=== PATIENT | female | born 1980 | race Caucasian/White ===

== ENCOUNTER 2016-10-22 12:23 | Inpatient (IN) | payer MEDICAID ==
[~2016-10-22] VITALS: Ht 157.5 cm; Wt 61.9 kg
[~2016-10-22 12:23] MED LIST: DESERYL100 MG PO; KLONOPIN0.5 MG PO
[2016-10-22 14:01] LABS: BASOPHILS 0.2 % (0.0-2.0); EOSINOPHILS 0.9 % (0-7); HEMOGLOBIN 9.7 g/dL (12-16); IMMATURE GRANULOCYTES 0.7 % (0-5); LYMPHOCYTES 20.8 % (15-50); MCH 34.3 pg (26.0-34.0); MCHC 32.3 g/dL (31.0-37.0); MEAN PLATELET VOLUME 9.6 fL (7.4-10.4); MONOCYTES 7.5 % (2-11); NEUTROPHILS 69.9 % (40-80); RBC 2.83 10x6/uL (4.00-5.40); RDW 18.6 % (11.5-14.5); WBC 13.8 10x3/uL (4.8-10.8)
[2016-10-22 14:02] LABS: PLATELET COUNT 518 10x3/uL (130-400)
[2016-10-22 14:06] LABS: ALBUMIN 2.8 g/dL (3.4-5.0); ANION GAP 15.4 mmol/L (8-16); BILIRUBIN - TOTAL 0.77 mg/dL (0.2-1.3); CALCIUM 8.4 mg/dL (8.5-10.1); CARBON DIOXIDE 32.9 mmol/L (21.0-32.0); PROTEIN - SERUM 7.3 g/dL (6.4-8.2)
[2016-10-22 14:10] LABS: APPEARANCE SLT CLOUDY (CLEAR); BILIRUBIN NEGATIVE (NEGATIVE); COLOR DK YELLOW (YELLOW); GLUCOSE NEGATIVE (NEGATIVE); KETONE NEGATIVE (NEGATIVE); LEUKOCYTE ESTERASE 2+ (NEGATIVE); NITRITE NEGATIVE (NEGATIVE); PROTEIN NEGATIVE (NEGATIVE); SPECIFIC GRAVITY 1.015 (1.005-1.020)
[2016-10-22 14:11] LABS: BACTERIA MANY /hpf (NONE SEEN); MUCUS <1+ /lpf (NONE SEEN); RED CELLS - URINE OCC /hpf (0-5)
[2016-10-22 14:23] LABS: POTASSIUM - SERUM 2.3 mmol/L (3.5-5.1)
--- NOTE | 2016-10-22 16:23 | NUR ---
Patient Name: DILIA OSULLIVAN Admission Status: ER Accout number: [id number] Admission Date: 10-22-2016 : 1980 Admission Diagnosis: HYPOKALEMIA Attending: FELECIA Current LOS: 1 Anticipated DC Date: 10-25-2016 Planned Disposition: Home Primary [place]: [place] PR[place] OPT[place] Discharge Planning Comments: Cm met with patient to complete initial dc planning assessment. Patient gave consent to complete assessment. Patient lives in at home with her boyfriend. She is independent in her care at home. She denied use of community resources or DME. She denied dc needs at this time. CM will continue to follow and will assist with dc plans/needs. Dimpling Machine Operator: Shaniqua Joseph RN, [facility] [phone] Is the patient Alert and Oriented? Yes * How many steps to enter\exit or inside your home? four * PCP Dr. Whaley * [facility] [address] * Preadmission Environment Home with Family * ADLs Independent * Equipment None * List name and contact numbers for known caregivers / representatives who currently or will assist patient after discharge: Roger Chiang - boyfriend - [phone] * Community resources currently utilized None * Additional services required to return to the preadmission environment? No * Can the patient safely return to the preadmission environment? Yes * Has this patient been hospitalized within the prior 30 days at any hospital? No
[2016-10-22 17:02] VITALS: BP 117/63; BMI 22.0
[2016-10-22 17:05] VITALS: BP 139/87
--- NOTE | 2016-10-22 18:02 | NUR ---
PT SITTING UP IN BED WATCHING TV DENIES NEEDS WILL CONT TO MONITOR
--- NOTE | 2016-10-22 18:54 | NUR ---
PT PULLED OUT PIV IN R FA. CATH TIP INTACT. RESTIED TO LEFT HAND 22G X1 STICK
[2016-10-22 20:00] VITALS: BP 122/78
--- NOTE | 2016-10-23 00:15 | NUR ---
1944)REC'D TALKING ON PHONE. DENIES ANY CONPLAINTS AT PRESENT TIME.WILL CONTINUE TO MONITOR FOR ANY CHGES. AND FOLLOW CURRENT PLAN OF CARE
--- NOTE | 2016-10-23 00:23 | NUR ---
0000)AMB. TO DESK STATES ACHING ALL OVER.HAS NOTHING FOR PAIN ORDERED.HOUSESUPERVISOR HERE.DR. QUEVEDO RIVETING MACHINE OPERATOR TAPE CONTROL.PAGED NO NEW ORDERS REC'D AT PRESENT TIME
--- NOTE | 2016-10-23 00:30 | NUR ---
EMERGENCY SPILL RESPONSE TECHNICIAN AT BEDSIDE FOR VS. NEEDS ADDRESSED AT THIS TIME. CALL LIGHT IN REACH. WILL CONT TO MONITOR.
[2016-10-23 02:00] VITALS: BP 106/68
[2016-10-23 04:00] VITALS: BP 109/71
[2016-10-23 06:02] LABS: BASOPHILS 0.2 % (0.0-2.0); EOSINOPHILS 2.4 % (0-7); IMMATURE GRANULOCYTES 0.7 % (0-5); LYMPHOCYTES 29.3 % (15-50); MCH 33.8 pg (26.0-34.0); MCV 105.5 fL (80.0-100.0); MEAN PLATELET VOLUME 9.7 fL (7.4-10.4); MONOCYTES 9.8 % (2-11); NEUTROPHILS 57.6 % (40-80); PLATELET COUNT 439 10x3/uL (130-400); RDW 18.9 % (11.5-14.5); WBC 10.9 10x3/uL (4.8-10.8)
[2016-10-23 06:10] LABS: HEMATOCRIT 23.1 % (36.0-48.0); HEMOGLOBIN 7.4 g/dL (12-16); RBC 2.19 10x6/uL (4.00-5.40)
[2016-10-23 06:18] LABS: CALC OSMOLALITY 274 mosm/kg (275-300); CALCIUM 7.2 mg/dL (8.5-10.1); CARBON DIOXIDE 31.5 mmol/L (21.0-32.0); CHLORIDE - SERUM 101 mmol/L (98-107); GLUCOSE 105 mg/dL (74-106); SODIUM 139 mmol/L (136-145); UREA NITROGEN 5 mg/dL (7-18)
[2016-10-23 06:30] LABS: CREATININE - SERUM 0.7 mg/dL (0.6-1.3); eGFR NON AFRICAN AMERICAN > 90 mL/min (90-120)
--- NOTE | 2016-10-23 06:34 | NUR ---
0130)DR QUEVEDO PAGED AGAIN WITH NO RESPONSE HOUSESUPERVISOR JAMIL PALMA NOTIFIED
[2016-10-23 07:42] VITALS: BP 111/70
[2016-10-23 07:50] LABS: BASOPHILS 0.2 % (0.0-2.0); EOSINOPHILS 1.8 % (0-7); IMMATURE GRANULOCYTES 0.7 % (0-5); LYMPHOCYTES 25.3 % (15-50); MCH 34.1 pg (26.0-34.0); MCHC 32.2 g/dL (31.0-37.0); MEAN PLATELET VOLUME 9.2 fL (7.4-10.4); MONOCYTES 10.5 % (2-11); NEUTROPHILS 61.5 % (40-80); PLATELET COUNT 400 10x3/uL (130-400); RBC 2.17 10x6/uL (4.00-5.40); RDW 18.9 % (11.5-14.5); WBC 10.1 10x3/uL (4.8-10.8)
[2016-10-23 07:54] LABS: HEMOGLOBIN 7.4 g/dL (12-16)
--- NOTE | 2016-10-23 07:54 | NUR ---
PAGED R/T CL HGB OF 7.4. HE WANTED LAB REPEATED. LAB REDRAWN AND CALLED BACK WITH CL HGB STILL 7.4. STATED HE WILL ADDRESS WHEN HE COMES IN.
[2016-10-23 10:03] VITALS: Ht 157.5 cm; Wt 61.9 kg
[2016-10-23 10:26] LABS: % SATURATION 23 % (15-55); IRON 49 ug/dl (35-150); TOTAL IRON BIND CAPACITY 207 ug/dl (260-445); UNSAT IRON BIND CAPACITY 158 ug/dl (150-375)
--- NOTE | 2016-10-23 10:27 | NUR ---
INITIATED PTS IV CALCIUM GLUCONATE ORDERED. PT STILL C/O PAIN AND CRAMPING, PROVIDED TYLENOL ORDERED. PT DENIES ANY FURTHER NEEDS AT THIS TIME. CL IN REACH. WILL CPOC.
[2016-10-23 11:12] VITALS: BP 111/72
[2016-10-23 15:25] VITALS: BP 122/85
[2016-10-23 20:00] VITALS: BP 122/92
[2016-10-23] MEDS ORDERED: DESERYL100 MG PO (20:11)
[2016-10-23] MEDS ORDERED: KLONOPIN0.5 MG PO (20:11)
[2016-10-23] MEDS ORDERED: PROAIR HFA8.5 GM INH (20:12)
--- NOTE | 2016-10-23 20:13 | NUR ---
PT ASKING FOR SOMETHING STRONGER THAN TYELNOL FOR PAIN, C/O PAIN TO LEGS AND BACK, STATED THAT THE TYLENOL HASNT HELPED. PAGE OUT TO DR PEREZ.
--- NOTE | 2016-10-23 20:39 | NUR ---
HS MEDS GIVEN WITH FRESH ICE WATER. ULTRAM 1 TAB GIVEN FOR C/O PAIN TO LEGS, PT C/O CRAMPING. WILL CONT TO MONITOR.
[2016-10-24] VITALS: BP 117/73
--- NOTE | 2016-10-24 01:04 | NUR ---
RESTING WITH EYES CLOSED, RESPERATIONS EVEN, NO S/S DISTRESS NOTED.
[2016-10-24 04:00] VITALS: BP 111/76
[2016-10-24 04:33] LABS: BASOPHILS 0.1 % (0.0-2.0); EOSINOPHILS 2.4 % (0-7); IMMATURE GRANULOCYTES 1.2 % (0-5); LYMPHOCYTES 26.6 % (15-50); MCHC 31.3 g/dL (31.0-37.0); MEAN PLATELET VOLUME 9.7 fL (7.4-10.4); MONOCYTES 10.5 % (2-11); NEUTROPHILS 59.2 % (40-80); PLATELET COUNT 413 10x3/uL (130-400); RBC 2.12 10x6/uL (4.00-5.40); RDW 19.7 % (11.5-14.5); WBC 11.1 10x3/uL (4.8-10.8)
[2016-10-24 04:49] LABS: HEMOGLOBIN 7.2 g/dL (12-16); MCV 108.5 fL (80.0-100.0)
[2016-10-24 05:07] LABS: CALC OSMOLALITY 279 mosm/kg (275-300); CHLORIDE - SERUM 107 mmol/L (98-107); CREATININE - SERUM 0.8 mg/dL (0.6-1.3); GLUCOSE 107 mg/dL (74-106); PHOSPHOROUS 2.7 mg/dL (2.5-4.9); SODIUM 142 mmol/L (136-145); UREA NITROGEN 4 mg/dL (7-18); eGFR NON AFRICAN AMERICAN 86 mL/min (90-120)
[2016-10-24 05:15] LABS: CALCIUM 6.6 mg/dL (8.5-10.1); MAGNESIUM - SERUM 2.2 mg/dL (1.8-2.4); POTASSIUM - SERUM 3.6 mmol/L (3.5-5.1)
[2016-10-24 05:17] LABS: ALBUMIN 2.1 g/dL (3.4-5.0)
--- NOTE | 2016-10-24 06:16 | NUR ---
SPOKE WITH DR PEREZ, INFORMED HIM OF PTS CRITICAL LABS, NO NEW ORDERS GIVEN AT THIS TIME, DR PEREZ STATED THAT HE "WILL BE THERE IN A LITTLE BIT TO ADDRESS"
[2016-10-24 07:47] VITALS: BP 114/79
[2016-10-24 09:17] LABS: FOLATE (FOLIC ACID) - SERUM 11.7 ng/mL (>3.0)
[2016-10-24 11:06] VITALS: BP 129/90
--- NOTE | 2016-10-24 11:34 | NUR ---
INITIATED PTS BLOOD TRANSFUSION AFTER CONSENTS WERE SIGNED AND PLACED IN CHART. PT RECIEVING IT VIA L.HAND PIV WITH DRSG CDI AND SWAB CAPS IN USE. PRE VITALS 97.7 TEMP, HR 101, BP 113/74, RR 14. WILL CONTINUE TO STAY IN ROOM FOR FIRST 15 MINS TO MAKE SURE NO REACTION IS NOTED. PT DENIES ANY CURRENT PAIN OR NEEDS. CL IN REACH, WILL CPOC.
--- NOTE | 2016-10-24 12:29 | NUR ---
NO REACTION NOTED AFTER FIRST 15MINS OF TRANSFUSION. WILL INCREASE RATE TO 125ML/HR AT THIS TIME. VSS. NO FURTHER NEEDS. WILL CPOC.
--- NOTE | 2016-10-24 14:23 | NUR ---
FIRST UNIT OF PRBCS GIVEN AND NO REACTION NOTED. WILL NOW START SECOND UNIT. VSS. PT RESTING QUIETLY DENIES ANY NEEDS.
[2016-10-24 16:12] VITALS: BP 119/71
[2016-10-24 19:00] VITALS: BP 134/96
--- NOTE | 2016-10-24 22:24 | NUR ---
HS MEDS GIVEN WITH FRESH ICE WATER.
--- NOTE | 2016-10-24 23:30 | NUR ---
ULTRAM 1 TAB GIVEN FOR C/O PAIN, RATES PAIN AT AN 8 ON PAIN SCALE.
--- NOTE | 2016-10-25 02:46 | NUR ---
RESTING WITH EYES CLOSED, RESPERATIONS EVEN, NO S/S DISTRESS NOTED.
--- NOTE | 2016-10-25 06:48 | NUR ---
MEDITECH DOWN THROUGH OUT THE NIGHT, SEE PAPER NARRATIVE.
[2016-10-25 07:43] LABS: BASOPHILS 0.1 % (0.0-2.0); EOSINOPHILS 1.7 % (0-7); IMMATURE GRANULOCYTES 0.7 % (0-5); LYMPHOCYTES 20.6 % (15-50); MCH 31.9 pg (26.0-34.0); MCHC 32.2 g/dL (31.0-37.0); MEAN PLATELET VOLUME 9.6 fL (7.4-10.4); MONOCYTES 9.5 % (2-11); NEUTROPHILS 67.4 % (40-80); PLATELET COUNT 356 10x3/uL (130-400); RDW 23.3 % (11.5-14.5)
[2016-10-25 07:44] LABS: HEMATOCRIT 32.9 % (36.0-48.0); HEMOGLOBIN 10.6 g/dL (12-16); MCV 99.1 fL (80.0-100.0); RBC 3.32 10x6/uL (4.00-5.40); WBC 14.2 10x3/uL (4.8-10.8)
[2016-10-25 08:01] LABS: ALKALINE PHOSPHATASE 172 U/L (46-116); ALT (SGPT) 20 U/L (10-68); BILIRUBIN - TOTAL 0.54 mg/dL (0.2-1.3); CALC OSMOLALITY 275 mosm/kg (275-300); CARBON DIOXIDE 24.9 mmol/L (21.0-32.0); CHLORIDE - SERUM 105 mmol/L (98-107); CREATININE - SERUM 0.6 mg/dL (0.6-1.3); GLUCOSE 91 mg/dL (74-106); PHOSPHOROUS 2.7 mg/dL (2.5-4.9); POTASSIUM - SERUM 3.9 mmol/L (3.5-5.1); PROTEIN - SERUM 5.7 g/dL (6.4-8.2); SODIUM 140 mmol/L (136-145); UREA NITROGEN 5 mg/dL (7-18); eGFR NON AFRICAN AMERICAN > 90 mL/min (90-120)
[2016-10-25 08:02] LABS: MAGNESIUM - SERUM 1.2 mg/dL (1.8-2.4)
[2016-10-25 08:03] LABS: CALCIUM 6.6 mg/dL (8.5-10.1)
[2016-10-25 08:50] VITALS: BP 128/81
[2016-10-25 11:54] VITALS: BP 132/89
[2016-10-25 16:09] VITALS: BP 108/70
[2016-10-25 19:00] VITALS: BP 153/103
--- NOTE | 2016-10-25 19:02 | NUR ---
OT NOTE: PT COMPLETED SELF FEEDING WITH SET UP. PT COMPLETED BUE AROM EXS FOR INCREASED TRACK INSPECTING SUPERVISOR STRENGTH IN RUE. PT COMPLETED BED MOB WITH SBA. THANK YOU, JAMESON MENDEZ/David
--- NOTE | 2016-10-25 22:13 | NUR ---
HS MEDS GIVEN, ULTRAM 1 TAB GIVEN FOR C/O PAIN. RATES PAIN AT AN 8 ON PAIN SCALE.
[2016-10-26] VITALS: BP 126/87
--- NOTE | 2016-10-26 00:56 | NUR ---
RESTING WITH EYES CLOSED, RESPERATIONS EVEN, NO S/S DISTRESS NOTED.
--- NOTE | 2016-10-26 03:41 | NUR ---
LAUNCH LEADER AT BEDSIDE TO OBTAIN VITALS, CALL LIGHT IN REACH. WILL CONTINUE WITH PLAN OF CARE.
[2016-10-26 04:00] VITALS: BP 104/55
[2016-10-26 05:18] LABS: BASOPHILS 0.2 % (0.0-2.0); EOSINOPHILS 1.4 % (0-7); HEMATOCRIT 33.7 % (36.0-48.0); HEMOGLOBIN 10.7 g/dL (12-16); IMMATURE GRANULOCYTES 0.5 % (0-5); LYMPHOCYTES 20.2 % (15-50); MCHC 31.8 g/dL (31.0-37.0); MCV 100.9 fL (80.0-100.0); MEAN PLATELET VOLUME 9.7 fL (7.4-10.4); MONOCYTES 10.2 % (2-11); NEUTROPHILS 67.5 % (40-80); PLATELET COUNT 355 10x3/uL (130-400); RBC 3.34 10x6/uL (4.00-5.40); RDW 22.8 % (11.5-14.5); WBC 12.4 10x3/uL (4.8-10.8)
[2016-10-26 05:37] LABS: ALBUMIN 2.5 g/dL (3.4-5.0); ALKALINE PHOSPHATASE 154 U/L (46-116); ALT (SGPT) 19 U/L (10-68); BILIRUBIN - TOTAL 0.66 mg/dL (0.2-1.3); CALC OSMOLALITY 273 mosm/kg (275-300); CALCIUM 7.1 mg/dL (8.5-10.1); CARBON DIOXIDE 23.4 mmol/L (21.0-32.0); CHLORIDE - SERUM 105 mmol/L (98-107); CREATININE - SERUM 0.7 mg/dL (0.6-1.3); GLUCOSE 88 mg/dL (74-106); MAGNESIUM - SERUM 1.3 mg/dL (1.8-2.4); PHOSPHOROUS 2.7 mg/dL (2.5-4.9); PROTEIN - SERUM 6.2 g/dL (6.4-8.2); SODIUM 139 mmol/L (136-145); UREA NITROGEN 5 mg/dL (7-18); eGFR NON AFRICAN AMERICAN > 90 mL/min (90-120)
[2016-10-26 05:42] LABS: POTASSIUM - SERUM 4.5 mmol/L (3.5-5.1)
--- NOTE | 2016-10-26 08:00 | NUR ---
THADDEUS I SAWAKE AND ALERT. SHE WAS GETTING UP OOB TO THE RESTROOM WITH HER SPOUSE AT THE BEDSIDE. PEDAL EDEMA NOTED. RIGHT HAND WEAKNESS NOTED. HER LUNGS ARE CLEAR, TACHYCARDIA NOTED. SHE IS WEARING HER TELEMETRY. IV INFUSING TO THE TOP OF HER LEFT HAND. THERE IS NO REDNESS OR EDEMA NOTED AT THE INSERTION SITE. SHE STATES THAT THE DOCTOR TELLS HER THAT THE WEAKNESS IN HER RIGHT HAND AND FOOT ARE DUE TO HER MALNUTRITION. SHE STATES THAT SHE IS NOT SUPRISED THAT SHE IS GOING TO HAVE MORE CALCIUM AND MAGNESIUM PIGGYBACKS TODAY.
[2016-10-26 08:24] VITALS: BP 123/72
--- NOTE | 2016-10-26 08:40 | NUR ---
PATIENT IS RESTING QUIELTY WITH EYES CLOSED, RESPIRATIONS ARE DEEP AND EVEN.
--- NOTE | 2016-10-26 09:50 | NUR ---
patient back to bed after walkingin the navarro with PT.
[2016-10-26 11:55] VITALS: BP 150/99
--- NOTE | 2016-10-26 12:23 | NUR ---
PATIENT IS SITTING UP IN HER BED, HOB UP 45 DEGREES. SHE IS EATING HER LUNCH AND HAS REQUESTS FOR CONDAMENTS, RELAYED TO THE KITCHEN.
--- NOTE | 2016-10-26 12:28 | NUR ---
OT NOTE: PT RESTING IN BED; REPORTED NO IMPROVEMENT TO R HAND. CONT TO REPORT SIGNIFICANT FEELING OF EDEMA; PERFORMED RETROGRADE MASSAGE TO R HAND; PT ABLE TO DISTINGUISH AREA OF PAIN TODAY, WHICH WAS THUMB THROUGH 3RD DIGIT..YESTERDAY SHE COULD NOT IDENTIFIY SPECIFIC AREA. PROVIDED AROM EXS AND ELEVATED R HAND
--- NOTE | 2016-10-26 13:16 | NUR ---
Nutrition Consult/Follow Up: Spoke with pt regarding high K+ foods, healthy diet, being more active and decreasing ETOH intake. Pt reported that she eats 3 meals/d and loves fruit. Pt stated that she feels that she has "hit rock bottom" and this has been a "wake up call" to her. She said that she plans to stop drinking alcohol. RD encouraged pt to contact RD with any concerns/questions regarding her diet. Pt is eating 100% meal avg on a regular diet. No BM noted since admit. Wt stable. Meds noted including NS KCl @ 100 ml/hr, Albumin, Vit B12, Flagyl. Labs reviewed - K+ improving; Ca and Mg continue decreased. Thank you for the consult. Rec continue current diet. RD will continue to monitor pt progress.
[2016-10-26 16:21] VITALS: BP 125/56
--- NOTE | 2016-10-26 18:04 | NUR ---
PATIENT SITTING UP IN HER BED, WITH PILLOWS FOR COMFORT. HER IV IS INFUSING TO THE TOP OF HER LEFT HAND.
--- NOTE | 2016-10-26 18:19 | NUR ---
OT NOTE: PT COMPLETED DYNAMIC SITTING BALANCE WITH BUE AROM EXS. PT COMPLETED RUE LIVESTOCK COMMISSION AGENT EXS WITH NO C/O OF PAIN. PT COMPLETED HYGIENE TASK WITH SET UP. THANK YOU, BRUCE MENDEZ
--- NOTE | 2016-10-26 19:35 | NUR ---
RECEIVED REPORT FROM DAY NURSE, BED IS LOW, SRX2, CALL LIGHT IN REACH, WILL CONTINUE TO MONITOR
[2016-10-26 20:00] VITALS: BP 134/76
[2016-10-27] VITALS: BP 118/98
--- NOTE | 2016-10-27 04:17 | NUR ---
CLOTHING DESIGNER AT BEDSIDE TO OBTAIN VITALS, CALL LIGHT IN REACH. WILL CONTINUE WITH PLAN OF CARE.
--- NOTE | 2016-10-27 05:05 | NUR ---
PT UP TO RESTROOM, DENIES ANY NEEDS, WILL CONTINUE TO MONITOR
[2016-10-27 05:21] LABS: BASOPHILS 0.2 % (0.0-2.0); EOSINOPHILS 1.9 % (0-7); HEMATOCRIT 31.9 % (36.0-48.0); IMMATURE GRANULOCYTES 0.3 % (0-5); LYMPHOCYTES 18.1 % (15-50); MCH 32.3 pg (26.0-34.0); MCHC 31.3 g/dL (31.0-37.0); MEAN PLATELET VOLUME 9.7 fL (7.4-10.4); MONOCYTES 10.7 % (2-11); NEUTROPHILS 68.8 % (40-80); PLATELET COUNT 298 10x3/uL (130-400); RDW 22.5 % (11.5-14.5); WBC 12.8 10x3/uL (4.8-10.8)
[2016-10-27 05:22] LABS: MCV 102.9 fL (80.0-100.0)
[2016-10-27 05:52] LABS: ALBUMIN 3.1 g/dL (3.4-5.0); ALKALINE PHOSPHATASE 125 U/L (46-116); ALT (SGPT) 15 U/L (10-68); BILIRUBIN - TOTAL 0.58 mg/dL (0.2-1.3); CALCIUM 7.8 mg/dL (8.5-10.1); CARBON DIOXIDE 21.7 mmol/L (21.0-32.0); CHLORIDE - SERUM 107 mmol/L (98-107); CREATININE - SERUM 0.7 mg/dL (0.6-1.3); GLUCOSE 101 mg/dL (74-106); MAGNESIUM - SERUM 1.5 mg/dL (1.8-2.4); PHOSPHOROUS 2.5 mg/dL (2.5-4.9); PROTEIN - SERUM 6.5 g/dL (6.4-8.2); SODIUM 140 mmol/L (136-145); eGFR NON AFRICAN AMERICAN > 90 mL/min (90-120)
[2016-10-27 05:55] LABS: CALC OSMOLALITY 276 mosm/kg (275-300); POTASSIUM - SERUM 5.2 mmol/L (3.5-5.1); UREA NITROGEN 7 mg/dL (7-18)
--- NOTE | 2016-10-27 07:21 | NUR ---
AM ROUNDING DONE WITH PATIENT APPEARING TO BE SLEEPING ON RIGHT SIDE WITH PILLOW BEHIND BACK FOR COMFORT. RESP ARE EVEN AND NON LABORED. ON ROOM AIR. ON HEART MONITOR SHOWING ST, HR 133. LEFT HAND SEEN WITH NS W 40K INFUSING AT 100 CC/HR. LAB THIS AM OF K+ IS 5.2. MAG IS 1.5, NO REPLACEMENTS FOR THIS. STRICT I AND O. WILL CONTINUE TO FOLLOW AND COMPLETE ASSESSMENT WHEN AWAKE.
--- NOTE | 2016-10-27 08:14 | NUR ---
ASSISTED PATIENT TO RESTROOM PAST GIVING HER PAIN MEDICATION AND KLONOPIN, RATES PAIN 7/10 TO LEGS AND RIGHT HAND. PATIENT IS UNSTEADY ON FEET, STATES THAT SHE HAS BEEN THIS WAY FOR APPROX. A WEEK PRIOR TO ADMIT. 3+ EDEMA SEEN TO BILATERAL FEET, UNABLE TO COMPLETELY CLOSE RIGHT HAND. VOIDS EASILY, [place] HAT PUT BACK INTO TOLIET PATIENT IS ON STRICT I & O. STATES TO UNDERSTANDING. ASSISTED BACK TO BED, BED ALARM SET. CALL LIGHT IN USE.
[2016-10-27 08:19] VITALS: BP 144/94
[2016-10-27 12:44] VITALS: BP 114/72
--- NOTE | 2016-10-27 15:28 | NUR ---
WENT TO GIVE PATIENT HER 1500 DOSE OF NEURONTIN AND SHE IS ASLEEP, RESP ARE EVEN AND NON LABORED. WILL CONTINUE TO FOLLOW.
--- NOTE | 2016-10-27 15:55 | NUR ---
OT NOTE: PT COMPLETED DYNAMIC SITTING BALANCE WITH SBA. PT COMPLETED BUE AROM FOR INCREASED I WITH ADLS. PT COMPLETED GROOMING WITH SET UP. THANK YOU, JAMESON MENDEZ/David
--- NOTE | 2016-10-27 15:58 | NUR ---
OT NOTE: PT VERY LETHARGIC TODAY; DIFFICULT TO AROUSE; REPORTED CONTINUED PAIN AND NUMBNESS IN R HAND, HOWEVER, REPORTED THAT IT WAS BETTER THAN YESTERDAY. CONT TO C/O EDEMA IN B LES; PRACTICED BED MOB WITH SPV, HOWEVER, STANDING BALANCE IS FAIR-; VERY UNSTEADY WHEN ATTEMPTING TO GO TO BATHROOM; PERFORMED CLOTHING MGMT WITH MIN ASSIST FOR MAINTAINING BALANCE. EDUCATED PT ON IMPORTANCE OF CALLING FOR HELP VS ATTEMPTING AMBULATION ALONE. PT REMAINED VERY LETHARGIC THROUGHOUT TMT
[2016-10-27 16:00] VITALS: BP 134/90
--- NOTE | 2016-10-27 17:48 | NUR ---
1745-COMPLAINTS OF PAIN 6/10 TO LEGS AND RIGHT HAND. TRAMADOL AND KLONPIN GIVEN PER REQUEST.
--- NOTE | 2016-10-27 18:37 | NUR ---
WALKED INTO PATIENT'S ROOM AND SHE HAD EMESIS ON THE FLOOR, SITTING ON HER BOTTOM IN IT AND STATES THAT SHE SLIPPED, NO NON SKID SOCKS ON (PATIENT STATES SHE TOOK THEM OFF) AND DID NOT USE THE CALL LIGHT. REPORTS THAT SHE IS FINE. 1838-DR PEREZ NOTIFIED OF THIS ALONG WITH DOG HAIR CLIPPER.
[2016-10-27 19:00] VITALS: BP 137/98
--- NOTE | 2016-10-27 19:42 | NUR ---
SITTING UP IN BED WATCHING TV. DENIES PAIN OR ANY NEEDS. IV IN L HAND INTACT SL. BED ALARM IS ON. ORIENTED TO CALL LIGHT FOR ANY NEEDS.
--- NOTE | 2016-10-27 21:30 | NUR ---
REQUESTED AUTOMATION SPECIALIST TRANSPORT HER VIA TO [facility].
[2016-10-28] VITALS: BP 139/93
--- NOTE | 2016-10-28 01:20 | NUR ---
RESTING WITH EYES CLOSED. NO S/S OF DISTRESS OR DISCOMFORT. RR EVEN U/L. CALL LIGHT IN REACH.
[2016-10-28 04:00] VITALS: BP 148/103
--- NOTE | 2016-10-28 07:05 | NUR ---
RECEIVED REPORT. ASSUMED CARE OF PATIENT. CALL LIGHT WITHIN REACH. ALERT/ORIENTED. COMPLAINS THAT RIGHT ANKLE IS STILL SORE FROM FALL YESTERDAY. ASSISTED PATIENT OOB WITH WALKER. STAND BY ASSIST PROVIDED PATIENT WENT TO RESTROOM. PATIENT RETURN TO BED WITH USE OF WALKER. NO DISTRESS.
[2016-10-28 08:12] VITALS: BP 130/82
[2016-10-28 11:49] VITALS: BP 123/71
--- NOTE | 2016-10-28 11:53 | NUR ---
MEDICATED FOR PAIN AT THIS TIME. NO DISTRESS. SITTING UP IN BED EATING ICE.
--- NOTE | 2016-10-28 13:30 | NUR ---
DRESSING CHANGED TO LEFT HAND IV SITE PER PATIENT REQUEST. NO DISTRESS.
--- NOTE | 2016-10-28 14:15 | NUR ---
MEDICATED FOR ANXIETY AT THIS TIME. NO DISTRESS. ALSO PROVIDED ALEX CRACKERS AND PEANUT BUTTER.
[2016-10-28 15:51] VITALS: BP 135/92
--- NOTE | 2016-10-28 20:20 | NUR ---
ALERT/AWAKE WATCHING TV. RATES PAIN LEVEL AT 8 ON NUMBER SCALE OF BILATERAL FEET/LEGS. SWELLING OF BILATERAL FEET/LEGS NOTED. IV IN L HAND INTACT SL. TELEMETRY SHOWS [address] ON MONITOR. BEDSIDE TABLE AND CALL LIGHT IN REACH.
[2016-10-28 20:57] VITALS: BP 142/94
--- NOTE | 2016-10-28 22:57 | NUR ---
AMBULATED TO HER DOOR WITH WALKER. REQUESTED SOME PEANUT BUTTER.
[2016-10-29 00:30] VITALS: BP 132/85
--- NOTE | 2016-10-29 02:54 | NUR ---
REQUESTED PAIN MEDICATION FOR BILATERAL LEG/FOOT PAIN LEVEL 8 ON NUMBER SCALE. DESCRIBED ACHING/BURNING.
[2016-10-29 04:30] VITALS: BP 132/78
[2016-10-29 05:09] LABS: BASOPHILS 0.3 % (0.0-2.0); EOSINOPHILS 2.3 % (0-7); HEMOGLOBIN 10.5 g/dL (12-16); IMMATURE GRANULOCYTES 0.5 % (0-5); LYMPHOCYTES 21.2 % (15-50); MCH 32.5 pg (26.0-34.0); MCHC 31.8 g/dL (31.0-37.0); MCV 102.2 fL (80.0-100.0); MEAN PLATELET VOLUME 10.2 fL (7.4-10.4); NEUTROPHILS 61.7 % (40-80); PLATELET COUNT 339 10x3/uL (130-400); RBC 3.23 10x6/uL (4.00-5.40); RDW 20.4 % (11.5-14.5); WBC 11.4 10x3/uL (4.8-10.8)
[2016-10-29 05:40] LABS: ALBUMIN 3.2 g/dL (3.4-5.0); ALKALINE PHOSPHATASE 130 U/L (46-116); ALT (SGPT) 19 U/L (10-68); CALC OSMOLALITY 266 mosm/kg (275-300); CALCIUM 9.6 mg/dL (8.5-10.1); CARBON DIOXIDE 27.8 mmol/L (21.0-32.0); CHLORIDE - SERUM 100 mmol/L (98-107); CREATININE - SERUM 0.7 mg/dL (0.6-1.3); GLUCOSE 85 mg/dL (74-106); PHOSPHOROUS 5.5 mg/dL (2.5-4.9); POTASSIUM - SERUM 4.3 mmol/L (3.5-5.1); PROTEIN - SERUM 6.7 g/dL (6.4-8.2); SODIUM 135 mmol/L (136-145); UREA NITROGEN 8 mg/dL (7-18); eGFR NON AFRICAN AMERICAN > 90 mL/min (90-120)
[2016-10-29 05:41] LABS: MAGNESIUM - SERUM 1.5 mg/dL (1.8-2.4)
--- NOTE | 2016-10-29 07:00 | NUR ---
RECEIVED REPORT. ASSUMED CARE OF PATIENT. CALL LIGHT WITHIN REACH. RESTING WITH EYES CLOSED, EASILY AROUSED. RESP EVEN AND UNLABORED. NO DISTRESS. DENIES NEEDS AT THIS TIME.
[2016-10-29 08:12] VITALS: BP 137/75
--- NOTE | 2016-10-29 09:45 | NUR ---
PATIENT IV NOT PATENT. UNABLE TO ADMINISTER MAGNESIUM VIA IV ROUTE PATIENT REFUSES NEW IV PLACEMENT. SPOKE TO AND RECEIVED NEW ORDERS FOR MAGNESIUM IM.
[2016-10-29 11:52] VITALS: BP 116/69
--- NOTE | 2016-10-29 13:44 | NUR ---
MEDICATED FOR PAIN AND ANXIETY AT THIS TIME. NO DISTRESS.
[2016-10-29 15:13] VITALS: BP 110/72
--- NOTE | 2016-10-29 15:30 | NUR ---
PATIENT UP AMBULATING AROUND ROOM, REQUESTING PAPER TO WRITE ON. PAPER PROVIDED. NO DISTRESS. DENIES ANY FURTHER NEEDS.
[2016-10-29 20:00] VITALS: BP 122/81
--- NOTE | 2016-10-29 22:48 | NUR ---
PATIENT IN BED RESTING WITH EYES CLOSED. HAS BEEN UP WITH WALKER AT TIMES. ATE A PM SNACK. AMBULATED WITH POULTRY SCIENTIST IN [place].
[2016-10-30] VITALS: BP 130/92
--- NOTE | 2016-10-30 02:16 | NUR ---
UP IN HALLWAY WANTING A SNACK. USING WALKER TO AMBULATE. ULTRAM 50MG PO GIVEN PRN FOR LEG PAIN OF 8.
[2016-10-30 04:00] VITALS: BP 105/67
[2016-10-30 05:32] LABS: BASOPHILS 0.4 % (0.0-2.0); EOSINOPHILS 1.7 % (0-7); IMMATURE GRANULOCYTES 0.5 % (0-5); LYMPHOCYTES 22.4 % (15-50); MCH 32.8 pg (26.0-34.0); MCHC 31.5 g/dL (31.0-37.0); MCV 104.1 fL (80.0-100.0); MEAN PLATELET VOLUME 10.8 fL (7.4-10.4); MONOCYTES 12.3 % (2-11); NEUTROPHILS 62.7 % (40-80); RBC 3.87 10x6/uL (4.00-5.40); RDW 20.4 % (11.5-14.5); WBC 12.2 10x3/uL (4.8-10.8)
[2016-10-30 05:34] LABS: HEMATOCRIT 40.3 % (36.0-48.0); HEMOGLOBIN 12.7 g/dL (12-16); PLATELET COUNT 435 10x3/uL (130-400)
[2016-10-30 06:26] LABS: ALBUMIN 3.7 g/dL (3.4-5.0); ALKALINE PHOSPHATASE 167 U/L (46-116); CALCIUM 10.4 mg/dL (8.5-10.1); CARBON DIOXIDE 31.3 mmol/L (21.0-32.0); CHLORIDE - SERUM 98 mmol/L (98-107); GLUCOSE 110 mg/dL (74-106); MAGNESIUM - SERUM 1.8 mg/dL (1.8-2.4); POTASSIUM - SERUM 4.3 mmol/L (3.5-5.1); PROTEIN - SERUM 8.1 g/dL (6.4-8.2); SODIUM 139 mmol/L (136-145)
[2016-10-30 06:28] LABS: ALT (SGPT) 31 U/L (10-68); CALC OSMOLALITY 277 mosm/kg (275-300); CREATININE - SERUM 0.9 mg/dL (0.6-1.3); UREA NITROGEN 11 mg/dL (7-18); eGFR NON AFRICAN AMERICAN 75 mL/min (90-120)
[2016-10-30] MEDS ORDERED: TOPROL XL50 MG PO (07:23)
[2016-10-30] MEDS ORDERED: NICODERM C1 PATCH .3 TRANSDERM (07:23)
[2016-10-30] MEDS ORDERED: LASIX40 MG PO (07:24)
[2016-10-30] MEDS ORDERED: K-DUR20 MEQ PO (07:24)
[2016-10-30] MEDS ORDERED: SYNTHROID25 MCG PO (07:25)
[2016-10-30] MEDS ORDERED: SENOKOT-S TABLE1 TAB PO (07:25)
[2016-10-30] MEDS ORDERED: FOLBEE PLUS TAB1 TAB PO (07:26)
[2016-10-30] MEDS ORDERED: VITAMIN B-121000 MCG PO (07:26)
[2016-10-30] MEDS ORDERED: KLONOPIN0.5 MG PO (07:31)
[2016-10-30] MEDS ORDERED: NEURONTIN 300300 MG PO (07:31)
[2016-10-30] MEDS ORDERED: ULTRAM50 MG PO (07:44)
[2016-10-30 08:43] VITALS: BP 117/85
--- NOTE | 2016-10-30 08:55 | NUR ---
ADMINISTERED MORNING MEDICATIONS, AND 50MG OF ULTRAM FOR PAIN LEVEL OF 8/10. PT IN BED WATCHING TV. DENIES ANY OTHER NEEDS AT THIS TIME, CALL LIGHT IN REACH, PT ASSESSED AT THIS TIME, NAD NOTED WILL CONTINUE TO MONITOR.
--- NOTE | 2016-10-30 11:51 | NUR ---
Patient Name: DILIA OSULLIVAN Encounter No: [id number] : 1980 Primary Insurance: [place] PR[place] Anticipated DC Date: 10-30-2016 Planned Disposition: Home WITH HOME HEALTH External Planned Provider: [facility] DCP follow-up note: CM RECEIVED DISCHARGE AND HOME HEALTH ORDER, MET WITH PT IN ROOM, DISCUSSED ORDER, HOME HEALTH PROVIDERS, AVAILABILITY OF REHAB SERVICES AND MEDICAL EQUIPMENT. PT WILL ACCEPT HOME HEALTH, REQUESTED [place], CHOICE SIGNED. PT DENIES FURTHER NEEDS, REPORTS HER BOYFRIEND WILL PICK HER UP FOR DISCHARGE HOME TODAY. CM CALLED [facility], , SPOKE TO REFUGIO WHO TOOK REFERRAL AND WILL ARRANGE HOME HEALTH FOLLOW UP FOR TOMORROW. CM FAXED REFERRAL TO [facility] AT [phone]. NO FURTHER DISCHARGE NEEDS IDENTIFIED. Alexys Chow, CASE MANAGEMENT
--- NOTE | 2016-10-30 12:04 | NUR ---
PROVIDED VERBAL AND WRITTEN DISCHARGE INSTRUCTIONS, PT VERBALIZED UNDERSTANDING REGARDING DISCHARGE TEACHING, NAD NOTED.
--- NOTE | 2016-10-30 12:15 | NUR ---
PT LEFT UNIT VIA WHEELCHAIR, ACCOMPANIED BY FRIEND, NAD NOTED.
== END 2016-10-30 12:15 | disposition home health service (06) | DRG 641 ==
LOC: D.ER 12:23 → D.M2 15:12
PROVIDERS: Emergency Medicine; ADMIT Family Medicine
DX: E87.6 Hypokalemia (principal); N39.0 Urinary tract infection, site not specified; D63.8 Anemia in other chronic diseases classified elsewhere; F10.20 Alcohol dependence, uncomplicated; E88.09 Other disorders of plasma-protein metabolism, not elsewhere classified; E83.51 Hypocalcemia; Z72.0 Tobacco use; E03.9 Hypothyroidism, unspecified; F41.9 Anxiety disorder, unspecified; A59.09 Other urogenital trichomoniasis; R25.2 Cramp and spasm

== ENCOUNTER 2017-11-24 09:24 | Emergency (ER) | payer MEDICAID ==
[2016-10-23 10:03] VITALS: BMI 21.9
[~2017-11-24 09:24] MED LIST changes: +FOLBEE PLUS TAB1 TAB PO; +K-DUR20 MEQ PO; +LASIX40 MG PO; +NEURONTIN 300300 MG PO; +NICODERM C1 PATCH .3 TRANSDERM; +PROAIR HFA8.5 GM INH; +SENOKOT-S TABLE1 TAB PO; +SYNTHROID25 MCG PO; +TOPROL XL50 MG PO; +ULTRAM50 MG PO; +VITAMIN B-121000 MCG PO
[2017-11-24 10:24] LABS: APPEARANCE HAZY (CLEAR); BILIRUBIN NEGATIVE (NEGATIVE); COLOR DK YELLOW (YELLOW); GLUCOSE NEGATIVE (NEGATIVE); KETONE NEGATIVE (NEGATIVE); NITRITE POSITIVE (NEGATIVE); PROTEIN 1+ mg/dL (NEGATIVE); UROBILINOGEN NORMAL (NORMAL)
[2017-11-24 10:32] LABS: BACTERIA MANY /hpf (NONE SEEN); RED CELLS - URINE RARE /hpf (0-5)
[2017-11-24 10:33] LABS: AMORPHOUS SEDIMENT <1+ /lpf (NONE SEEN); UDS - AMPHET POSITIVE QUAL (NEGATIVE); UDS - BARB NEGATIVE QUAL (NEGATIVE); UDS - BENZO NEGATIVE QUAL (NEGATIVE); UDS - COCAINE POSITIVE QUAL (NEGATIVE); UDS - OPIATE NEGATIVE QUAL (NEGATIVE); UDS - PCP NEGATIVE QUAL (NEGATIVE); UDS - THC POSITIVE QUAL (NEGATIVE)
[2017-11-24 11:01] LABS: ALKALINE PHOSPHATASE 97 U/L (46-116); ALT (SGPT) 31 U/L (10-68); BILIRUBIN - TOTAL 0.49 mg/dL (0.2-1.3); CALC OSMOLALITY 276 mosm/kg (275-300); CALCIUM 8.9 mg/dL (8.5-10.1); CARBON DIOXIDE 23.1 mmol/L (21.0-32.0); CHLORIDE - SERUM 104 mmol/L (98-107); CREATININE - SERUM 0.8 mg/dL (0.6-1.3); GLUCOSE 87 mg/dL (74-106); POTASSIUM - SERUM 3.2 mmol/L (3.5-5.1); PROTEIN - SERUM 8.4 g/dL (6.4-8.2); SODIUM 139 mmol/L (136-145); UREA NITROGEN 13 mg/dL (7-18); eGFR NON AFRICAN AMERICAN 86 mL/min (90-120)
[2017-11-24 11:07] LABS: HCG - QUANTITATIVE (MATERNAL) 0 mIU/mL
== END 2017-11-24 15:41 | disposition home or self-care (01) ==
LOC: D.ER 09:24
PROVIDERS: Family Medicine
DX: G91.9 Hydrocephalus, unspecified (principal); N39.0 Urinary tract infection, site not specified; F10.129 Alcohol abuse with intoxication, unspecified; Y04.2XXA Assault by strike against or bumped into by another person, initial encounter; Y93.89 Activity, other specified; Y92.017 Garden or yard in single-family (private) house as the place of occurrence of the external cause; F17.200 Nicotine dependence, unspecified, uncomplicated

== ENCOUNTER 2018-03-16 09:03 | Emergency (ER) | payer MEDICAID ==
[~2018-03-16] VITALS: Ht 157.5 cm; Wt 60.0 kg
[2018-03-16 09:20] VITALS: Ht 157.5 cm; Wt 60.0 kg
[2018-03-16 09:57] LABS: BASOPHILS 0.1 % (0-2); EOSINOPHILS 0.2 % (0-7); HEMATOCRIT 40.5 % (36.0-48.0); HEMOGLOBIN 13.9 g/dL (12-16); IMMATURE GRANULOCYTES 0.3 % (0-5); LYMPHOCYTES 11.9 % (15-50); MCH 32.8 pg (26.0-34.0); MCHC 34.3 g/dL (31.0-37.0); MCV 95.5 fL (80.0-100.0); MEAN PLATELET VOLUME 9.7 fL (7.4-10.4); MONOCYTES 8.4 % (2-11); NEUTROPHILS 79.1 % (40-80); PLATELET COUNT 181 10x3/uL (130-400); RBC 4.24 10x6/uL (4.00-5.40); RDW 19.3 % (11.5-14.5); WBC 12.4 10x3/uL (4.8-10.8)
[2018-03-16 10:05] LABS: APPEARANCE CLOUDY (CLEAR); BILIRUBIN NEGATIVE (NEGATIVE); COLOR DK YELLOW (YELLOW); GLUCOSE NEGATIVE (NEGATIVE); KETONE NEGATIVE (NEGATIVE); NITRITE POSITIVE (NEGATIVE); PROTEIN TRACE mg/dL (NEGATIVE); SPECIFIC GRAVITY 1.015 (1.005-1.020); UROBILINOGEN NORMAL (NORMAL)
[2018-03-16 10:08] LABS: BACTERIA MANY /hpf (NONE SEEN); EPITHELIAL CELLS 0-5 /hpf (0-5); RED CELLS - URINE 0-5 /hpf (0-5)
[2018-03-16 10:14] LABS: ALBUMIN 3.1 g/dL (3.4-5.0); ALKALINE PHOSPHATASE 162 U/L (46-116); ALT (SGPT) 29 U/L (10-68); BILIRUBIN - TOTAL 0.84 mg/dL (0.2-1.3); CALC OSMOLALITY 263 mosm/kg (275-300); CALCIUM 8.1 mg/dL (8.5-10.1); CARBON DIOXIDE 29.4 mmol/L (21.0-32.0); CHLORIDE - SERUM 95 mmol/L (98-107); CREATININE - SERUM 0.9 mg/dL (0.6-1.3); POTASSIUM - SERUM 4.2 mmol/L (3.5-5.1); PROTEIN - SERUM 7.2 g/dL (6.4-8.2); SODIUM 132 mmol/L (136-145); UREA NITROGEN 5 mg/dL (7-18); eGFR NON AFRICAN AMERICAN 75 mL/min (90-120)
[2018-03-16 10:15] LABS: GLUCOSE 132 mg/dL (74-106)
[2018-03-16] MEDS ORDERED: TORADOL10 MG PO (12:05)
[2018-03-16] MEDS ORDERED: MACROBID100 MG PO (12:05)
[2018-03-16 12:20] VITALS: BP 126/72
== END 2018-03-16 12:21 | disposition home or self-care (01) ==
LOC: D.ER 09:03
PROVIDERS: Family Medicine
DX: N39.0 Urinary tract infection, site not specified (principal); F17.200 Nicotine dependence, unspecified, uncomplicated

== ENCOUNTER 2018-03-30 20:44 | Emergency (ER) | payer MEDICAID ==
[~2018-03-30] VITALS: Ht 157.5 cm; Wt 60.0 kg
[~2018-03-30 20:44] MED LIST changes: +MACROBID100 MG PO; +TORADOL10 MG PO
[2018-03-30 20:48] VITALS: Ht 157.5 cm; Wt 60.0 kg
[2018-03-30 21:04] LABS: APPEARANCE CLEAR (CLEAR); BILIRUBIN NEGATIVE (NEGATIVE); COLOR STRAW (YELLOW); GLUCOSE NEGATIVE (NEGATIVE); KETONE NEGATIVE (NEGATIVE); NITRITE NEGATIVE (NEGATIVE); PROTEIN NEGATIVE (NEGATIVE); SPECIFIC GRAVITY 1.005 (1.005-1.020); UROBILINOGEN NORMAL (NORMAL)
[2018-03-30 21:09] LABS: RED CELLS - URINE 0-5 /hpf (0-5); WHITE CELLS - URINE 0-5 /hpf (0-5)
[2018-03-30 21:10] LABS: BACTERIA FEW /hpf (NONE SEEN)
[2018-03-30 21:28] LABS: BASOPHILS 0.3 % (0-2); EOSINOPHILS 0.6 % (0-7); HEMATOCRIT 38.5 % (36.0-48.0); HEMOGLOBIN 13.3 g/dL (12-16); IMMATURE GRANULOCYTES 0.2 % (0-5); MCH 32.7 pg (26.0-34.0); MCHC 34.5 g/dL (31.0-37.0); MCV 94.6 fL (80.0-100.0); MEAN PLATELET VOLUME 9.5 fL (7.4-10.4); MONOCYTES 7.2 % (2-11); NEUTROPHILS 53.7 % (40-80); PLATELET COUNT 323 10x3/uL (130-400); RBC 4.07 10x6/uL (4.00-5.40); RDW 19.4 % (11.5-14.5); WBC 14.3 10x3/uL (4.8-10.8)
[2018-03-30 21:40] LABS: ALBUMIN 3.1 g/dL (3.4-5.0); ALKALINE PHOSPHATASE 108 U/L (46-116); ALT (SGPT) 36 U/L (10-68); BILIRUBIN - TOTAL 0.31 mg/dL (0.2-1.3); CALC OSMOLALITY 284 mosm/kg (275-300); CALCIUM 8.1 mg/dL (8.5-10.1); CARBON DIOXIDE 22.4 mmol/L (21.0-32.0); CHLORIDE - SERUM 107 mmol/L (98-107); CREATININE - SERUM 0.7 mg/dL (0.6-1.3); GLUCOSE 83 mg/dL (74-106); PROTEIN - SERUM 6.6 g/dL (6.4-8.2); SODIUM 145 mmol/L (136-145); UREA NITROGEN 4 mg/dL (7-18); eGFR NON AFRICAN AMERICAN > 90 mL/min (90-120)
[2018-03-30] MEDS ORDERED: VIBRAMYCIN 100100 MG PO (22:09)
[2018-03-30] MEDS ORDERED: CLEOCIN40 GM VG (22:17)
[2018-03-30 22:40] VITALS: BP 130/78
[2018-04-03 22:07] LABS: CHLAMYDIA TRACHOMATIS, NAA Negative (Negative)
== END 2018-03-30 22:41 | disposition home or self-care (01) ==
LOC: D.ER 20:44
PROVIDERS: Emergency Medicine
DX: R30.0 Dysuria (principal); E87.6 Hypokalemia; R05 Cough; F17.200 Nicotine dependence, unspecified, uncomplicated

== ENCOUNTER 2018-11-29 19:17 | Emergency (ER) | payer SELFPAY ==
[~2018-11-29] VITALS: Ht 157.5 cm; Wt 59.1 kg
[~2018-11-29 19:17] MED LIST changes: +CLEOCIN40 GM VG; +VIBRAMYCIN 100100 MG PO
[2018-11-29 19:42] VITALS: Ht 157.5 cm; Wt 59.1 kg
[2018-11-29 20:11] LABS: APPEARANCE CLOUDY (CLEAR); COLOR YELLOW (YELLOW); NITRITE NEGATIVE (NEGATIVE); SPECIFIC GRAVITY 1.015 (1.005-1.020)
[2018-11-29 20:12] LABS: BILIRUBIN NEGATIVE (NEGATIVE); EPITHELIAL CELLS 0-5 /hpf (0-5); GLUCOSE NEGATIVE (NEGATIVE); KETONE NEGATIVE (NEGATIVE); PROTEIN 2+ mg/dL (NEGATIVE); RED CELLS - URINE 0-5 /hpf (0-5); UROBILINOGEN NORMAL (NORMAL); WHITE CELLS - URINE 0-5 /hpf (0-5)
[2018-11-29 20:13] LABS: BACTERIA MANY /hpf (NONE SEEN)
[2018-11-29 20:16] LABS: UDS - AMPHET NEGATIVE QUAL (NEGATIVE); UDS - BARB NEGATIVE QUAL (NEGATIVE); UDS - BENZO NEGATIVE QUAL (NEGATIVE); UDS - COCAINE NEGATIVE QUAL (NEGATIVE); UDS - OPIATE NEGATIVE QUAL (NEGATIVE); UDS - PCP NEGATIVE QUAL (NEGATIVE); UDS - THC POSITIVE QUAL (NEGATIVE)
[2018-11-29 20:31] VITALS: BP 124/78
== END 2018-11-29 20:40 | disposition home or self-care (01) ==
LOC: D.ER 19:17
PROVIDERS: Emergency Medicine
DX: Z00.00 Encounter for general adult medical examination without abnormal findings (principal)

== ENCOUNTER 2018-12-03 13:38 | Inpatient (IN) | payer MEDICAID ==
[~2018-12-03] VITALS: Ht 157.5 cm; Wt 66.7 kg
[2018-12-03 14:59] VITALS: BP 167/88
[2018-12-03 15:15] LABS: BASOPHILS 0.3 % (0-2); EOSINOPHILS 0 % (0-7); HEMATOCRIT 41.7 % (36.0-48.0); HEMOGLOBIN 15.1 g/dL (12-16); IMMATURE GRANULOCYTES 0.2 % (0-5); LYMPHOCYTES 6.5 % (15-50); MCH 37.8 pg (26.0-34.0); MCHC 36.2 g/dL (31.0-37.0); MCV 104.5 fL (80.0-100.0); MEAN PLATELET VOLUME 10.2 fL (7.4-10.4); MONOCYTES 5.1 % (2-11); NEUTROPHILS 87.9 % (40-80); RBC 3.99 10x6/uL (4.00-5.40); WBC 12.7 10x3/uL (4.8-10.8)
[2018-12-03 15:17] LABS: PLATELET COUNT 191 10x3/uL (130-400)
[2018-12-03 15:31] LABS: ALBUMIN 3.8 g/dL (3.4-5.0); ANION GAP 24.5 mmol/L (8-16); BILIRUBIN - TOTAL 3.31 mg/dL (0.2-1.3); CALCIUM 8.5 mg/dL (8.5-10.1); CARBON DIOXIDE 24.1 mmol/L (21.0-32.0); CREATININE - SERUM 0.9 mg/dL (0.6-1.3); PROTEIN - SERUM 8.7 g/dL (6.4-8.2)
[2018-12-03 15:40] LABS: POTASSIUM - SERUM 2.6 mmol/L (3.5-5.1)
[2018-12-03 16:53] VITALS: BP 159/78
[2018-12-03 17:25] LABS: APPEARANCE HAZY (CLEAR); BILIRUBIN NEGATIVE (NEGATIVE); COLOR DK YELLOW (YELLOW); GLUCOSE NEGATIVE (NEGATIVE); KETONE MODERATE mg/dL (NEGATIVE); NITRITE NEGATIVE (NEGATIVE); PROTEIN 1+ mg/dL (NEGATIVE); SPECIFIC GRAVITY 1.025 (1.005-1.020)
[2018-12-03 17:26] LABS: RED CELLS - URINE >50 /hpf (0-5)
[2018-12-03 17:27] LABS: BACTERIA MANY /hpf (NONE SEEN); EPITHELIAL CELLS 0-5 /hpf (0-5); MUCUS <1+ /lpf (NONE SEEN)
[2018-12-03 17:39] VITALS: BP 151/97
[2018-12-03 18:35] VITALS: BP 149/88
[2018-12-03 19:22] VITALS: BP 138/82
[2018-12-03 19:26] LABS: UDS - AMPHET NEGATIVE QUAL (NEGATIVE); UDS - BARB NEGATIVE QUAL (NEGATIVE); UDS - BENZO NEGATIVE QUAL (NEGATIVE); UDS - COCAINE NEGATIVE QUAL (NEGATIVE); UDS - OPIATE NEGATIVE QUAL (NEGATIVE); UDS - PCP NEGATIVE QUAL (NEGATIVE); UDS - THC POSITIVE QUAL (NEGATIVE)
--- NOTE | 2018-12-03 20:34 | NUR ---
PT REPORT CALLED TO ALEXSANDER, FLOOR NURSE, ROOM 1207
[2018-12-03 20:35] VITALS: BP 131/89
--- NOTE | 2018-12-03 21:30 | NUR ---
PT ARRIVED TO M3 WITH HOSPITAL STAFF. PT ALERT AND ORIENTED.
--- NOTE | 2018-12-03 22:30 | NUR ---
PT IN BED IN LOW FOWLERS POSITION WITH HOSPITAL STAFF AT BEDSIDE. ALERT AND ORIENTED X4. RESPIRATIONS EVEN AND UNLABORED. VS STABLE AND AFEBRIL. NO VISUAL CUES OF DISTRESS NOTED. DENIES ANY OTHER NEEDS AT THIS TIME. BED LOW, SIDE RAILS UP X2. CALL LIGHT IN REACH. WILL CONTINUE TO MONITOR.
[2018-12-04] VITALS (7 sets, daily range): BP systolic 124–144; BP diastolic 77–87; Ht 157.5 cm; Wt 66.7 kg
--- NOTE | 2018-12-04 00:15 | NUR ---
PUT ON TELEMETRY FOR PT. CALL LIGHT IN REACH.
--- NOTE | 2018-12-04 02:16 | NUR ---
REST IN BED, RESP EVEN, NO S/S OF DISTRESS, CALL LIGHT IN REACH.
--- NOTE | 2018-12-04 04:28 | NUR ---
I AGREE WITH THE CONDUCTOR SLEEPING CAR ASSESSMENT.
[2018-12-04 07:01] LABS: BASOPHILS 0.4 % (0-2); EOSINOPHILS 2.1 % (0-7); HEMATOCRIT 35.9 % (36.0-48.0); HEMOGLOBIN 12.6 g/dL (12-16); IMMATURE GRANULOCYTES 0.1 % (0-5); LYMPHOCYTES 19.6 % (15-50); MCH 36.8 pg (26.0-34.0); MCHC 35.1 g/dL (31.0-37.0); MEAN PLATELET VOLUME 10.4 fL (7.4-10.4); MONOCYTES 6.7 % (2-11); NEUTROPHILS 71.1 % (40-80); RBC 3.42 10x6/uL (4.00-5.40)
[2018-12-04 07:20] LABS: PLATELET COUNT 128 10x3/uL (130-400); WBC 8.2 10x3/uL (4.8-10.8)
[2018-12-04 07:27] LABS: ALKALINE PHOSPHATASE 220 U/L (46-116); AMYLASE - SERUM 27 U/L (25-115); BILIRUBIN - TOTAL 3.26 mg/dL (0.2-1.3); CALCIUM 7.6 mg/dL (8.5-10.1); CARBON DIOXIDE 28.8 mmol/L (21.0-32.0); CHLORIDE - SERUM 96 mmol/L (98-107); CREATININE - SERUM 0.8 mg/dL (0.6-1.3); GLUCOSE 113 mg/dL (74-106); LIPASE 184 U/L (73-393); SODIUM 136 mmol/L (136-145); eGFR NON AFRICAN AMERICAN 85 mL/min (90-120)
[2018-12-04 07:43] LABS: ALBUMIN 2.8 g/dL (3.4-5.0); ALT (SGPT) 82 U/L (10-68); CALC OSMOLALITY 270 mosm/kg (275-300); MAGNESIUM - SERUM 2.3 mg/dL (1.8-2.4); PROTEIN - SERUM 6.4 g/dL (6.4-8.2); UREA NITROGEN 6 mg/dL (7-18)
[2018-12-04 07:45] LABS: POTASSIUM - SERUM 2.5 mmol/L (3.5-5.1)
--- NOTE | 2018-12-04 09:00 | NUR ---
PT NPO FOR ULTRASOUND CALL LIGHT IN REACH WILL MONITER
[2018-12-04 09:50] LABS: T4 THYROXIN - FREE 1.03 ng/dL (0.76-1.46); THYROID STIMULATING HORMONE 2.42 uIU/mL (0.36-3.74)
[2018-12-04 09:57] LABS: % SATURATION 96 % (15-55); IRON 206 ug/dl (35-150); TOTAL IRON BIND CAPACITY 213 ug/dl (260-445)
[2018-12-04 09:58] LABS: UNSAT IRON BIND CAPACITY 7 ug/dl (150-375)
--- NOTE | 2018-12-04 14:17 | MORECARE ---
CASE MANAGEMENT DISCHARGE SUMMARY PATIENT: DILIA OSULLIVAN UNIT: [id number] ADM DATE: 12/03/18 AGE: 38 : [birth year] SEX: F ROOM/BED: D.1209 AUTHOR: JUDDDOC PHYSICIAN: REFERRING PHYSICIAN: WANDA MERIDA MD DATE OF SERVICE: 12/04/18 Discharge Plan Patient Name: DILIA OSULLIVAN Facility: [facility]:[place] : 1980 Planned Disposition: Home Anticipated Discharge Date: 12/06/18 Discharge Date: Expected LOS: 3 Initial Reviewer: [email or web address] Initial Review Date: 12/03/2018 Generated: 12/04/18 3:17 pm Comments DCP- Discharge Planning Updated by [email or web address]: Shaniqua Trujillo on 12/04/18 1:[address] Patient Name: DILIA OSULLIVAN Admission Status: ER Accout number: [id number] Admission Date: 12-03-2018 : 1980 Admission Diagnosis: Attending: WANDA MERIDA Current LOS: 1 Anticipated DC Date: 12-06-2018 Planned Disposition: Home Primary Insurance: MEDICAID [place] PEND[place] Discharge Planning Comments: CM met with patient to complete initial dc planning assessment. CM educated patient on the CM role and verbal consent given by patient to complete assessment. Cm verified patient's address, phone number, and emergency contact phone numbers. Patient lives at home with her significant other and reports she is independent in her care at home. At discharge patient plans to return home with her significant other and feels this is a safe discharge. CM discussed availability of home health, rehab services, and medical equipment. Patient denied known discharge needs at this time. CM will continue to follow and will assist as needed with dc plans/needs. Fisher Trap: Shaniqua Trujillo RN, [facility] DCPIA - Discharge Planning Initial Assessment Updated by [email or web address]: Shaniqua Trujillo on 12/04/18 2:11 pm * Is the patient Alert and Oriented? Yes * How many steps to enter\exit or inside your home? * PCP Does not have a PCP * [facility] [address] * Preadmission Environment Home with Family * ADLs Independent * Equipment None * List name and contact numbers for known caregivers / representatives who currently or will assist patient after discharge: Roger Chiang - sig other - [phone] * Verbal permission to speak to the caregivers and representatives has been obtained from the patient. Yes * Community resources currently utilized None * Additional services required to return to the preadmission environment? No * Can the patient safely return to the preadmission environment? Yes * Has this patient been hospitalized within the prior 30 days at any hospital? No Patient Name: DILIA OSULLIVAN Page [phone] at 1417 All edits/amendments must be made on the electronic document DICTATION DATE: 12/04/181416 CORPORATE TAX PREPARER: ELICIA 12/04/181416 RPT#: [id number] UT DATE: STATUS: ADM IN [facility] [address] [place] [address] END OF REPORT
[2018-12-04 14:21] LABS: INR 1.12 (0.85-1.17); PROTIME 13.9 SECONDS (11.6-15.0)
--- NOTE | 2018-12-04 16:31 | NUR ---
I have reviewed this patient and I concur with the Shift Assessment completed by the Licensed Practical Nurse today this shift.
--- NOTE | 2018-12-04 19:41 | NUR ---
RESUMING PT CARE. PT IS ALERT LAYING IN BED. NO C/O VOICED. BED IN LOW POSITION WITH CALL LIGHT IN REACH. WILL CONTINUE TO MONITOR PT AND FOLLOW PLAN OF CARE.
[2018-12-05] VITALS: BP 130/83
[2018-12-05 04:00] VITALS: BP 141/84
--- NOTE | 2018-12-05 06:25 | NUR ---
I AGREE WITH TANK TRUCK OPERATOR ASSESSMENT.
[2018-12-05 09:39] VITALS: BP 121/91
[2018-12-05] MEDS ORDERED: LEVAQUIN750 MG PO ×2 (10:32→11:18)
--- NOTE | 2018-12-05 12:41 | MORECARE ---
CASE MANAGEMENT DISCHARGE SUMMARY PATIENT: DILIA OSULLIVAN UNIT: [id number] ADM DATE: 12/03/18 AGE: 38 : [birth year] SEX: F ROOM/BED: D.1209 AUTHOR: JUDDDOC PHYSICIAN: REFERRING PHYSICIAN: WANDA MERIDA MD DATE OF SERVICE: 12/05/18 Discharge Plan Patient Name: DILIA OSULLIVAN Facility: [facility]:[place] : 1980 Planned Disposition: Home Anticipated Discharge Date: 12/06/18 Discharge Date: Expected LOS: 3 Initial Reviewer: [email or web address] Initial Review Date: 12/03/2018 Generated: 12/05/18 1:41 pm Comments DCP- Discharge Planning Updated by [email or web address]: Inga Vegas on 12/05/18 11:[address] Patient Name: DILIA OSULLIVAN Encounter No: [id number] : 1980 Primary Insurance: MEDICAID [place] PEND[place] Anticipated DC Date: 12-06-2018 Planned Disposition: Home External Planned Provider: : DCP follow-up note: Patient and family in agreement with discharge plan. No changes to plan. Case management will follow and assist as needed. Inga Vegas DCP- Discharge Planning Updated by [email or web address]: Shaniqua Trujillo on 12/04/18 1:[address] Patient Name: DILIA OSULLIVAN Admission Status: ER Accout number: [id number] Admission Date: 12-03-2018 : 1980 Admission Diagnosis: Attending: WANDA MERIDA Current LOS: 1 Anticipated DC Date: 12-06-2018 Planned Disposition: Home Primary Insurance: MEDICAID [place] PEND[place] Discharge Planning Comments: CM met with patient to complete initial dc planning assessment. CM educated patient on the CM role and verbal consent given by patient to complete assessment. Cm verified patient's address, phone number, and emergency contact phone numbers. Patient lives at home with her significant other and reports she is independent in her care at home. At discharge patient plans to return home with her significant other and feels this is a safe discharge. CM discussed availability of home health, rehab services, and medical equipment. Patient denied known discharge needs at this time. CM will continue to follow and will assist as needed with dc plans/needs. Forestry Aid: Shaniqua Trujillo RN, [facility] DCPIA - Discharge Planning Initial Assessment Updated by [email or web address]: Shaniqua Trujillo on 12/04/18 2:11 pm * Is the patient Alert and Oriented? Yes * How many steps to enter\exit or inside your home? * PCP Does not have a PCP * [facility] [address] * Preadmission Environment Home with Family * ADLs Independent * Equipment None * List name and contact numbers for known caregivers / representatives who currently or will assist patient after discharge: Roger Chiang - [facility] [place] - [phone] * Verbal permission to speak to the caregivers and representatives has been obtained from the patient. Yes * Community resources currently utilized None * Additional services required to return to the preadmission environment? No * Can the patient safely return to the preadmission environment? Yes * Has this patient been hospitalized within the prior 30 days at any hospital? No Last DP export: 12/04/18 1:17 p Patient Name: DILIA OSULLIVAN Page [phone] at 1241 All edits/amendments must be made on the electronic document DICTATION DATE: 12/05/18 124 MACHINE CHAIN MAKER: ELICIA 12/05/18 1241 RPT#: [id number] DC DATE: STATUS: ADM IN [facility] [address] [place] [address] END OF REPORT
--- NOTE | 2018-12-05 15:50 | MORECARE ---
CASE MANAGEMENT DISCHARGE SUMMARY PATIENT: DILIA OSULLIVAN UNIT: [id number] ADM DATE: 12/03/18 AGE: 38 : [birth year] SEX: F ROOM/BED: D.1209 AUTHOR: JUDDDOC PHYSICIAN: REFERRING PHYSICIAN: WANDA MERIDA MD DATE OF SERVICE: 12/05/18 Discharge Plan Patient Name: DILIA OSULLIVAN Facility: [facility]:[place] : 1980 Planned Disposition: Home Anticipated Discharge Date: 12/06/18 Discharge Date: 12/05/2018 Expected LOS: 3 Initial Reviewer: [email or web address] Initial Review Date: 12/03/2018 Generated: 12/05/18 4:50 pm Comments DCP- Discharge Planning Updated by [email or web address]: Inga Vegas on 12/05/18 11:[address] Patient Name: DILIA OSULLIVAN Encounter No: [id number] : 1980 Primary Insurance: MEDICAID [place] PENDING Anticipated DC Date: 12-06-2018 Planned Disposition: Home External Planned Provider: : DCP follow-up note: Patient and family in agreement with discharge plan. No changes to plan. Case management will follow and assist as needed. Inga Vegas DCP- Discharge Planning Updated by [email or web address]: Shaniqua Trujillo on 12/04/18 1:[address] Patient Name: DILIA OSULLIVAN Admission Status: ER Accout number: [id number] Admission Date: 12-03-2018 : 1980 Admission Diagnosis: Attending: WANDA MERIDA Current LOS: 1 Anticipated DC Date: 12-06-2018 Planned Disposition: Home Primary Insurance: MEDICAID [place] PENDING Discharge Planning Comments: CM met with patient to complete initial dc planning assessment. CM educated patient on the CM role and verbal consent given by patient to complete assessment. Cm verified patient's address, phone number, and emergency contact phone numbers. Patient lives at home with her significant other and reports she is independent in her care at home. At discharge patient plans to return home with her significant other and feels this is a safe discharge. CM discussed availability of home health, rehab services, and medical equipment. Patient denied known discharge needs at this time. CM will continue to follow and will assist as needed with dc plans/needs. Casino Floor Supervisor: Shaniqua Trujillo RN, [facility] DCPIA - Discharge Planning Initial Assessment Updated by [email or web address]: Shaniqua Trujillo on 12/04/18 2:11 pm * Is the patient Alert and Oriented? Yes * How many steps to enter\exit or inside your home? * PCP Does not have a PCP * [facility] [address] * Preadmission Environment Home with Family * ADLs Independent * Equipment None * List name and contact numbers for known caregivers / representatives who currently or will assist patient after discharge: Roger Chiang - sig other - [phone] * Verbal permission to speak to the caregivers and representatives has been obtained from the patient. Yes * Community resources currently utilized None * Additional services required to return to the preadmission environment? No * Can the patient safely return to the preadmission environment? Yes * Has this patient been hospitalized within the prior 30 days at any hospital? No Last DP export: 12/05/18 11:41 a Patient Name: DILIA OSULLIVAN Page 34801 at 1550 All edits/amendments must be made on the electronic document DICTATION DATE: 12/05/18 155 CUSTOM GARMENT DESIGNER: ELICIA 12/05/18 1550 RPT#: [id number] DC DATE:12/05/18 STATUS: DIS IN [facility] [address] [place] [address] END OF REPORT
[2018-12-06 09:15] LABS: HEPATITIS C ANTIBODY <0.1 S/CO RAT (0.0-0.9)
[2018-12-06 22:06] LABS: FOLATE (FOLIC ACID) - SERUM >20.0 ng/mL (>3.0)
== END 2018-12-05 14:10 | disposition home or self-care (01) | DRG 690 ==
LOC: D.ER 13:38 → D.EDHOLD 18:13 → D.M3 18:13 → D.SDCHOLD 12-04 12:24 → D.M3 12-04 12:25
PROVIDERS: Family Medicine; ADMIT Internal Medicine Nephrology; ATTEND Internal Medicine Nephrology
DX: N30.80 Other cystitis without hematuria (principal); E87.1 Hypo-osmolality and hyponatremia; F17.213 Nicotine dependence, cigarettes, with withdrawal; K70.10 Alcoholic hepatitis without ascites; D53.9 Nutritional anemia, unspecified; E87.6 Hypokalemia; E83.42 Hypomagnesemia; F10.10 Alcohol abuse, uncomplicated; B96.1 Klebsiella pneumoniae [K. pneumoniae] as the cause of diseases classified elsewhere

== ENCOUNTER → 2019-02-04 15:21 | Outpatient (CLI) | payer MEDICAID ==
[2018-12-04 17:49] VITALS: BMI 26.9
[~2019-02-04 15:21] MED LIST changes: +LEVAQUIN750 MG PO
== END | disposition home or self-care (01) ==
LOC: D.MRI 01-31 15:30
PROVIDERS: ATTEND Clinical Nurse Specialist Family Health
DX: M25.561 Pain in right knee (principal)

== ENCOUNTER 2019-02-20 08:10 | Day surgery (SDC) | payer MEDICAID ==
[2019-02-18 09:01] LABS: HEMATOCRIT 43.5 % (36.0-48.0); HEMOGLOBIN 15.5 g/dL (12-16); MCH 35.1 pg (26.0-34.0); MCHC 35.6 g/dL (31.0-37.0); MCV 98.4 fL (80.0-100.0); MEAN PLATELET VOLUME 10.1 fL (7.4-10.4); RBC 4.42 10x6/uL (4.00-5.40); RDW 18.9 % (11.5-14.5); WBC 10.4 10x3/uL (4.8-10.8)
[2019-02-18 09:13] LABS: ANION GAP 15.8 mmol/L (8-16); CALCIUM 8.5 mg/dL (8.5-10.1); CARBON DIOXIDE 26.4 mmol/L (21.0-32.0); POTASSIUM - SERUM 3.2 mmol/L (3.5-5.1)
[~2019-02-20] VITALS: Ht 157.5 cm; Wt 68.0 kg
[~2019-02-20 08:10] MED LIST changes: +PREDNISOLONE AC15 ML
[2019-02-20 08:29] VITALS: BP 127/82; Ht 157.5 cm; Wt 68.0 kg
[2019-02-20] MEDS ORDERED: MEPERIDINE HCL50 MG PO (10:17)
--- NOTE | 2019-02-20 19:00 | NUR ---
1400 PT MORE AWAKE UNABLE TO VOID 1500 PT AWAKE AND ALERT 1155 VOIDE WITHOUT DIFFICULTY
--- NOTE | 2019-02-21 09:01 | OP ---
PATIENT NAME: DILIA OSULLIVAN MEDICAL RECORD: [id number] :[birth year] LOCATION:[facility] ADMISSION DATE: SURGEON: GWYN HERNANDEZ MD DATE OF OPERATION: 02/20/2019 PREOPERATIVE DIAGNOSIS: ACL tear of the left knee. POSTOPERATIVE DIAGNOSES: 1. ACL tear of the left knee. 2. Bucket handle medial meniscus tear. PROCEDURES: 1. Arthroscopic anterior cruciate ligament reconstruction - allograft. 2. Arthroscopic partial medial meniscectomy. SURGEON: Gwyn Hernandez MD ANESTHESIA: General. LINK FABRIC MACHINE OPERATOR: Marley López INTRAOPERATIVE COMPLICATIONS: None. SUMMARY OF PATHOLOGIC FINDINGS: Upon knee arthroscopy, the patient was seen to have a bucket-handle meniscus tear. This was photographed intraoperatively prior to resection. The patient also had a full-thickness ACL tear. No substantial damage was seen to the articular surface in any of the compartments. OPERATIVE SUMMARY IN DETAIL: After obtaining the appropriate preoperative orthopedic surgery consent as well as anesthetic consultation, evaluation and clearance, the patient was brought to the operating room and placed on the operating table in supine position. After adequate general laryngeal mask airway was administered, tourniquet was placed about the proximal aspect of the right lower extremity. Right lower extremity was then prepped and draped in a routine sterile fashion. At this point, appropriate preoperative time-out was performed including the patient identifier, operative site along with medications and allergies. All was agreed upon by everyone in the operative suite. The leg was then elevated and exsanguinated, tourniquet was inflated to 350 mmHg. Routine inferolateral portal was established, followed by superomedial portal and inferomedial portal. Diagnostic arthroscopy revealed the above findings. Attention was first turned to removal of the bucket-handle tear of the meniscus. The meniscus was removed and taken back to stable meniscal elements. Essentially, the tear emanated from the posterior lateral corner of the medial meniscus around to approximately the 5 o'clock position. Approximately half of the meniscus had bucketed resulting in a white-white type tear. This was debrided. Attention was then turned to the ACL stump debridement. This was performed. Notchplasty was performed in this type A tight notch. The tunnels were then created through the tibia as well as into the femur. The femoral tunnel was created using the low profile reamer to approximately 26 mm. Passing FiberWire was utilized. This was followed by passing the tails of the TightRope system. Using this, the graft was then passed nicely into the femur as well as the tibia. Having completed this, the TightRope button was deployed to the lateral cortex of the femur. Having completed this, a bicortical screw was placed into the tibia, which was used to secure the FiberWires of the lower bone graft. After this was completely OPERATIVE REPORT [id number] DILIA OSULLIVAN secured, the screw was then tightened flush with the periosteum. Having completed this, the wounds were closed in the usual fashion by Marley López SA. Sterile dressings were applied. Tourniquet was deflated. The patient was placed in a hinged knee brace set at 0-30. She was then awakened and taken to recovery room in stable condition. All final needle and sponge counts were correct. TRANSINT:[id number] Voice Confirmation ID: [id number] DOCUMENT ID: [id number] DAVID SOMMER, GWYN SOTELO at 0901 CC: [id number] DICTATION DATE: 02/20/19 1021 VETERANS' COORDINATOR: 02/20/19 1252 [facility] [place] 02/20/19 [id number] [place] [address]
== END 2019-02-20 16:00 | disposition home or self-care (01) ==
LOC: D.OPS 08:10 → D.PAN 16:00 → D.OPS 16:00
PROVIDERS: Anesthesiology; ATTEND Orthopaedic Surgery
DX: S83.512A Sprain of anterior cruciate ligament of left knee, initial encounter (principal); S83.212A Bucket-handle tear of medial meniscus, current injury, left knee, initial encounter; Z01.812 Encounter for preprocedural laboratory examination

== ENCOUNTER 2019-03-15 23:19 | Inpatient (IN) | payer MEDICAID ==
[~2019-03-15] VITALS: Ht 157.5 cm; Wt 55.3 kg
--- NOTE | ~2019-03-15 | HEMODYNAMI ---
PATIENT:DILIA OSULLIVAN MEDICAL RECORD: [id number] : [birth year] [facility] [id number] ADMISSION DATE: 03/16/19 Generatedon:03/20/201912:13 Patient name: DILIA OSULLIVAN Patient #: [id number] SSN: : 1980 Date of study: 03/20/2019 Page: Of Hemodynamic Procedure Report Patient Data Patient Demographics Procedure consent was obtained First Name: DILIA Gender: Female Last Name: SHI : 1980 Middle Initial: D Age: 38 year(s) Patient #: [id number] Race: Unknown Additional ID: [id number] Contact details [address]: [address] [place] [address] State: [place] City: [place] Zip code: [address] Admission Admission Data Admission Date: 03/16/2019 Admission Time: 14:46 Room #: D.2135 Procedure Procedure Types Cath Procedure Diagnostic Procedure LHC LH w/Coronaries Sedation Charges Moderate Sedation up to 15 minutes Procedure Description Procedure Date Procedure Date: 03/20/2019 Procedure Start Time: 12:04 Procedure End Time: 12:09 Procedure Staff Name Function Tobias Morejon MD Performing Physician Bee Hillman RT Monitor Mary Anne Flynn RT Scrub Dell Beltran RN Nurse Procedure Data Cath Procedure Fluoroscopy Diagnostic fluoroscopy Total fluoroscopy Time: 1 time: 1 min min Diagnostic fluoroscopy Total fluoroscopy dose: 76 dose: 76 mGy mGy Contrast Material Contrast Material Type Amount (ml) Isovue 300 39 Entry Location Entry Primary Successful Side Size Upsize Upsize Entry Closure Succes sful Closure Location (Fr) 1 (Fr) 2 (Fr) Remarks Device Remarks Femoral Right 5 Fr Exoseal artery Estimated blood loss: 5 ml Diagnostic catheters Device Type Used For End Catheter Placement MULTIPACK Pigtail 5 Fr LV Angiography catheter MULTIPACK JL 4.0 5Fr Left Coronary catheter Angiography MULTIPACK 3DRC 5Fr Right Coronary catheter Angiography Procedure Complications No complications Procedure Medications Medication Administration Route Dosage Oxygen etCO2 Nasal cannula 2 l/min Heparin Flush Bag added to field 2 bags (1000units/500ml NS) 0.9% NaCl I.V. 100 ml/hr Lidocaine 2% added to field 20 Fentanyl I.V. 100 mcg Versed I.V. 2 mg Fentanyl I.V. 50 mcg Versed I.V. 1 mg Fentanyl I.V. 50 mcg Hemodynamics Rest Heart Rate: 105 (bpm) Snapshots Pre Cath Intra NCS Post Cath Vital Signs Time Heart Resp SPO2 etCO2 NIBP Rhythm Pain Sedation Rate (ipm) (%) (mmHg) (mmHg) Status Level (bpm) 11:44:17 104 17 97 0 110/74(91) NSR (Missing) 10(A) 11:48:17 103 17 98 0 111/78(90) NSR (Missing) 10(A) 11:52:14 101 17 99 27.8 112/80(95) NSR (Missing) 10(A) 11:56:14 100 17 96 28.6 109/75(93) NSR (Missing) 10(A) 12:00:14 99 16 94 27 102/69(84) NSR (Missing) 10(A) 12:04:13 98 16 94 18 97/68(81) NSR (Missing) 9(A) 12:08:07 96 16 92 27.8 103/80(96) NSR (Missing) 9(A) 12:10:20 99 16 94 23.3 116/76(96) NSR (Missing) 9(A) Medications Time Medication Route Dose Verified Delivered Reason Notes Eff ectiveness by by 11:44:41 Oxygen etCO2 2 Tobias Sharpe Per Nasal l/min Jean-Pierre Beltran RN physician cannula 11:44:51 Heparin Flush added 2 Tobias Sharpe used for Bag to bags Jean-Pierre Beltran RN procedure (1000units/500ml field NS) 11:45:02 0.9% NaCl I.V. 100 Tobias Sharpe Per ml/hr Jean-Pierre Beltran RN physician 11:45:13 Lidocaine 2% added 20ml Tobias Sharpe for local to vial Jean-Pierre Beltran RN anesthetic field 12:00:50 Fentanyl I.V. 100 Tobias Sharpe for mcg Jean-Pierre Beltran RN sedation 12:00:57 Versed I.V. 2 mg Tobias Sharpe for Jean-Pierre Beltran RN sedation 12:05:42 Fentanyl I.V. 50 Tobias Beltran RN sedation 12:05:48 Versed I.V. 1 mg Tobias Beltran RN sedation 12:07:01 Fentanyl I.V. 50 Tobias Beltran RN sedation Procedure Log Time Note 11:12:34 Diagnostic Cath Status : Elective 11:13:06 ACC Patient presents with Stable Angina CCS Anginal Class 2--Slight limitation of ordinary activity. 11:16:47 ACCPatient has been prescribed/administered the following anti-anginal medication within the last 2 weeks: None 11:16:51 Procedure Status Urgent Heart Cath (IP). 11:16:53 Mary Anne Flynn RT(R) sent for patient. Start room use. 11:16:54 Time tracking: Regular hours (M-F 7:00 - 5:00) 11:16:58 Plan of Care:Hemodynamics will remain stable., Cardiac rhythm will remain stable., Comfort level will be maintained., Respiratory function will remain adequate., Patient/ family verbilizes understanding of procedure., Procedure tolerated without complication., Recovers from procedure without complications.. 11:42:54 Patient received from Med II to CCL 3 Alert and oriented. Tansferred to table in Supine position. 11:43:02 Signed procedure consent form obtained from patient. 11:43:03 Warm blankets applied, and fatuma hugger turned on for patient comfort. 11:43:04 Correct patient and procedure confirmed by team. 11:43:04 ECG and BP/O2 sat monitors applied to patient. 11:43:05 Vital chart was started 11:43:09 Baseline sample Acquired. 11:43:14 Rhythm: sinus tachycardia 11:43:17 Full Disclosure recording started 11:43:20 H&P Date Dictated: 03/20/2019 New H&P dictated by physician.. 11:43:22 Pre-procedure instructions explained to patient. 11:43:22 Pre-op teaching completed and patient verbalized understanding. 11:43:23 Family unavailable. 11:43:25 Patient NPO since Midnight. 11:43:27 Is the patient allergic to Iodine/contrast media? No. 11:43:28 Was the patient premedicated? No 11:43:29 Is patient on blood thinner?No 11:43:30 Patient diabetic? No. 11:43:32 Previous problem with sedation/anesthesia? No ? 11:43:34 Snore? Yes 11:43:35 Sleep apnea? No 11:43:36 Deviated septum? No 11:43:37 Opens mouth fully? Yes 11:43:37 Sticks out tongue? Yes 11:43:39 Airway obstruction? No ? 11:43:43 Dentures? No ? 11:43:48 Pre procedure: right dorsailis pedis pulse 1+ Palpable, but thready & weak; easily obliterated 11:43:50 Pre procedure: left dorsailis pedis pulse 1+ Palpable, but thready & weak; easily obliterated 11:43:52 Patient pain scale 0/10 ?. 11:44:00 IV patent on arrival in left forearm with 0.9% NaCl at [facility]. 11:44:02 Lab results completed and on chart. 11:44:10 Right groin area was prepped with chlora-prep and draped in sterile fashion 11:44:11 Alarms reviewed by R. N. 11:44:12 Sharps counted by scrub and verified by R.N. 11:44:41 Oxygen 2 l/min etCO2 Nasal cannula was administered by Dell Beltran RN; Per physician; 11:44:51 Heparin Flush Bag (1000units/500ml NS) 2 bags added to field was administered by Dell Beltran RN; used for procedure; 11:45:02 0.9% NaCl 100 ml/hr I.V. was administered by Dell Beltran RN; Per physician; 11:45:13 Lidocaine 2% 20ml vial added to field was administered by Dell Beltran RN; for local anesthetic; 11:48:21 2) 60-89 Mildly reduced kidney function, and other findings (as for stage 1) point to kidney disease. 11:51:59 Maximum allowable contrast dose (3.7 X eGFR X 0.75)235 ml. 11:58:15 Physician arrived 11:58:15 --------ALL STOP TIME OUT------ 11:58:16 Final Timeout: patient, procedure, and site verified with staff and physician. All members of the team are in agreement. 11:58:19 Right groin site verified by team. 11:58:22 Fire Safety Assessment: A--An alcohol-based skin anteseptic being used preoperatively., C--Open oxygen or nitrous oxide is being used., D--An ESU, laser, or fiber-optic light is being used. 11:58:27 Physical assessment completed. ASA score P 2 - A patient with mild systemic disease as per Tobias Morejon MD. 12:00:50 Fentanyl 100 mcg I.V. was administered by Dell Beltran RN; for sedation; 12:00:57 Versed 2 mg I.V. was administered by Dell Beltran RN; for sedation; 12:01:43 Use device set Femoral Dx 12:01:44 ACIST Syringe (50801) opened to sterile field. 12:01:45 Bag Decanter (2002S) opened to sterile field. 12:01:45 Medline Cath Pack ([id number]) opened to sterile field. 12:01:46 ACIST Hand Control (08136) opened to sterile field. 12:01:47 ACIST Manifold (46661) opened to sterile field. 12:01:47 DIAGNOSTIC Multipack 5Fr catheter set (QL1252) opened to sterile field. 12:01:48 Tegaderm 4 x 4 (1626W) opened to sterile field. 12:01:50 EMERALD Guide Wire (493-298) opened to sterile field. 12:01:50 SHEATH 5FR [place] (MFE561) opened to sterile field. 12:04:27 Procedure started. 12:04:30 Local anesthetic to right femoral artery with Lidocaine 2% by Tobias Morejon MD.INITIAL ACCESS ONLY 12:04:44 A 5 Fr sheath was inserted into the Right Femoral artery 12:05:19 A MULTIPACK Pigtail 5 Fr catheter was advanced over the wire and used for LV Angiography. 12:05:25 LV hemodynamics recorded. 12:05:26 LV gram done using BLOOM 12:05:32 EF : 55 % 12:05:37 Injector settings: Ml/sec: 5, Volume: 15, 12:05:38 Catheter removed. 12:05:42 Fentanyl 50 mcg I.V. was administered by Dell Beltran RN; for sedation; 12:05:42 A MULTIPACK JL 4.0 5Fr catheter was advanced over the wire and used for Left Coronary Angiography. 12:05:48 Versed 1 mg I.V. was administered by Dell Beltran RN; for sedation; 12:06:11 LCA angiography performed. 12:06:18 Injector settings: Ml/sec: 3, Volume: 6, 12:06:42 Catheter removed. 12:06:46 A MULTIPACK 3DRC 5Fr catheter was advanced over the wire and used for Right Coronary Angiography. 12:07:01 Fentanyl 50 mcg I.V. was administered by Dell Beltran RN; for sedation; 12:07:27 RCA angiography performed. 12:07:31 Injector settings: Ml/sec: 3, Volume: 6, 12:07:34 Catheter removed. 12:07:35 ACCDominant side:Right 12:07:42 EXOSEAL 5Fr (EX500) opened to sterile field. 12:07:51 Sheath removed intact; hemostasis achieved with Exoseal to the Right Femoral artery. 12:07:53 Procedure ended.(Physican Out) 12:08:15 Fluoroscopy time 01.00 minutes. 12:08:20 Flurop Dose total: 76 12:08:20 Fluoroscopy dose: 76 mGy 12:08:33 Dose Area Product 573 mGy/cm. 12:08:37 Contrast amount:Isovue 300 39ml. 12:08:38 Sharps counted by scrub and verified by R.N. 12:08:40 Insertion/operative site no bleeding no hematoma. 12:08:44 Post-op/insertion site Right Femoral artery dressed using a 4 x 4 and Tegaderm. 12:08:46 Post Procedure Pulses reassessed and unchanged 12:08:49 Post procedure rhythm: unchanged. 12:08:52 Estimated blood loss: 5 ml 12:08:54 Post procedure instruction explained to patient.Patient verbalizes understanding. 12:08:54 Patient needs reinforcement of post procedure teaching. 12:09:02 Procedure type changed to Cath procedure, Diagnostic procedure, LHC, LHC w/Coronaries, Sedation Charges, Moderate Sedation up to 15 minutes 12:09:04 Procedure and supply charges have been captured, reviewed, submitted and are correct. 12:09:08 Procedure Complication : No complications 12:09:41 Vital chart was stopped 12:09:42 See physician's report for complete and final results. 12:09:44 Report given to Med II. 12:09:47 Patient transfered to Med II with Stretcher. 12:09:50 Procedure ended. 12:09:50 Full Disclosure recording stopped 12:09:57 End room use (Document Last) Device Usage Item Name Manufacture Quantity Catalog Hospital Part Current Minimal L ot# / Number Charge Number Stock Stock Serial# Code ACIST Acist 1 22208 336290 782941 149872 20 Syringe Medical (13195) Systems Inc Bag Microtek 1 2001S 599690 95875 064881 5 Decanter Medical Inc. () Medline Medline 1 [id number] 457782 62417 258402 5 Cath Pack ([id number]) ACIST Hand Acist 1 40208 788246 584318 694237 5 Control Medical (49423) Systems Inc ACIST Acist 1 63979 615161 460255 330667 5 Manifold Medical (23964) Systems Inc DIAGNOSTIC Cardinal 1 KC5091 433962 87125 597140 30 Multipack Health 5Fr catheter set (DX6269) Tegaderm 4 3M 1 1626W 719866 006956 876203 5 x 4 (1626W) EMERALD Cardinal 1 502-455 841451 183396 630214 5 Guide Wire Health (502-455) SHEATH 5FR Terumo 1 CEP552 029550 015106 292830 5 [place] (WME460) MULTIPACK Cardinal 1 653091 5 Pigtail 5 Health Fr catheter MULTIPACK Cardinal 1 139316 5 JL 4.0 5Fr Health catheter MULTIPACK Cardinal 1 544626 5 3DRC 5Fr Health catheter EXOSEAL 5Fr Cardinal 1 EX500 613452 344271 295101 10 (EX500) Health Signature Audit [place] Stage Time Signature Unsigned Intra-Procedure 03/20/2019 Bee Hillman 12:13:38 PM RT(R) Signatures Performing Physician : Signature : Tobias Morejon MD Date : Time : Monitor : Bee Hillman RT Signature : Date : Time : Nurse : Dell Beltran RN Signature : Date : Time : [address] [place] [address]
[~2019-03-15 23:19] MED LIST changes: +MEPERIDINE HCL50 MG PO
--- NOTE | 2019-03-16 00:15 | NUR ---
DR. MEDRANO NOTIFIED AND REVIEWED PT'S BEHAVIOR AND ASSESSMENT RESULTS. PT IS A LOW RISK PER DR. MEDRANO. DR. MEDRANO STATED TO GIVE RESOURCES TO PT AT TIME OF DISCHARGE. NO FURTHER ORDERS AT THIS TIME. RESOURCES REVIEWED WITH PT AND SHE VERBALIZED UNDERSTANDING.
--- NOTE | 2019-03-16 00:17 | NUR ---
BLOOD DRAWN DURING IV START. SENT WITH LAB FOR TESTING.
--- NOTE | 2019-03-16 00:18 | NUR ---
BEHAVIORAL HEALTH NURSE AT BEDSIDE FOR SCREENING AT THIS TIME.
--- NOTE | 2019-03-16 00:25 | NUR ---
NO SITTER NECESSARY PT IS LOW RISK PER PSYCH SCREENER. PT WAS GIVEN APPLESAUCE.
[2019-03-16 00:28] LABS: APPEARANCE HAZY (CLEAR); BILIRUBIN 2+ (NEGATIVE); COLOR DK YELLOW (YELLOW); GLUCOSE NEGATIVE (NEGATIVE); KETONE NEGATIVE (NEGATIVE); NITRITE POSITIVE (NEGATIVE); PROTEIN TRACE mg/dL (NEGATIVE); SPECIFIC GRAVITY 1.015 (1.005-1.020)
[2019-03-16 00:30] LABS: UDS - AMPHET POSITIVE QUAL (NEGATIVE); UDS - BARB NEGATIVE QUAL (NEGATIVE); UDS - BENZO NEGATIVE QUAL (NEGATIVE); UDS - COCAINE NEGATIVE QUAL (NEGATIVE); UDS - OPIATE POSITIVE QUAL (NEGATIVE); UDS - PCP NEGATIVE QUAL (NEGATIVE); UDS - THC POSITIVE QUAL (NEGATIVE)
[2019-03-16 00:33] LABS: BACTERIA MODERATE /hpf (NONE SEEN); EPITHELIAL CELLS 0-5 /hpf (0-5); RED CELLS - URINE RARE /hpf (0-5)
[2019-03-16 00:34] LABS: HEMATOCRIT 41.1 % (36.0-48.0); HEMOGLOBIN 14.3 g/dL (12-16); MCH 35.2 pg (26.0-34.0); MCHC 34.8 g/dL (31.0-37.0); MCV 101.2 fL (80.0-100.0); MEAN PLATELET VOLUME 10.6 fL (7.4-10.4); PLATELET COUNT 334 10x3/uL (130-400); RBC 4.06 10x6/uL (4.00-5.40); RDW 18.8 % (11.5-14.5); WBC 35.5 10x3/uL (4.8-10.8)
[2019-03-16 00:34] LABS: AMORPHOUS SEDIMENT >1+ /lpf (NONE SEEN); MUCUS <1+ /lpf (NONE SEEN)
[2019-03-16 00:36] LABS: ALBUMIN 3.2 g/dL (3.4-5.0); ANION GAP 27.7 mmol/L (8-16); BILIRUBIN - TOTAL 3.22 mg/dL (0.2-1.3); CALCIUM 9.2 mg/dL (8.5-10.1); CARBON DIOXIDE 19.3 mmol/L (21.0-32.0); CREATININE - SERUM 2.2 mg/dL (0.6-1.3); PROTEIN - SERUM 7.5 g/dL (6.4-8.2)
--- NOTE | 2019-03-16 00:51 | NUR ---
PROVIDED PATIENT WITH WARM BLANKET AND SOCKS.
[2019-03-16 01:11] LABS: LYMPHOCYTES 6 % (15-50); MONOCYTES 6 % (2-11); NEUTROPHILS 86 % (40-80)
[2019-03-16 01:12] LABS: PLATELET ESTIMATE NORMAL; PLATELET MORPHOLOGY GIANT PLTS PRESENT; STOMATOCYTES 2+
[2019-03-16 01:14] VITALS: BP 96/53
[2019-03-16 01:29] VITALS: BP 103/69
--- NOTE | 2019-03-16 01:45 | NUR ---
PT ARRIVED TO UNIT VIA WC PROPELLED BY A ER NURSE. ADMITTED TO ROOM [address] JIGAR YOO. PT IS VERY AGITATED, AND YELLING AT UNSEEN PEOPLE. SHE STATES: "IM NOT HALLUCINATING, IM JUST TIRED OF THEIR STUFF. (STUFF IS NOT THE WORDS SHE USED.) PT CONSTANTLY YELLING AT THE REFLECTIONS IN THE WINDOW, THREATENING THEM WITH VARIOUS FOUL LANGUAGE. AT ONE POINT SHE LOOKED AT ME AND STATED: "IM TIRED OF ALL THIS SEXUAL HARRASEMENT." I ASKED WHAT SHE MEANT, AND SHE REPLIED. " IM NOT SAYING ANYTHING MORE ABOUT IT, JACI DEALT WITH IT ALL DAY, AND THIS IS IT." WINDOWS AND MIRROR COVERED WITH SHEETS. PT BACK AND FORTH TO BATHROOM FREQUENTLY. VOIDING DROPS ONLY. PT PUT HER OWN SR'S UP ON HER BED X 4. WHEN ASKED TO LEAVE ONE DOWN, SHE REPLIED: "STFU, ITS NONE OF YOUR BUSINESS."
[2019-03-16 02:02] VITALS: BP 95/60
--- NOTE | 2019-03-16 02:50 | NUR ---
PT REFUSING IV FLUIDS AND TELEMETRY.
[2019-03-16 03:51] VITALS: BP 95/60; BMI 22.2
--- NOTE | 2019-03-16 04:07 | NUR ---
PT PULLED OUT HER IV STATING: "IM TIRED OF THAT MOTHER.F ER BEEPING." I INFORMED HER THAT THE FLUIDS WERE NECESSARY TO HELP HER, AND SHE STATED: "I DONT CARE, YOUR NOT STICKING ME AGAIN."
--- NOTE | 2019-03-16 04:20 | NUR ---
ATTEMPTED TO DO COMPLETE ADMISSION ASSESSMENT. PT BELLIGERENT, CURSING, PACING AND WILL NOT PROVIDE ANY INFO TO NURSE. IV NS @ 250ML/HR WAS INFUSING TO LEFT A/C, BUT HAS SINCE BEEN PULLED OUT. PT DRINKING COPIOUS AMOUNTS OF WATER AND FREQUENTLY IN/OUT OF BATHROOM. PT PROVIDING NO SOCIAL HISTORY, NO CURRENT FAMILY OR HOME ENVIRONMENT HISTORY. STAFF HAVE COVERED WINDOW AND MIRROR BECAUSE PATIENT KEEPS SEEING HER OWN REFLECTION AND DEMANDING TO KNOW WHO IS WATCHING HER. PT REPEATEDLY USING FOUL AND INAPPROPRIATE LANGUAGE TO ALL STAFF THAT ENTER THE ROOM.
--- NOTE | 2019-03-16 08:00 | NUR ---
ALERT AND ORIENTED TO PERSON. FOUND IN ANOTHER PATIENT'S ROOM. DIRECT BACK TO ROOM. AGGRESSIVELY STATES, "YOU DON'T WANT TO PISS ME OFF I PROMISE. DON'T TELL ME WHAT TO DO." STARTS TALKING TO PEOPLE NOT THERE. DOOR LEFT OPEN FOR MONITORING. REFUSES TO STAY IN ROOM. BAR ATTENDANT NOTIFIED.
[2019-03-16 08:33] VITALS: BP 106/46
--- NOTE | 2019-03-16 10:20 | NUR ---
ALERT AND ORIENTED TO PERSON AND PLACE. HALLUCINATING YELLING OUT TO PEOPLE NOT THERE. FOUND IN EMPLOYEE PARKING LOT IN THE [place]. SECURITY CALLED TO ASSIST BACK INSIDE TO ROOM. ASSET ADMINISTRATOR NOTIFIED. SUICIDE SCREENING COMPLETE. NOTIFY GROUP HOME PER SCREENING PROTOCOL. THROWING DRINKS IN ROOM. CONTINUES WALKING OUT OF ROOM IN BRA. REFUSE HOUSE CLEANING. GETS AGGRESSIVE WHEN REDIRECTED TO ROOM.
--- NOTE | 2019-03-16 10:50 | NUR ---
PATIENT VEHEMENTLY DENIES ANY SUICIDAL THOUGHTS OR PLAN. PATIENT STATED, "I WOULD NEVER KILL MYSELF, BUT THERE ARE A COUPLE OF PEOPLE THAT I WOULD KILL." DR MEDRANO NOTIFIED AND REVIEWED PT'S BEHAVIOR AND ASSESSMENT RESULTS. PT. IS A LOW RISK PER DR MEDRANO. DR MEDRANO STATED TO GIVE RESOURCES TO PATIENT AT TIME OF DISCHARGE. NO FURTHER ORDERS AT THIS TIME. RESOURCES REVIEWED WITH PT. AND SHE VERBALIZED INSTRUCTIONS. PT PACING ABOUT ROOM EXHIBITING VERY BIZARRE BEHAVIOR. HIGH RISK FOR ELOPEMENT. SECURITY POSTED OUTSIDE ROOM.
--- NOTE | 2019-03-16 16:49 | NUR ---
ALERT. YELLING OUT TO PEOPLE NOT THERE. GUARD AT SITTING IN FRONT OF ROOM WITH DOOR OPEN. AUGUST INEFFECTIVE. CONTINUE PLAN OF CARE AND SAFETY PRECAUTIONS.
--- NOTE | 2019-03-16 19:22 | NUR ---
PT RESTING IN RECLINER IN HER ROOM WITH EYES CLOSED. NOT AWOKEN AT THIS TIME. PRE PAROLE COUNSELING AIDE INSTRUCTED TO LET HER SLEEP.
--- NOTE | 2019-03-16 19:39 | NUR ---
PT AWOKE, AND WALKED OUT OF HER ROOM. SECURITY ASKED HER TO PLEASE RETURN TO HER ROOM. SHE TURNED AROUND AND WALKED INTO THE WALL, AND THEN RETURNED TO SITTING IN THE CHAIR IN HER ROOM.
--- NOTE | 2019-03-16 21:12 | NUR ---
PT RESTING IN RECLINER WITH EYES CLOSED. NO DISTRESS NOTED.
--- NOTE | 2019-03-17 00:42 | NUR ---
PT RESTING IN BED WITH EYES CLOSED.
--- NOTE | 2019-03-17 03:00 | NUR ---
PT AWAKE IN ROOM. NEW LINENS PUT ON BED. PT RETURNED TO BED, AND DRIFTED OFF QUICKLY.
[2019-03-17 06:15] LABS: BASOPHILS 0.1 % (0-2); EOSINOPHILS 1.5 % (0-7); IMMATURE GRANULOCYTES 0.4 % (0-5); LYMPHOCYTES 16.4 % (15-50); MCH 34.1 pg (26.0-34.0); MCHC 34.5 g/dL (31.0-37.0); MEAN PLATELET VOLUME 10.3 fL (7.4-10.4); MONOCYTES 6.7 % (2-11); NEUTROPHILS 74.9 % (40-80); RDW 18.8 % (11.5-14.5)
[2019-03-17 06:40] LABS: CALCIUM 7.9 mg/dL (8.5-10.1); PHOSPHOROUS 3.7 mg/dL (2.5-4.9)
[2019-03-17 06:41] LABS: CARBON DIOXIDE 30.8 mmol/L (21.0-32.0); CREATININE - SERUM 0.9 mg/dL (0.6-1.3); POTASSIUM - SERUM 2.8 mmol/L (3.5-5.1)
[2019-03-17 06:45] LABS: HEMOGLOBIN 10.7 g/dL (12-16); MCV 98.7 fL (80.0-100.0); PLATELET COUNT 194 10x3/uL (130-400); RBC 3.14 10x6/uL (4.00-5.40); WBC 12.4 10x3/uL (4.8-10.8)
--- NOTE | 2019-03-17 07:20 | NUR ---
PT RESTING IN BED, SHIFT ASSESSMENT PERFORMED. DENIES ANY NEEDS AT THIS TIME, WILL CONT TO FOLLOW POC
--- NOTE | 2019-03-17 07:41 | NUR ---
PT AWAKE AND ORIENTED AT THIS TIME. APPOLOGIZES FOR HER BEHAVIOR YESTERDAY STATING SHE DOES NOT REMEMBER ALL OF IT. STATES ALL SHE REMEMBERS WAS HAVING A DREAM ABOUT BEING CHASED BY A VAMPIRE. PT REQUESTS I CLOSER HER DOOR, DENIED AND EXPLAINED WHY BUT DID CLOSE CUSTODIAL. STATES HER FINGER IS HURTING UNDER THE BANDAID BUT WILL NOT ALLOW ME TO TAKE IT OFF. CL IN REACH, SRX2. NO COMPLAINTS OR CONCERNS AT THIS TIME, ALL QUESTIONS ANSWERED TO THE BEST OF MY ABILITY. NO FAMILY PRESENT AT THIS TIME.
[2019-03-17 08:25] VITALS: BP 87/48
--- NOTE | 2019-03-17 09:45 | NUR ---
PT HAS BEEN ASLEEP MOST OF THE MORNING. ONLY WOKE A FEW TIMES TO REQUEST WE SHUT THE DOOR MORE. CL IN REACH, SRX2. DOOR NURSING HOME CLOSED.
[2019-03-17 12:22] VITALS: BP 101/57
--- NOTE | 2019-03-17 12:43 | NUR ---
SPOKE WITH ROSA MARIA ADKINS, PER DR. MEDRANO'S NOTE, DECIDED PT CAN BE D/C'D FROM NEEDING A SITTER AT THIS TIME. PT HAS BEEN A STABLE MOOD ALL DAY. NO SCREAMING OUT, CUSSING, INNAPROPRIATE BEHAVIOR, KENNEY STREAKING HAS BEEN NOTED. PT HAS NOT ATTEMPTED TO ESCAPE THE AREA. PT DENIES DRUG ABUSE AND STATES SHE'S FEELING BETTER NOW. HAS BEEN SLEEPING PERIODICALLY, WAKING EASILY FOR FOOD OR BATHROOM. CL IN REACH, SRX2. WILL MONITOR FROM NURSING SIDE OF THINGS.
[2019-03-17 16:35] VITALS: BP 117/68
--- NOTE | 2019-03-17 18:54 | NUR ---
PT AWAKE AND ORIENTED. REMOVED DRESSING ON FINGER, CLEANED, DRIED AND REDRESSED WOUND. ABOUT 1.5" LONG. HAS SOME YELLOW DRAINAGE. CL IN REACH, SRX2. OVERHEARD PT DISCUSSING SOME PILLS AND WHERE SHE HID HER METH ON THE TELAPHONE. WILL INFORM INWARD TOLL OPERATOR NNURSE TO KEEP AN EYE OUT.
--- NOTE | 2019-03-17 19:47 | NUR ---
IN BED WITH TV ON, ABLE TO VOICE ALL NEEDS, NO IV SITE AT THIS TIME, ASKED ABOUT A LEOPARD PRINT PURSE SHE MIGHT HAVE BROUGHT IN WITH HER, CHECKED ADMISSION RECORDS AND NO PERSONAL BELONGING MATCHING THAT DESCRIPTION WAS ENTERED, SHE STATED OK AND THEN SAID, SOMEONE FROM THE NEIGHBORHOOD MUST HAVE TAKEN IT, BUT PATIENT WAS FINE WITH ANSWER, DENIED ANY PAIN OR DISTRESS AT THIS TIME. GUARD STILL AT DOOR.
[2019-03-17 20:20] VITALS: BP 93/51
--- NOTE | 2019-03-17 22:30 | NUR ---
AT 2130 PT REQUESTED MEDICATION FOR GENERALIZED DISCOMFORT, TYLENOL 650 GIVEN PER ORDERS. AT THIS TIME, MEDICATION IS DEEMED EFFECTIVE DUE TO RESTING QUIETLY IN BED WITH NO S/S OF ANY DISCOMFORT NOTICED. WILL NOTE ANY CHANGE.
[2019-03-17 22:54] VITALS: BP 102/56
--- NOTE | 2019-03-18 02:35 | NUR ---
HAS RESTED WELL THIS SHIFT, HAS NOT REQUESTED ANY MEDICATION FURTHER THIS SHIFT, WILL NOTE ANY CHANGE TO PT.
--- NOTE | 2019-03-18 03:50 | NUR ---
I have reviewed this patient and I concur with the Shift Assessment completed by the Licensed Practical Nurse today this shift.
[2019-03-18 04:00] VITALS: BP 91/47
[2019-03-18 06:50] LABS: BASOPHILS 0.1 % (0-2); HEMATOCRIT 29.5 % (36.0-48.0); IMMATURE GRANULOCYTES 0.5 % (0-5); LYMPHOCYTES 20.9 % (15-50); MCHC 33.9 g/dL (31.0-37.0); MCV 100.3 fL (80.0-100.0); MEAN PLATELET VOLUME 10.9 fL (7.4-10.4); NEUTROPHILS 68.5 % (40-80); PLATELET COUNT 180 10x3/uL (130-400); RBC 2.94 10x6/uL (4.00-5.40); RDW 19.4 % (11.5-14.5)
[2019-03-18 06:52] LABS: ALBUMIN 2.2 g/dL (3.4-5.0); ALKALINE PHOSPHATASE 201 U/L (46-116); ALT (SGPT) 54 U/L (10-68); CALC OSMOLALITY 279 mosm/kg (275-300); CALCIUM 8.2 mg/dL (8.5-10.1); CARBON DIOXIDE 28.6 mmol/L (21.0-32.0); CHLORIDE - SERUM 102 mmol/L (98-107); CREATININE - SERUM 0.8 mg/dL (0.6-1.3); GLUCOSE 110 mg/dL (74-106); POTASSIUM - SERUM 3.2 mmol/L (3.5-5.1); PROTEIN - SERUM 5.5 g/dL (6.4-8.2); SODIUM 141 mmol/L (136-145); UREA NITROGEN 6 mg/dL (7-18); eGFR NON AFRICAN AMERICAN 85 mL/min (90-120)
--- NOTE | 2019-03-18 07:00 | NUR ---
RECEIVED REPORT. ASSUMED CARE OF PATIENT. PATIENT SITTING TO SIDE OF BED. RESP EVEN AND UNLABORED. NO DISTRESS. DENIES NEEDS AT THIS TIME. NO DISTRESS. PATIENT HAS GAURD OUTSIDE OF PATIENT ROOM.
--- NOTE | 2019-03-18 08:00 | NUR ---
MEDICATED FOR BACK PAIN. PATIENT JUST OUT OF SHOWER. NO DISTRESS. AZEB LIGHT WITHIN IN REACH.
[2019-03-18 08:02] VITALS: BP 102/57
[2019-03-18 11:19] VITALS: BP 104/64
--- NOTE | 2019-03-18 13:16 | NUR ---
NEW BANDAGE APPLIED TO LEFT INDEX FINGER. NO DISTRESS. CALL LIGHT WIHTIN REACH.
[2019-03-18 15:08] VITALS: BP 109/73
--- NOTE | 2019-03-18 15:20 | CN ---
PATIENT NAME:DILIA OSULLIVAN MEDICAL RECORD: [id number] : 82 LOCATION:[facility] D.2135 ADMIT DATE: 03/16/19 ACCOUNT: [id number] CONSULTING PHYSICIAN: GAVI MEDRANO MD REFERRING PHYSICIAN: WANDA MERIDA MD DATE OF CONSULTATION: 03/17/2019 IDENTIFYING DATA: The patient is 38 years old and she is admitted to the hospital on a voluntary basis secondary to bizarre behavior, hallucinations, and agitation. HISTORY OF PRESENT ILLNESS: The patient had an argument with her boyfriend with whom she cohabitates. She says that she took some of her prescription hydrocodone because she was upset and the next thing she knows she ended up here. She also said she had been drinking. She apparently was having bizarre auditory and visual hallucinations, but she says she has no recollection of them and she is not having any currently. She denies that she would seek to harm herself or others. In fact, she was on the telephone with her boyfriend when I came into the room instructing him on various items to bring up to the hospital for. She says they often have arguments and then they reconcile as though nothing happened. She freely admits to smoking marijuana. She also tells me that she takes hydrocodone on a regular basis and that she has a prescription for it. She adamantly denies that she has used methamphetamine, which is in her urine. She also says that her children have been taken out of her custody, so I suspect she is probably trying to downplay behaviors and drug addiction, but that is just speculative on my part. The patient tells me that she did try to hurt herself a long time ago in which she took an overdose of Klonopin, but she says that as soon as she did so she called the authorities. She says she has been treated on an outpatient basis for anxiety and depression, but she would like to see someone professionally. She does not feel that she needs any kind of substance abuse treatment and has no intention of stopping marijuana use. MENTAL STATUS EXAMINATION: The patient is awake, alert and fully oriented. Her mood is euthymic. Her affect is appropriate. Thought processes are goal directed. Memory, concentration, and abstraction abilities are intact and she denies that she would seek to harm herself or others as well as overt psychotic symptoms. ASSESSMENT: 1. Polysubstance abuse. 2. Cluster B personality disorder. 3. Major depression. PLAN: At this time, the patient in my opinion had a situationally driven mood state that was adversely impacted by polysubstance abuse. The crisis has resolved. She has reconciled with her boyfriend at least until there next argument, which apparently this is a recurring pattern. She says he has never physically attacked her. She is not afraid and she is happy to go home with him any time. She rejects any kind of inpatient or outpatient substance abuse treatment indicating that she does not have a substance abuse problem. She is willing to go to outpatient mental health treatment, which is at least a start and so I would recommend that she be referred to community counseling, Dr. Gaines, or some other provider upon discharge. Once she is medically stable, I think she is fine to be released from the hospital. Her problems are chronic, ongoing, largely driven by external circumstances. She has a low average CONSULT REPORT [id number] DILIA OSULLIVAN intelligence and below average coping skills, which is difficult enough, but when combined with a personality disorder and a substance abuse problem, I must say her long-term prognosis is not very good, unless she is engaged in treatment and develops healthier life strategies and stops abusing drugs and alcohol. TRANSINT:[id number] Voice Confirmation ID: [id number] DOCUMENT ID: [id number] GAVI MEDRANO MD at 1520 CC: [id number] DICTATION DATE: 03/17/19 1203 MONEY MANAGER: 03/17/19 1228 ADM IN [facility] [address] [place] [address]
--- NOTE | 2019-03-18 16:15 | NUR ---
DR. STUART DC GUARD AT PTS BEDSIDE. DR. NEVILLE AND Kellie GODINEZ APN ARE INFORMED AND OK WITH DECISION. PT IS CALM AND HAS NOT HAD ANY EPISODES THIS SHIFT. WILL CONTINUE WITH POC.
--- NOTE | 2019-03-18 16:18 | NUR ---
ORDER ACKNOLWEDGED TO D/C MARTINA. MARTINA IS NO LONGER AT PATIENT DOOR.
--- NOTE | 2019-03-18 16:55 | MORECARE ---
CASE MANAGEMENT DISCHARGE SUMMARY PATIENT: DILIA OSULLIVAN UNIT: [id number] ADM DATE: 03/16/19 AGE: 38 : 81 SEX: F ROOM/BED: D.7585 AUTHOR: CRIS WHALEY PHYSICIAN: REFERRING PHYSICIAN: WANDA MERIDA MD DATE OF SERVICE: 03/18/19 Discharge Plan Patient Name: DILIA OSULLIVAN Facility: [facility]:[place] : 1980 Planned Disposition: Home Anticipated Discharge Date: 03/18/19 Discharge Date: Expected LOS: 2 Initial Reviewer: [email or web address] Initial Review Date: 03/18/2019 Generated: 03/18/19 5:55 pm DCPIA - Discharge Planning Initial Assessment Updated by [email or web address]: Alexys Chow on 03/18/19 4:49 pm * Is the patient Alert and Oriented? Yes * How many steps to enter\exit or inside your home? * PCP NONE * Pharmacy [address] * Preadmission Environment Home with Family * ADLs Independent * Equipment None * Other Equipment NO MEDICAL EQUIPMENT PROVIDER PREFERENCE * List name and contact numbers for known caregivers / representatives who currently or will assist patient after discharge: BRODIE FERRARO, BOYFRIEND, * Verbal permission to speak to the caregivers and representatives has been obtained from the patient. N/A * Community resources currently utilized None * Please name any agencies selected above. NONE * Additional services required to return to the preadmission environment? No * Can the patient safely return to the preadmission environment? Yes * Has this patient been hospitalized within the prior 30 days at any hospital? No Patient Name: DILIA OSULLIVAN Page [phone] at 1655 All edits/amendments must be made on the electronic document DICTATION DATE: 03/18/191654 WINDLASSER: ELICIA 03/18/191654 RPT#: [id number] DC DATE: STATUS: ADM IN [facility] [address] [place] [address] END OF REPORT
--- NOTE | 2019-03-18 17:04 | MORECARE ---
CASE MANAGEMENT DISCHARGE SUMMARY PATIENT: DILIA OSULLIVAN UNIT: [id number] ADM DATE: 03/16/19 AGE: 38 : [birth year] SEX: F ROOM/BED: D.4514 AUTHOR: JUDD,DOC PHYSICIAN: REFERRING PHYSICIAN: WANDA MERIDA MD DATE OF SERVICE: 03/18/19 Discharge Plan Patient Name: DILIA OSULLIVAN Facility: [facility]:[place] : 1980 Planned Disposition: Home Anticipated Discharge Date: 03/18/19 Discharge Date: Expected LOS: 2 Initial Reviewer: [email or web address] Initial Review Date: 03/18/2019 Generated: 03/18/19 6:04 pm Comments DCP- Discharge Planning Updated by [email or web address]: Alexys Chow on 03/18/19 3:[address] Patient Name: DILIA OSULLIVAN Admission Status: ER Accout number: [id number] Admission Date: 03-16-2019 : 1980 Admission Diagnosis:VISUAL HALLUCINATIONS Attending: WANDA MERIDA Current LOS: 2 Anticipated DC Date: 03-18-2019 Planned Disposition: Home Primary Insurance: [facility] PRIVATE OPTIONS [employer] Discharge Planning Comments: CM RECEIVED ORDER FOR "WHATEVER". CM MET WITH PT IN ROOM TO DISCUSS DISCHARGE PLANNING AND NEEDS. PT REPORTS LIVING AT HOME INDEPENDENTLY WITH HER BOYFRIEND. PT HAS NO MEDICAL EQUIPMENT AND NO OUTSIDE SERVICES ASSISTING IN THE HOME. CM DISCUSSED AVAILABILITY OF HOME HEALTH, REHAB SERVICES AND MEDICAL EQUIPMENT. PT DENIES DISCHARGE NEEDS, REPORTS HER BOYFRIEND WILL PICK HER UP FOR DISCHARGE HOME. CM ASKED ABOUT PT'S METH USE. PT DENIES METH USE, DESPITE THE POSITIVE DRUG TEST UPON ADMISSION. PT ADMITS TO USING MARIJUANA RECREATIONALLY. PT REPORTS HAVING BEEN IN TREATMENT FOR ALCOHOLISM THREE TIMES IN THE PAST. PT DENIES NEED OF SUBSTANCE ABUSE TREATMENT OR COMMUNITY SUPPORT PROGRAMS. PT PLANS TO DISCHARGE HOME WITH BOYFRIEND WHO WILL TRANSPORT HOME AT DISCHARGE. PT HAS NO ANTICIPATED DISCHARGE NEEDS. CM TO FOLLOW AND ASSIST IF NEEDED. Secretary To The Vice President: Alexys Chow DCPIA - Discharge Planning Initial Assessment Updated by [email or web address]: Alexys Chow on 03/18/19 4:49 pm * Is the patient Alert and Oriented? Yes * How many steps to enter\\exit or inside your home? * PCP NONE * Pharmacy [facility], [address] * Preadmission Environment Home with Family * ADLs Independent * Equipment None * Other Equipment NO MEDICAL EQUIPMENT PROVIDER PREFERENCE * List name and contact numbers for known caregivers / representatives who currently or will assist patient after discharge: BRODIE FERRARO, BOYFRIEND, * Verbal permission to speak to the caregivers and representatives has been obtained from the patient. N/A * Community resources currently utilized None * Please name any agencies selected above. NONE * Additional services required to return to the preadmission environment? No * Can the patient safely return to the preadmission environment? Yes * Has this patient been hospitalized within the prior 30 days at any hospital? No Last DP export: 03/18/19 3:55 pm Patient Name: DILIA OSULLIVAN Page [phone] at 1704 All edits/amendments must be made on the electronic document DICTATION DATE: 03/18/191703 PIG MACHINE SUPERVISOR: ELICIA 03/18/191703 RPT#: [id number] DC DATE: STATUS: ADM IN [facility] [address] [place] [address] END OF REPORT
--- NOTE | 2019-03-18 18:41 | NUR ---
K+ LEVEL STILL DEPLETED DESPITE REPLACING K+. 40 MEQ ADMINISTERED AT THIS TIME AND WILL RECHECK K+ AGAIN IN 4 HOURS.
--- NOTE | 2019-03-18 19:29 | NUR ---
RPEORT RECIEVED AND ROUNDING COMPLETE. PATIENT LAYING IN BED FLAT IN SUPINE POSITION. PATIENT DOES NOT HAVE A PIV. PATIENT IS ON ROOM AIR. PATIENT IS NOT SHOWING ANY S/SX OF DISTRESS. PATIENT DOES HAS A TICK RELFEX ON RIGHT SIDE OF FACE, PATIENT STATES THIS IS NORMAL FOR HER. PATIENT STATES NO NEEDS AT THIS TIME. CALL LIGHT WITHIN REACH AND BED IN LOWEST LOCKED POSITION.
[2019-03-18 20:00] VITALS: BP 108/68
[2019-03-19] VITALS: BP 107/67
--- NOTE | 2019-03-19 02:20 | NUR ---
PATIENT CALLED ME INTO ROOM TO INFORM ME THAT IT FEELS LIKE AN ELEPHANT IS SITTING ON HER CHEST. ASSESSED HER LUNGS FAINT WHEEZING ON RIGHT SIDE. PAGED SHAWN CRANE.
--- NOTE | 2019-03-19 02:28 | NUR ---
I have reviewed this patient and I concur with the Shift Assessment completed by the Licensed Practical Nurse today this shift.
--- NOTE | 2019-03-19 02:35 | NUR ---
PAUL CRANE CALLED BACK AND GAVE ORDERS WILL FOLLOW ORDERS.
[2019-03-19 03:24] LABS: BASOPHILS 0.2 % (0-2); EOSINOPHILS 1.9 % (0-7); HEMATOCRIT 32.5 % (36.0-48.0); HEMOGLOBIN 10.9 g/dL (12-16); IMMATURE GRANULOCYTES 1.5 % (0-5); LYMPHOCYTES 17.6 % (15-50); MCH 34.2 pg (26.0-34.0); MCHC 33.5 g/dL (31.0-37.0); MCV 101.9 fL (80.0-100.0); MEAN PLATELET VOLUME 10.4 fL (7.4-10.4); NEUTROPHILS 68.8 % (40-80); PLATELET COUNT 169 10x3/uL (130-400); RBC 3.19 10x6/uL (4.00-5.40); RDW 19.8 % (11.5-14.5); WBC 13.1 10x3/uL (4.8-10.8)
[2019-03-19 03:45] LABS: ALBUMIN 2.3 g/dL (3.4-5.0); ALKALINE PHOSPHATASE 199 U/L (46-116); ALT (SGPT) 51 U/L (10-68); CALC OSMOLALITY 276 mosm/kg (275-300); CALCIUM 8.4 mg/dL (8.5-10.1); CARBON DIOXIDE 29.4 mmol/L (21.0-32.0); CHLORIDE - SERUM 102 mmol/L (98-107); CREATININE - SERUM 0.7 mg/dL (0.6-1.3); GLUCOSE 120 mg/dL (74-106); POTASSIUM - SERUM 3.5 mmol/L (3.5-5.1); PROTEIN - SERUM 6.1 g/dL (6.4-8.2); SODIUM 139 mmol/L (136-145); UREA NITROGEN 6 mg/dL (7-18); eGFR NON AFRICAN AMERICAN > 90 mL/min (90-120)
--- NOTE | 2019-03-19 03:45 | NUR ---
CONSULTED DR. MENDOZA PER PAUL CRANE. DR. MENDOZA HERE AND REVIEWING PATIENT'S CASE
[2019-03-19 04:00] LABS: CKMB 1.5 U/L (0.0-3.6)
[2019-03-19 04:01] LABS: TROPONIN-I 0.083 ng/mL (0.000-0.060)
[2019-03-19 04:30] VITALS: BP 104/68
--- NOTE | 2019-03-19 07:33 | NUR ---
PT RESTING, EYES CLOSED. RR EVEN AND UNLABORED. WILL CONTINUE TO MONITOR.
[2019-03-19 07:56] VITALS: BP 104/72
--- NOTE | 2019-03-19 08:30 | NUR ---
PT LEFT VIA WHEELCHAIR TO STRESS TEST.
--- NOTE | 2019-03-19 08:41 | NUR ---
22G IV SITED TO LEFT FOREARM X 1 ATTEMPT. DRESSING PLACED OVER SITE, CDI
--- NOTE | 2019-03-19 11:33 | NUR ---
RETURNED FROM TEST. STATES PAIN IN BACK. WILL GET PAIN MEDICATION
[2019-03-19 12:09] LABS: HEPATITIS C ANTIBODY <0.1 S/CO RAT (0.0-0.9)
[2019-03-19 13:45] VITALS: BP 111/70
--- NOTE | 2019-03-19 14:00 | NUR ---
REQUESTED TELEMETRY, WAS TOLD IT WOULD BE A LITTLE BIT BEFORE RECIEVED.
--- NOTE | 2019-03-19 17:01 | NUR ---
TELEMETRY RECIEVED AND PLACED
--- NOTE | 2019-03-19 18:36 | NUR ---
BANDAGE TO LEFT FINGER CHANGED. PT DENIES FURTHER NEEDS AT THIS TIME.
[2019-03-19 20:00] VITALS: BP 100/64
--- NOTE | 2019-03-19 23:30 | NUR ---
REC'D. AT CHGE OF SHIFT AT [facility] STATION REQUESTING ALCOHOL PAD.DENIES ANY PAIN OR DISCOMFORT AT PRESENT TIME.WILL CONTINUE TO MONITOR FOR ANY CHGES AND FOLLOW CURRENT PLAN OF CARE.
[2019-03-20] VITALS: BP 99/66
[2019-03-20 04:30] VITALS: BP 106/68
[2019-03-20 05:03] LABS: BASOPHILS 0.2 % (0-2); EOSINOPHILS 2.3 % (0-7); HEMATOCRIT 29.5 % (36.0-48.0); HEMOGLOBIN 9.9 g/dL (12-16); IMMATURE GRANULOCYTES 2.1 % (0-5); LYMPHOCYTES 13.9 % (15-50); MCH 34.4 pg (26.0-34.0); MCHC 33.6 g/dL (31.0-37.0); MCV 102.4 fL (80.0-100.0); MONOCYTES 12.3 % (2-11); NEUTROPHILS 69.2 % (40-80); RBC 2.88 10x6/uL (4.00-5.40); RDW 20.5 % (11.5-14.5)
[2019-03-20 05:05] LABS: PLATELET COUNT 205 10x3/uL (130-400); WBC 16.8 10x3/uL (4.8-10.8)
[2019-03-20 05:22] LABS: ALBUMIN 2.1 g/dL (3.4-5.0); ALKALINE PHOSPHATASE 178 U/L (46-116); BILIRUBIN - TOTAL 1.07 mg/dL (0.2-1.3); CALC OSMOLALITY 274 mosm/kg (275-300); CALCIUM 7.7 mg/dL (8.5-10.1); CARBON DIOXIDE 28.5 mmol/L (21.0-32.0); CHLORIDE - SERUM 101 mmol/L (98-107); CREATININE - SERUM 0.8 mg/dL (0.6-1.3); GLUCOSE 113 mg/dL (74-106); POTASSIUM - SERUM 3.2 mmol/L (3.5-5.1); PROTEIN - SERUM 5.9 g/dL (6.4-8.2); SODIUM 138 mmol/L (136-145); UREA NITROGEN 6 mg/dL (7-18); eGFR NON AFRICAN AMERICAN 85 mL/min (90-120)
[2019-03-20 05:25] LABS: ALT (SGPT) 37 U/L (10-68)
[2019-03-20 08:00] VITALS: BP 107/74
[2019-03-20 09:11] LABS: HCG SERUM NEGATIVE (NEGATIVE)
[2019-03-20 14:02] VITALS: Ht 157.5 cm; Wt 55.3 kg
[2019-03-20] MEDS ORDERED: CLEOCIN HCL150 MG PO (15:42)
[2019-03-20] MEDS ORDERED: OMNICEF300 MG PO (15:43)
--- NOTE | 2019-03-24 09:19 | MORECARE ---
CASE MANAGEMENT DISCHARGE SUMMARY PATIENT: DILIA OSULLIVAN UNIT: [id number] ADM DATE: 03/16/19 AGE: 38 : [birth year] SEX: F ROOM/BED: D.4384 AUTHOR: JUDD,DOC PHYSICIAN: REFERRING PHYSICIAN: WANDA MERIDA MD DATE OF SERVICE: 03/24/19 Discharge Plan Patient Name: DILIA OSULLIVAN Facility: [facility]:[place] : 1980 Planned Disposition: Home Anticipated Discharge Date: 03/20/19 Discharge Date: 03/20/2019 Expected LOS: 4 Initial Reviewer: [email or web address] Initial Review Date: 03/18/2019 Generated: 03/24/19 10:19 am DCP- Discharge Planning Updated by [email or web address]: Alexys Chow on 03/18/19 3:[address] Patient Name: DILIA OSULLIVAN Admission Status: ER Accout number: [id number] Admission Date: 03-16-2019 : 1980 Admission Diagnosis:VISUAL HALLUCINATIONS Attending: WANDA MERIDA Current LOS: 2 Anticipated DC Date: 03-18-2019 Planned Disposition: Home Primary Insurance: [facility] PRIVATE OPTIONS CONI Discharge Planning Comments: CM RECEIVED ORDER FOR "WHATEVER". CM MET WITH PT IN ROOM TO DISCUSS DISCHARGE PLANNING AND NEEDS. PT REPORTS LIVING AT HOME INDEPENDENTLY WITH HER BOYFRIEND. PT HAS NO MEDICAL EQUIPMENT AND NO OUTSIDE SERVICES ASSISTING IN THE HOME. CM DISCUSSED AVAILABILITY OF HOME HEALTH, REHAB SERVICES AND MEDICAL EQUIPMENT. PT DENIES DISCHARGE NEEDS, REPORTS HER BOYFRIEND WILL PICK HER UP FOR DISCHARGE HOME. CM ASKED ABOUT PT'S METH USE. PT DENIES METH USE, DESPITE THE POSITIVE DRUG TEST UPON ADMISSION. PT ADMITS TO USING MARIJUANA RECREATIONALLY. PT REPORTS HAVING BEEN IN TREATMENT FOR ALCOHOLISM THREE TIMES IN THE PAST. PT DENIES NEED OF SUBSTANCE ABUSE TREATMENT OR COMMUNITY SUPPORT PROGRAMS. PT PLANS TO DISCHARGE HOME WITH BOYFRIEND WHO WILL TRANSPORT HOME AT DISCHARGE. PT HAS NO ANTICIPATED DISCHARGE NEEDS. CM TO FOLLOW AND ASSIST IF NEEDED. Residential Interior Designer: Alexys Chow DCPIA - Discharge Planning Initial Assessment Updated by [email or web address]: Alexys Chow on 03/18/19 4:49 pm * Is the patient Alert and Oriented? Yes * How many steps to enter\\exit or inside your home? * PCP NONE * Pharmacy [facility], [address] * Preadmission Environment Home with Family * ADLs Independent * Equipment None * Other Equipment NO MEDICAL EQUIPMENT PROVIDER PREFERENCE * List name and contact numbers for known caregivers / representatives who currently or will assist patient after discharge: BRODIE FERRARO, BOYFRIEND, * Verbal permission to speak to the caregivers and representatives has been obtained from the patient. N/A * Community resources currently utilized None * Please name any agencies selected above. NONE * Additional services required to return to the preadmission environment? No * Can the patient safely return to the preadmission environment? Yes * Has this patient been hospitalized within the prior 30 days at any hospital? No Last DP export: 03/18/19 4:04 pm Patient Name: DILIA OSULLIVAN Page 17549 at 0919 All edits/amendments must be made on the electronic document DICTATION DATE: 03/24/19918 PLAY READER: ELICIA 03/24/19918 RPT#: [id number] DC DATE:03/20/19 STATUS: DIS IN [facility] [address] [place] [address] END OF REPORT
--- NOTE | 2019-03-26 14:31 | ST ---
PATIENT:DILIA OSULLIVAN MEDICAL RECORD: [id number] SEX: F LOCATION:[facility] D213 ORDER #: ADMISSION DATE: 03/16/19 AGE OF PATIENT: 38 REFERRING PHYSICIAN: INTERPRETING PHYSICIAN: ANNA MENDOZA MD DATE OF SERVICE: 03/20/2019 PROCEDURE: Nuclear stress test. INDICATION: Chest pain, abnormal ECG. She was exercised on standard Lexiscan protocol with 21 mCi of sestamibi injected at peak stress and 10 mCi were used previously for rest images. FINDINGS: Gated SPECT reveals a preserved ejection fraction at 65%. SPECT imaging: Cardiolite was used as myocardial perfusion agent. There is a mixed perfusion defect anteroapically as well as laterally. This is partially fixed, partially reversible, mostly fixed, includes the mid anterior, apical anterior apex itself, apical lateral, and mid lateral segments. OVERALL IMPRESSION: This is an abnormal nuclear stress test with a mostly fixed partially reversible defect apically, anteroapically and apical laterally suggestive of a previous myocardial infarction as well as the presence of hemodynamically significant coronary artery disease. There are little areas of reversibility, but it does suggest coronary artery disease in this patient with no past history of coronary artery disease and no past history of a cardiac event. If the patient has ongoing symptomatology, would proceed with coronary angiography. TRANSINT:[id number] Voice Confirmation ID: [id number] DOCUMENT ID: [id number] ANNA MENDOZA MD at 1431 CC: [id number] DICTATION DATE: 03/20/19 0900 MANUFACTURING WORKER: 03/20/19 1203 DIS IN 03/20/19 [place] [id number] [place] [address]
--- NOTE | 2019-03-26 14:31 | OP ---
PATIENT NAME: DILIA OSULLIVAN MEDICAL RECORD: [id number] :82 LOCATION:D.M2 D.2135 ADMISSION DATE:03/16/19 SURGEON: ANNA MENDOZA MD DATE OF OPERATION: 03/20/2019 PROCEDURES: 1. Left heart catheterization. 2. Selective coronary angiography. 3. Left ventriculogram INDICATION: Continued anginal chest discomfort, abnormal ECG, abnormal nuclear stress. PROCEDURE IN DETAIL: After informed consent was obtained and after a detailed description of risks, benefits as well as alternative therapies, the patient elected to proceed with angiogram and heart catheterization. FINDINGS: Left ventriculogram was performed in standard 30-degree BLOOM view, reveals good cardiac wall motion, ejection fraction 55% to 60%. SELECTIVE CORONARY ANGIOGRAPHY: Left main, left anterior descending, left circumflex, right coronary artery are all smooth-walled vessels with no angiographic evidence of coronary artery disease. OVERALL IMPRESSION: 1. No angiographic evidence of coronary artery disease. 2. Normal left heart pressures. Chest pain is noncardiac in etiology. Stress test was false positive. TRANSINT:[id number] Voice Confirmation ID: [id number] DOCUMENT ID: [id number] NANA MENDOZA MD at 1431 CC: [id number] DICTATION DATE: 03/20/19 1211 RETAIL DEPARTMENT SUPERVISOR: 03/20/19 1227 DIS IN 03/20/[address] [address]
--- NOTE | 2019-03-26 14:31 | CN ---
PATIENT NAME:DILIA OSULLIVAN MEDICAL RECORD: [id number] : 82 LOCATION:D. D.2135 ADMIT DATE: 03/16/19 ACCOUNT: [id number] CONSULTING PHYSICIAN: ANNA MENDOZA MD REFERRING PHYSICIAN: WANDA MERIDA MD DATE OF CONSULTATION: 03/19/2019 CARDIOLOGY CONSULTATION DIAGNOSES: 1. Chest discomfort compatible with angina. 2. Abnormal ECG. 3. Family history of coronary disease. 4. Tobacco abuse. HISTORY OF PRESENT ILLNESS: Ms. Osullivan is here with noncardiac related multiple issues. She complained of a sudden onset of a chest pressure and tightness. With this, her EKG had significant ST-T changes anteriorly. She has no previous history of ischemic heart disease. She does have smoking history. She has a strong family history of coronary disease. She has not had a cardiac workup. PHYSICAL EXAMINATION: CONSTITUTIONAL/GENERAL APPEARANCE: Well nourished, well developed, appears stated age. EYES: Lids and conjunctivae noninjected. No discharge. No pallor. ENT: Lips within normal limit. No cyanosis. No pallor. NECK: Carotid arteries, bilateral normal upstroke. No bruits. No thrills. No jugular venous pressure or distention. CERVICAL LYMPH NODES: Nontender. Nonenlarged. THYROID: Not enlarged. No nodules. CARDIOVASCULAR: Precordial exam, nondisplaced. No heaves or pericardial thrills. Rate and rhythm, regular. Heart sounds, normal S1, normal S2. No S3, no gallop, no rub. Systolic murmur, not heard. Diastolic murmur, not heard. RESPIRATORY: Respiratory effort, unlabored. Normal curvature. No thoracic deformity. No chest wall tenderness. Percussion, resonant. Auscultation, clear. No wheezes, no rales, no rhonchi. ABDOMEN: Soft, nondistended, nontender. No abdominal pain, no vomiting and normal appetite. MUSCULOSKELETAL: No joint tenderness, normal gait, normal tone. SKIN: Warm and dry. OVERALL IMPRESSION: Acute chest pain. At this time, her heart rate is in the 100s, her systolic blood pressure is 100-110. Hopefully, she will be able to tolerate a low dose of Lopressor to help this. We will also add nitro patch and give p.r.n. morphine. Risk stratify with stress testing and Cardiolite imaging. TRANSINT:[id number] Voice Confirmation ID: [id number] DOCUMENT ID: [id number] CONSULT REPORT [id number] DILIA OSULLIVAN JEFFREY MD at 1431 CC: [id number] DICTATION DATE: 03/19/19 0355 HUMAN RESOURCES OFFICER: 03/19/19 0416 DIS IN 03/20/19 [place] [id number] [place] [id number]
== END 2019-03-20 17:51 | disposition home or self-care (01) | DRG 682 ==
LOC: D.ER 23:19 → D.M2 03-16 01:24 → OBSVTIME 03-16 01:24 → D.M2 03-16 14:46
PROVIDERS: Family Medicine; Family Medicine Adult Medicine; Internal Medicine Interventional Cardiology; ADMIT Internal Medicine Nephrology; ATTEND Internal Medicine Nephrology
PROC: B2151ZZ Fluoroscopy of Left Heart using Low Osmolar Contrast (ICD-10-PCS; 2019-03-20)
PROC: 4A023N7 Measurement of Cardiac Sampling and Pressure, Left Heart, Percutaneous Approach (ICD-10-PCS; 2019-03-20)
PROC: B2111ZZ Fluoroscopy of Multiple Coronary Arteries using Low Osmolar Contrast (ICD-10-PCS; principal; 2019-03-20 12:00)
DX: N17.9 Acute kidney failure, unspecified (principal); A41.9 Sepsis, unspecified organism; F15.151 Other stimulant abuse with stimulant-induced psychotic disorder with hallucinations; N39.0 Urinary tract infection, site not specified; F17.213 Nicotine dependence, cigarettes, with withdrawal; R07.89 Other chest pain; D75.89 Other specified diseases of blood and blood-forming organs; E87.6 Hypokalemia; Q05.9 Spina bifida, unspecified; F41.9 Anxiety disorder, unspecified; F32.9 Major depressive disorder, single episode, unspecified; F60.9 Personality disorder, unspecified; S60.941A Unspecified superficial injury of left index finger, initial encounter; W45.8XXA Other foreign body or object entering through skin, initial encounter; R94.39 Abnormal result of other cardiovascular function study; R94.31 Abnormal electrocardiogram [ECG] [EKG]; E86.0 Dehydration

== ENCOUNTER 2019-07-04 01:15 | Inpatient (IN) | payer MEDICAID ==
[2019-07-04] VITALS (8 sets, daily range): BP systolic 90–105; BP diastolic 41–66; BMI 29.1
[~2019-07-04] VITALS: Ht 157.5 cm; Wt 70.8 kg
[~2019-07-04 01:15] MED LIST changes: +CLEOCIN HCL150 MG PO; +OMNICEF300 MG PO
[2019-07-04 01:45] LABS: HEMATOCRIT 26.4 % (36.0-48.0); HEMOGLOBIN 9.3 g/dL (12-16); MCH 36.8 pg (26.0-34.0); MCHC 35.2 g/dL (31.0-37.0); MCV 104.3 fL (80.0-100.0); MEAN PLATELET VOLUME 9.8 fL (7.4-10.4); PLATELET COUNT 233 10x3/uL (130-400); RBC 2.53 10x6/uL (4.00-5.40); RDW 18.1 % (11.5-14.5); WBC 32.6 10x3/uL (4.8-10.8)
[2019-07-04 01:59] LABS: ALBUMIN 2.2 g/dL (3.4-5.0); BILIRUBIN - TOTAL 3.34 mg/dL (0.2-1.3); CALCIUM 7.4 mg/dL (8.5-10.1); CREATININE - SERUM 1.2 mg/dL (0.6-1.3); PROTEIN - SERUM 6.1 g/dL (6.4-8.2)
[2019-07-04 02:02] LABS: ANION GAP 17.5 mmol/L (8-16)
--- NOTE | 2019-07-04 02:02 | NUR ---
PT GIVEN ICE WATER TO DRINK, DENIES ANY FURTHER NEEDS AT THIS TIME. WILL CONTINUE TO MONITOR.
[2019-07-04 02:03] LABS: POTASSIUM - SERUM 2.5 mmol/L (3.5-5.1)
[2019-07-04 02:06] LABS: EOSINOPHILS 1 % (0-7); LYMPHOCYTES 26 % (15-50); MONOCYTES 6 % (2-11); NEUTROPHILS 64 % (40-80); PLATELET ESTIMATE NORMAL
[2019-07-04 02:21] LABS: APPEARANCE SL CLDY (CLEAR); BILIRUBIN NEGATIVE (NEGATIVE); COLOR DK YELLOW (YELLOW); GLUCOSE NEGATIVE (NEGATIVE); KETONE NEGATIVE (NEGATIVE); NITRITE NEGATIVE (NEGATIVE); PROTEIN 1+ mg/dL (NEGATIVE); SPECIFIC GRAVITY 1.015 (1.005-1.020)
[2019-07-04 02:23] LABS: BACTERIA FEW /hpf (NEGATIVE); EPITHELIAL CELLS 0-5 /hpf (0-5); RED CELLS - URINE 0-5 /hpf (0-5); WHITE CELLS - URINE 0-5 /hpf (NEGATIVE)
[2019-07-04 02:31] LABS: UDS - AMPHET NEGATIVE QUAL (NEGATIVE); UDS - BARB NEGATIVE QUAL (NEGATIVE); UDS - BENZO NEGATIVE QUAL (NEGATIVE); UDS - COCAINE NEGATIVE QUAL (NEGATIVE); UDS - OPIATE NEGATIVE QUAL (NEGATIVE); UDS - PCP NEGATIVE QUAL (NEGATIVE); UDS - THC POSITIVE QUAL (NEGATIVE)
[2019-07-04 02:41] LABS: MAGNESIUM - SERUM 1.2 mg/dL (1.8-2.4)
--- NOTE | 2019-07-04 02:57 | NUR ---
PT GIVEN BLANKETS, DENIES ANY FURTHER NEEDS AT THIS TIME. CALL LIGHT WITHIN REACH, WILL CONTINUE TO MONITOR.
[2019-07-04] MEDS ORDERED: TENORMIN50 MG PO (04:19)
[2019-07-04] MEDS ORDERED: PRED FORTE5 ML RIGHT EYE (04:20)
[2019-07-04 05:48] LABS: CARBON DIOXIDE 20.4 mmol/L (21.0-32.0)
[2019-07-04 05:49] LABS: ANION GAP 16.6 mmol/L (8-16)
--- NOTE | 2019-07-04 07:40 | NUR ---
PT RECEIVED SITTING UP IN BED, COMPLAINING OF BEING COLD. ADJUSTED THERMOSTAT AND GAVE EXTRA BLANKET.
[2019-07-04 10:03] LABS: HEMATOCRIT 27.7 % (36.0-48.0); HEMOGLOBIN 9.2 g/dL (12-16); MCH 35.2 pg (26.0-34.0); MCHC 33.2 g/dL (31.0-37.0); MCV 106.1 fL (80.0-100.0); PLATELET COUNT 230 10x3/uL (130-400); RBC 2.61 10x6/uL (4.00-5.40); RDW 18.2 % (11.5-14.5); WBC 29.3 10x3/uL (4.8-10.8)
[2019-07-04 10:31] LABS: INR 1.19 (0.85-1.17); PROTIME 14.6 SECONDS (11.6-15.0)
[2019-07-04 10:32] LABS: APTT 36.6 SECONDS (22.8-39.4)
[2019-07-04 13:15] LABS: EOSINOPHILS 2 % (0-7); LYMPHOCYTES 15 % (15-50); MONOCYTES 14 % (2-11); NEUTROPHILS 59 % (40-80); PLATELET ESTIMATE NORMAL
--- NOTE | 2019-07-04 19:20 | NUR ---
REPORT RECEIVED. PT RESTING IN BED, REPLACED NICOTINE PATCH. PROVIDED PRN ATIVAN PER REQUEST. RR EVEN AND UNLABORED ON RA. NO S/SX OF DISTRESS NOTED AT THIS TIME. CALL LIGHT IN REACH. WILL CTM.
[2019-07-05 00:30] VITALS: BP 92/48
[2019-07-05 05:10] LABS: BASOPHILS 0.1 % (0-2); EOSINOPHILS 0.3 % (0-7); HEMATOCRIT 23.7 % (36.0-48.0); HEMOGLOBIN 7.8 g/dL (12-16); IMMATURE GRANULOCYTES 3.6 % (0-5); LYMPHOCYTES 9.5 % (15-50); MCH 35.9 pg (26.0-34.0); MCHC 32.9 g/dL (31.0-37.0); MCV 109.2 fL (80.0-100.0); MEAN PLATELET VOLUME 9.7 fL (7.4-10.4); MONOCYTES 9.5 % (2-11); PLATELET COUNT 190 10x3/uL (130-400); RBC 2.17 10x6/uL (4.00-5.40); RDW 18.9 % (11.5-14.5); WBC 22.2 10x3/uL (4.8-10.8)
[2019-07-05 05:23] LABS: ALBUMIN 1.9 g/dL (3.4-5.0); ANION GAP 14.2 mmol/L (8-16); BILIRUBIN - TOTAL 3.49 mg/dL (0.2-1.3); CALCIUM 7.1 mg/dL (8.5-10.1); CARBON DIOXIDE 22.9 mmol/L (21.0-32.0); CREATININE - SERUM 1.1 mg/dL (0.6-1.3); POTASSIUM - SERUM 3.1 mmol/L (3.5-5.1); PROTEIN - SERUM 5.4 g/dL (6.4-8.2)
--- NOTE | 2019-07-05 05:48 | NUR ---
K+ 3.1 GAVE 40MEQ PER STANDING ORDERS. WILL BE RE-CHECKED AT 1000
--- NOTE | 2019-07-05 07:30 | NUR ---
PT SITTING UP ON SIDE OF THE BED USING URINLE. NO COMPLAINTS OR CONCERNS STATED THIS MORNING. NO FAMILY PRESENT AT BEDSIDE. ALL QUESTIONS ANSWERED TO THE BEST OF MY ABILITY. CL IN REACH, SRX2.
[2019-07-05 08:06] VITALS: BP 99/44
--- NOTE | 2019-07-05 09:52 | NUR ---
PT AWAKE AND ORIENTED, NO COMPLAINTS OR CONCERNS AT THIS TIME. HAS BEEN UP ADLIB. CL IN REACH, SRX2.
--- NOTE | 2019-07-05 10:25 | NUR ---
PT NEEDS TO NPO AFTER MIDNIGHT
[2019-07-05 10:40] VITALS: Ht 157.5 cm; Wt 70.8 kg
--- NOTE | 2019-07-05 11:07 | NUR ---
I have reviewed this patient and I concur with the Shift Assessment completed by the Licensed Practical Nurse today this shift.
[2019-07-05 11:33] VITALS: BP 85/47
--- NOTE | 2019-07-05 11:52 | NUR ---
CAN NOT HANG BANVICKYA BAG D/T IT NOT BEING YET AVALIABLE FROM [facility] AND HAVING TO FINISH THE ANTIBIOTIC AND NS BOLUS FIRST.
--- NOTE | 2019-07-05 12:30 | NUR ---
PT AWAKE AND ORIENTED, AT BEDSIDE. NO COMPLAINTS/CONCERNS OTHER THAN WANTING LEG DRESSING CHANGED, WILL ACCOMIDATE. CL IN REACH,S RX2.
--- NOTE | 2019-07-05 13:06 | NUR ---
SPOKE WITH YESSENIA FROM [facility] IN REGARDS TO TRANSFERRING PATIENT. HISTORY PROVIDED FROM H&P, VITALS PROVIDED WELL CT RESULTS OF THE ABD. NURSE ASSIGNED TO PATIENT WAS GIVEN THIS UPDATE.
[2019-07-05] MEDS ORDERED: NICODERM C1 PATCH .1 TRANSDERM (14:16)
[2019-07-05] MEDS ORDERED: FLAGYL 500500 MG/100 IV (14:16)
[2019-07-05] MEDS ORDERED: LIBRIUM5 MG PO (14:16)
[2019-07-05] MEDS ORDERED: DIFLUCAN PREMIX IV (14:16)
[2019-07-05] MEDS ORDERED: LEVOFLOXAC750 MG/150 IV (14:16)
--- NOTE | 2019-07-05 14:46 | NUR ---
PATIENT NOT NPO. PER DR JAEGER, RADIOLOGIST, BEST TO DO EARLY AM ON 07-06-19' INFORMED DR MERIDA. DR MERIDA AGREED. INFORMED NURSE PEOPLES.
[2019-07-05 15:31] VITALS: BP 104/48
--- NOTE | 2019-07-05 16:43 | MORECARE ---
CASE MANAGEMENT DISCHARGE SUMMARY PATIENT: DILIA OSULLIVAN UNIT: [id number] ADM DATE: 07/04/19 AGE: 38 : 82 SEX: F ROOM/BED: D.2103 AUTHOR: CRIS WHALEY PHYSICIAN: REFERRING PHYSICIAN: WANDA JERRY MD DATE OF SERVICE: 07/05/19 Discharge Plan Patient Name: DILIA OSULLIVAN Facility: [facility]:[place] : 1980 Planned Disposition: Anticipated Discharge Date: Discharge Date: Expected LOS: Initial Reviewer: [email or web address] Initial Review Date: 07/04/2019 Generated: 07/05/19 5:42 pm Comments DCP- Discharge Planning Updated by [id number]: Honey Cabral on 07/05/19 3:[address] CM notified of transfer to another hospital for GI coverage. Dr. Jerry has already completed P2P and nursing staff stated they have already contacted transfer center just awaiting bed availability. [facility] CM will continue to follow and assist as needed with discharge planning / needs. Patient Name: DILIA OSULLIVAN Page [phone] at 1643 All edits/amendments must be made on the electronic document DICTATION DATE: 07/05/191641 DEBUG TECHNICIAN: ELICIA 07/05/191641 RPT#: [id number] DC DATE: STATUS: ADM IN [facility] [address] [place] [address] END OF REPORT
--- NOTE | 2019-07-05 16:46 | NUR ---
PT ESSCORTED OUT VIA STRETCHER TO [facility].
--- NOTE | 2019-07-05 16:52 | MORECARE ---
CASE MANAGEMENT DISCHARGE SUMMARY PATIENT: DILIA OSULLIVAN UNIT: [id number] ADM DATE: 07/04/19 AGE: 38 : 82 SEX: F ROOM/BED: D.2100 AUTHOR: CRIS WHALEY PHYSICIAN: REFERRING PHYSICIAN: WANDA JERRY MD DATE OF SERVICE: 07/05/19 Discharge Plan Patient Name: DILIA OSULLIVAN [facility] [facility] 1980 Planned Disposition: Anticipated Discharge Date: Discharge Date: 07/05/2019 Expected LOS: Initial Reviewer: [email or web address] Initial Review Date: 07/04/2019 Generated: 07/05/19 5:51 pm Comments DCP- Discharge Planning Updated by [email or web address]: Honey Cabral on 07/05/19 3:[address] CM notified of transfer to another hospital for GI coverage. Dr. Jerry has already completed P2P and nursing staff stated they have already contacted transfer center just awaiting bed availability. CM contacted [facility]Principal Network Architect to make sure she is aware of transfer. CM will continue to follow and assist as needed with discharge planning / needs. Last DP export: 07/05/19 3:43 Patient Name: DILIA OSULLIVAN Page [phone] at 1652 All edits/amendments must be made on the electronic document DICTATION DATE: 07/05/191650 MULTI SENSOR OPERATOR: ELICIA 07/05/191650 RPT#: [id number] DC DATE:07/05/19 STATUS: DIS IN [facility] [address] [place] [address] END OF REPORT
== END 2019-07-05 16:46 | disposition short-term general hospital (02) | DRG 871 ==
LOC: D.ER 01:15 → D.M2 03:12
PROVIDERS: Family Medicine; ADMIT Internal Medicine Nephrology; ATTEND Internal Medicine Nephrology
DX: A41.9 Sepsis, unspecified organism (principal); J96.01 Acute respiratory failure with hypoxia; A09 Infectious gastroenteritis and colitis, unspecified; K55.9 Vascular disorder of intestine, unspecified; E87.1 Hypo-osmolality and hyponatremia; E44.0 Moderate protein-calorie malnutrition; F17.213 Nicotine dependence, cigarettes, with withdrawal; K83.09 Other cholangitis; D53.9 Nutritional anemia, unspecified; F10.129 Alcohol abuse with intoxication, unspecified; Y90.8 Blood alcohol level of 240 mg/100 ml or more; Z68.29 Body mass index [BMI] 29.0-29.9, adult; Q05.9 Spina bifida, unspecified; F41.9 Anxiety disorder, unspecified

== ENCOUNTER 2019-07-18 19:55 | Emergency (ER) | payer MEDICAID ==
[~2019-07-18] VITALS: Ht 157.5 cm; Wt 70.9 kg
[~2019-07-18 19:55] MED LIST changes: +DIFLUCAN PREMIX IV; +FLAGYL 500500 MG/100 IV; +LEVOFLOXAC750 MG/150 IV; +LIBRIUM5 MG PO; +NICODERM C1 PATCH .1 TRANSDERM; +PRED FORTE5 ML RIGHT EYE; +TENORMIN50 MG PO
[2019-07-18 20:13] VITALS: Ht 157.5 cm; Wt 70.9 kg
[2019-07-18 20:40] LABS: HEMATOCRIT 25.1 % (36.0-48.0); HEMOGLOBIN 8.2 g/dL (12-16); MCHC 32.7 g/dL (31.0-37.0); MCV 110.1 fL (80.0-100.0); MEAN PLATELET VOLUME 9.4 fL (7.4-10.4); PLATELET COUNT 222 10x3/uL (130-400); RBC 2.28 10x6/uL (4.00-5.40); WBC 23.3 10x3/uL (4.8-10.8)
[2019-07-18 20:44] LABS: CALC OSMOLALITY 250 mosm/kg (275-300); CALCIUM 7.7 mg/dL (8.5-10.1); CARBON DIOXIDE 21.7 mmol/L (21.0-32.0); CHLORIDE - SERUM 89 mmol/L (98-107); CREATININE - SERUM 0.7 mg/dL (0.6-1.3); GLUCOSE 80 mg/dL (74-106); POTASSIUM - SERUM 3.5 mmol/L (3.5-5.1); SODIUM 126 mmol/L (136-145); UREA NITROGEN 9 mg/dL (7-18); eGFR NON AFRICAN AMERICAN > 90 mL/min (90-120)
[2019-07-18 20:51] LABS: ALBUMIN 1.9 g/dL (3.4-5.0); ALKALINE PHOSPHATASE 521 U/L (46-116); ALT (SGPT) 23 U/L (10-68); PROTEIN - SERUM 6.9 g/dL (6.4-8.2)
[2019-07-18 21:12] LABS: EOSINOPHILS 3 % (0-7); LYMPHOCYTES 22 % (15-50); MONOCYTES 3 % (2-11); NEUTROPHILS 72 % (40-80); PLATELET ESTIMATE NORMAL
[2019-07-18 21:53] LABS: UDS - AMPHET NEGATIVE QUAL (NEGATIVE); UDS - BARB NEGATIVE QUAL (NEGATIVE); UDS - BENZO POSITIVE QUAL (NEGATIVE); UDS - COCAINE NEGATIVE QUAL (NEGATIVE); UDS - OPIATE NEGATIVE QUAL (NEGATIVE); UDS - PCP NEGATIVE QUAL (NEGATIVE); UDS - THC NEGATIVE QUAL (NEGATIVE)
[2019-07-18 23:20] VITALS: BP 138/88
== END 2019-07-18 23:22 | disposition home or self-care (01) ==
LOC: D.ER 19:55
PROVIDERS: Family Medicine
DX: H05.20 Unspecified exophthalmos (principal); I61.5 Nontraumatic intracerebral hemorrhage, intraventricular; S04.012A Injury of optic nerve, left eye, initial encounter; R00.0 Tachycardia, unspecified; Z72.0 Tobacco use; Q05.9 Spina bifida, unspecified

== ENCOUNTER 2019-07-29 22:22 | Inpatient (IN) | payer MEDICAID ==
[~2019-07-29] VITALS: Ht 157.5 cm; Wt 73.7 kg
[2019-07-29 23:13] LABS: HEMOGLOBIN 9.2 g/dL (12-16); MCH 34.1 pg (26.0-34.0); MCHC 31.7 g/dL (31.0-37.0); MCV 107.4 fL (80.0-100.0); MEAN PLATELET VOLUME 9.5 fL (7.4-10.4); PLATELET COUNT 308 10x3/uL (130-400); RDW 22.7 % (11.5-14.5); WBC 29.2 10x3/uL (4.8-10.8)
[2019-07-29 23:18] LABS: INR 1.49 (0.85-1.17); PROTIME 17.8 SECONDS (11.6-15.0)
[2019-07-29 23:19] LABS: APTT 38.8 SECONDS (22.8-39.4)
[2019-07-29 23:33] LABS: ALBUMIN 1.5 g/dL (3.4-5.0); ALKALINE PHOSPHATASE 336 U/L (46-116); ALT (SGPT) 17 U/L (10-68); AMYLASE - SERUM 15 U/L (25-115); BILIRUBIN - TOTAL 8.56 mg/dL (0.2-1.3); CALC OSMOLALITY 274 mosm/kg (275-300); CALCIUM 7.9 mg/dL (8.5-10.1); CARBON DIOXIDE 28.3 mmol/L (21.0-32.0); CHLORIDE - SERUM 102 mmol/L (98-107); CREATININE - SERUM 0.7 mg/dL (0.6-1.3); GLUCOSE 108 mg/dL (74-106); LIPASE 87 U/L (73-393); PROTEIN - SERUM 6.8 g/dL (6.4-8.2); SODIUM 138 mmol/L (136-145); UREA NITROGEN 7 mg/dL (7-18); eGFR NON AFRICAN AMERICAN > 90 mL/min (90-120)
[2019-07-29 23:35] LABS: POTASSIUM - SERUM 2.9 mmol/L (3.5-5.1); TROPONIN-I < 0.017 ng/mL (0.000-0.060)
[2019-07-30 00:11] LABS: LYMPHOCYTES 16 % (15-50); MONOCYTES 6 % (2-11); NEUTROPHILS 63 % (40-80); PLATELET ESTIMATE NORMAL
--- NOTE | 2019-07-30 00:55 | NUR ---
PT GIVEN ICE CHIPS, DENIES ANY FURTHER NEEDS AT THIS TIME. CALL LIGHT WITHIN REACH. WILL CONTINUE TO MONITOR.
--- NOTE | 2019-07-30 01:10 | NUR ---
URINE SENT TO LAB
[2019-07-30 01:39] LABS: APPEARANCE CLEAR (CLEAR); BILIRUBIN 2+ (NEGATIVE); COLOR DK YELLOW (YELLOW); GLUCOSE NEGATIVE (NEGATIVE); KETONE NEGATIVE (NEGATIVE); NITRITE NEGATIVE (NEGATIVE); PROTEIN TRACE mg/dL (NEGATIVE); SPECIFIC GRAVITY 1.005 (1.005-1.020); UROBILINOGEN NORMAL (NORMAL)
--- NOTE | 2019-07-30 02:00 | NUR ---
ADMITTED TO ROOM ALERT AND ORIENTIATED, JAUNDICED SKIN AND EYES, LEFT EYE VERY RED AND BRUSED FROM PREVIOUS FALL, ALSO HAS SCABED ABRASION TO CENTER OF FOREHEAD FROM PREVIOUS FALL, ABD DISTENDED AND FIRM, EDEMA NOTED TO LOWER EXTREMITIES, ORIENTIATED TO ROOM CALL LIGHT IN REACH, SEE ASSESSMENT
[2019-07-30] MEDS ORDERED: ALPHAGAN 0.2%5 ML RIGHT EYE (02:32)
[2019-07-30] MEDS ORDERED: ERYTHROMYCIN OPT1 GM LEFT EYE (02:35)
[2019-07-30] MEDS ORDERED: ALDACTONE100 MG (02:37)
[2019-07-30] MEDS ORDERED: XALATAN 0.0052.5 ML (02:37)
[2019-07-30] MEDS ORDERED: FUROSEMIDE40 MG (02:37)
[2019-07-30] MEDS ORDERED: TRUSOPT 2 % OPT10 ML EACH EYE (02:39)
[2019-07-30 02:45] VITALS: BP 103/62; BMI 28.4
[2019-07-30 04:00] VITALS: BP 93/50
[2019-07-30 05:50] LABS: BASOPHILS 0.1 % (0-2); EOSINOPHILS 1.9 % (0-7); HEMATOCRIT 24.9 % (36.0-48.0); HEMOGLOBIN 8.1 g/dL (12-16); IMMATURE GRANULOCYTES 1.2 % (0-5); LYMPHOCYTES 8.3 % (15-50); MCHC 32.5 g/dL (31.0-37.0); MCV 104.6 fL (80.0-100.0); MEAN PLATELET VOLUME 9.5 fL (7.4-10.4); MONOCYTES 6.4 % (2-11); NEUTROPHILS 82.1 % (40-80); PLATELET COUNT 283 10x3/uL (130-400); RBC 2.38 10x6/uL (4.00-5.40); RDW 22.4 % (11.5-14.5); WBC 29.6 10x3/uL (4.8-10.8)
[2019-07-30 05:55] LABS: ALBUMIN 1.3 g/dL (3.4-5.0); ALKALINE PHOSPHATASE 284 U/L (46-116); BILIRUBIN - TOTAL 8.02 mg/dL (0.2-1.3); CALC OSMOLALITY 270 mosm/kg (275-300); CALCIUM 7.7 mg/dL (8.5-10.1); CHLORIDE - SERUM 103 mmol/L (98-107); CREATININE - SERUM 0.6 mg/dL (0.6-1.3); GLUCOSE 85 mg/dL (74-106); MAGNESIUM - SERUM 1.2 mg/dL (1.8-2.4); PHOSPHOROUS 3.6 mg/dL (2.5-4.9); POTASSIUM - SERUM 3.1 mmol/L (3.5-5.1); PROTEIN - SERUM 6.1 g/dL (6.4-8.2); SODIUM 137 mmol/L (136-145); UREA NITROGEN 8 mg/dL (7-18); eGFR NON AFRICAN AMERICAN > 90 mL/min (90-120)
[2019-07-30 06:12] LABS: ALT (SGPT) 10 U/L (10-68)
[2019-07-30 08:13] VITALS: BP 102/60
--- NOTE | 2019-07-30 09:52 | NUR ---
PT ALERT X 4. BREATH SOUNDS CLEAR BILAT. TELEMETRY IN PLACE. IV TO LEFT WRIST, PATENT, DRESSING CDI. +2 EDEMA TO BLE. BRUISING TO LEFT EYE, SCAB TO FOREHEAD AND EYE REDDENED. PT REPORTING NO PAIN. ABDOMEN DISTENDED AND FIRM. BED LOW, CALL LIGHT IN REACH. NO OTHER NEEDS AT THIS TIME.
[2019-07-30 11:08] LABS: % SATURATION 77 % (15-55); IRON 98 ug/dl (35-150); TOTAL IRON BIND CAPACITY 127 ug/dl (260-445)
[2019-07-30 11:09] LABS: UNSAT IRON BIND CAPACITY 29 ug/dl (150-375)
[2019-07-30 11:33] VITALS: BMI 28.3
[2019-07-30 11:44] LABS: FERRITIN 189 ng/mL (3-244); LDH 185 U/L (81-234)
[2019-07-30 13:05] VITALS: BP 94/56
[2019-07-30 15:47] LABS: UDS - AMPHET NEGATIVE QUAL (NEGATIVE); UDS - BARB NEGATIVE QUAL (NEGATIVE); UDS - BENZO NEGATIVE QUAL (NEGATIVE); UDS - COCAINE NEGATIVE QUAL (NEGATIVE); UDS - OPIATE NEGATIVE QUAL (NEGATIVE); UDS - PCP NEGATIVE QUAL (NEGATIVE); UDS - THC NEGATIVE QUAL (NEGATIVE)
[2019-07-30 16:33] VITALS: BP 98/56
--- NOTE | 2019-07-30 19:00 | NUR ---
BEDSIDE REPORT RECEIVED AND CARE OF PT ASSUMED. PT LYING IN SUPINE POSITION WITH EYES CLOSED. WILL MONITOR FOR NEEDS.
--- NOTE | 2019-07-30 19:20 | NUR ---
PT WITH NAUSEA AND VOMITING. PT INTO SHOWER AND ALL LINENS AND GOWN CHANGED.
[2019-07-30 20:00] VITALS: BP 130/77
--- NOTE | 2019-07-30 21:08 | NUR ---
HS MEDICATIONS GIVEN TO INCLUDE MAG OX 400 MG PO PER THE ELECTOLYTE PROTOCAL. WILL RE-CHECK LEVEL IN AM.
[2019-07-31] VITALS: BP 94/49
--- NOTE | 2019-07-31 | NUR ---
NPO STATUS BEGINS NOW. ALL DRINKS REMOVED FROM PT'S BEDSIDE TABLE.
[2019-07-31 04:00] VITALS: BP 93/44
[2019-07-31 06:52] LABS: ALBUMIN 1.4 g/dL (3.4-5.0); ALKALINE PHOSPHATASE 311 U/L (46-116); ALT (SGPT) 12 U/L (10-68); BILIRUBIN - TOTAL 9.24 mg/dL (0.2-1.3); CALC OSMOLALITY 270 mosm/kg (275-300); CHLORIDE - SERUM 102 mmol/L (98-107); GLUCOSE 73 mg/dL (74-106); MAGNESIUM - SERUM 1.3 mg/dL (1.8-2.4); PHOSPHOROUS 3.7 mg/dL (2.5-4.9); POTASSIUM - SERUM 3.4 mmol/L (3.5-5.1); PROTEIN - SERUM 6.7 g/dL (6.4-8.2); SODIUM 137 mmol/L (136-145); UREA NITROGEN 7 mg/dL (7-18); eGFR NON AFRICAN AMERICAN 85 mL/min (90-120)
[2019-07-31 06:55] LABS: CREATININE - SERUM 0.8 mg/dL (0.6-1.3)
--- NOTE | 2019-07-31 07:00 | NUR ---
ALERT AND ORIENTED, RESTING IN BED WITH EYES OPEN. NO C/O PAIN. NO S/S OF ACUTE DISTRESS NOTED. NPO, SCHEDULED PARACENTESIS THIS AM. SKIN JAUNDICE IN COLOR. LEFT EYE BRUISED, SCLERA RED. IV TO RIGHT AC, SL. SITE PATENT WITHOUT REDNESS OR SWELLING. ON TELEMETRY 93 SR. ON ELECTROLYTE PROTOCOL, POTASSIUM 3.4 AND MAGNESIUM 1.3, WILL FOLLOW PROTOCOL. DENIES ANY NEEDS AT THIS TIME. CALL LIGHT IN REACH. WILL CONTINUE TO MONITOR.
[2019-07-31 07:17] LABS: INR 1.5 (0.85-1.17)
[2019-07-31 07:18] LABS: APTT 38.6 SECONDS (22.8-39.4)
[2019-07-31 07:33] LABS: HEMATOCRIT 28.5 % (36.0-48.0); MCH 33.8 pg (26.0-34.0); MCHC 31.6 g/dL (31.0-37.0); MCV 107.1 fL (80.0-100.0); MEAN PLATELET VOLUME 9.8 fL (7.4-10.4); PLATELET COUNT 283 10x3/uL (130-400); RBC 2.66 10x6/uL (4.00-5.40); RDW 22.8 % (11.5-14.5); WBC 27.1 10x3/uL (4.8-10.8)
[2019-07-31 07:52] VITALS: BP 91/46
[2019-07-31 09:56] LABS: EOSINOPHILS 1 % (0-7); LYMPHOCYTES 16 % (15-50); MONOCYTES 11 % (2-11); NEUTROPHILS 63 % (40-80); PLATELET ESTIMATE NORMAL
[2019-07-31 12:14] VITALS: BP 103/79
--- NOTE | 2019-07-31 14:09 | NUR ---
FAMILY AT BEDSIDE.PT IS WITHOUT NEEDS.
[2019-07-31 16:33] VITALS: BP 97/57
[2019-07-31 20:00] VITALS: BP 115/70
--- NOTE | 2019-07-31 20:00 | NUR ---
A/O WITH NO SIGNS OF ACUTE DISTRESS. IV TO THE RT AC WITH NO REDNESS OR SWELLING. ABRAISION NOTED ABOVE RT EYE AND BRUSING NOTED UNDER LT EYE. GAVE GLASS OF WATER. DENIE NO OTHER NEEDS AT THIS TIME. CONTINUE PLAN OF CARE.
[2019-08-01] VITALS: BP 111/48
[2019-08-01 04:00] VITALS: BP 115/50
[2019-08-01 05:40] LABS: ALBUMIN 1.3 g/dL (3.4-5.0); ANION GAP 11.8 mmol/L (8-16); BILIRUBIN - TOTAL 8.54 mg/dL (0.2-1.3); CALCIUM 7.4 mg/dL (8.5-10.1); CARBON DIOXIDE 24.8 mmol/L (21.0-32.0); CREATININE - SERUM 0.9 mg/dL (0.6-1.3); MAGNESIUM - SERUM 1.3 mg/dL (1.8-2.4); POTASSIUM - SERUM 3.6 mmol/L (3.5-5.1); PROTEIN - SERUM 5.9 g/dL (6.4-8.2)
[2019-08-01 05:48] LABS: PHOSPHOROUS 2.6 mg/dL (2.5-4.9)
[2019-08-01 06:16] LABS: BASOPHILS 0.2 % (0-2); EOSINOPHILS 1.3 % (0-7); HEMATOCRIT 23.8 % (36.0-48.0); HEMOGLOBIN 7.6 g/dL (12-16); IMMATURE GRANULOCYTES 2.6 % (0-5); LYMPHOCYTES 8.2 % (15-50); MCH 34.1 pg (26.0-34.0); MCHC 31.9 g/dL (31.0-37.0); MCV 106.7 fL (80.0-100.0); MEAN PLATELET VOLUME 9.7 fL (7.4-10.4); MONOCYTES 7.2 % (2-11); NEUTROPHILS 80.5 % (40-80); PLATELET COUNT 249 10x3/uL (130-400); RBC 2.23 10x6/uL (4.00-5.40); RDW 22.1 % (11.5-14.5); WBC 29.5 10x3/uL (4.8-10.8)
--- NOTE | 2019-08-01 06:50 | NUR ---
ALERT AND ORIENTED, RESTING IN BED WITH EYES OPEN. NO S/S OF ACUTE DISTRESS NOTED. DENIES ANY NEEDS AT THIS TIME. CALL LIGHT IN REACH. WILL CONTINUE TO MONITOR.
[2019-08-01 09:00] VITALS: BP 107/51
--- NOTE | 2019-08-01 09:20 | NUR ---
STARTED UNIT OF PRBC. VITALS STABLE.
--- NOTE | 2019-08-01 12:20 | NUR ---
UNIT OF PRBC INFUSION COMPLETE. 300 ML OF PRBC INFUSED.
--- NOTE | 2019-08-01 13:18 | NUR ---
NUTRITION F/U PT VISIT. TOLERATING REG DIET, PO INTAKE NOT GOOD YESTERDAY. PT STATES SHE WAS "STARVING YESTERDAY". BM RECORDED ON 07/31. WILL CONINUE TO PROVIDE DIET, MONITOR PO INTAKE. RD FOLLOWING
[2019-08-01 14:33] VITALS: Ht 157.5 cm; Wt 73.7 kg
--- NOTE | 2019-08-01 15:31 | NUR ---
I have reviewed this patient and I concur with the Shift Assessment completed by the Licensed Practical Nurse today this shift.
[2019-08-01 17:23] VITALS: BP 102/52
[2019-08-01 20:00] VITALS: BP 115/53
[2019-08-02] VITALS: BP 114/57
[2019-08-02 04:00] VITALS: BP 105/43
[2019-08-02 06:28] LABS: ALBUMIN 1.3 g/dL (3.4-5.0); ALKALINE PHOSPHATASE 286 U/L (46-116); ALT (SGPT) 8 U/L (10-68); BILIRUBIN - TOTAL 10.04 mg/dL (0.2-1.3); CALC OSMOLALITY 268 mosm/kg (275-300); CALCIUM 7.8 mg/dL (8.5-10.1); CARBON DIOXIDE 24.9 mmol/L (21.0-32.0); CHLORIDE - SERUM 103 mmol/L (98-107); CREATININE - SERUM 0.8 mg/dL (0.6-1.3); GLUCOSE 99 mg/dL (74-106); MAGNESIUM - SERUM 1.6 mg/dL (1.8-2.4); PHOSPHOROUS 2.1 mg/dL (2.5-4.9); POTASSIUM - SERUM 3.8 mmol/L (3.5-5.1); SODIUM 136 mmol/L (136-145); UREA NITROGEN 5 mg/dL (7-18); eGFR NON AFRICAN AMERICAN 85 mL/min (90-120)
[2019-08-02 06:37] LABS: HEMATOCRIT 27.9 % (36.0-48.0); MCH 33.1 pg (26.0-34.0); MCHC 32.3 g/dL (31.0-37.0); MCV 102.6 fL (80.0-100.0); MEAN PLATELET VOLUME 9.8 fL (7.4-10.4); PLATELET COUNT 202 10x3/uL (130-400); RBC 2.72 10x6/uL (4.00-5.40); RDW 24.2 % (11.5-14.5); WBC 36.7 10x3/uL (4.8-10.8)
--- NOTE | 2019-08-02 07:50 | NUR ---
PT RESTING IN BED WITH EYES OPEN, NO S/S OF DISTRESS NOTED AT THIS TIME. IV LOCATED TO RIGHT AC CURRENTLY RUNNING VANC @ 125. DENIES NEEDS, WILL CONT TO MONITOR.
[2019-08-02 08:03] LABS: EOSINOPHILS 2 % (0-7); LYMPHOCYTES 5 % (15-50); MONOCYTES 12 % (2-11); NEUTROPHILS 69 % (40-80); PLATELET ESTIMATE NORMAL
[2019-08-02 09:33] VITALS: BP 109/64
[2019-08-02 13:47] VITALS: BP 116/68
--- NOTE | 2019-08-02 16:34 | NUR ---
RESTING IN BED WITH FAMILY AT THE BEDSIDE, NO S/S OF DISTRESS NOTED AT THIS TIME. WILL CONT TO MONITOR.
[2019-08-02 17:35] VITALS: BP 112/64
[2019-08-02 20:00] VITALS: BP 115/63
--- NOTE | 2019-08-02 20:00 | NUR ---
ALERT RESTING IN BED DENIES PAIN OR NEEDS AT THSI TIME, SEE SHIFT ASSESSMENT, CALL LIGHT IN REACH
[2019-08-03] VITALS: BP 124/59
[2019-08-03 04:00] VITALS: BP 110/59
[2019-08-03 05:47] LABS: BASOPHILS 0.6 % (0-2); EOSINOPHILS 1.8 % (0-7); HEMATOCRIT 30.2 % (36.0-48.0); HEMOGLOBIN 9.7 g/dL (12-16); IMMATURE GRANULOCYTES 7.9 % (0-5); LYMPHOCYTES 5.7 % (15-50); MCH 33.1 pg (26.0-34.0); MCHC 32.1 g/dL (31.0-37.0); MCV 103.1 fL (80.0-100.0); MONOCYTES 8.2 % (2-11); NEUTROPHILS 75.8 % (40-80); PLATELET COUNT 176 10x3/uL (130-400); RBC 2.93 10x6/uL (4.00-5.40); RDW 23.6 % (11.5-14.5); WBC 34.8 10x3/uL (4.8-10.8)
[2019-08-03 06:09] LABS: ALBUMIN 1.3 g/dL (3.4-5.0); ALKALINE PHOSPHATASE 298 U/L (46-116); ALT (SGPT) 8 U/L (10-68); BILIRUBIN - TOTAL 10.33 mg/dL (0.2-1.3); CALC OSMOLALITY 271 mosm/kg (275-300); CALCIUM 7.5 mg/dL (8.5-10.1); CARBON DIOXIDE 23.3 mmol/L (21.0-32.0); CHLORIDE - SERUM 103 mmol/L (98-107); CREATININE - SERUM 0.8 mg/dL (0.6-1.3); GLUCOSE 103 mg/dL (74-106); MAGNESIUM - SERUM 1.5 mg/dL (1.8-2.4); PHOSPHOROUS 2.3 mg/dL (2.5-4.9); POTASSIUM - SERUM 3.8 mmol/L (3.5-5.1); PROTEIN - SERUM 5.6 g/dL (6.4-8.2); SODIUM 137 mmol/L (136-145); UREA NITROGEN 6 mg/dL (7-18); eGFR NON AFRICAN AMERICAN 85 mL/min (90-120)
[2019-08-03 08:53] VITALS: BP 116/65
--- NOTE | 2019-08-03 12:01 | NUR ---
THADDEUS RECIEVED THIS AM RESTING IN BED WITH EYES CLOSED. REFUSED LACTULOSE DUE TO IT CAUSING DIARRHEA, EDUCATED PATIENT ON LACTULOSE AND SHE CONTINUED TO REFUSE. CL IN REACH
[2019-08-03 12:56] VITALS: BP 125/66
[2019-08-03 17:02] VITALS: BP 109/67
[2019-08-03 20:00] VITALS: BP 115/67
--- NOTE | 2019-08-03 20:00 | NUR ---
ALERT RESTING IN BED DENIES PAIN OR NEEDS AT THIS TIME, SEE SHIFT ASSESSMENT, CALL LIGHT IN REACH
[2019-08-04 04:00] VITALS: BP 109/49
[2019-08-04 05:39] LABS: ALBUMIN 1.2 g/dL (3.4-5.0); ALKALINE PHOSPHATASE 292 U/L (46-116); ALT (SGPT) 8 U/L (10-68); BILIRUBIN - TOTAL 9.28 mg/dL (0.2-1.3); CALC OSMOLALITY 270 mosm/kg (275-300); CALCIUM 7.4 mg/dL (8.5-10.1); CARBON DIOXIDE 24.4 mmol/L (21.0-32.0); CHLORIDE - SERUM 103 mmol/L (98-107); CREATININE - SERUM 0.8 mg/dL (0.6-1.3); GLUCOSE 82 mg/dL (74-106); MAGNESIUM - SERUM 1.6 mg/dL (1.8-2.4); PHOSPHOROUS 2.4 mg/dL (2.5-4.9); POTASSIUM - SERUM 3.5 mmol/L (3.5-5.1); PROTEIN - SERUM 5.4 g/dL (6.4-8.2); SODIUM 137 mmol/L (136-145); UREA NITROGEN 7 mg/dL (7-18); eGFR NON AFRICAN AMERICAN 85 mL/min (90-120)
[2019-08-04 05:50] LABS: HEMATOCRIT 27.7 % (36.0-48.0); HEMOGLOBIN 8.9 g/dL (12-16); MCH 33.1 pg (26.0-34.0); MCHC 32.1 g/dL (31.0-37.0); PLATELET COUNT 170 10x3/uL (130-400); RBC 2.69 10x6/uL (4.00-5.40); RDW 23.6 % (11.5-14.5); WBC 42.8 10x3/uL (4.8-10.8)
--- NOTE | 2019-08-04 07:54 | NUR ---
TO IR VIA BED.
--- NOTE | 2019-08-04 07:55 | NUR ---
ASSESSMENT PER FLOW SHEET. PT IS WITHOUT DISTRESS. NPO FOR PROCEDURE TODAY.CALL LIGHT IN REACH
[2019-08-04 07:58] VITALS: BP 118/59
[2019-08-04 08:06] LABS: APTT 45.6 SECONDS (22.8-39.4); INR 1.61 (0.85-1.17)
--- NOTE | 2019-08-04 09:17 | NUR ---
BACK FROM IR. MEDS ORDERED
--- NOTE | 2019-08-04 10:48 | NUR ---
PT IS ANGRY AND IS UP IN ROOM. SHE IS REFUSING FALL PREVENTION.I EXPLAINED THAT IT WAS FOR HER SAFETY, BUT SHE STILL DECLINED. EXPLAINED TO PATIENT SHE COULD SIGN WAIVER TO RELEASE HOSPITAL FROM LIABILITY IF SHE WAS TO FALL.
[2019-08-04 11:24] LABS: EOSINOPHILS 1 % (0-7); LYMPHOCYTES 5 % (15-50); MONOCYTES 12 % (2-11); NEUTROPHILS 58 % (40-80); PLATELET ESTIMATE NORMAL
[2019-08-04 11:27] LABS: ANISOCYTOSIS OCC; TOXIC GRANULATION OCC
--- NOTE | 2019-08-04 14:07 | NUR ---
Nutrition follow-up: Diet: low sodium PO intake ~75% average of meals Labs reviewed Pt refusing lactulose 2/2 diarrhea Wt: 155# RDN following.
--- NOTE | 2019-08-04 15:05 | MORECARE ---
CASE MANAGEMENT DISCHARGE SUMMARY PATIENT: DILIA OSULLIVAN UNIT: [id number] ADM DATE: 07/30/19 AGE: 39 : 82 SEX: F ROOM/BED: D.2230 AUTHOR: CRIS WHALEY PHYSICIAN: REFERRING PHYSICIAN: WANDA MERIDA MD DATE OF SERVICE: 08/04/19 Discharge Plan Patient Name: DILIA OSULLIVAN [facility] [facility] 1980 Planned Disposition: Home Anticipated Discharge Date: Discharge Date: Expected LOS: Initial Reviewer: [email or web address] Initial Review Date: 08/04/2019 Generated: 08/04/19 4:04 pm DCPIA - Discharge Planning Initial Assessment Updated by [email or web address]: Justine Garcia on 08/04/19 3:00 pm * Is the patient Alert and Oriented? Yes * How many steps to enter\exit or inside your home? 4/0 * PCP Ralph Messina * Pharmacy [facility] [address] * Preadmission Environment Home with Family * ADLs Independent * Equipment Crutch Walker * List name and contact numbers for known caregivers / representatives who currently or will assist patient after discharge: Roger Friedump - [phone] * Verbal permission to speak to the caregivers and representatives has been obtained from the patient. Yes * Community resources currently utilized None * Additional services required to return to the preadmission environment? No * Can the patient safely return to the preadmission environment? Yes * Has this patient been hospitalized within the prior 30 days at any hospital? Yes Patient Name: DILIA OSULLIVAN Page [phone] at 1505 All edits/amendments must be made on the electronic document DICTATION DATE: 08/04/19 1505 MEDICAL OFFICE TECHNOLOGIST: ELICIA 08/04/19 1505 RPT#: [id number] DC DATE: STATUS: ADM IN [facility] [address] [place] [address] END OF REPORT
--- NOTE | 2019-08-04 15:13 | MORECARE ---
CASE MANAGEMENT DISCHARGE SUMMARY PATIENT: DILIA OSULLIVAN UNIT: [id number] ADM DATE: 07/30/19 AGE: 39 : 82 SEX: F ROOM/BED: D.2230 AUTHOR: JUDD,DOC PHYSICIAN: REFERRING PHYSICIAN: WANDA MERIDA MD DATE OF SERVICE: 08/04/19 Discharge Plan Patient Name: DILIA OSULLIVAN Facility: [facility]:[place] : 1980 Planned Disposition: Home Anticipated Discharge Date: Discharge Date: Expected LOS: Initial Reviewer: [email or web address] Initial Review Date: 08/04/2019 Generated: 08/04/19 4:13 pm Comments DCP- Discharge Planning Updated by [id number]: Justine Garcia on 08/04/19 2:[address] Patient Name: DILIA OSULLIVAN Admission Status: ER Accout number: [id number] Admission Date: 07-30-2019 : 1980 Admission Diagnosis: Attending: WANDA MERIDA Current LOS: 5 Anticipated DC Date: Planned Disposition: Home Primary Insurance: [place] [employer] [place] Discharge Planning Comments: CM met with patient to complete initial dc planning assessment. CM educated patient on the CM role and verbal consent given by patient to complete assessment. Patient lives at home with her boyfriend. At discharge patient plans to return and feels this is a safe discharge. CM discussed availability of home health, rehab services, and medical equipment. Patient states she would like a shower chair if her insurance will pay for it. She asks me to call [facility] Soria for this. She declines alcohol/substance abuse information. She states "I could probably tell you more about alcohol abuse counseling than anyone". CM will continue to follow and will assist as needed with dc plans/needs. Branch Office Manager: Justine Garcia DCPIA - Discharge Planning Initial Assessment Updated by [email or web address]: Justine Garcia on 08/04/19 3:00 pm * Is the patient Alert and Oriented? Yes * How many steps to enter\\exit or inside your home? 4/0 * PCP Ralph Messina * Pharm[facility] [address] * Preadmission Environment Home with Family * ADLs Independent * Equipment Crutch Walker * List name and contact numbers for known caregivers / representatives who currently or will assist patient after discharge: Roger Chiang - [phone] * Verbal permission to speak to the caregivers and representatives has been obtained from the patient. Yes * Community resources currently utilized None * Additional services required to return to the preadmission environment? No * Can the patient safely return to the preadmission environment? Yes * Has this patient been hospitalized within the prior 30 days at any hospital? Yes Coverage Notice Reviewer: [email or web address] Larry Garcia Notice Issued Date-Time: 08/04/2019 15:06 Notice Type: Patient Choice Letter Notice Delivered To: Patient Relationship to Patient: Self Financial Sales Advisor Name: Delivery Method: HAND - Hand Delivered Farida Days: Prior Verbal Notification: Recipient Understood Notice: Yes Recipient Signature: Yes Med Rec Note Co-signed by Attending: Coverage Notice Comment: lizzie for Jeannette Farrar DP export: 08/04/19 2:05 p Patient Name: DILIA OSULLIVAN Page [phone] at 1513 All edits/amendments must be made on the electronic document DICTATION DATE: 08/04/19 1513 CHIEF SCIENTIFIC OFFICER: ELICIA 08/04/19 1513 RPT#: [id number] DC DATE: STATUS: ADM IN [facility] [address] [place] [address] END OF REPORT
[2019-08-04 17:33] VITALS: BP 117/54
--- NOTE | 2019-08-04 19:45 | NUR ---
LYING IN BED. ALERT AND ORIENTED X4. CONFUSED AT TIMES. RESP IRREG. ABD DISTENDED AND FIRM. DENIES PAIN AT THIS TIME. LT EYE HAS PERIORBITAL BRUISING AND SCLERA IS RED. BRUISES NOTED TO BUE. LACERATION WITH SUTURES TO FOREHEAD. TELEMETRY SHOWS SR WITH RATE OF 97. EDEMA NOTED TO BLE. NS @ 10 MLHR INFUSING IN LT FOREARM. SR ELEVATED X2. CL IN REACH. IRRITABLE WITH STAFF AND ARGUMENTATIVE.
[2019-08-04 21:11] VITALS: BP 121/60
--- NOTE | 2019-08-05 00:32 | NUR ---
HEARD PT COUGHING. UPON ENTERING ROOM, PT WAS NOTED TO BE COUGHING AND HAD VOMITED PINK FLUID. PT STATES ITS THE NEUTROPHOS THAT SHE JUST DRANK. COUGHING AND SPITTING UP THICK CLEAR PHLEGM. STATES SHE CANT BREATHE. SAO2 81%. NOTIFIED ROSA MARIA CHRISTENSEN. NEW ORDERS NOTED.
--- NOTE | 2019-08-05 00:58 | NUR ---
O2 @ 4L/NC. SAO2 91%. HOB ELEVATED. ENCOURAGED TO DEEP BREATHE. RESP NONLABORED. CL IN REACH. CONT SAO2 IN USE.
[2019-08-05 01:24] VITALS: BP 130/55
--- NOTE | 2019-08-05 02:45 | NUR ---
XRAY IN ROOM FOR PORTABLE CHEST XRAY. PT COUGHING. IRRITABLE. O2 @ 4LNC. SAO2 95%
--- NOTE | 2019-08-05 04:42 | NUR ---
AGITATED THIS A.M. REFUSED LAB DRAWS. CURSING STAFF. VOMITED AGAIN. ALERT AND ORIENTED. SAO2 96%. O2 @ 4L/NC. CL IN REACH.
[2019-08-05 04:56] VITALS: BP 130/70
--- NOTE | 2019-08-05 08:00 | NUR ---
ASSESSMENT PER FLFOW SHEET. PT IS WITHOUT DISTRESS.MONITOR FOR NEEDS
[2019-08-05 08:24] LABS: HEMATOCRIT 28.8 % (36.0-48.0); HEMOGLOBIN 9.4 g/dL (12-16); MCH 33.5 pg (26.0-34.0); MCHC 32.6 g/dL (31.0-37.0); MCV 102.5 fL (80.0-100.0); PLATELET COUNT 174 10x3/uL (130-400); RBC 2.81 10x6/uL (4.00-5.40); RDW 23.5 % (11.5-14.5); WBC 55.7 10x3/uL (4.8-10.8)
[2019-08-05 08:25] LABS: ALBUMIN 1.3 g/dL (3.4-5.0); ALKALINE PHOSPHATASE 322 U/L (46-116); ALT (SGPT) 10 U/L (10-68); BILIRUBIN - TOTAL 10.12 mg/dL (0.2-1.3); CALC OSMOLALITY 275 mosm/kg (275-300); CALCIUM 7.6 mg/dL (8.5-10.1); CARBON DIOXIDE 22.9 mmol/L (21.0-32.0); CHLORIDE - SERUM 103 mmol/L (98-107); CREATININE - SERUM 0.8 mg/dL (0.6-1.3); GLUCOSE 108 mg/dL (74-106); POTASSIUM - SERUM 3.9 mmol/L (3.5-5.1); PROTEIN - SERUM 5.9 g/dL (6.4-8.2); SODIUM 138 mmol/L (136-145); eGFR NON AFRICAN AMERICAN 85 mL/min (90-120)
[2019-08-05 08:26] LABS: UREA NITROGEN 10 mg/dL (7-18)
[2019-08-05 08:28] LABS: EOSINOPHILS 1 % (0-7); LYMPHOCYTES 6 % (15-50); MONOCYTES 6 % (2-11); NEUTROPHILS 68 % (40-80)
[2019-08-05 08:32] LABS: PLATELET ESTIMATE NORMAL
[2019-08-05 09:16] VITALS: BP 116/78
[2019-08-05 13:29] VITALS: BP 108/64
--- NOTE | 2019-08-05 17:00 | NUR ---
REMAINS WITHOUT NEEDS.REMAINS WITHOUT CHANGE FROM INTIIAL SHIFT ASSESSMENT.CONT PLAN OF CARE
[2019-08-05 21:18] VITALS: BP 118/61
--- NOTE | 2019-08-06 01:30 | NUR ---
PT RESTING IN BED. EYES CLOSED. NO SIGNS DISTRESS. BREATHING EVEN AND UNLABORED. IV SITE LT FA DRESSIN CLEAN DRY AND INTACT. NO SIGNS OF INFECTION OR INFULTRATION. SKIN COLOR JANDICE GENERLIZED. LUNG SOUNDS CLEAR. ABD DISTENDED AND TENDER TO PALPATION. BOWEL SOUNDS ACTIVE. X4. GENERLIZED SWELLING. WILL CONTINUE PLAN OF CARE. CALL LIGHT IN REACH. BED LOWERED AND LOCKED. BED RAILS UP X2.
--- NOTE | 2019-08-06 04:02 | NUR ---
I have reviewed this patient and I concur with the Shift Assessment completed by the Licensed Practical Nurse today this shift.
--- NOTE | 2019-08-06 04:11 | NUR ---
PT REFUSING IV MEDICATIONS. PT STATES HER IV WONT BE ABLE TO HOLD ANYMORE WITHOUT BLOWING. I ASKED IF I COULD START ANOTHER IV SO WE CAN DO THE IV ABX PT REFUSED AND STATED SHE HAS BEEDN STUCK TO MANY TIMES AND WANTS TO TALK TO THE DOCTOR ABOUT A MIDLINE. WILL FALLOW UP.
[2019-08-06 06:06] VITALS: BP 115/61
[2019-08-06 06:46] LABS: ALBUMIN 1.3 g/dL (3.4-5.0); ANION GAP 13.3 mmol/L (8-16); BILIRUBIN - TOTAL 9.57 mg/dL (0.2-1.3); CALCIUM 7.9 mg/dL (8.5-10.1); CARBON DIOXIDE 24.2 mmol/L (21.0-32.0); CREATININE - SERUM 0.9 mg/dL (0.6-1.3); POTASSIUM - SERUM 3.5 mmol/L (3.5-5.1); PROTEIN - SERUM 6.2 g/dL (6.4-8.2)
[2019-08-06 06:48] LABS: HEMATOCRIT 28.8 % (36.0-48.0); HEMOGLOBIN 9.2 g/dL (12-16); MCH 33.3 pg (26.0-34.0); MCHC 31.9 g/dL (31.0-37.0); MCV 104.3 fL (80.0-100.0); MEAN PLATELET VOLUME 10.5 fL (7.4-10.4); PLATELET COUNT 165 10x3/uL (130-400); RBC 2.76 10x6/uL (4.00-5.40); RDW 24.1 % (11.5-14.5); WBC 47.6 10x3/uL (4.8-10.8)
--- NOTE | 2019-08-06 07:10 | NUR ---
PT RESTING IN BED. NO SIGNS OF DISTRESS. NO IV AT THE TIME. REFUSES TO HAVE ANOTHER ONE PLACED. HAS BRUISES TO FORHEAD AND EYE. ABDOMEN SWOLLEN. DENIES ANY FURTHER NEED AT THIS TIME. CALL LIGHT IN REACH. BED LOW POSITION. NO FAMILY AT BEDSIDE AT THIS TIME.
[2019-08-06 07:59] LABS: ANISOCYTOSIS 1+; EOSINOPHILS 1 % (0-7); LYMPHOCYTES 6 % (15-50); MONOCYTES 5 % (2-11); NEUTROPHILS 76 % (40-80); PLATELET ESTIMATE NORMAL; TOXIC GRANULATION 2+; VACUOLES 1+
[2019-08-06 08:00] LABS: HYPOCHROMASIA 2+; POIKILOCYTOSIS 1+; ROULEAUX 1+
[2019-08-06 08:55] VITALS: BP 113/56
--- NOTE | 2019-08-06 09:10 | NUR ---
HIGH RISK / IMPAIRED SKIN INTEGRITY -TURN/REPOSITION Q 2 HOURS (HOURLY REPOSITIONING IF UP IN CHAIR -FLOAT HEELS OFF MATTRESS/PILLOWS -DAILY AND NEEDED PERSONAL CARE, USING CALMOSEPTINE CREAM IF REDNESS IS NOTED DUE TO INCONTINENCE/MOISTURE -SKIN ASSESSMENT Q SHIFT -CONSULT WOUND CARE IF NON-BLANCHABLE REDNESS OVER BONY PROMINENCES IS NOTED
[2019-08-06 12:55] VITALS: BP 107/54
[2019-08-06 17:33] VITALS: BP 119/62
[2019-08-06 18:33] LABS: APPEARANCE CLEAR (CLEAR); BACTERIA FEW /hpf (NEGATIVE); BILIRUBIN 2+ (NEGATIVE); COLOR DK YELLOW (YELLOW); EPITHELIAL CELLS OCC /hpf (0-5); GLUCOSE NEGATIVE (NEGATIVE); KETONE NEGATIVE (NEGATIVE); NITRITE NEGATIVE (NEGATIVE); PROTEIN NEGATIVE (NEGATIVE); RED CELLS - URINE OCC /hpf (0-5); UROBILINOGEN NORMAL (NORMAL); WHITE CELLS - URINE 0-5 /hpf (NEGATIVE)
--- NOTE | 2019-08-06 18:45 | NUR ---
I have reviewed this patient and I concur with the Shift Assessment completed by the Licensed Practical Nurse today this shift.
[2019-08-06 19:30] VITALS: BP 120/60
--- NOTE | 2019-08-07 00:24 | NUR ---
Patient is alert and orented x 4 able to voice needs and wants to staff. She is jaundice. Up with assistttelemetry in place running 106 sinus tachycardia , edema over body +3 on feet and lowere legs. generalized rset of body. laceration to forhead above right eye. sclera of left eye with blody area. midline to right uper arm in place and paten, no s/s of infection.SCD's in place but takes them off. Remains on room air.
[2019-08-07 00:30] VITALS: BP 118/62
[2019-08-07 05:23] LABS: BASOPHILS 0.4 % (0-2); EOSINOPHILS 1.4 % (0-7); HEMATOCRIT 28.7 % (36.0-48.0); HEMOGLOBIN 9.2 g/dL (12-16); IMMATURE GRANULOCYTES 7.4 % (0-5); LYMPHOCYTES 6.9 % (15-50); MCH 33.5 pg (26.0-34.0); MCHC 32.1 g/dL (31.0-37.0); MCV 104.4 fL (80.0-100.0); MEAN PLATELET VOLUME 10.4 fL (7.4-10.4); NEUTROPHILS 77.9 % (40-80); PLATELET COUNT 210 10x3/uL (130-400); RBC 2.75 10x6/uL (4.00-5.40); RDW 24.1 % (11.5-14.5); WBC 45.1 10x3/uL (4.8-10.8)
[2019-08-07 05:24] LABS: ALBUMIN 1.4 g/dL (3.4-5.0); ANION GAP 14.8 mmol/L (8-16); BILIRUBIN - TOTAL 9.34 mg/dL (0.2-1.3); CALCIUM 8.1 mg/dL (8.5-10.1); CARBON DIOXIDE 22.9 mmol/L (21.0-32.0); CREATININE - SERUM 0.9 mg/dL (0.6-1.3); POTASSIUM - SERUM 3.7 mmol/L (3.5-5.1); PROTEIN - SERUM 6.5 g/dL (6.4-8.2)
[2019-08-07 05:26] VITALS: BP 117/50
[2019-08-07 06:09] LABS: ANA REFLEX - DIRECT Negative (Negative)
--- NOTE | 2019-08-07 07:38 | NUR ---
REC'D IN BED AWAKE AND ALERT X 3. RESP EVEN AND UNLABORED WITH NO DISTRESS NOTED. CAN EXPRESS NEEDS AND WANTS. NO C/O NOTED OR VOICED. ASSESSMENT COMPLETED. BLACK EYE NOTED TO LEFT EYE AND SORE TO FOREHEAD. C/L IN REACH AT BEDSIDE.
[2019-08-07 08:45] VITALS: BP 104/61
[2019-08-07 12:50] VITALS: BP 107/55
[2019-08-07 17:02] VITALS: BP 116/63
[2019-08-07 19:30] VITALS: BP 97/55
[2019-08-08 00:30] VITALS: BP 98/52
--- NOTE | 2019-08-08 01:17 | NUR ---
ASSESSED AT THE BEGINNING OF THE SHIFT. PT IS ALERT AND ORIENTED, ABLE TO VERBALIZE NEEDS. SHE IS UP AD MC TO BATHROOM WITH STAND BY ASSIST. TELEMETRY SHOWS A TACHY HR IN THE 110'S. HER SKIN REMAINS JAUNDICE AND SHE HAS A VERY SWOLLEN ABDOMEN. SHE KNOW THAT SHE WILL BE NPO AT MIDNIGHT FOR A PARACENTESIS IN THE AM.
[2019-08-08 04:30] VITALS: BP 108/62
[2019-08-08 06:50] LABS: HEMATOCRIT 26.4 % (36.0-48.0); HEMOGLOBIN 8.6 g/dL (12-16); MCH 33.7 pg (26.0-34.0); MCHC 32.6 g/dL (31.0-37.0); MCV 103.5 fL (80.0-100.0); MEAN PLATELET VOLUME 10.6 fL (7.4-10.4); PLATELET COUNT 212 10x3/uL (130-400); RBC 2.55 10x6/uL (4.00-5.40); WBC 37.5 10x3/uL (4.8-10.8)
[2019-08-08 06:52] LABS: ALBUMIN 1.3 g/dL (3.4-5.0); ANION GAP 13.2 mmol/L (8-16); BILIRUBIN - TOTAL 9.36 mg/dL (0.2-1.3); CALCIUM 7.9 mg/dL (8.5-10.1); CREATININE - SERUM 0.9 mg/dL (0.6-1.3); POTASSIUM - SERUM 3.2 mmol/L (3.5-5.1)
[2019-08-08 07:48] LABS: HYPOCHROMASIA 3+; LYMPHOCYTES 3 % (15-50); MONOCYTES 4 % (2-11); NEUTROPHILS 77 % (40-80); PLATELET ESTIMATE NORMAL; SMUDGE CELLS 2+; TOXIC GRANULATION 1+
[2019-08-08 08:14] LABS: INR 1.58 (0.85-1.17); PROTIME 18.7 SECONDS (11.6-15.0)
[2019-08-08 08:53] VITALS: BP 114/51
[2019-08-08 11:02] LABS: PROTEIN - BODY FLUID 0.9 G/DL
[2019-08-08 12:19] LABS: NEUT - BF 41 %
[2019-08-08 12:20] LABS: MACROPHAGES BF 25 %
[2019-08-08 13:01] VITALS: BP 121/61
[2019-08-08 13:10] LABS: SMOOTH MUSCLE ABS (ACTIN) 13 Units (0-19)
[2019-08-08 14:09] LABS: MITOCHONDRIAL ANTIBODY <20.0 Units (0.0-20.0)
--- NOTE | 2019-08-08 15:18 | NUR ---
REC'D IN BED AWAKE AND ALERT. RESP EVEN AND UNLABORED WITH NO DISTRESS NOTED. CAN EXPRESS NEEDS AND WANTS. NO C/O VOICED. ASSESSMENT COMPLETED. C/L IN REACH AT BEDSIDE.
--- NOTE | 2019-08-08 16:56 | NUR ---
The patient is awake and alert. Her bilateral lower extremities are edematous. Left is 3+ and right 1-2+. She said she feels better since she had a parancentesis today. Her abdomen is firm and she says it is tender to palpate. She denies any other needs at this time.
[2019-08-08 17:02] VITALS: BP 111/59
[2019-08-08 20:00] VITALS: BP 114/52
[2019-08-09] VITALS: BP 111/54
[2019-08-09 04:00] VITALS: BP 109/54
[2019-08-09 06:14] LABS: ALBUMIN 1.5 g/dL (3.4-5.0); ALKALINE PHOSPHATASE 281 U/L (30-120); ALT (SGPT) 10 U/L (10-68); BILIRUBIN - TOTAL 9.44 mg/dL (0.2-1.3); CALC OSMOLALITY 269 mosm/kg (275-300); CALCIUM 7.7 mg/dL (8.5-10.1); CARBON DIOXIDE 22.6 mmol/L (21.0-32.0); CHLORIDE - SERUM 99 mmol/L (98-107); CREATININE - SERUM 0.8 mg/dL (0.6-1.3); GLUCOSE 92 mg/dL (74-106); POTASSIUM - SERUM 3.1 mmol/L (3.5-5.1); PROTEIN - SERUM 5.9 g/dL (6.4-8.2); SODIUM 135 mmol/L (136-145); UREA NITROGEN 12 mg/dL (7-18); eGFR NON AFRICAN AMERICAN 85 mL/min (90-120)
[2019-08-09 06:24] LABS: HEMATOCRIT 25.5 % (36.0-48.0); HEMOGLOBIN 8.3 g/dL (12-16); MCH 33.5 pg (26.0-34.0); MCHC 32.5 g/dL (31.0-37.0); MCV 102.8 fL (80.0-100.0); MEAN PLATELET VOLUME 9.8 fL (7.4-10.4); PLATELET COUNT 222 10x3/uL (130-400); RBC 2.48 10x6/uL (4.00-5.40); RDW 24.4 % (11.5-14.5); WBC 35.8 10x3/uL (4.8-10.8)
--- NOTE | 2019-08-09 07:47 | NUR ---
PT RESTING IN BED WITH EYES CLOSED, EASILY AROUSED TO SPEECH. ALERT AND ORIENTED, BREATHING EVEN AND NONLABORED. MIDLINE LOCATED TO RIGHT UPPER ARM, SL. NO S/S OF DISTRESS AT THIS TIME, DENIES NEEDS, WILL CONTINUE TO MONITOR.
[2019-08-09 07:53] LABS: EOSINOPHILS 1 % (0-7); HYPOCHROMASIA 2+; LYMPHOCYTES 4 % (15-50); MONOCYTES 2 % (2-11); NEUTROPHILS 86 % (40-80); PLATELET ESTIMATE NORMAL
[2019-08-09 10:05] VITALS: BP 109/58
[2019-08-09 12:39] VITALS: BP 118/53
[2019-08-09 16:33] VITALS: BP 134/72
--- NOTE | 2019-08-09 19:00 | NUR ---
PATIENT LYING DOWN IN BED SLEEPING. OPENS EYES TO VOICE. NO SIGNS OF ACUTE STRESS. ALERT AND ORIENTED. R UPPER ARM MIDLINE, SALINE LOCKED. PATIENT STATES SHE WOULD LIKE SOME ICE AND HAS NO OTHER NEEDS AT THIS TIME. BED RAILS X2. CALL LIGHT AND BEDSIDE TABLE WITHIN REACH.
[2019-08-09 19:30] VITALS: BP 110/56
[2019-08-10 00:30] VITALS: BP 119/53
[2019-08-10 04:30] VITALS: BP 121/51
[2019-08-10 05:36] LABS: BASOPHILS 0.2 % (0-2); EOSINOPHILS 1.3 % (0-7); HEMATOCRIT 27.8 % (36.0-48.0); HEMOGLOBIN 8.9 g/dL (12-16); IMMATURE GRANULOCYTES 2.2 % (0-5); LYMPHOCYTES 6.2 % (15-50); MCH 33.2 pg (26.0-34.0); MCV 103.7 fL (80.0-100.0); MEAN PLATELET VOLUME 10.2 fL (7.4-10.4); MONOCYTES 5.1 % (2-11); PLATELET COUNT 265 10x3/uL (130-400); RBC 2.68 10x6/uL (4.00-5.40); RDW 24.5 % (11.5-14.5); WBC 36.7 10x3/uL (4.8-10.8)
[2019-08-10 05:53] LABS: ALBUMIN 1.5 g/dL (3.4-5.0); ANION GAP 13.3 mmol/L (8-16); BILIRUBIN - TOTAL 10.44 mg/dL (0.2-1.3); CALCIUM 8.2 mg/dL (8.5-10.1); CARBON DIOXIDE 22.4 mmol/L (21.0-32.0); CREATININE - SERUM 0.9 mg/dL (0.6-1.3); PROTEIN - SERUM 6.3 g/dL (6.4-8.2)
[2019-08-10 05:58] LABS: POTASSIUM - SERUM 3.7 mmol/L (3.5-5.1)
[2019-08-10 08:16] VITALS: BP 111/56
[2019-08-10 13:40] VITALS: BP 122/61
[2019-08-10] MEDS ORDERED: LASIX40 MG PO (14:41)
[2019-08-10] MEDS ORDERED: FLORAJEN3 CAPS460 MG PO (14:41)
[2019-08-10] MEDS ORDERED: ALDACTONE100 MG PO (14:41)
[2019-08-10] MEDS ORDERED: CHRONULAC30 ML PO (14:41)
[2019-08-10] MEDS ORDERED: Nicoderm [PBKC] TRANSDERM (14:41)
[2019-08-10] MEDS ORDERED: FOLIC ACID1 MG PO (14:41)
[2019-08-10] MEDS ORDERED: PROTONIX40 MG PO (14:42)
--- NOTE | 2019-08-10 16:49 | NUR ---
MIDLINE REMOVED FROM RIGHT UPPER ARM. TIP INTACT. DISCHARGE INSTRUCTIONS GIVEN. PATIENT VERBALIZED UNDERSTANDING. WHEELED DOWNSTAIRS BY BASHIR.
--- NOTE | 2019-08-10 17:33 | MORECARE ---
CASE MANAGEMENT DISCHARGE SUMMARY PATIENT: DILIA OSULLIVAN UNIT: [id number] ADM DATE: 07/30/19 AGE: 39 : 82 SEX: F ROOM/BED: D.2230 AUTHOR: CRIS WHALEY PHYSICIAN: REFERRING PHYSICIAN: WANDA MERIDA MD DATE OF SERVICE: 08/10/19 Discharge Plan Patient Name: DILIA OSULLIVAN Facility: [facility]:[place] : 1980 Planned Disposition: Home Anticipated Discharge Date: Discharge Date: 08/10/2019 Expected LOS: Initial Reviewer: [email or web address] Initial Review Date: 08/04/2019 Generated: 08/10/19 6:32 pm Comments DCP- Discharge Planning Updated by [email or web address]: Katarzyna Wall on 08/10/19 4:[address] LATE ENTRY 1600 PATIENT FOR DISCHARGE TO HOME TODAY. CM RECEIVED A RECONSULT ORDER FOR ASSESSMENT NEEDS. OMID SPOKE W/ THE PATIENT. SHE WANTED A SHOWER CHAIR OR BENCH. SHE KNEW THAT HER INSURER DID NOT PAY FOR IT. OMID ADVISED HER TO CALL [email or web address], [employer] AND [employer]. OMID PROVIDED THE CONTACT INFORMATION FOR [facility]. SHE IS FAMILIAR WITH [email or web address] AND [employer]. CM DISCUSSED HOME HEALTH. THE PATIENT SAID SHE HAD BEEN SETUP WITH [facility] WHEN SHE WAS DISCHARGED FROM [facility]. SHE WAS ADMITTED TO [facility] BEFORE SHE COULD BE SEEN. SHE WANTED TO HAVE [facility] . PROVIDER LISTED PROVIDED TO THE PATIENT. PATIENT WAS IN THE SHOWER. 1645 PATIENT CHOICE FORM OBTAINED. ORIGINAL SIGNED COPY TO THE PATIENT AND ORIGINAL SIGNED COPY TO THE HARD COVER CHART. TC TO [employer] . CM REC CB FROM [facility]. SHE HAD AN OLD REFERRAL. SHE HAD A QUESTION RE PCP. [facility] WILL F/U IN THE AM WITH DR VASQUEZ . CM FAXED REFERRAL.WITH CORRECTED FACE SHEET. LOT 21 ADDITIONAL PHONE NUMBER [phone]. PLAN IS FOR PATIENT TO BE SEEN SUNDAY OR SUNDAY IF DR VASQUEZ IS PCP. DCP- Discharge Planning Updated by [email or web address]: Justine Garcia on 08/04/19 2:[address] Patient Name: DILIA OSULLIVAN Admission Status: ER Accout number: [id number] Admission Date: 07-30-2019 : 1980 Admission Diagnosis: Attending: WANDA MERIDA Current LOS: 5 Anticipated DC Date: Planned Disposition: Home Primary Insurance: [facility] PRIVATE OPTIONS [facility] Discharge Planning Comments: CM met with patient to complete initial dc planning assessment. CM educated patient on the CM role and verbal consent given by patient to complete assessment. Patient lives at home with her boyfriend. At discharge patient plans to return and feels this is a safe discharge. CM discussed availability of home health, rehab services, and medical equipment. Patient states she would like a shower chair if her insurance will pay for it. She asks me to call [facility] Soria for this. She declines alcohol/substance abuse information. She states "I could probably tell you more about alcohol abuse counseling than anyone". CM will continue to follow and will assist as needed with dc plans/needs. Electrical Systems Design Engineer: Justine Garcia DCPIA - Discharge Planning Initial Assessment Updated by [id number]: Justine Garcia on 08/04/19 3:00 pm * Is the patient Alert and Oriented? Yes * How many steps to enter\\exit or inside your home? 4/0 * PCP Ralph Vasquez * [facility] [address] * Preadmission Environment Home with Family * ADLs Independent * Equipment Crutch Walker * List name and contact numbers for known caregivers / representatives who currently or will assist patient after discharge: Roger Chiang - [phone] * Verbal permission to speak to the caregivers and representatives has been obtained from the patient. Yes * Community resources currently utilized None * Additional services required to return to the preadmission environment? No * Can the patient safely return to the preadmission environment? Yes * Has this patient been hospitalized within the prior 30 days at any hospital? Yes Coverage Notice Reviewer: [email or web address] - Justine Garcia Notice Issued Date-Time: 08/04/2019 15:06 Notice Type: Patient Choice Letter Notice Delivered To: Patient Relationship to Patient: Self Production Mechanic Tin [employer]ans Name: Delivery Method: HAND - Hand Delivered Farida Days: Prior Verbal Notification: Recipient Understood Notice: Yes Recipient Signature: Yes Med Rec Note Co-signed by Attending: Coverage Notice Comment: lizzie jo Machado Reviewer: [email or web address] Larry Wall Notice Issued Date-Time: 08/10/2019 16:45 Notice Type: Patient Choice Letter Notice Delivered To: Patient Relationship to Patient: Production Mechanic Tin Cans Name: Delivery Method: - Farida Days: Prior Verbal Notification: Recipient Understood Notice: Recipient Signature: Med Rec Note Co-signed by Attending: Coverage Notice Comment: Last DP export: 08/04/19 2:13 p Patient Name: DILIA OSULLIVAN Page [id number] at 1733 All edits/amendments must be made on the electronic document DICTATION DATE: 08/10/191731 STOREKEEPER HELPER: ELICIA 08/10/191731 RPT#: [id number] DC DATE:08/10/19 STATUS: DIS IN [facility] [address] [place] [address] END OF REPORT
--- NOTE | 2019-08-11 08:48 | MORECARE ---
CASE MANAGEMENT DISCHARGE SUMMARY PATIENT: DILIA OSULLIVAN UNIT: [id number] ADM DATE: 07/30/19 AGE: 39 : 82 SEX: F ROOM/BED: D.2230 AUTHOR: CRIS WHALEY PHYSICIAN: REFERRING PHYSICIAN: WNADA MERIDA MD DATE OF SERVICE: 08/11/19 Discharge Plan Patient Name: DILIA OSULLIVAN Facility: [facility]:[place] : 1980 Planned Disposition: Home Anticipated Discharge Date: Discharge Date: 08/10/2019 Expected LOS: Initial Reviewer: [id number] Initial Review Date: 08/04/2019 Generated: 08/11/19 9:48 am Comments DCP- Discharge Planning Updated by [email or web address]: Katarzyna Wall on 08/10/19 4:[address] LATE ENTRY 1600 PATIENT FOR DISCHARGE TO HOME TODAY. CM RECEIVED A RECONSULT ORDER FOR ASSESSMENT NEEDS. OMID SPOKE W/ THE PATIENT. SHE WANTED A SHOWER CHAIR OR BENCH. SHE KNEW THAT HER INSURER DID NOT PAY FOR IT. OMID ADVISED HER TO CALL [employer], [employer] AND [employer]. OMID PROVIDED THE CONTACT INFORMATION FOR [facility]. SHE IS FAMILIAR WITH [employer] AND [employer]. CM DISCUSSED HOME HEALTH. THE PATIENT SAID SHE HAD BEEN SETUP WITH [facility] WHEN SHE WAS DISCHARGED FROM [facility]. SHE WAS ADMITTED TO [facility] BEFORE SHE COULD BE SEEN. SHE WANTED TO HAVE [facility] . PROVIDER LISTED PROVIDED TO THE PATIENT. PATIENT WAS IN THE SHOWER. 1645 PATIENT CHOICE FORM OBTAINED. ORIGINAL SIGNED COPY TO THE PATIENT AND ORIGINAL SIGNED COPY TO THE HARD COVER CHART. TC TO [facility] . CM REC CB FROM [facility]AR[facility]. SHE HAD AN OLD REFERRAL. SHE HAD A QUESTION RE PCP. [facility] WILL F[facility]U IN THE AM WITH DR VASQUEZ . CM FAXED REFERRAL.WITH CORRECTED FACE SHEET. LOT 21 ADDITIONAL PHONE NUMBER [phone]. PLAN IS FOR PATIENT TO BE SEEN SUNDAY OR SUNDAY IF DR VASQUEZ IS PCP. DCP- Discharge Planning Updated by [id number]: Justine Garcia on 08/04/19 2:[address] Patient Name: DILIA OSULLIVAN Admission Status: ER Accout number: [id number] Admission Date: 07-30-2019 : 1980 Admission Diagnosis: Attending: WANDA MERIDA Current LOS: 5 Anticipated DC Date: Planned Disposition: Home Primary Insurance: [facility] PRIVATE OPTIONS [facility] Discharge Planning Comments: CM met with patient to complete initial dc planning assessment. CM educated patient on the CM role and verbal consent given by patient to complete assessment. Patient lives at home with her boyfriend. At discharge patient plans to return and feels this is a safe discharge. CM discussed availability of home health, rehab services, and medical equipment. Patient states she would like a shower chair if her insurance will pay for it. She asks me to call [facility] for this. She declines alcohol/substance abuse information. She states "I could probably tell you more about alcohol abuse counseling than anyone". CM will continue to follow and will assist as needed with dc plans/needs. Sighter: Justine Garcia DCPIA - Discharge Planning Initial Assessment Updated by [id number]: Justine Garcia on 08/04/19 3:00 pm * Is the patient Alert and Oriented? Yes * How many steps to enter\\exit or inside your home? 4/0 * PCP Ralph Vasquez * [facility] * Preadmission Environment Home with Family * ADLs Independent * Equipment Crutch Walker * List name and contact numbers for known caregivers / representatives who currently or will assist patient after discharge: Roger Chiang - [phone] * Verbal permission to speak to the caregivers and representatives has been obtained from the patient. Yes * Community resources currently utilized None * Additional services required to return to the preadmission environment? No * Can the patient safely return to the preadmission environment? Yes * Has this patient been hospitalized within the prior 30 days at any hospital? Yes Coverage Notice Reviewer: [id number] - Justine Garcia Notice Issued Date-Time: 08/04/2019 15:06 Notice Type: Patient Choice Letter Notice Delivered To: Patient Relationship to Patient: Self Chief Dispatcher Service Name: Delivery Method: HAND - Hand Delivered Farida Days: Prior Verbal Notification: Recipient Understood Notice: Yes Recipient Signature: Yes Med Rec Note Co-signed by Attending: Coverage Notice Comment: lizzie jo Machado Reviewer: [id number] Larry Wall Notice Issued Date-Time: 08/10/2019 16:45 Notice Type: Patient Choice Letter Notice Delivered To: Patient Relationship to Patient: Chief Dispatcher Service Name: Delivery Method: HAND - Hand Delivered Farida Days: Prior Verbal Notification: Recipient Understood Notice: Yes Recipient Signature: Yes Med Rec Note Co-signed by Attending: Coverage Notice Comment: PATIENT CHOICE FORM FOR HOME HEALTH. PATIENT SELECTED [facility] Last DP export: 08/10/19 4:33 p Patient Name: DILIA OSULLIVAN Page 50101 at 0848 All edits/amendments must be made on the electronic document DICTATION DATE: 08/11/1948 GRADUATE STUDIES DEAN: ELICIA 08/11/19 0848 RPT#: [id number] DC DATE:08/10/19 STATUS: DIS IN [facility] [address] [place] [address] END OF REPORT
--- NOTE | 2019-08-11 10:10 | MORECARE ---
CASE MANAGEMENT DISCHARGE SUMMARY PATIENT: DILIA OSULLIVAN UNIT: [id number] ADM DATE: 07/30/19 AGE: 39 : 82 SEX: F ROOM/BED: D.2230 AUTHOR: CRIS WHALEY PHYSICIAN: REFERRING PHYSICIAN: WANDA MERIDA MD DATE OF SERVICE: 08/11/19 Discharge Plan Patient Name: DILIA OSULLIVAN Facility: [facility]:[place] : 1980 Planned Disposition: Home Anticipated Discharge Date: Discharge Date: 08/10/2019 Expected LOS: Initial Reviewer: [id number] Initial Review Date: 08/04/2019 Generated: 08/11/19 11:10 am Comments DCP- Discharge Planning Updated by [id number]: Katarzyna Wall on 08/10/19 4:[address] LATE ENTRY 1600 PATIENT FOR DISCHARGE TO HOME TODAY. CM RECEIVED A RECONSULT ORDER FOR ASSESSMENT NEEDS. OMID SPOKE W/ THE PATIENT. SHE WANTED A SHOWER CHAIR OR BENCH. SHE KNEW THAT HER INSURER DID NOT PAY FOR IT. OMID ADVISED HER TO CALL [employer] AND [employer]. OMID PROVIDED THE CONTACT INFORMATION FOR [facility]. SHE IS FAMILIAR WITH [employer] AND [employer]. CM DISCUSSED HOME HEALTH. THE PATIENT SAID SHE HAD BEEN SETUP WITH [facility] WHEN SHE WAS DISCHARGED FROM [facility]. SHE WAS ADMITTED TO [facility] BEFORE SHE COULD BE SEEN. SHE WANTED TO HAVE [facility] . PROVIDER LISTED PROVIDED TO THE PATIENT. PATIENT WAS IN THE SHOWER. 1645 PATIENT CHOICE FORM OBTAINED. ORIGINAL SIGNED COPY TO THE PATIENT AND ORIGINAL SIGNED COPY TO THE HARD COVER CHART. TC TO [employer] . CM REC CB FROM [facility]. SHE HAD AN OLD REFERRAL. SHE HAD A QUESTION RE PCP. [facility] WILL F/U IN THE AM WITH DR VASQUEZ . CM FAXED REFERRAL.WITH CORRECTED FACE SHEET. LOT 21 ADDITIONAL PHONE NUMBER [phone]. PLAN IS FOR PATIENT TO BE SEEN SUNDAY OR SUNDAY IF DR VASQUEZ IS PCP. DCP- Discharge Planning Updated by [id number]: Justine Garcia on 08/04/19 2:[address] Patient Name: DILIA OSULLIVAN Admission Status: ER Accout number: [id number] Admission Date: 07-30-2019 : 1980 Admission Diagnosis: Attending: WANDA MERIDA Current LOS: 5 Anticipated DC Date: Planned Disposition: Home Primary Insurance: [place] PRIVATE OPTIONS [facility] Discharge Planning Comments: CM met with patient to complete initial dc planning assessment. CM educated patient on the CM role and verbal consent given by patient to complete assessment. Patient lives at home with her boyfriend. At discharge patient plans to return and feels this is a safe discharge. CM discussed availability of home health, rehab services, and medical equipment. Patient states she would like a shower chair if her insurance will pay for it. She asks me to call [facility] for this. She declines alcohol/substance abuse information. She states "I could probably tell you more about alcohol abuse counseling than anyone". CM will continue to follow and will assist as needed with dc plans/needs. Edge Beader: Justine Garcia DCPIA - Discharge Planning Initial Assessment Updated by [email or web address]: Justine Garcia on 08/04/19 3:00 pm * Is the patient Alert and Oriented? Yes * How many steps to enter\\exit or inside your home? 4/0 * PCP Ralph Vasquez * [facility] * Preadmission Environment Home with Family * ADLs Independent * Equipment Crutch Walker * List name and contact numbers for known caregivers / representatives who currently or will assist patient after discharge: Roger Chiang - [phone] * Verbal permission to speak to the caregivers and representatives has been obtained from the patient. Yes * Community resources currently utilized None * Additional services required to return to the preadmission environment? No * Can the patient safely return to the preadmission environment? Yes * Has this patient been hospitalized within the prior 30 days at any hospital? Yes External Providers External Provider: [facility] Next Contact Date: Service Request Date: Service Type: Resolution: Reviewer: Comments: External Provider: [facility] Next Contact Date: Service Request Date: Service Type: Resolution: Reviewer: Comments: Coverage Notice Reviewer: [id number] - Justine Garcia Notice Issued Date-Time: 08/04/2019 15:06 Notice Type: Patient Choice Letter Notice Delivered To: Patient Relationship to Patient: Self Dryer Operator Name: Delivery Method: HAND - Hand Delivered Farida Days: Prior Verbal Notification: Recipient Understood Notice: Yes Recipient Signature: Yes Med Rec Note Co-signed by Attending: Coverage Notice Comment: lizzie Machado Reviewer: [id number] Larry Wall Notice Issued Date-Time: 08/10/2019 16:45 Notice Type: Patient Choice Letter Notice Delivered To: Patient Relationship to Patient: Dryer Operator Name: Delivery Method: HAND - Hand Delivered Farida Days: Prior Verbal Notification: Recipient Understood Notice: Yes Recipient Signature: Yes Med Rec Note Co-signed by Attending: Coverage Notice Comment: PATIENT CHOICE FORM FOR HOME HEALTH. PATIENT SELECTED [facility] Last DP export: 08/11/19 7:48 a Patient Name: DILIA OSULLIVAN Page 47787 at 1010 All edits/amendments must be made on the electronic document DICTATION DATE: 08/11/19 1009 LABORATORY TECHNOLOGIST: ELICIA 08/11/19 1009 RPT#: [id number] DC DATE:08/10/19 STATUS: DIS IN [facility] [address] [place] [address] END OF REPORT
== END 2019-08-10 16:51 | disposition home health service (06) | DRG 432 ==
LOC: D.ER 22:22 → D.MS 07-30 01:33
PROVIDERS: Family Medicine; General Practice; Internal Medicine Gastroenterology; Radiology Diagnostic Radiology; ADMIT Internal Medicine Nephrology; ATTEND Internal Medicine Nephrology
PROC: 07DR3ZX Extraction of Iliac Bone Marrow, Percutaneous Approach, Diagnostic (ICD-10-PCS; principal; 2019-08-04 08:41)
PROC: 05HB33Z Insertion of Infusion Device into Right Basilic Vein, Percutaneous Approach (ICD-10-PCS; 2019-08-06)
PROC: 0W9G3ZZ Drainage of Peritoneal Cavity, Percutaneous Approach (ICD-10-PCS; 2019-08-08)
DX: K70.31 Alcoholic cirrhosis of liver with ascites (principal); E43 Unspecified severe protein-calorie malnutrition; G93.41 Metabolic encephalopathy; D68.9 Coagulation defect, unspecified; F17.203 Nicotine dependence unspecified, with withdrawal; I85.10 Secondary esophageal varices without bleeding; D53.9 Nutritional anemia, unspecified; E87.6 Hypokalemia; E83.42 Hypomagnesemia; H33.312 Horseshoe tear of retina without detachment, left eye; Q05.9 Spina bifida, unspecified; F10.10 Alcohol abuse, uncomplicated; F12.90 Cannabis use, unspecified, uncomplicated; D73.2 Chronic congestive splenomegaly

== ENCOUNTER 2019-09-12 19:26 | Inpatient (IN) | payer MEDICAID ==
[~2019-09-12] VITALS: Ht 157.5 cm; Wt 61.7 kg
[~2019-09-12 19:26] MED LIST changes: +ALDACTONE100 MG; +ALDACTONE100 MG PO; +ALPHAGAN 0.2%5 ML RIGHT EYE; +CHRONULAC30 ML PO; +ERYTHROMYCIN OPT1 GM LEFT EYE; +FLORAJEN3 CAPS460 MG PO; +FOLIC ACID1 MG PO; +FUROSEMIDE40 MG; +Nicoderm [PBKC] TRANSDERM; +PROTONIX40 MG PO; +TRUSOPT 2 % OPT10 ML EACH EYE; +XALATAN 0.0052.5 ML
--- NOTE | 2019-09-12 19:55 | NUR ---
URINE SENT TO LAB
[2019-09-12 20:00] VITALS: BP 117/75
[2019-09-12 20:03] LABS: BILIRUBIN NEGATIVE (NEGATIVE); GLUCOSE NEGATIVE (NEGATIVE); KETONE NEGATIVE (NEGATIVE); NITRITE NEGATIVE (NEGATIVE); UROBILINOGEN NORMAL (NORMAL)
[2019-09-12 20:13] LABS: BASOPHILS 0.2 % (0-2); EOSINOPHILS 0.9 % (0-7); HEMATOCRIT 28.6 % (36.0-48.0); HEMOGLOBIN 9.6 g/dL (12-16); IMMATURE GRANULOCYTES 0.4 % (0-5); LYMPHOCYTES 18.3 % (15-50); MCH 34.3 pg (26.0-34.0); MCHC 33.6 g/dL (31.0-37.0); MCV 102.1 fL (80.0-100.0); MEAN PLATELET VOLUME 8.9 fL (7.4-10.4); MONOCYTES 9.5 % (2-11); NEUTROPHILS 70.7 % (40-80); RDW 16.4 % (11.5-14.5); WBC 16.5 10x3/uL (4.8-10.8)
[2019-09-12 20:16] LABS: HCG URINE NEGATIVE (NEGATIVE)
[2019-09-12 20:17] LABS: PLATELET COUNT 133 10x3/uL (130-400)
[2019-09-12 20:21] LABS: CALC OSMOLALITY 261 mosm/kg (275-300); CALCIUM 8.4 mg/dL (8.5-10.1); CARBON DIOXIDE 23.8 mmol/L (21.0-32.0); CHLORIDE - SERUM 95 mmol/L (98-107); CREATININE - SERUM 0.8 mg/dL (0.6-1.3); GLUCOSE 90 mg/dL (74-106); POTASSIUM - SERUM 3.6 mmol/L (3.5-5.1); SODIUM 132 mmol/L (136-145); UREA NITROGEN 4 mg/dL (7-18); eGFR NON AFRICAN AMERICAN 85 mL/min (90-120)
[2019-09-12 20:31] LABS: ALBUMIN 2.1 g/dL (3.4-5.0); ALKALINE PHOSPHATASE 506 U/L (30-120); ALT (SGPT) 18 U/L (10-68); AMYLASE - SERUM 26 U/L (25-115); BILIRUBIN - TOTAL 5.34 mg/dL (0.2-1.3); LIPASE 73 U/L (73-393); PROTEIN - SERUM 7.8 g/dL (6.4-8.2); TROPONIN-I < 0.017 ng/mL (0.000-0.060)
[2019-09-12 21:19] LABS: APTT 41.1 SECONDS (22.8-39.4); INR 1.44 (0.85-1.17); PROTIME 17.5 SECONDS (11.6-15.0)
[2019-09-12 23:29] VITALS: BP 124/78; BMI 24.9
[2019-09-13 00:24] VITALS: BP 93/48
[2019-09-13 04:00] VITALS: BP 106/65
[2019-09-13 05:33] LABS: BASOPHILS 0.2 % (0-2); EOSINOPHILS 0.7 % (0-7); HEMATOCRIT 26.6 % (36.0-48.0); HEMOGLOBIN 8.8 g/dL (12-16); IMMATURE GRANULOCYTES 0.2 % (0-5); LYMPHOCYTES 9.8 % (15-50); MCH 33.3 pg (26.0-34.0); MCHC 33.1 g/dL (31.0-37.0); MCV 100.8 fL (80.0-100.0); MEAN PLATELET VOLUME 8.9 fL (7.4-10.4); MONOCYTES 8.8 % (2-11); NEUTROPHILS 80.3 % (40-80); PLATELET COUNT 114 10x3/uL (130-400); RBC 2.64 10x6/uL (4.00-5.40); RDW 16.2 % (11.5-14.5); WBC 14.1 10x3/uL (4.8-10.8)
[2019-09-13 06:26] LABS: ALBUMIN 1.7 g/dL (3.4-5.0); ALKALINE PHOSPHATASE 419 U/L (30-120); ALT (SGPT) 17 U/L (10-68); BILIRUBIN - TOTAL 4.66 mg/dL (0.2-1.3); CALC OSMOLALITY 271 mosm/kg (275-300); CALCIUM 8.3 mg/dL (8.5-10.1); CARBON DIOXIDE 25.8 mmol/L (21.0-32.0); CHLORIDE - SERUM 101 mmol/L (98-107); CREATININE - SERUM 0.7 mg/dL (0.6-1.3); GLUCOSE 76 mg/dL (74-106); PHOSPHOROUS 4.3 mg/dL (2.5-4.9); POTASSIUM - SERUM 3.1 mmol/L (3.5-5.1); PRO BNP 160 pg/mL (0-125); PROTEIN - SERUM 6.8 g/dL (6.4-8.2); SODIUM 138 mmol/L (136-145); UREA NITROGEN 3 mg/dL (7-18); eGFR NON AFRICAN AMERICAN > 90 mL/min (90-120)
[2019-09-13 06:30] LABS: MAGNESIUM - SERUM 0.8 mg/dL (1.8-2.4)
[2019-09-13 09:01] VITALS: BP 127/65
[2019-09-13 13:28] VITALS: BP 130/74
[2019-09-13 14:37] LABS: INR 1.55 (0.85-1.17); PROTIME 18.4 SECONDS (11.6-15.0)
[2019-09-13 14:43] LABS: MAGNESIUM - SERUM 1.7 mg/dL (1.8-2.4); POTASSIUM - SERUM 3.6 mmol/L (3.5-5.1)
[2019-09-13 17:01] VITALS: BP 97/40
--- NOTE | 2019-09-13 20:00 | NUR ---
ALERT SITTING UP IN BED, DENIES PAIN OR NEEDS AT THIS TIME, SEE SHIFT ASSESSMENT CALL LIGHT IN REACH
[2019-09-13 22:08] VITALS: BP 105/55
[2019-09-14] VITALS: BP 116/44
[2019-09-14 04:00] VITALS: BP 114/46
[2019-09-14 05:28] LABS: BASOPHILS 0.1 % (0-2); EOSINOPHILS 1.2 % (0-7); HEMATOCRIT 23.5 % (36.0-48.0); HEMOGLOBIN 7.7 g/dL (12-16); IMMATURE GRANULOCYTES 0.3 % (0-5); LYMPHOCYTES 10.5 % (15-50); MCH 33.8 pg (26.0-34.0); MCHC 32.8 g/dL (31.0-37.0); MEAN PLATELET VOLUME 9.5 fL (7.4-10.4); MONOCYTES 7.2 % (2-11); NEUTROPHILS 80.7 % (40-80); PLATELET COUNT 93 10x3/uL (130-400); RBC 2.28 10x6/uL (4.00-5.40); RDW 16.4 % (11.5-14.5); WBC 15.9 10x3/uL (4.8-10.8)
[2019-09-14 05:36] LABS: MCV 103.1 fL (80.0-100.0)
[2019-09-14 05:52] LABS: INR 1.74 (0.85-1.17); PROTIME 20.2 SECONDS (11.6-15.0)
[2019-09-14 06:05] LABS: ALBUMIN 1.7 g/dL (3.4-5.0); ALKALINE PHOSPHATASE 368 U/L (30-120); ALT (SGPT) 14 U/L (10-68); BILIRUBIN - TOTAL 5.63 mg/dL (0.2-1.3); CALC OSMOLALITY 266 mosm/kg (275-300); CALCIUM 7.8 mg/dL (8.5-10.1); CARBON DIOXIDE 25.9 mmol/L (21.0-32.0); CHLORIDE - SERUM 99 mmol/L (98-107); CREATININE - SERUM 0.8 mg/dL (0.6-1.3); GLUCOSE 90 mg/dL (74-106); MAGNESIUM - SERUM 1.9 mg/dL (1.8-2.4); PHOSPHOROUS 2.5 mg/dL (2.5-4.9); POTASSIUM - SERUM 3.1 mmol/L (3.5-5.1); PROTEIN - SERUM 6.4 g/dL (6.4-8.2); SODIUM 135 mmol/L (136-145); UREA NITROGEN 5 mg/dL (7-18); eGFR NON AFRICAN AMERICAN 85 mL/min (90-120)
--- NOTE | 2019-09-14 06:40 | NUR ---
PAUL CRNAE NOTIFIED OF AMONIA LEVEL OF 80, ORDERS RECIEVED TO INCREASE LACTOSE 15ML TO BID
--- NOTE | 2019-09-14 07:50 | NUR ---
PT RESTING, RR EVEN AND UNLABORED. NO DISTRESS NOTED. CALL LIGHT WITHIN REACH. BED IN LOWEST POSITION. WILL CONTINUE TO MONITOR.
[2019-09-14 08:45] VITALS: BP 114/53
[2019-09-14 12:29] VITALS: BP 104/55
[2019-09-14 16:30] VITALS: BP 115/50
--- NOTE | 2019-09-14 17:12 | NUR ---
I have reviewed this patient and I concur with the Shift Assessment completed by the Licensed Practical Nurse today this shift.
--- NOTE | 2019-09-14 19:30 | NUR ---
LAB CALLED TO CHECK ON STATUS OF BLOOD FOR TRANSFUSION, STATED THAT CROSSMATCH HAS NOT BEEN DRAWN YET WILL CALL WHEN READY
[2019-09-14 20:00] VITALS: BP 123/52
--- NOTE | 2019-09-14 20:00 | NUR ---
ALERT RESTING IN BED, REPORT MILD PAIN TO ABD, TIGHT FEELING, SEE SHIFT ASSESSMENT, CALL LIGHT IN REACH. 20G IV STARTED L FA, CONSENT SIGNED FOR BLOOD
--- NOTE | 2019-09-14 23:15 | NUR ---
CALL TO LAB TO CHECK ON STATUS OF BLOOD, STATES CROSSMATCH HAS NOT BEEN DRAWN, ERROR MADE WHEN ORDERED AND DID NOT SHOW UP IN LAB, ON WAY TO DRAW CROSSMATCH
[2019-09-15] VITALS: BP 94/36
--- NOTE | 2019-09-15 02:00 | NUR ---
FIRST UNIT OF BLOOD STARTED WITH DIFFICULTY
[2019-09-15 04:00] VITALS: BP 103/40
--- NOTE | 2019-09-15 08:12 | NUR ---
SHE IS ASKING ABOUT EATING, WHEN THE TEST WILL BE DONE. SHE IS UP AND DOWN TO THE BATHROOM, THE BED ALARM IS ON AND IN PLACE. THE CALL LIGHT IS WITHIN REACH.
[2019-09-15 08:28] LABS: BASOPHILS 0.1 % (0-2); EOSINOPHILS 1.7 % (0-7); IMMATURE GRANULOCYTES 0.4 % (0-5); LYMPHOCYTES 10.2 % (15-50); MCH 32.8 pg (26.0-34.0); MCHC 33.4 g/dL (31.0-37.0); MEAN PLATELET VOLUME 9.4 fL (7.4-10.4); MONOCYTES 7.6 % (2-11); RDW 18.9 % (11.5-14.5); WBC 14.9 10x3/uL (4.8-10.8)
[2019-09-15 08:39] VITALS: BP 95/46
[2019-09-15 08:39] LABS: INR 1.85 (0.85-1.17); PROTIME 21.1 SECONDS (11.6-15.0)
[2019-09-15 08:44] LABS: HEMOGLOBIN 9.7 g/dL (12-16); PLATELET COUNT 70 10x3/uL (130-400); RBC 2.96 10x6/uL (4.00-5.40)
[2019-09-15 08:50] LABS: ALBUMIN 1.8 g/dL (3.4-5.0); ANION GAP 11.3 mmol/L (8-16); BILIRUBIN - TOTAL 5.82 mg/dL (0.2-1.3); CALCIUM 7.9 mg/dL (8.5-10.1); CARBON DIOXIDE 26.8 mmol/L (21.0-32.0); PHOSPHOROUS 2.1 mg/dL (2.5-4.9); PROTEIN - SERUM 6.6 g/dL (6.4-8.2)
[2019-09-15 08:51] LABS: MAGNESIUM - SERUM 1.1 mg/dL (1.8-2.4); POTASSIUM - SERUM 3.1 mmol/L (3.5-5.1)
[2019-09-15 12:35] LABS: PLATELET ESTIMATE DECREASED
[2019-09-15 12:36] LABS: ANISOCYTOSIS OCC
[2019-09-15 12:53] VITALS: BP 99/44
[2019-09-15 16:01] VITALS: BP 103/56
[2019-09-15 20:00] VITALS: BP 94/44
[2019-09-16] VITALS (8 sets, daily range): BP systolic 70–150; BP diastolic 39–83
[2019-09-16 04:29] LABS: BASOPHILS 0.2 % (0-2); EOSINOPHILS 1.6 % (0-7); HEMATOCRIT 27.8 % (36.0-48.0); HEMOGLOBIN 9.3 g/dL (12-16); IMMATURE GRANULOCYTES 0.3 % (0-5); LYMPHOCYTES 11.5 % (15-50); MCH 32.5 pg (26.0-34.0); MCHC 33.5 g/dL (31.0-37.0); MCV 97.2 fL (80.0-100.0); MEAN PLATELET VOLUME 9.4 fL (7.4-10.4); MONOCYTES 9.3 % (2-11); NEUTROPHILS 77.1 % (40-80); PLATELET COUNT 66 10x3/uL (130-400); RBC 2.86 10x6/uL (4.00-5.40); RDW 19.7 % (11.5-14.5); WBC 12.1 10x3/uL (4.8-10.8)
[2019-09-16 04:50] LABS: INR 1.88 (0.85-1.17); PROTIME 21.3 SECONDS (11.6-15.0)
[2019-09-16 05:04] LABS: ALBUMIN 1.7 g/dL (3.4-5.0); ANION GAP 11.7 mmol/L (8-16); BILIRUBIN - TOTAL 4.54 mg/dL (0.2-1.3); CALCIUM 7.9 mg/dL (8.5-10.1); CARBON DIOXIDE 25.2 mmol/L (21.0-32.0); MAGNESIUM - SERUM 1.3 mg/dL (1.8-2.4); PHOSPHOROUS 2.4 mg/dL (2.5-4.9); PROTEIN - SERUM 6.4 g/dL (6.4-8.2)
[2019-09-16 05:08] LABS: POTASSIUM - SERUM 2.9 mmol/L (3.5-5.1)
--- NOTE | 2019-09-16 05:17 | NUR ---
PATIENT WANTED BED ALARM OFF SIGNED WAVER FOR BED ALARM ON CHART
--- NOTE | 2019-09-16 05:35 | NUR ---
LAB CALLED WITH AMMONIA OF 73 CRITICAL HIGH MD NOT CALLED ON 09-15-2019 AMMONIA WAS 84 .
--- NOTE | 2019-09-16 07:30 | NUR ---
GONE FOR HER PRECEDURE.
--- NOTE | 2019-09-16 08:34 | NUR ---
BACK FROM HER PRECEDURE. GLUED SITE TO THE RIGHT ABD.
[2019-09-16 09:36] LABS: PROTEIN - BODY FLUID 1.9 G/DL
[2019-09-16 12:10] LABS: MACROPHAGES BF 66 %; MESOTHELIALS BF 10 %; NEUT - BF 21 %
--- NOTE | 2019-09-16 13:50 | NUR ---
HAD A INCONTNENT STOOL WITH A LARGE BLOOD AREA ON THE PAD. SHE IS HAVE BLOOD CLOTS IN THE TALBOT. TALBOT IRRIGATED AND CLOTS PASSED, URINE IS CLEARER AND SHE STATES "IT FEELS BETTER NOW". 'S NOTIFIED OF THESE FINGING. LABS ORDERED AND COLLECTED.
--- NOTE | 2019-09-16 15:25 | MORECARE ---
CASE MANAGEMENT DISCHARGE SUMMARY PATIENT: DILIA OSULLIVAN UNIT: [id number] ADM DATE: 09/12/19 AGE: 39 : 82 SEX: F ROOM/BED: D.2232 AUTHOR: CRIS WHALEY PHYSICIAN: REFERRING PHYSICIAN: WANDA MERIDA MD DATE OF SERVICE: 09/16/19 Discharge Plan Patient Name: DILIA OSULLIVAN [facility] [facility] 1980 Planned Disposition: [facility]ci Facility Anticipated Discharge Date: Discharge Date: Expected LOS: Initial Reviewer: [id number] Initial Review Date: 09/16/2019 Generated: 09/16/19 4:24 pm DCPIA - Discharge Planning Initial Assessment Updated by [id number]: Justine Garcia on 09/16/19 3:23 pm * Is the patient Alert and Oriented? Yes * How many steps to enter\exit or inside your home? 4/0 * PCP Dr. Erica Lord * [facility] * Preadmission Environment Home with Family * ADLs Partial Dependent * Partial ADLs (Assistance needed) Ambulation Bathing * Equipment Crutch Walker * List name and contact numbers for known caregivers / representatives who currently or will assist patient after discharge: Roger Chiang * Verbal permission to speak to the caregivers and representatives has been obtained from the patient. Yes * Community resources currently utilized Home Health * Please name any agencies selected above. [facility] * Additional services required to return to the preadmission environment? Yes * Can the patient safely return to the preadmission environment? Yes * Has this patient been hospitalized within the prior 30 days at any hospital? Yes Patient Name: DILIA OSULLIVAN Page 35902 at 1525 All edits/amendments must be made on the electronic document DICTATION DATE: 09/16/19 152 TIRE CHANGER AIRCRAFT: ELICIA 09/16/19 1524 RPT#: [id number] DC DATE: STATUS: ADM IN [facility] [address] [place] [address] END OF REPORT
--- NOTE | 2019-09-16 15:33 | MORECARE ---
CASE MANAGEMENT DISCHARGE SUMMARY PATIENT: DILIA OSULLIVAN UNIT: [id number] ADM DATE: 09/12/19 AGE: 39 : 82 SEX: F ROOM/BED: D.2232 AUTHOR: JUDD,DOC PHYSICIAN: REFERRING PHYSICIAN: WANDA MERIDA MD DATE OF SERVICE: 09/16/19 Discharge Plan Patient Name: DILIA OSULLIVAN Facility: [facility]:[place] : 1980 Planned Disposition: Penitentiary Facility Anticipated Discharge Date: Discharge Date: Expected LOS: Initial Reviewer: [id number] Initial Review Date: 09/16/2019 Generated: 09/16/19 4:32 pm Comments DCP- Discharge Planning Updated by [id number]: Justine Garcia on 09/16/19 2:[address] Patient Name: DILIA OSULLIVAN Admission Status: ER Accout number: [id number] Admission Date: 09-12-2019 : 1980 Admission Diagnosis:SEPSIS, UNSPECIFIED ORGANISM Attending: WANDA MERIDA Current LOS: 4 Anticipated DC Date: Planned Disposition: Penitentiary Facility Primary Insurance: [place] PRIVATE [employer]IONS [employer] Discharge Planning Comments: CM met with patient to complete initial dc planning assessment. CM educated patient on the CM role and verbal consent given by patient to complete assessment. Patient lives at home with her boyfriend. Her boyfriend works in construction, so is gone much of the day. She states she has become very weak and knows that she will need some rehab prior to discharging home. I discussed rehab, SNF and DME needs with her and [facility]RTNEY for [place] signed. I notified [facility] of referral and clinical faxed. CM will continue to follow and assist with discharge planning/needs. Care Assistant: Justine Garcia DCPIA - Discharge Planning Initial Assessment Updated by [email or web address]: Justine Garcia on 09/16/19 3:23 pm * Is the patient Alert and Oriented? Yes * How many steps to enter\exit or inside your home? 4/0 * PCP Dr. Erica Lord * [facility] * Preadmission Environment Home with Family * ADLs Partial Dependent * Partial ADLs (Assistance needed) Ambulation Bathing * Equipment Crutch Walker * List name and contact numbers for known caregivers / representatives who currently or will assist patient after discharge: Rogerdorcas Chiang * Verbal permission to speak to the caregivers and representatives has been obtained from the patient. Yes * Community resources currently utilized Home Health * Please name any agencies selected above. [facility] * Additional services required to return to the preadmission environment? Yes * Can the patient safely return to the preadmission environment? Yes * Has this patient been hospitalized within the prior 30 days at any hospital? Yes Last DP export: 09/16/19 2:25 pm Patient Name: DILIA OSULLIVAN Page 32881 at 1533 All edits/amendments must be made on the electronic document DICTATION DATE: 09/16/191531 STAFF NURSE ICU RESOURCE TEAM: ELICIA 09/16/191531 RPT#: [id number] DC DATE: STATUS: ADM IN [facility] [address] [place] [address] END OF REPORT
[2019-09-16 15:49] LABS: BASOPHILS 0.2 % (0-2); EOSINOPHILS 1.6 % (0-7); HEMOGLOBIN 9.9 g/dL (12-16); IMMATURE GRANULOCYTES 0.5 % (0-5); LYMPHOCYTES 8.9 % (15-50); MCH 33.4 pg (26.0-34.0); MEAN PLATELET VOLUME 9.3 fL (7.4-10.4); MONOCYTES 10.2 % (2-11); NEUTROPHILS 78.6 % (40-80); PLATELET COUNT 71 10x3/uL (130-400); RBC 2.96 10x6/uL (4.00-5.40); WBC 12.8 10x3/uL (4.8-10.8)
[2019-09-16 16:06] LABS: MCV 101.4 fL (80.0-100.0)
--- NOTE | 2019-09-16 19:43 | NUR ---
NEW IV ,18 G IN LEFT ARM.
[2019-09-16 22:10] LABS: HEMATOCRIT 28.4 % (36.0-48.0); HEMOGLOBIN 9.3 g/dL (12-16); MCHC 32.7 g/dL (31.0-37.0); MCV 100.7 fL (80.0-100.0); MEAN PLATELET VOLUME 9.9 fL (7.4-10.4); PLATELET COUNT 72 10x3/uL (130-400); RBC 2.82 10x6/uL (4.00-5.40); RDW 19.9 % (11.5-14.5); WBC 11.7 10x3/uL (4.8-10.8)
[2019-09-16 22:47] LABS: EOSINOPHILS 8 % (0-7); LYMPHOCYTES 8 % (15-50); MONOCYTES 9 % (2-11); NEUTROPHILS 75 % (40-80); PLATELET ESTIMATE DECREASED
[2019-09-16 23:44] LABS: ALBUMIN 1.6 g/dL (3.4-5.0); ANION GAP 14.7 mmol/L (8-16); BILIRUBIN - TOTAL 3.68 mg/dL (0.2-1.3); CALCIUM 7.4 mg/dL (8.5-10.1); CARBON DIOXIDE 20.6 mmol/L (21.0-32.0); POTASSIUM - SERUM 3.3 mmol/L (3.5-5.1); PROTEIN - SERUM 6.2 g/dL (6.4-8.2)
[2019-09-17] VITALS: BP 112/63
[2019-09-17 04:00] VITALS: BP 98/84
[2019-09-17 06:46] LABS: INR 1.79 (0.85-1.17); PROTIME 20.6 SECONDS (11.6-15.0)
[2019-09-17 07:02] LABS: ANION GAP 14.3 mmol/L (8-16); BILIRUBIN - TOTAL 4.47 mg/dL (0.2-1.3); CALCIUM 7.8 mg/dL (8.5-10.1); CARBON DIOXIDE 21.9 mmol/L (21.0-32.0); PHOSPHOROUS 2.7 mg/dL (2.5-4.9); POTASSIUM - SERUM 3.2 mmol/L (3.5-5.1); PROTEIN - SERUM 7.1 g/dL (6.4-8.2)
[2019-09-17 07:06] LABS: ALBUMIN 2.1 g/dL (3.4-5.0); MAGNESIUM - SERUM 1.8 mg/dL (1.8-2.4)
--- NOTE | 2019-09-17 07:48 | MORECARE ---
CASE MANAGEMENT DISCHARGE SUMMARY PATIENT: DILIA OSULLIVAN UNIT: [id number] ADM DATE: 09/12/19 AGE: 39 : 82 SEX: F ROOM/BED: D.2232 AUTHOR: JUDD,DOC PHYSICIAN: REFERRING PHYSICIAN: WANDA MERIDA MD DATE OF SERVICE: 09/17/19 Discharge Plan Patient Name: DILIA OSULLIVAN Facility: [facility]:[place] : 1980 Planned Disposition: Shelter Facility Anticipated Discharge Date: Discharge Date: Expected LOS: Initial Reviewer: [id number] Initial Review Date: 09/16/2019 Generated: 09/17/19 8:48 am Comments DCP- Discharge Planning Updated by [id number]: Justine Garcia on 09/16/19 2:[address] Patient Name: DILIA OSULLIVAN Admission Status: ER Accout number: [id number] Admission Date: 09-12-2019 : 1980 Admission Diagnosis:SEPSIS, UNSPECIFIED ORGANISM Attending: WANDA MERIDA Current LOS: 4 Anticipated DC Date: Planned Disposition: Shelter Facility Primary Insurance: [place] [employer] Discharge Planning Comments: CM met with patient to complete initial dc planning assessment. CM educated patient on the CM role and verbal consent given by patient to complete assessment. Patient lives at home with her boyfriend. Her boyfriend works in construction, so is gone much of the day. She states she has become very weak and knows that she will need some rehab prior to discharging home. I discussed rehab, SNF and DME needs with her and KOURTNEY for [place] signed. I notified Alice of referral and clinical faxed. CM will continue to follow and assist with discharge planning/needs. Presser And Shaper Knitted Goods: Justine Garcia DCPIA - Discharge Planning Initial Assessment Updated by [id number]: Justine Garcia on 09/16/19 3:23 pm * Is the patient Alert and Oriented? Yes * How many steps to enter\exit or inside your home? 4/0 * PCP Dr. Erica Lord * [facility] * Preadmission Environment Home with Family * ADLs Partial Dependent * Partial ADLs (Assistance needed) Ambulation Bathing * Equipment Crutch Walker * List name and contact numbers for known caregivers / representatives who currently or will assist patient after discharge: Rogerdorcas Chiang * Verbal permission to speak to the caregivers and representatives has been obtained from the patient. Yes * Community resources currently utilized Home Health * Please name any agencies selected above. [facility] * Additional services required to return to the preadmission environment? Yes * Can the patient safely return to the preadmission environment? Yes * Has this patient been hospitalized within the prior 30 days at any hospital? Yes External Providers External Provider: [facility] Next Contact Date: Service Request Date: Service Type: Resolution: Reviewer: Comments: Last DP export: 09/16/19 2:33 pm Patient Name: DILIA OSULLIVAN Page [phone] at 0748 All edits/amendments must be made on the electronic document DICTATION DATE: 09/17/19747 MANAGER STRATEGY & ACCOUNT: ELICIA 09/17/19747 RPT#: [id number] DC DATE: STATUS: ADM IN [facility] [address] [place] [address] END OF REPORT
--- NOTE | 2019-09-17 07:55 | MORECARE ---
CASE MANAGEMENT DISCHARGE SUMMARY PATIENT: DILIA OSULLIVAN UNIT: [id number] ADM DATE: 09/12/19 AGE: 39 : 82 SEX: F ROOM/BED: D.2232 AUTHOR: JUDD,DOC PHYSICIAN: REFERRING PHYSICIAN: WANDA MERIDA MD DATE OF SERVICE: 09/17/19 Discharge Plan Patient Name: DILIA OSULLIVAN Facility: [facility]:[place] : 1980 Planned Disposition: Penitentiary Facility Anticipated Discharge Date: Discharge Date: Expected LOS: Initial Reviewer: [id number] Initial Review Date: 09/16/2019 Generated: 09/17/19 8:55 am Comments DCP- Discharge Planning Updated by [id number]: Justine Garcia on 09/16/19 2:[address] Patient Name: DILIA OSULLIVAN Admission Status: ER Accout number: [id number] Admission Date: 09-12-2019 : 1980 Admission Diagnosis:SEPSIS, UNSPECIFIED ORGANISM Attending: WANDA MERIDA Current LOS: 4 Anticipated DC Date: Planned Disposition: Penitentiary Facility Primary Insurance: [place] [employer] Discharge Planning Comments: CM met with patient to complete initial dc planning assessment. CM educated patient on the CM role and verbal consent given by patient to complete assessment. Patient lives at home with her boyfriend. Her boyfriend works in construction, so is gone much of the day. She states she has become very weak and knows that she will need some rehab prior to discharging home. I discussed rehab, SNF and DME needs with her and [facility]RTNEY for [place] signed. I notified Alice of referral and clinical faxed. CM will continue to follow and assist with discharge planning/needs. Dust Handler: Justine Garcia DCPIA - Discharge Planning Initial Assessment Updated by [email or web address]: Justine Garcia on 09/16/19 3:23 pm * Is the patient Alert and Oriented? Yes * How many steps to enter\exit or inside your home? 4/0 * PCP Dr. Erica Lord * [facility] * Preadmission Environment Home with Family * ADLs Partial Dependent * Partial ADLs (Assistance needed) Ambulation Bathing * Equipment Crutch Walker * List name and contact numbers for known caregivers / representatives who currently or will assist patient after discharge: Roger Chiang * Verbal permission to speak to the caregivers and representatives has been obtained from the patient. Yes * Community resources currently utilized Home Health * Please name any agencies selected above. [facility] * Additional services required to return to the preadmission environment? Yes * Can the patient safely return to the preadmission environment? Yes * Has this patient been hospitalized within the prior 30 days at any hospital? Yes External Providers External Provider: [facility] Next Contact Date: Service Request Date: Service Type: Resolution: Reviewer: Comments: Coverage Notice Reviewer: [id number] Larry Garcia Notice Issued Date-Time: 09/16/2019 15:15 Notice Type: Patient Choice Letter Notice Delivered To: Patient Relationship to Patient: Self Peoplesoft Financial Developer Name: Delivery Method: HAND - Hand Delivered Farida Days: Prior Verbal Notification: Recipient Understood Notice: Yes Recipient Signature: Yes Med Rec Note Co-signed by Attending: Coverage Notice Comment: KOU[facility]NEY FOR [place] FOR SNF Last DP export: 09/17/19 6:48 am Patient Name: DILIA OSULLIVAN Page 04134 at 0755 All edits/amendments must be made on the electronic document DICTATION DATE: 09/17/19754 MEDICARE COORDINATOR: ELICIA 09/17/19 0755 RPT#: [id number] DC DATE: STATUS: ADM IN [facility] [address] [place] [address] END OF REPORT
--- NOTE | 2019-09-17 08:09 | NUR ---
LAB CALLED AMMONIA LEVEL OF 109. CALLED Jerod MAY SUPERVISOR ASSEMBLY STOCK INFORMED HE STATED TO CALL DR. CARDENAS WITH AMMONIA LEVEL PASSED ON TO ONCOMMING NURSE. HE STATED TO CALL DR. SHIELDS ABOUT F/C AND BLEEDING PT HAD 100CC OF BLOODY URINE IN F/C WITH CLOTES NOTED ATEMPTED TO FLUSH FOLLY WITH NO RESULT.BLADDER SCAN SHOWING 365ML IN BLADDER. CALL TO SUPERVISOR ASSEMBLY STOCK WITH ORDER TO REPLACE IF IT WOULD GO IN WITHOUT ISSIUE. TWO ATEMPTS WITH NO RESULT. DR. SHIELDS RETRUNED [place] WAS INFORMED OF FOLLY OUT AND BLOODY URIN, BLADDER SCAN SHOWING 117ML IN BLADER AT THIS TIME. DR. SHIELDS STATED OK TO LEAVE FOLLY OUT. ONCOMMING NURSE INFORMED.
[2019-09-17 09:18] VITALS: BP 94/47
[2019-09-17 09:53] LABS: BASOPHILS 0.2 % (0-2); HEMATOCRIT 32.1 % (36.0-48.0); HEMOGLOBIN 10.5 g/dL (12-16); IMMATURE GRANULOCYTES 0.3 % (0-5); LYMPHOCYTES 11.7 % (15-50); MCH 33.2 pg (26.0-34.0); MCHC 32.7 g/dL (31.0-37.0); MCV 101.6 fL (80.0-100.0); MEAN PLATELET VOLUME 10.1 fL (7.4-10.4); MONOCYTES 9.6 % (2-11); NEUTROPHILS 76.2 % (40-80); PLATELET COUNT 83 10x3/uL (130-400); RBC 3.16 10x6/uL (4.00-5.40); RDW 20.2 % (11.5-14.5); WBC 12.1 10x3/uL (4.8-10.8)
[2019-09-17 13:10] LABS: ACID FAST SMEAR Negative (()); AFB SPECIMEN PROCESSING Not Indicated (())
[2019-09-17 14:09] LABS: FUNGUS STAIN Final report (())
[2019-09-17 14:53] VITALS: Ht 157.5 cm; Wt 61.7 kg
[2019-09-17 15:43] LABS: ALBUMIN 1.8 g/dL (3.4-5.0); ANION GAP 13.7 mmol/L (8-16); BILIRUBIN - TOTAL 3.57 mg/dL (0.2-1.3); CALCIUM 7.4 mg/dL (8.5-10.1); CARBON DIOXIDE 21.3 mmol/L (21.0-32.0); CREATININE - SERUM 0.9 mg/dL (0.6-1.3); PROTEIN - SERUM 5.9 g/dL (6.4-8.2)
--- NOTE | 2019-09-17 15:55 | NUR ---
SPOKE WITH DR. WINTER ABOUT PT C/O SEVERE PAIN RATING 10/10 ON PAIN SCALE. REC'D NEW ORDER FOR DILUADID 1 MG Q 4 HR PRN. PT MADE AWARE OF NEW ORDERS. C/L IN REACH AT BEDSIDE.
[2019-09-17 16:56] VITALS: BP 102/47
--- NOTE | 2019-09-17 17:38 | NUR ---
I have reviewed this patient and I concur with the Shift Assessment completed by the Licensed Practical Nurse today this shift.
[2019-09-17 18:53] LABS: HEMATOCRIT 27.2 % (36.0-48.0)
[2019-09-17 20:00] VITALS: BP 90/45
[2019-09-17 22:56] LABS: ALBUMIN 1.9 g/dL (3.4-5.0); ANION GAP 12.2 mmol/L (8-16); BILIRUBIN - TOTAL 3.88 mg/dL (0.2-1.3); CALCIUM 7.9 mg/dL (8.5-10.1); CARBON DIOXIDE 23.8 mmol/L (21.0-32.0); PROTEIN - SERUM 6.8 g/dL (6.4-8.2)
--- NOTE | 2019-09-18 04:29 | NUR ---
ALERT AND RESTING IN BED. C/O PAIN AND UNABLE TO VOID. BLADER SCAN COMPLETD WITH 650ML IN BLADDER. ORDER TO PLACE FOLLY CATH. 16F FOLLY WITH 10CC BULB PLACE PER PROTOCOL. WITH 500CC OUTPUT BLOODY URINE. UA SENT TO LAB. LATER C/O PAIN NO CHANGE IN AMOUNT IN URINE TO BAG NOTED. PATIENT ASK TO LAY BACK REPOSITION FOLLY URING BEGAIN TO FLOW TO BAG. NEAR THE END SLOWED WITH CLOTES NOTED FLUSHED WITH 30 CC NS, RETRUNED TO BAG DRANING. PATIENT STATED FELT BETTER. EDUCATED PATIENT NOT TO PULL ON THE TUBING OF FOLLY THAT IT COULD DO DAMAGE TO HERSELF.
[2019-09-18 05:16] LABS: BASOPHILS 0.1 % (0-2); EOSINOPHILS 1.3 % (0-7); HEMATOCRIT 27.9 % (36.0-48.0); IMMATURE GRANULOCYTES 0.6 % (0-5); LYMPHOCYTES 11.8 % (15-50); MCH 32.5 pg (26.0-34.0); MCHC 32.3 g/dL (31.0-37.0); MCV 100.7 fL (80.0-100.0); MEAN PLATELET VOLUME 9.6 fL (7.4-10.4); MONOCYTES 11.8 % (2-11); NEUTROPHILS 74.4 % (40-80); PLATELET COUNT 73 10x3/uL (130-400); RBC 2.77 10x6/uL (4.00-5.40); RDW 19.8 % (11.5-14.5); WBC 10.4 10x3/uL (4.8-10.8)
[2019-09-18 05:20] LABS: INR 1.78 (0.85-1.17); PROTIME 20.5 SECONDS (11.6-15.0)
[2019-09-18 05:50] LABS: ALBUMIN 1.9 g/dL (3.4-5.0); BILIRUBIN - TOTAL 3.63 mg/dL (0.2-1.3); CALCIUM 7.9 mg/dL (8.5-10.1); CARBON DIOXIDE 22.7 mmol/L (21.0-32.0); CREATININE - SERUM 0.9 mg/dL (0.6-1.3); PHOSPHOROUS 3.3 mg/dL (2.5-4.9); PROTEIN - SERUM 6.5 g/dL (6.4-8.2)
[2019-09-18 05:55] LABS: MAGNESIUM - SERUM 1.1 mg/dL (1.8-2.4); POTASSIUM - SERUM 2.7 mmol/L (3.5-5.1)
--- NOTE | 2019-09-18 07:43 | NUR ---
CALLED DRIVER MERCHANDISER WITH POTASSIUM OF 2.7 AND AMMONA OF 55 STATED TO USE PROTOCALL FOR POTASSIUM AND DR WILL SEE WITH ROUNDS. AMMIONA OF 55 IS DOWN FROM 109 YESTERDAY.
[2019-09-18 09:03] VITALS: BP 97/42
[2019-09-18 09:13] LABS: PLATELET ESTIMATE DECREASED
--- NOTE | 2019-09-18 10:03 | NUR ---
PT ON CL, UPON ENETERING ROOM PT IS ON BSC STATES SHE FEELS LIKE SHE HAS BLOOD CLOTS IN CATHETER AGAIN AND IS IN PAIN, REQUESTED I FLUSH CATHETER AND ADMINISTER PAIN MEDICATION. ADMNINISTERED PRN PAIN MEDICATION AND FLUSHED CATHETER AFTER PT RETURNED TO BED, CONTINUE WITH PLAN OF CARE
[2019-09-18 12:10] VITALS: BP 101/49
--- NOTE | 2019-09-18 13:18 | NUR ---
FLUSHED PT CATHETER AGAIN AND ADMINISTERED PRN ANXIETY MEDICATION. WILL CONTINUE WITH PLAN OF CARE
[2019-09-18 15:53] LABS: ALBUMIN 1.7 g/dL (3.4-5.0); ANION GAP 14.1 mmol/L (8-16); BILIRUBIN - TOTAL 3.07 mg/dL (0.2-1.3); CALCIUM 7.6 mg/dL (8.5-10.1); CARBON DIOXIDE 21.1 mmol/L (21.0-32.0); PROTEIN - SERUM 5.7 g/dL (6.4-8.2)
[2019-09-18 16:04] LABS: POTASSIUM - SERUM 3.2 mmol/L (3.5-5.1)
--- NOTE | 2019-09-18 17:11 | NUR ---
OT NOTE: (AM SESSION) PT COMPLETED UE AAROM EXS TO INCREASE AX TOLERANCE AND REDUCE RISK OF SKIN BREAKDOWN. (PM SESSION) PT REQUIRED TOTAL A WITH BED POSITIONING. PT REQUIRED TOTAL A FOR FACE HYGIENE. PT EXHIBITED EXTREME LETHARGY. BARBA CONSULTED NURSING. NURSING STATED SECONDARY TO MEDICATION. [phone]; [phone] THANK YOU,JAMESON MENDEZ
[2019-09-18 17:24] VITALS: BP 96/44
--- NOTE | 2019-09-18 17:55 | NUR ---
PT STATED PAIN IN CATHETER AREA AGAIN, FLUSHED PT TALBOT AND HAD SEVERAL CLOTS COME LOOSE, PT REQUESTED PAIN MEDICATION, PT BP A LITTLE ON LOW SIDE, ADVISED WILL RETAKE AND ADMINISTER IF BP RAISES A BIT. CONTINUE WITH PLAN OF CARE
--- NOTE | 2019-09-18 18:45 | NUR ---
I have reviewed this patient and I concur with the Shift Assessment completed by the Licensed Practical Nurse today this shift.
--- NOTE | 2019-09-18 19:00 | NUR ---
RECIEVED RESTING IN BED, LETHARGIC DIFFICULT TO AROUSE, FINALLY OPENED EYES AND SPOKE BRIEFLY, TALBOT CATH WITH CLOTTS NOTED FLUSHED AT THIS TIME WITH 10CC NS DRAINING DARK OLD BLOOD LOOKING URINE, SEE ASSESSMENT, CALL JULIA MARIANO,WILL MONITOR
[2019-09-18 20:00] VITALS: BP 83/38
--- NOTE | 2019-09-18 21:30 | NUR ---
PAUL MEDICAL RECORDS MANAGER NOTIFIED OF LOW B/P 83/38 AND PULSE OF 72 SR ON TELEMENTRY PULSE OX OF 88 PLACED ON 2 LO2,ORDERS RECIEVED FOR STAT ABG'S AND AMONIA LEVEL, RT AND LAB CALLED
--- NOTE | 2019-09-18 22:15 | NUR ---
PAUL HALE CALLED WITH RESULTS OF LABS, ORDERS RECIEVED FOR 1/2NS AT 75 AND TO MONITOR CLOSELY, BELIEVES TO BE LINGERING EFFECTS OF ATIVAN GIVEN EARLIER
[2019-09-18 23:35] LABS: ALBUMIN 1.6 g/dL (3.4-5.0); BILIRUBIN - TOTAL 2.87 mg/dL (0.2-1.3); CALCIUM 7.6 mg/dL (8.5-10.1); CARBON DIOXIDE 23.1 mmol/L (21.0-32.0); CREATININE - SERUM 1.1 mg/dL (0.6-1.3); PROTEIN - SERUM 5.7 g/dL (6.4-8.2)
[2019-09-18 23:43] LABS: ANION GAP 11.8 mmol/L (8-16); POTASSIUM - SERUM 3.9 mmol/L (3.5-5.1)
[2019-09-19 04:00] VITALS: BP 85/30
[2019-09-19 05:42] LABS: INR 1.8 (0.85-1.17); PROTIME 20.7 SECONDS (11.6-15.0)
[2019-09-19 05:44] LABS: BASOPHILS 0.3 % (0-2); EOSINOPHILS 2.6 % (0-7); HEMATOCRIT 27.4 % (36.0-48.0); HEMOGLOBIN 8.8 g/dL (12-16); IMMATURE GRANULOCYTES 0.5 % (0-5); LYMPHOCYTES 17.5 % (15-50); MCH 33.1 pg (26.0-34.0); MCHC 32.1 g/dL (31.0-37.0); MEAN PLATELET VOLUME 9.8 fL (7.4-10.4); MONOCYTES 14.5 % (2-11); NEUTROPHILS 64.6 % (40-80); PLATELET COUNT 78 10x3/uL (130-400); RBC 2.66 10x6/uL (4.00-5.40); RDW 20.5 % (11.5-14.5); WBC 7.8 10x3/uL (4.8-10.8)
[2019-09-19 06:03] LABS: ALBUMIN 1.6 g/dL (3.4-5.0); ANION GAP 13.2 mmol/L (8-16); BILIRUBIN - TOTAL 2.63 mg/dL (0.2-1.3); CALCIUM 7.7 mg/dL (8.5-10.1); CARBON DIOXIDE 20.3 mmol/L (21.0-32.0); CREATININE - SERUM 1.2 mg/dL (0.6-1.3); MAGNESIUM - SERUM 1.1 mg/dL (1.8-2.4); POTASSIUM - SERUM 3.5 mmol/L (3.5-5.1); PROTEIN - SERUM 5.4 g/dL (6.4-8.2)
--- NOTE | 2019-09-19 07:53 | NUR ---
RESTING ON LEFT SIDE,WITHOUT DISTRESS.
--- NOTE | 2019-09-19 08:24 | NUR ---
I have reviewed this patient and I concur with the Shift Assessment completed by the Licensed Practical Nurse today this shift.
[2019-09-19 08:44] VITALS: BP 85/30
--- NOTE | 2019-09-19 10:28 | NUR ---
NUTRITION F/U CHART REVIEWED. PT TOLERATING CLEAR LIQUIDS, DIET ADVANCED TO FULL LIQUID STARTING AT LUNCH. WILL CONTINUE TO MONITOR DIET ADVANCEMENT, PO INTAKE. RD FOLLOWING
--- NOTE | 2019-09-19 10:39 | NUR ---
STARTED BOLUS ORDERED AND MAG PER ORDERS PT INQUIRED ON WHEN NEXT PAIN MEDICATION IS DUE ADVISED HER PAIN MEDICATION IS ON HOLD FOR TIME BEING UNTIL BP IS BACK UP PT STATED PAIN IS GOING NACK UP AND STARTING TO HURT. PT ASKED ABOUT ATIVAN ADVISED PT I AM UNCOMFORTABLE GIVING PT ANYTHING THAT WILL MAKE HER DROWSY. PT STATED SHE IS IN PAIN AND I TOLD HER I WILL CONTINUE TO FLUSH TALBOT THIS HAS HELPED BEFORE. NO OTHER NEEDS AT THIS TIME. CONTINUE WITH PLAN OF CARE
[2019-09-19 14:24] VITALS: BP 84/30
[2019-09-19 15:55] LABS: ALBUMIN 1.9 g/dL (3.4-5.0); ANION GAP 15.3 mmol/L (8-16); BILIRUBIN - TOTAL 3.01 mg/dL (0.2-1.3); CALCIUM 7.7 mg/dL (8.5-10.1); CARBON DIOXIDE 19.3 mmol/L (21.0-32.0); CREATININE - SERUM 1.4 mg/dL (0.6-1.3); POTASSIUM - SERUM 3.6 mmol/L (3.5-5.1); PROTEIN - SERUM 6.2 g/dL (6.4-8.2)
--- NOTE | 2019-09-19 16:15 | NUR ---
RECEIVED CALL FROM LAB THAT PT BRUCELOOD IS READY, STARTED FIRST UNIT OF BLOOD, CONTINUE WITH PLAN OF CARE
[2019-09-19 16:28] VITALS: BP 108/44
--- NOTE | 2019-09-19 17:29 | NUR ---
PT REQUESTED PAIN MEDICATION AGAIN, INFORMED PT I DO NOT HAVE ANY PAIN MEDS TO GET, PT REQUESTED ATIVAN. WILL ADMINISTER PRNPAIN MEDICATION. PT BP IS 101/45
[2019-09-19 20:00] VITALS: BP 88/36
[2019-09-20] VITALS: BP 93/45
[2019-09-20 04:00] VITALS: BP 83/39
[2019-09-20 05:40] LABS: BASOPHILS 0.2 % (0-2); EOSINOPHILS 1.4 % (0-7); IMMATURE GRANULOCYTES 0.3 % (0-5); LYMPHOCYTES 17.3 % (15-50); MCH 31.8 pg (26.0-34.0); MCHC 33.2 g/dL (31.0-37.0); MEAN PLATELET VOLUME 9.4 fL (7.4-10.4); MONOCYTES 15.8 % (2-11); RDW 21.8 % (11.5-14.5)
[2019-09-20 05:45] LABS: HEMATOCRIT 33.1 % (36.0-48.0); MCV 95.7 fL (80.0-100.0); PLATELET COUNT 99 10x3/uL (130-400); RBC 3.46 10x6/uL (4.00-5.40); WBC 11.2 10x3/uL (4.8-10.8)
[2019-09-20 06:05] LABS: ALBUMIN 1.9 g/dL (3.4-5.0); ANION GAP 15.5 mmol/L (8-16); BILIRUBIN - TOTAL 3.48 mg/dL (0.2-1.3); CALCIUM 8.1 mg/dL (8.5-10.1); CARBON DIOXIDE 17.7 mmol/L (21.0-32.0); CREATININE - SERUM 1.1 mg/dL (0.6-1.3); INR 1.75 (0.85-1.17); MAGNESIUM - SERUM 1.6 mg/dL (1.8-2.4); POTASSIUM - SERUM 3.2 mmol/L (3.5-5.1); PROTEIN - SERUM 6.3 g/dL (6.4-8.2); PROTIME 20.2 SECONDS (11.6-15.0)
[2019-09-20 07:58] VITALS: BP 101/52
[2019-09-20 12:24] VITALS: BP 87/43
--- NOTE | 2019-09-20 12:55 | NUR ---
I have reviewed this patient and I concur with the Shift Assessment completed by the Licensed Practical Nurse today this shift.
--- NOTE | 2019-09-20 13:25 | NUR ---
PT LYING IN BED A SLEEP, HAD VISITOR COME BY AND PT WOULD NOT STAY AWAKE TO TALK WITH HIM. SHE STATED SHE HAD A BAD NIGHT WITH PAIN AND JUST WANTS TO SLEEP. ADMINISTERED SCHEDULED MEDICATIONS, CONTINUE WITH PLAN OF CARE
--- NOTE | 2019-09-20 15:13 | NUR ---
PT IV IN RT FA INFILTRATED, SPOKE TO ROSA MARIA BECKWITH AND HAD ORDER FOR VASCULAR ACCESS NURSE PUT IN. CALLED AND SPOKE TO ANN-MARIE DIRECTOR SERVICE IN REGARDS TO ORDER, STATED SHE WILL TRY AND GET A HOLD OF JIMBO BUT OTHER THAN THAT PT WILL NEED TO WAIT UNTIL SUNDAY. PATIENT AND NURSE PRACTITIONER AWARE. NO OTHER NEEDS VOICED AT THIS TIME. CONTINUE WITH PLAN OF CARE
--- NOTE | 2019-09-20 15:52 | NUR ---
FLUSHED PT TALBOT AGAIN, ORDERS FOR URINE CULTURE, WILL CLAMP TALBOT FOR SPECIMEN. CONTINUE WITH PLAN OF CARE
[2019-09-20 16:28] VITALS: BP 84/52
[2019-09-20 17:20] LABS: BILIRUBIN NEGATIVE (NEGATIVE); GLUCOSE NEGATIVE (NEGATIVE); KETONE NEGATIVE (NEGATIVE); NITRITE NEGATIVE (NEGATIVE); SPECIFIC GRAVITY 1.015 (1.005-1.020); UROBILINOGEN NORMAL (NORMAL)
[2019-09-20 17:21] LABS: BACTERIA MODERATE /hpf (NEGATIVE); RED CELLS - URINE >50 /hpf (0-5); WHITE CELLS - URINE 0-5 /hpf (NEGATIVE)
--- NOTE | 2019-09-20 18:13 | NUR ---
PT LYING IN BED ASLEEP, WOKE PT FOR HER TO TAKE CHRONULAC, PT STATED SHE IS HURTING AND DID NOT WANT TO TAKE ANY MEDICATIONS AT THIS TIME, NO S/SX OF DISTRESS, FLUSHED PT TALBOT BAG AGAIN, CONTINUE WITH PLAN OF CARE
[2019-09-20 19:43] VITALS: BP 96/48
--- NOTE | 2019-09-20 19:55 | NUR ---
LYING IN BED. VERY DROWSY. IRRITABLE AND UNCOOPERATIVE WITH STAFF. RESP EVEN AND NONLABORED. ABD DISTENDED AND FIRM. REFUSED LACTULOSE AND ANUSOL. B/P LOW. SPIRONOLACTONE HELD. AMBULATORY TO BSC. DYLON WAIVER SIGNED. ALERT AND ORIENTED BUT CONFUSED TO TIME. SPEECH SLURRED. NO IV ACCESS. REFUSES ANY MORE ATTEMPTS. CL IN REACH.
--- NOTE | 2019-09-20 22:00 | NUR ---
PT CALLED STAFF INTO ROOM. PT HAD VOMITED ON HERSELF IN BED. LINENS CHANGED AT THIS TIME. PT VERY RUDE TO STAFF, RAISES VOICE AND IS DEMANDING.
--- NOTE | 2019-09-20 23:55 | NUR ---
INCONT OF BOWELS IN BED WHILE ATTEMPTING TO GET TO BSC. COMPLETE LINEN CHANGE PERFORMED. CL IN REACH.
[2019-09-21] VITALS: BP 108/53
[2019-09-21 04:00] VITALS: BP 111/62
--- NOTE | 2019-09-21 05:37 | NUR ---
URINE LEAKING AROUND CATHETER. CATH HAS BEEN FLUSHED A COUPLE OF TIMES TONIGHT. TALBOT CATH REMOVED AT THIS TIME AND LARGE BLOOD CLOT WAS NOTED ON TIP OF CATHETER. 18FR INSERTED AT THIS TIME WITH IMMEDIATE RETURN OF 300 ML OF TEA COLORED URINE. PT RODY WELL AND STATES SHE FEELS BETTER NOW.
[2019-09-21 07:25] LABS: BASOPHILS 0.2 % (0-2); EOSINOPHILS 1.1 % (0-7); IMMATURE GRANULOCYTES 0.4 % (0-5); LYMPHOCYTES 11.2 % (15-50); MCH 32.3 pg (26.0-34.0); MCHC 33.3 g/dL (31.0-37.0); MCV 96.8 fL (80.0-100.0); MEAN PLATELET VOLUME 9.5 fL (7.4-10.4); NEUTROPHILS 74.1 % (40-80); PLATELET COUNT 111 10x3/uL (130-400); RBC 3.72 10x6/uL (4.00-5.40); RDW 21.3 % (11.5-14.5); WBC 13.1 10x3/uL (4.8-10.8)
[2019-09-21 07:32] LABS: INR 1.62 (0.85-1.17); PROTIME 19.1 SECONDS (11.6-15.0)
--- NOTE | 2019-09-21 07:46 | NUR ---
RECEIVED CALL FROM ELO IN LAB, PT AMMONIA LEVEL IS 67 WHICH IS BETTER THAN YESTERDAY, CONTINUE WITH PLAN OF CARE AND ENCOURAGE PT TO CONTINUE TAKING CHRONULAC
[2019-09-21 08:05] LABS: ANION GAP 13.2 mmol/L (8-16); BILIRUBIN - TOTAL 3.09 mg/dL (0.2-1.3); CALCIUM 8.3 mg/dL (8.5-10.1); CARBON DIOXIDE 20.5 mmol/L (21.0-32.0); CREATININE - SERUM 1.1 mg/dL (0.6-1.3); MAGNESIUM - SERUM 1.4 mg/dL (1.8-2.4); POTASSIUM - SERUM 3.7 mmol/L (3.5-5.1); PROTEIN - SERUM 6.3 g/dL (6.4-8.2)
[2019-09-21 09:43] VITALS: BP 92/50
--- NOTE | 2019-09-21 10:12 | NUR ---
PT SITTING UP ON BSC ASKED IF I WOULD FLUSH HER TALBOT, PT SEEMS TO BE MORE ALERT TODAY. STATED SHE HOPES SOCIAL SECURITY COMES THROUGH SO SHE CAN MOVE OUT OF BOYFRIENDS HOUSE AND START OVER, STATES SHE WAS SOBER FOR A BIT BUT HE DRINKS WELL AND ALTOUGH HE DOES NOT HOLD A GUN TO HER HEAD TO DRINK SHE FINDS IT HARD TO NOT DRINK WITH HIM. ENCOURAGED PT TO CONTINUE PLAN OF CARE AND TAKE MEDS ORDERED. WILL COTINUE WITH PLAN O FCARE
[2019-09-21 12:53] VITALS: BP 95/38
--- NOTE | 2019-09-21 14:51 | NUR ---
I have reviewed this patient and I concur with the Shift Assessment completed by the Licensed Practical Nurse today this shift.
[2019-09-21 17:53] VITALS: BP 92/38
[2019-09-21 20:00] VITALS: BP 89/46
--- NOTE | 2019-09-21 20:30 | NUR ---
EYES CLOSED RESP EVEN AND UNALBORED. NO DISTRESS NOTED. TALBOT PATENT AND DRAINING. CL IN REACH
[2019-09-22 04:00] VITALS: BP 103/47
--- NOTE | 2019-09-22 04:02 | NUR ---
I have reviewed this patient and I concur with the Shift Assessment completed by the Licensed Practical Nurse today this shift.
[2019-09-22 05:46] LABS: BASOPHILS 0.1 % (0-2); EOSINOPHILS 1.3 % (0-7); HEMATOCRIT 34.2 % (36.0-48.0); HEMOGLOBIN 11.4 g/dL (12-16); IMMATURE GRANULOCYTES 0.3 % (0-5); LYMPHOCYTES 16.7 % (15-50); MCHC 33.3 g/dL (31.0-37.0); MCV 96.1 fL (80.0-100.0); MEAN PLATELET VOLUME 9.6 fL (7.4-10.4); MONOCYTES 17.5 % (2-11); NEUTROPHILS 64.1 % (40-80); PLATELET COUNT 97 10x3/uL (130-400); RBC 3.56 10x6/uL (4.00-5.40); RDW 21.1 % (11.5-14.5)
[2019-09-22 06:15] LABS: INR 1.74 (0.85-1.17); PROTIME 20.1 SECONDS (11.6-15.0)
[2019-09-22 06:38] LABS: WBC 9.5 10x3/uL (4.8-10.8)
[2019-09-22 07:10] LABS: ALBUMIN 1.7 g/dL (3.4-5.0); ANION GAP 14.8 mmol/L (8-16); BILIRUBIN - TOTAL 2.5 mg/dL (0.2-1.3); CALCIUM 8.2 mg/dL (8.5-10.1); CARBON DIOXIDE 18.5 mmol/L (21.0-32.0); CREATININE - SERUM 1.2 mg/dL (0.6-1.3); MAGNESIUM - SERUM 1.4 mg/dL (1.8-2.4); POTASSIUM - SERUM 3.3 mmol/L (3.5-5.1); PROTEIN - SERUM 5.7 g/dL (6.4-8.2)
--- NOTE | 2019-09-22 07:38 | NUR ---
ALERT AND ORIENTED. LUNGS CLEAR BILATERALLY. HEART SOUNDS S1 AND S2 HEARD IN ALL ROBERTSON. BOWEL SOUNDS ACTIVE X 4. SKIN INTACT WITHOUT REDNESS. TELEMETRY IN PLACE SHOWING 72 SR ON MONITOR. NO IV. VASCULAR ACCESS CONSULT IN. TALBOT PATENT DRAINING RED TINGED URINE. DENIES NEEDS. BED LOW. CALL ALAS AND PERSONAL ITEMS INR EACH. WILL CONTINUE TO MONITOR.
--- NOTE | 2019-09-22 08:39 | NUR ---
PATIENT REFUSES POTASSIUM FOR POTASSIUM 3.3.
[2019-09-22 08:57] LABS: PLATELET ESTIMATE DECREASED
[2019-09-22 09:14] VITALS: BP 88/42
--- NOTE | 2019-09-22 09:21 | NUR ---
ATTEMPTED TO CALL JIMBO, VASCULAR ACCESS NURSE, WITH NO ANSWER. WILL ATTEMPT AGAIN LATER TODAY.
--- NOTE | 2019-09-22 10:00 | NUR ---
ATTEMPTED TO CALL VASCULAR ACCESS NURSE AGAIN WITHOUT SUCCESS.
[2019-09-22 11:09] LABS: FUNGUS MYCOLOGY CULTURE Preliminary report (())
--- NOTE | 2019-09-22 11:51 | NUR ---
ATTEMPTED TO CALL VASCULAR ACCESS NURSE AGAIN WITHOUT SUCCESS.
--- NOTE | 2019-09-22 12:03 | NUR ---
RESTING IN BED. WAITING TO SPEAK WITH AURICULAR ACUPUNCTURIST. AURICULAR ACUPUNCTURIST NOTIFIED AT 1100 THAT PATIENT WANTS TO SEE. STATES WILL SEE PATIENT.
[2019-09-22 12:52] VITALS: BP 86/43
--- NOTE | 2019-09-22 15:20 | NUR ---
Nutrition Follow-up: Patient sleeping at time of RD visit. She aroused but did not open her eyes or acknowledge to me calling her name x 2. Chart reviewed, noted that she is in pain, refusing therapy and not participating in care. Diet: Full Liquid PO intake: ~38% average x last 6 meals Last BM: 09/21/19 x 4. WT: 136# (09/17/19), no new WT Meds noted: 1/2NS@30, lactulose, lasix Labs noted: K 3.3(L), Glu 120(H), Mag 1.4(L), Alb 1.7(L), ammonia 73(H), Alk Phos 212(H), tbili 2.5(H), ALT 9(L) Continue to ADAT to Low Sodium Regular diet. Will add Ensure with meals. Encourage PO intake. RD following.
--- NOTE | 2019-09-22 17:04 | MORECARE ---
CASE MANAGEMENT DISCHARGE SUMMARY PATIENT: DILIA OSULLIVAN UNIT: [id number] ADM DATE: 09/12/19 AGE: 39 : 82 SEX: F ROOM/BED: D.2232 AUTHOR: JUDD,DOC PHYSICIAN: REFERRING PHYSICIAN: WANDA MERIDA MD DATE OF SERVICE: 09/22/19 Discharge Plan Patient Name: DILIA OSULLIVAN Facility: [facility]:[place] : 1980 Planned Disposition: Group Home Facility Anticipated Discharge Date: Discharge Date: Expected LOS: Initial Reviewer: [email or web address] Initial Review Date: 09/16/2019 Generated: 09/22/19 6:04 pm Comments DCP- Discharge Planning Updated by [id number]: Justine Garcia on 09/22/19 3:[address] I attempted to see the patient several times today and she has been sleeping. I will see her tomorrow. CM will continue to follow and assist with discharge planning/needs. DCP- Discharge Planning Updated by [id number]: Justine Garcia on 09/16/19 1:[address] Patient Name: DILIA OSULLIVAN Admission Status: ER Accout number: [id number] Admission Date: 09-12-2019 : 1980 Admission Diagnosis:SEPSIS, UNSPECIFIED ORGANISM Attending: WANDA MERIDA Current LOS: 4 Anticipated DC Date: Planned Disposition: Group Home Facility [place] Insurance: [place] [employer] [facility] Discharge Planning Comments: CM met with patient to complete initial dc planning assessment. CM educated patient on the CM role and verbal consent given by patient to complete assessment. Patient lives at home with her boyfriend. Her boyfriend works in construction, so is gone much of the day. She states she has become very weak and knows that she will need some rehab prior to discharging home. I discussed rehab, SNF and DME needs with her and KOURTNEY for [facility] signed. I notified Alice of referral and clinical faxed. CM will continue to follow and assist with discharge planning/needs. Volleyball Assistant Coach: Justine Garcia DCPIA - Discharge Planning Initial Assessment Updated by [id number]: Justine Garcia on 09/16/19 3:23 pm * Is the patient Alert and Oriented? Yes * How many steps to enter\exit or inside your home? 4/0 * PCP Dr. Erica Lord * [facility] * Preadmission Environment Home with Family * ADLs Partial Dependent * Partial ADLs (Assistance needed) Ambulation Bathing * Equipment Crutch Walker * List name and contact numbers for known caregivers / representatives who currently or will assist patient after discharge: Roger Андрей * Verbal permission to speak to the caregivers and representatives has been obtained from the patient. Yes * Community resources currently utilized Home Health * Please name any agencies selected above. [facility] * Additional services required to return to the preadmission environment? Yes * Can the patient safely return to the preadmission environment? Yes * Has this patient been hospitalized within the prior 30 days at any hospital? Yes Coverage Notice Reviewer: [id number] Larry Garcia Notice Issued Date-Time: 09/16/2019 15:15 Notice Type: Patient Choice Letter Notice Delivered To: Patient Relationship to Patient: Self Ingot Car Operator Name: Delivery Method: HAND - Hand Delivered Farida Days: Prior Verbal Notification: Recipient Understood Notice: Yes Recipient Signature: Yes Med Rec Note Co-signed by Attending: Coverage Notice Comment: KOURTNEY FOR [place] FOR SNF Last DP export: 09/17/19 5:55 am Patient Name: DILIA OSULLIVAN Page [phone] at 1704 All edits/amendments must be made on the electronic document DICTATION DATE: 09/22/19 170 [employer] SERGEANT: ELICIA 09/22/19 1704 RPT#: [id number] DC DATE: STATUS: ADM IN [facility] [address] [place] [address] END OF REPORT
[2019-09-22 17:13] VITALS: BP 87/44
[2019-09-22 20:00] VITALS: BP 89/32
[2019-09-23] VITALS: BP 92/38
[2019-09-23 04:00] VITALS: BP 102/45
[2019-09-23 05:44] LABS: BASOPHILS 0.1 % (0-2); EOSINOPHILS 0.7 % (0-7); HEMOGLOBIN 11.5 g/dL (12-16); IMMATURE GRANULOCYTES 0.3 % (0-5); LYMPHOCYTES 11.3 % (15-50); MCHC 33.8 g/dL (31.0-37.0); MCV 94.7 fL (80.0-100.0); MEAN PLATELET VOLUME 9.7 fL (7.4-10.4); MONOCYTES 12.4 % (2-11); NEUTROPHILS 75.2 % (40-80); RBC 3.59 10x6/uL (4.00-5.40); RDW 20.3 % (11.5-14.5)
--- NOTE | 2019-09-23 05:45 | NUR ---
I have reviewed this patient and I concur with the Shift Assessment completed by the Licensed Practical Nurse today this shift.
[2019-09-23 06:01] LABS: INR 1.65 (0.85-1.17); PROTIME 19.3 SECONDS (11.6-15.0)
[2019-09-23 06:19] LABS: PLATELET COUNT 147 10x3/uL (130-400); WBC 13.6 10x3/uL (4.8-10.8)
[2019-09-23 06:23] LABS: ANION GAP 16.4 mmol/L (8-16); BILIRUBIN - TOTAL 3.05 mg/dL (0.2-1.3); CALCIUM 8.4 mg/dL (8.5-10.1); CREATININE - SERUM 1.2 mg/dL (0.6-1.3); MAGNESIUM - SERUM 1.3 mg/dL (1.8-2.4); POTASSIUM - SERUM 3.4 mmol/L (3.5-5.1); PROTEIN - SERUM 6.7 g/dL (6.4-8.2)
[2019-09-23 09:42] VITALS: BP 97/51
[2019-09-23 13:01] VITALS: BP 92/50
--- NOTE | 2019-09-23 13:21 | MORECARE ---
CASE MANAGEMENT DISCHARGE SUMMARY PATIENT: DILIA OSULLIVAN UNIT: [id number] ADM DATE: 09/12/19 AGE: 39 : 82 SEX: F ROOM/BED: D.2232 AUTHOR: JUDDDOC PHYSICIAN: REFERRING PHYSICIAN: WANDA MERIDA MD DATE OF SERVICE: 09/23/19 Discharge Plan Patient Name: DILIA OSULLIVAN Facility: [facility]:[place] : 1980 Planned Disposition: Jail Facility Anticipated Discharge Date: Discharge Date: Expected LOS: Initial Reviewer: [email or web address] Initial Review Date: 09/16/2019 Generated: 09/23/19 2:21 pm Comments DCP- Discharge Planning Updated by [id number]: Justine Garcia on 09/23/19 12:[address] I attempted to meet with patient again today and she is very lethargic. She will open her eyes for a moment, then close them again. She appears jaundiced. I spoke with primary nurse, Anna German, and informed her. Anna states she has been lethargic for the last couple of days and refusing medications. I also spoke with Dana Plata APN. CM will continue to follow and assist with discharge planning/needs. DCP- Discharge Planning Updated by [id number]: Justine Garcia on 09/22/19 3:[address] I attempted to see the patient several times today and she has been sleeping. I will see her tomorrow. CM will continue to follow and assist with discharge planning/needs. DCP- Discharge Planning Updated by [id number]: Justine Garcia on 09/16/19 1:[address] Patient Name: DILIA OSULLIVAN Admission Status: ER Accout number: [id number] Admission Date: 09-12-2019 : 1980 Admission Diagnosis:SEPSIS, UNSPECIFIED ORGANISM Attending: WANDA MERIDA Current LOS: 4 Anticipated DC Date: Planned Disposition: Jail Facility Primary Insurance: [place] [employer] Discharge Planning Comments: CM met with patient to complete initial dc planning assessment. CM educated patient on the CM role and verbal consent given by patient to complete assessment. Patient lives at home with her boyfriend. Her boyfriend works in construction, so is gone much of the day. She states she has become very weak and knows that she will need some rehab prior to discharging home. I discussed rehab, SNF and DME needs with her and KOURTNEY for [place] signed. I notified Alice of referral and clinical faxed. CM will continue to follow and assist with discharge planning/needs. Entry Driver Operator: Justine Spanglerbharath DCPIA - Discharge Planning Initial Assessment Updated by [email or web address]: Justine Spanglerbharath on 09/16/19 3:23 pm * Is the patient Alert and Oriented? Yes * How many steps to enter\exit or inside your home? 4/0 * PCP Dr. Erica Lord * [facility] * Preadmission Environment Home with Family * ADLs Partial Dependent * Partial ADLs (Assistance needed) Ambulation Bathing * Equipment Crutch Walker * List name and contact numbers for known caregivers / representatives who currently or will assist patient after discharge: Roger Chiang * Verbal permission to speak to the caregivers and representatives has been obtained from the patient. Yes * Community resources currently utilized Home Health * Please name any agencies selected above. [facility] * Additional services required to return to the preadmission environment? Yes * Can the patient safely return to the preadmission environment? Yes * Has this patient been hospitalized within the prior 30 days at any hospital? Yes Coverage Notice Reviewer: [id number] - Justine Garcia Notice Issued Date-Time: 09/16/2019 15:15 Notice Type: Patient Choice Letter Notice Delivered To: Patient Relationship to Patient: Self Senior Sharepoint Architect Name: Delivery Method: HAND - Hand Delivered Farida Days: Prior Verbal Notification: Recipient Understood Notice: Yes Recipient Signature: Yes Med Rec Note Co-signed by Attending: Coverage Notice Comment: [facility] FOR [facility] FOR SNF Last DP export: 09/22/19 4:04 pm Patient Name: DILIA OSULLIVAN Page [phone] at 1321 All edits/amendments must be made on the electronic document DICTATION DATE: 09/23/19 1321 PROCESS CAMERA OPERATOR: ELICIA 09/23/19 1321 RPT#: [id number] NM DATE: STATUS: ADM IN [facility] [address] [place] [address] END OF REPORT
--- NOTE | 2019-09-23 14:12 | NUR ---
PT LETHARGIS THIS AFTERNOON, PT PURSE AT BEDSIDE, WENT THROUGH PT PURSE, FOUND 2 BOTLES, ONE AN ABX THE OTHER ROBINOL, PT ALSO HAD ANOTHER BOTTLE OF MEDICINE FILLED WITH THC A PIPE AND A PICKER/PULLER. SHOOK PT TO WAKE HER AND ASKED IF SHE TOOK ANYTHING, PT OPENED HER EYES AND WENT BACK TO SLEEP, TOOK VS AND PT BP WAS 52/39. TOOK ON RT LEG AND PT BP WAS 74/42 THEN TOOK MANUAL BP AND PT BP IS 84/62. TURNED FLUIDS ON AT 100 AND REMOVED MEDS FROM ROOM. NOTIFIED NURSE RADIO AERIAL INSTALLER. CONTINUE WITH PLAN OF CARE
--- NOTE | 2019-09-23 15:44 | NUR ---
I have reviewed this patient and I concur with the Shift Assessment completed by the Licensed Practical Nurse today this shift.
[2019-09-23 17:24] VITALS: BP 86/50
[2019-09-23 17:59] LABS: BILIRUBIN NEGATIVE (NEGATIVE); GLUCOSE NEGATIVE (NEGATIVE); KETONE NEGATIVE (NEGATIVE); NITRITE NEGATIVE (NEGATIVE); UROBILINOGEN NORMAL (NORMAL)
[2019-09-23 18:00] LABS: BACTERIA FEW /hpf (NEGATIVE); RED CELLS - URINE 0-5 /hpf (0-5); WHITE CELLS - URINE 0-5 /hpf (NEGATIVE)
--- NOTE | 2019-09-23 18:07 | NUR ---
PT IS AWAKE NOW, STATES SHE DOES NOT REMEMBER TAKING ANYTHING AND WOULD NOT HAVE, EXPLAINED SHE WAS VERY LETHARGIC AND WE WERE UNABLE TO WAKE HER, THAT SHE HAS HAD SEVERAL PHYSICIANS IN HER ROOM WELL LAB, XRAY AND NURSING STAFF. PT STATES SHE DOESN'T REMEMBER ANYONE COMING IN, UNCLAMPED PT CATHETER AND PT WAS GIVEN FULL BED BATHA ND IS NOW SITTING UP EATING DINNER, CONTINUE WITH PLAN OF CARE
[2019-09-23 18:35] LABS: UDS - AMPHET NEGATIVE QUAL (NEGATIVE); UDS - BARB NEGATIVE QUAL (NEGATIVE); UDS - BENZO POSITIVE QUAL (NEGATIVE); UDS - COCAINE NEGATIVE QUAL (NEGATIVE); UDS - OPIATE NEGATIVE QUAL (NEGATIVE); UDS - PCP NEGATIVE QUAL (NEGATIVE); UDS - THC NEGATIVE QUAL (NEGATIVE)
[2019-09-23 20:00] VITALS: BP 112/56
[2019-09-24 04:00] VITALS: BP 106/51
[2019-09-24 06:51] LABS: BASOPHILS 0.3 % (0-2); EOSINOPHILS 2.4 % (0-7); HEMATOCRIT 30.6 % (36.0-48.0); HEMOGLOBIN 10.1 g/dL (12-16); IMMATURE GRANULOCYTES 0.1 % (0-5); LYMPHOCYTES 20.8 % (15-50); MCH 31.8 pg (26.0-34.0); MCV 96.2 fL (80.0-100.0); MEAN PLATELET VOLUME 9.7 fL (7.4-10.4); MONOCYTES 13.3 % (2-11); NEUTROPHILS 63.1 % (40-80); PLATELET COUNT 123 10x3/uL (130-400); RBC 3.18 10x6/uL (4.00-5.40); RDW 20.3 % (11.5-14.5)
[2019-09-24 06:58] LABS: INR 1.82 (0.85-1.17); PROTIME 20.8 SECONDS (11.6-15.0)
[2019-09-24 07:28] LABS: ALBUMIN 1.7 g/dL (3.4-5.0); ALKALINE PHOSPHATASE 191 U/L (30-120); BILIRUBIN - TOTAL 2.38 mg/dL (0.2-1.3); CALCIUM 7.9 mg/dL (8.5-10.1); CARBON DIOXIDE 20.1 mmol/L (21.0-32.0); CHLORIDE - SERUM 107 mmol/L (98-107); GLUCOSE 74 mg/dL (74-106); MAGNESIUM - SERUM 1.2 mg/dL (1.8-2.4); PROTEIN - SERUM 5.5 g/dL (6.4-8.2); SODIUM 140 mmol/L (136-145)
[2019-09-24 07:29] LABS: ALT (SGPT) 8 U/L (10-68); CALC OSMOLALITY 276 mosm/kg (275-300); CREATININE - SERUM 0.8 mg/dL (0.6-1.3); UREA NITROGEN 9 mg/dL (7-18); eGFR NON AFRICAN AMERICAN 85 mL/min (90-120)
[2019-09-24 09:32] VITALS: BP 82/40
--- NOTE | 2019-09-24 12:10 | NUR ---
PT MORE AWAKE AND ALERT TODAY, UPSET THAT WE WENT THROUGH PURSE, PT WAS TOLD BY RETAIL KEY HOLDER DR WENT THROUGH PURSE. I TOLD PT THAT I HAD GONE THROUGH PURSE AND FOUND ITEMS AND HAD TO DO SO FOR HER SAFETY BECAUSE SHE WOULD NOT WAKE UP WITH STERNAL RUB OR ANYTHING. PT STILL VERY UPSET AND STATED I'M COVERING FOR DOCTOR. PT THEN DRANK SOME ENSURE AND GOT SICK VOMITING EVERYWHERE. ASSISTED PT IN GETTING CLEANED UP, WILL CONTINUE WITH PLAN OF CARE
[2019-09-24 12:40] VITALS: BP 88/40
--- NOTE | 2019-09-24 13:47 | NUR ---
I have reviewed this patient and I concur with the Shift Assessment completed by the Licensed Practical Nurse today this shift.
[2019-09-24 16:53] VITALS: BP 85/42
[2019-09-24 20:00] VITALS: BP 103/54
--- NOTE | 2019-09-25 02:26 | NUR ---
alert with some confusion noted at times. IV to left hand ,F/C in place and paten with dark urin to bag. up with assist to BSC. Refused SCD's and bed alarm. water and call light in reach no needs at this time.
[2019-09-25 04:00] VITALS: BP 103/53
[2019-09-25 05:00] LABS: BASOPHILS 0.1 % (0-2); EOSINOPHILS 1.8 % (0-7); HEMATOCRIT 33.6 % (36.0-48.0); HEMOGLOBIN 11.3 g/dL (12-16); IMMATURE GRANULOCYTES 0.2 % (0-5); LYMPHOCYTES 17.4 % (15-50); MCH 31.9 pg (26.0-34.0); MCHC 33.6 g/dL (31.0-37.0); MCV 94.9 fL (80.0-100.0); MEAN PLATELET VOLUME 9.6 fL (7.4-10.4); MONOCYTES 11.9 % (2-11); NEUTROPHILS 68.6 % (40-80); PLATELET COUNT 120 10x3/uL (130-400); RBC 3.54 10x6/uL (4.00-5.40); RDW 19.9 % (11.5-14.5); WBC 9.9 10x3/uL (4.8-10.8)
[2019-09-25 05:07] LABS: INR 1.61 (0.85-1.17)
[2019-09-25 05:15] LABS: ALBUMIN 1.7 g/dL (3.4-5.0); ANION GAP 13.7 mmol/L (8-16); BILIRUBIN - TOTAL 2.28 mg/dL (0.2-1.3); CALCIUM 8.3 mg/dL (8.5-10.1); CARBON DIOXIDE 22.4 mmol/L (21.0-32.0); MAGNESIUM - SERUM 1.3 mg/dL (1.8-2.4); POTASSIUM - SERUM 3.1 mmol/L (3.5-5.1); PROTEIN - SERUM 6.3 g/dL (6.4-8.2)
[2019-09-25 05:20] LABS: CREATININE - SERUM 1.1 mg/dL (0.6-1.3)
--- NOTE | 2019-09-25 06:50 | NUR ---
ALERT AND ORIENTED X2. NO C/O PAIN. NO S/S OF ACUTE DISTRESS NOTED. ON TELEMETRY 73 SR WITH PVCS. IV TO LEFT HAND, SL. SITE PATENT WITHOUT REDNESS OR SWELLING. TALBOT CATHETER PRESENT. JAUNDICE IN COLOR. WHEEZES ASCULTATED THROUGHOUT ALL LOBES. REFUSED SCDS AND SIGNED BED ALARM TAYLER, IN CHART. MAGNESIUM 1.3, ON ELECTROLYTE PROTOCOL. WILL FOLLOW PROTOCOL. DENIES ANY NEEDS AT THIS TIME. CALL LIGHT IN REACH. WILL CONTINUE TO MONITOR.
[2019-09-25 08:17] VITALS: BP 97/41
--- NOTE | 2019-09-25 10:10 | MORECARE ---
CASE MANAGEMENT DISCHARGE SUMMARY PATIENT: DILIA OSULLIVAN UNIT: [id number] ADM DATE: 09/12/19 AGE: 39 : 82 SEX: F ROOM/BED: D.2232 AUTHOR: JUDD,DOC PHYSICIAN: REFERRING PHYSICIAN: WANDA MERIDA MD DATE OF SERVICE: 09/25/19 Discharge Plan Patient Name: DILIA OSULLIVAN Facility: [facility]:[place] : 1980 Planned Disposition: Group Home Facility Anticipated Discharge Date: Discharge Date: Expected LOS: Initial Reviewer: [id number] Initial Review Date: 09/16/2019 Generated: 09/25/19 11:09 am Comments DCP- Discharge Planning Updated by [id number]: Justine Garcia on 09/25/19 9:[address] I faxed updated clinical and PT/OT notes to [facility] and donnell Jenkinsison for [place]. CM will continue to follow and assist with discharge planning/needs. DCP- Discharge Planning Updated by [id number]: Justine Jose on 09/23/19 12:[address] I attempted to meet with patient again today and she is very lethargic. She will open her eyes for a moment, then close them again. She appears jaundiced. I spoke with primary nurse, Anna German, and informed her. Anna states she has been lethargic for the last couple of days and refusing medications. I also spoke with Dana Plata APN. CM will continue to follow and assist with discharge planning/needs. DCP- Discharge Planning Updated by [id number]: Justine Garcia on 09/22/19 3:[address] I attempted to see the patient several times today and she has been sleeping. I will see her tomorrow. CM will continue to follow and assist with discharge planning/needs. DCP- Discharge Planning Updated by [id number]: Justine Garcia on 09/16/19 1:[address] Patient Name: DILIA OSULLIVAN Admission Status: ER Accout number: [id number] Admission Date: 09-12-2019 : 1980 Admission Diagnosis:SEPSIS, UNSPECIFIED ORGANISM Attending: WANDA MERIDA Current LOS: 4 Anticipated DC Date: Planned Disposition: Group Home Facility Primary Insurance: [place] [employer] Discharge Planning Comments: CM met with patient to complete initial dc planning assessment. CM educated patient on the CM role and verbal consent given by patient to complete assessment. Patient lives at home with her boyfriend. Her boyfriend works in construction, so is gone much of the day. She states she has become very weak and knows that she will need some rehab prior to discharging home. I discussed rehab, SNF and DME needs with her and KOURTNEY for [place] signed. I notified Alice of referral and clinical faxed. CM will continue to follow and assist with discharge planning/needs. Technical Operator: Justine Garcia DCPIA - Discharge Planning Initial Assessment Updated by [id number]: Justine aGrcia on 09/16/19 3:23 pm * Is the patient Alert and Oriented? Yes * How many steps to enter\exit or inside your home? 4/0 * PCP Dr. Erica Lord * [facility] * Preadmission Environment Home with Family * ADLs Partial Dependent * Partial ADLs (Assistance needed) Ambulation Bathing * Equipment Crutch Walker * List name and contact numbers for known caregivers / representatives who currently or will assist patient after discharge: Roger Chiang * Verbal permission to speak to the caregivers and representatives has been obtained from the patient. Yes * Community resources currently utilized Home Health * Please name any agencies selected above. [facility] * Additional services required to return to the preadmission environment? Yes * Can the patient safely return to the preadmission environment? Yes * Has this patient been hospitalized within the prior 30 days at any hospital? Yes Coverage Notice Reviewer: [id number] - Justine Garcia Notice Issued Date-Time: 09/16/2019 15:15 Notice Type: Patient Choice Letter Notice Delivered To: Patient Relationship to Patient: Self Back Roller Name: Delivery Method: HAND - Hand Delivered Farida Days: Prior Verbal Notification: Recipient Understood Notice: Yes Recipient Signature: Yes Med Rec Note Co-signed by Attending: Coverage Notice Comment: KOU[facility] FOR [facility] FOR SNF Last DP export: 09/23/19 12:21 p Patient Name: DILIA OSULLIVAN Page [phone] at 1010 All edits/amendments must be made on the electronic document DICTATION DATE: 09/25/191008 TUBE REPAIRER: ELICIA 09/25/19 100 RPT#: [id number] DC DATE: STATUS: ADM IN [facility] [address] [place] [address] END OF REPORT
[2019-09-25 13:52] VITALS: BP 98/50
--- NOTE | 2019-09-25 16:19 | NUR ---
I have reviewed this patient and I concur with the Shift Assessment completed by the Licensed Practical Nurse today this shift.
--- NOTE | 2019-09-25 17:29 | NUR ---
THIS NURSE PERFORMED BLADDER SCAN PER PHYSICIAN ORDER. 96ML IN BLADDER WITH TABLOT CATHETER.
[2019-09-25 18:38] LABS: BILIRUBIN NEGATIVE (NEGATIVE); GLUCOSE NEGATIVE (NEGATIVE); KETONE NEGATIVE (NEGATIVE); NITRITE NEGATIVE (NEGATIVE); SPECIFIC GRAVITY 1.015 (1.005-1.020); UROBILINOGEN NORMAL (NORMAL)
--- NOTE | 2019-09-25 18:39 | NUR ---
RESTING IN BED WITH EYES CLOSED. RESPIRATIONS EVEN AND UNLABORED. NO S/S OF ACUTE DISTRESS NOTED. CALL LIGHT IN REACH. WILL CONTINUE TO MONITOR.
[2019-09-25 18:41] LABS: BACTERIA MODERATE /hpf (NEGATIVE); EPITHELIAL CELLS NSEEN /hpf (0-5); RED CELLS - URINE 25-50 /hpf (0-5)
[2019-09-25 20:00] VITALS: BP 110/61
[2019-09-25 23:50] VITALS: BP 110/61
[2019-09-26] VITALS (9 sets, daily range): BP systolic 78–104; BP diastolic 40–54
--- NOTE | 2019-09-26 00:16 | NUR ---
patint in bed awake IV to left fa, folly cath in place with dark urine to bag. placed go light in cup for her at start of shift. she stated she would try to drink it. took consents for colonoscopy with tive she stated I'mm asleep I'll do it tomorrow. no needs noted or stated.
[2019-09-26 05:34] LABS: BASOPHILS 0.2 % (0-2); EOSINOPHILS 2.2 % (0-7); HEMOGLOBIN 11.4 g/dL (12-16); IMMATURE GRANULOCYTES 0.2 % (0-5); LYMPHOCYTES 17.3 % (15-50); MCHC 33.5 g/dL (31.0-37.0); MCV 95.5 fL (80.0-100.0); MEAN PLATELET VOLUME 9.4 fL (7.4-10.4); NEUTROPHILS 69.1 % (40-80); RBC 3.56 10x6/uL (4.00-5.40); RDW 19.8 % (11.5-14.5); WBC 10.8 10x3/uL (4.8-10.8)
[2019-09-26 05:37] LABS: PLATELET COUNT 155 10x3/uL (130-400)
[2019-09-26 05:45] LABS: INR 1.68 (0.85-1.17); PROTIME 19.6 SECONDS (11.6-15.0)
[2019-09-26 05:52] LABS: ALBUMIN 1.9 g/dL (3.4-5.0); ANION GAP 12.8 mmol/L (8-16); BILIRUBIN - TOTAL 2.47 mg/dL (0.2-1.3); CARBON DIOXIDE 22.6 mmol/L (21.0-32.0); CREATININE - SERUM 0.9 mg/dL (0.6-1.3); MAGNESIUM - SERUM 1.5 mg/dL (1.8-2.4); POTASSIUM - SERUM 3.4 mmol/L (3.5-5.1); PROTEIN - SERUM 6.4 g/dL (6.4-8.2)
--- NOTE | 2019-09-26 06:30 | NUR ---
AMMONIA LEVEL 50 THIS AM NOT CALLED TO MD IT WAS 51 ON 09/25/19
--- NOTE | 2019-09-26 07:15 | NUR ---
ALERT AND ORIENTED. LUNGS CLEAR BILATERALLY. HEART SOUNDS S1 AND S2 HEARD IN ALL [place]. BOWEL SOUNDS ACITVE X 4. SKIN INTACT WITHOUT REDNESS. IV TO LFA PATENT WITHOUT REDNESS. DENIES NEEDS. BED LOW. CALL ALAS AND PERSONAL ITEMS IN REACH. WILL CONTINUE TO MONITOR.
--- NOTE | 2019-09-26 08:12 | NUR ---
CONSENTS OBTAINED FOR PROCEDURE. PATIENT ABLE TO SPEAK WITH SHOW HOST OR HOSTESS PER REQUEST.
--- NOTE | 2019-09-26 09:00 | NUR ---
PREOP MEDS GIVEN PER ORDER. EKG DONE AND ON CHART PER SURGERY REQUEST.
--- NOTE | 2019-09-26 10:41 | NUR ---
PATIENT RETURNED FROM PROCEDURE. VITALS STABLE. REQUESTED AND GIVEN ICE CHIPS. WILL CONTINUE TO MONITOR.
--- NOTE | 2019-09-26 13:21 | NUR ---
Nutrition follow-up: Pt s/p clonoscopy today Diet advanced back to low sodium PO intake has been poor Labs reviewed Wt: 135# Will continue to provide food choices with selective menus and honor food preferences within diet restrictions. Will offer nutritional supplements. RDN following
--- NOTE | 2019-09-26 17:25 | NUR ---
RESTING IN BED. DENIES NEEDS. WILL CONTINUE TO MONITOR.
--- NOTE | 2019-09-26 20:00 | NUR ---
PATIENT RESTING IN BED WITH EYES OPEN. NO S/S OF DISTRESS. PATIENT COMPLAINS OF PAIN IN BLADDER. "EVERYTIME I HAVE TO PEE OR EVEN PUSH TO POOP, IT HURTS SO BAD". PATIENT WAS INSSTRUCTED THAT SHE WOULD FEEL THOUGH SHE WOULD HAVE TO PEE WITH THE TALBOT CATHETER IN PLACE. PATIENT HAS LEFT FOREARM IV THAT IS SALINE LOC. IV IS PATENT WITHOUT REDNESS, SWELLING, OR TENDERNESS. PATIENT IS ON TELEMETRY: 93 BPM NORMAL SINUS RYTHM. PATIENT HAS TALBOT CATHETER. PATIENT USES BEDSIDE COMMODE. PATIENT IS A FALL RISK, BUT HAS SIGNED THE WAVER TO NOT HAVE A BED ALARM. ALL OTHER FALL PRECAUTIONS IN PLACE. CALL LIGHT IN PLACE.
--- NOTE | 2019-09-26 21:30 | NUR ---
PATIENT COMPLAINED ABOUT PAIN UPON URINATION EVEN WITH THE TALBOT IN. JED CRANE WAS PAGED AND SHE SAID THERE WAS NOTHING SHE COULD DO BECAUSE OF THE LIVER ISSUES THE PATIENT HAS.
--- NOTE | 2019-09-26 22:00 | NUR ---
PATIENT MADE A STATEMENT THAT SHE JUST WANTED TO , WHEN BEING TOLD THAT THE [id number] PRESCRIBED ANY PAIN MEDICINE. I ASKED PATIENT IF THEY HAD THOUGHTS OF SUICIDE, OR KILLING HERSELF, AND SHE REPLIED "YES. I JUST WANT THE PAIN TO END, BUT DON'T WORRY I WON'T DO SOMETHING STUPID KILLING MYSELF HERE." TRANSCRIPTION COORDINATOR WAS CALLED AND ADVISED OF THE SITUATION. CALL LIGHT IN PLACE. WILL CONTINUE TO MONITOR.
--- NOTE | 2019-09-27 01:27 | NUR ---
I have reviewed this patient and I concur with the Shift Assessment completed by the Licensed Practical Nurse today this shift.
[2019-09-27 04:00] VITALS: BP 107/59
[2019-09-27 05:55] LABS: BASOPHILS 0.2 % (0-2); EOSINOPHILS 1.8 % (0-7); HEMATOCRIT 35.5 % (36.0-48.0); HEMOGLOBIN 11.9 g/dL (12-16); IMMATURE GRANULOCYTES 0.3 % (0-5); MCH 32.7 pg (26.0-34.0); MCHC 33.5 g/dL (31.0-37.0); MEAN PLATELET VOLUME 9.6 fL (7.4-10.4); MONOCYTES 9.8 % (2-11); NEUTROPHILS 71.9 % (40-80); PLATELET COUNT 166 10x3/uL (130-400); RBC 3.64 10x6/uL (4.00-5.40); RDW 19.7 % (11.5-14.5)
[2019-09-27 06:06] LABS: MCV 97.5 fL (80.0-100.0)
[2019-09-27 06:12] LABS: ALBUMIN 2.2 g/dL (3.4-5.0); ALKALINE PHOSPHATASE 207 U/L (30-120); BILIRUBIN - TOTAL 2.61 mg/dL (0.2-1.3); CALCIUM 8.9 mg/dL (8.5-10.1); CARBON DIOXIDE 20.1 mmol/L (21.0-32.0); CHLORIDE - SERUM 109 mmol/L (98-107); CREATININE - SERUM 0.8 mg/dL (0.6-1.3); GLUCOSE 81 mg/dL (74-106); MAGNESIUM - SERUM 1.7 mg/dL (1.8-2.4); POTASSIUM - SERUM 3.2 mmol/L (3.5-5.1); PROTEIN - SERUM 7.3 g/dL (6.4-8.2); SODIUM 141 mmol/L (136-145); eGFR NON AFRICAN AMERICAN 85 mL/min (90-120)
[2019-09-27 06:15] LABS: INR 1.49 (0.85-1.17); PROTIME 17.9 SECONDS (11.6-15.0)
[2019-09-27 06:23] LABS: ALT (SGPT) 9 U/L (10-68); CALC OSMOLALITY 276 mosm/kg (275-300); UREA NITROGEN 5 mg/dL (7-18)
[2019-09-27 08:33] VITALS: BP 101/51
--- NOTE | 2019-09-27 10:25 | NUR ---
RESTING IN BED, NO DISTRESS NOTED, REFUSING SCD AND BED ALARM, TOOK PO MEDS WITH EASE, CONT TO MONITOR LABS,
[2019-09-27 12:28] VITALS: BP 118/72
--- NOTE | 2019-09-27 13:30 | NUR ---
IV RESTARTED TO RIGHT UPPER ARM DUE TO REDDNESS AT SITE OF PRESENT IV
[2019-09-27 16:39] VITALS: BP 95/57
[2019-09-27 19:46] VITALS: BP 96/48
--- NOTE | 2019-09-27 20:00 | NUR ---
PATIENT AWAKE AND SITTING UP IN BED. NO S/S OF DISTRESS. PATIENT C/O PAIN IN BLADDER AREA AND NOT BEING ABLE TO SLEEP. PATIENT HAS RIGHT UPPER ARM IV SALINE LOC. IV IS PATENT WITHOUT REDNESS, SWELLING, OR TENDERNESS. PATIENT HAS URINARY PAIN EVEN WITH A TALBOT. TALBOT IS WORKING, BUT PATIENT INSTRUCTED THAT IF SHE KEEPS BREAKING THE STAT-LOCK THAT ANY MOVEMENT SHE HAS WILL MAKE PAIN HAPPEN BECUASE SHE IS PULLING ON HER CATHETER. CALL LIGHT IN PLACE WILL CONTINUE TO MONITOR.
--- NOTE | 2019-09-27 20:44 | NUR ---
PATIENT STATES "I JUST WANT TO WALK OUT OF HERE. AT LEAST AT HOME I CAN GET PAIN MEDICATION AND SLEEP MEDICINE." PATIENT WAS ASKED IF SHE WANTED TO GO HOME AMA, AND PATIENT STATES "NO. I'M JUST FRUSTRATED THAT THE DOCTORS AREN'T DOING ANYTHING." CALL LIGHT IN PLACE. WILL CONTINUE TO MONITOR.
[2019-09-28 01:20] VITALS: BP 142/91
--- NOTE | 2019-09-28 02:29 | NUR ---
PATIENT STATES THAT "I AM GOING ON STRIKE UNTIL SOMEONE TAKES CARE OF MY BLADDER. I'M NOT TAKING ANYMORE MEDICINE OR ANYTHING UNTIL SOMEBODY DOES SOMETHING FOR MY PAIN." CALL LIGHT IN PLACE. WILL CONTINUE TO MONITOR.
--- NOTE | 2019-09-28 04:54 | NUR ---
I have reviewed this patient and I concur with the Shift Assessment completed by the Licensed Practical Nurse today this shift.
[2019-09-28 05:12] VITALS: BP 105/56
[2019-09-28 05:19] LABS: BASOPHILS 0.2 % (0-2); EOSINOPHILS 3.2 % (0-7); HEMOGLOBIN 11.8 g/dL (12-16); IMMATURE GRANULOCYTES 0.4 % (0-5); LYMPHOCYTES 18.4 % (15-50); MCHC 32.8 g/dL (31.0-37.0); MCV 97.6 fL (80.0-100.0); MEAN PLATELET VOLUME 8.9 fL (7.4-10.4); NEUTROPHILS 69.8 % (40-80); PLATELET COUNT 142 10x3/uL (130-400); RBC 3.69 10x6/uL (4.00-5.40); RDW 19.5 % (11.5-14.5); WBC 10.8 10x3/uL (4.8-10.8)
[2019-09-28 05:41] LABS: ALKALINE PHOSPHATASE 199 U/L (30-120); BILIRUBIN - TOTAL 2.48 mg/dL (0.2-1.3); CALC OSMOLALITY 279 mosm/kg (275-300); CALCIUM 8.7 mg/dL (8.5-10.1); CARBON DIOXIDE 21.3 mmol/L (21.0-32.0); CHLORIDE - SERUM 110 mmol/L (98-107); CREATININE - SERUM 0.8 mg/dL (0.6-1.3); GLUCOSE 95 mg/dL (74-106); MAGNESIUM - SERUM 1.4 mg/dL (1.8-2.4); POTASSIUM - SERUM 3.5 mmol/L (3.5-5.1); PROTEIN - SERUM 6.9 g/dL (6.4-8.2); SODIUM 142 mmol/L (136-145); UREA NITROGEN 4 mg/dL (7-18); eGFR NON AFRICAN AMERICAN 85 mL/min (90-120)
[2019-09-28 05:43] LABS: ALT (SGPT) 6 U/L (10-68)
[2019-09-28 06:30] LABS: INR 1.7 (0.85-1.17); PROTIME 19.8 SECONDS (11.6-15.0)
[2019-09-28 08:21] VITALS: BP 119/66
--- NOTE | 2019-09-28 10:18 | NUR ---
RESTING IN BED, DALIA COOPERTIVE WITH STAFF THIS DAY, REFUSING MEDS D/T BUT INFORMED PT THAT SHE ONLY HURTS HERSELF, REFUSED THERAPY, ABT INFUSING
[2019-09-28 11:59] VITALS: BP 104/64
[2019-09-28 16:06] VITALS: BP 97/48
--- NOTE | 2019-09-28 19:38 | NUR ---
RPEORT RECIEVED AND ROUNDING COMPLETE. PATIENT LAYING IN BED IN SUPINE POSITION, EYES CLOSED BREATHING SHALLOW BUT EVEN, PATIENT HAS A TALBOT CATH WITH CLEAR YELLOW URINE IN THE COLLLECTION BAG. RAMÍREZ HAS A RIGHT UPPER ARM PIV THAT IS SALINE LOCKED AT THIS TIME, PIV IS PATENT TO FLUSH. NO BED ALARM PATINET HAS SIGNED WAIVER. CALL LIGHT WITHIN REACH AND BED IN LOWEST LOCKED POSITION.
[2019-09-28 20:00] VITALS: BP 93/56
--- NOTE | 2019-09-28 21:34 | NUR ---
WHILE PATIENT USING THE BATHROOM SHE CRIES OUT IN PAIN STATES " HER BLADDER HURTS EVERYTIME SHE USES THE RESTROOM"
[2019-09-29] VITALS: BP 87/54
--- NOTE | 2019-09-29 00:40 | NUR ---
I have reviewed this patient and I concur with the Shift Assessment completed by the Licensed Practical Nurse today this shift.
[2019-09-29 04:00] VITALS: BP 88/42
--- NOTE | 2019-09-29 06:00 | NUR ---
PATIENT LAYING IN BED IN LOW FOWLERS, PATIENT UPSET THAT DOCTORS ARE REFUSING TO GIVE HER PAIN MEDICATIONS. PATIENT IS UPSET THAT THE DOCTOR DID NOT CALL BACK LAST NIGHT. EXPLAINED THAT THE DOCTOR WASNT PAGED, PATIENT INSIST THAT HE WAS AND THAT HE IS AVOIDING HER. SHE STATES SHE IS DYING AND DOSENT WANT TO BE IN PAIN THE REST OF HER LIFE. NO OTHER NEEDS AT THIS TIME. CALL LIGHT WITHIN REACH AND BED IN LOWEST LOCKED POSITION.
[2019-09-29 06:45] LABS: BASOPHILS 0.2 % (0-2); EOSINOPHILS 2.9 % (0-7); HEMATOCRIT 35.9 % (36.0-48.0); HEMOGLOBIN 11.7 g/dL (12-16); IMMATURE GRANULOCYTES 0.3 % (0-5); LYMPHOCYTES 15.8 % (15-50); MCHC 32.6 g/dL (31.0-37.0); MCV 98.1 fL (80.0-100.0); MEAN PLATELET VOLUME 10.1 fL (7.4-10.4); MONOCYTES 10.6 % (2-11); NEUTROPHILS 70.2 % (40-80); PLATELET COUNT 164 10x3/uL (130-400); RBC 3.66 10x6/uL (4.00-5.40); RDW 19.1 % (11.5-14.5); WBC 10.2 10x3/uL (4.8-10.8)
[2019-09-29 07:27] LABS: ALBUMIN 2.2 g/dL (3.4-5.0); ANION GAP 14.5 mmol/L (8-16); BILIRUBIN - TOTAL 2.62 mg/dL (0.2-1.3); CALCIUM 8.4 mg/dL (8.5-10.1); CREATININE - SERUM 0.9 mg/dL (0.6-1.3); MAGNESIUM - SERUM 1.4 mg/dL (1.8-2.4); POTASSIUM - SERUM 3.5 mmol/L (3.5-5.1); PROTEIN - SERUM 7.1 g/dL (6.4-8.2)
[2019-09-29 09:20] VITALS: BP 104/71
--- NOTE | 2019-09-29 10:02 | NUR ---
PT ALERT X 4. BREATH SOUNDS DIMINISHED TO LOWER LOBES. TELEMETRY IN PLACE. ABDOMEN DISTENDED. IV TO RIGHT UPPER ARM, SALINE LOCKED. PT REPORTING PAIN 4/10 TO STOMACH, WILL MONITOR. PT REPORTS WALKING EASES PAIN. TALBOT IN PLACE, URINE DARK. BED LOW, CALL LIGHT IN REACH. NO OTHER NEEDS AT THIS TIME.
--- NOTE | 2019-09-29 11:39 | MORECARE ---
CASE MANAGEMENT DISCHARGE SUMMARY PATIENT: DILIA OSULLIVAN UNIT: [id number] ADM DATE: 09/12/19 AGE: 39 : 82 SEX: F ROOM/BED: D.2232 AUTHOR: JUDD,DOC PHYSICIAN: REFERRING PHYSICIAN: WANDA MERIDA MD DATE OF SERVICE: 09/29/19 Discharge Plan Patient Name: DILIA OSULLIVAN Facility: [facility]:[place] : 1980 Planned Disposition: Custodial Facility Anticipated Discharge Date: Discharge Date: Expected LOS: Initial Reviewer: [id number] Initial Review Date: 09/16/2019 Generated: 09/29/19 12:38 pm Comments DCP- Discharge Planning Updated by [id number]: Justine Garcia on 09/29/19 10:[address] I faxed updated notes to [facility] and notified Alice that she is ready for discharge when accepted. CM will continue to follow and assist with discharge planning/needs. DCP- Discharge Planning Updated by [email or web address]: Justine Garcia on 09/25/19 9:[address] I faxed updated clinical and PT/OT notes to [facility] and Alice, liaison for [facility]. CM will continue to follow and assist with discharge planning/needs. DCP- Discharge Planning Updated by [id number]: Justine Garcia on 09/23/19 12:[address] I attempted to meet with patient again today and she is very lethargic. She will open her eyes for a moment, then close them again. She appears jaundiced. I spoke with primary nurse, Anna German, and informed her. Anna states she has been lethargic for the last couple of days and refusing medications. I also spoke with Dana Plata APN. CM will continue to follow and assist with discharge planning/needs. DCP- Discharge Planning Updated by [email or web address]: Justine Garcia on 09/22/19 3:[address] I attempted to see the patient several times today and she has been sleeping. I will see her tomorrow. CM will continue to follow and assist with discharge planning/needs. DCP- Discharge Planning Updated by [id number]: Justine Garcia on 09/16/19 1:[address] Patient Name: DILIA OSULLIVAN Admission Status: ER Accout number: [id number] Admission Date: 09-12-2019 : 1980 Admission Diagnosis:SEPSIS, UNSPECIFIED ORGANISM Attending: WANDA MERIDA Current LOS: 4 Anticipated DC Date: Planned Disposition: Custodial Facility Primary [place] [employer] Discharge Planning Comments: CM met with patient to complete initial dc planning assessment. CM educated patient on the CM role and verbal consent given by patient to complete assessment. Patient lives at home with her boyfriend. Her boyfriend works in construction, so is gone much of the day. She states she has become very weak and knows that she will need some rehab prior to discharging home. I discussed rehab, SNF and DME needs with her and [facility] for [place] signed. I notified Alice of referral and clinical faxed. CM will continue to follow and assist with discharge planning/needs. Ceramist: Justine Jose DCPIA - Discharge Planning Initial Assessment Updated by [id number]: Justine Spanglerbharath on 09/16/19 3:23 pm * Is the patient Alert and Oriented? Yes * How many steps to enter\exit or inside your home? 4/0 * PCP Dr. Erica Lord * [facility] * Preadmission Environment Home with Family * ADLs Partial Dependent * Partial ADLs (Assistance needed) Ambulation Bathing * Equipment Crutch Walker * List name and contact numbers for known caregivers / representatives who currently or will assist patient after discharge: Roger Chiang * Verbal permission to speak to the caregivers and representatives has been obtained from the patient. Yes * Community resources currently utilized Home Health * Please name any agencies selected above. [facility] * Additional services required to return to the preadmission environment? Yes * Can the patient safely return to the preadmission environment? Yes * Has this patient been hospitalized within the prior 30 days at any hospital? Yes Coverage Notice Reviewer: [id number] - Justine Spanglerbharath Notice Issued Date-Time: 09/16/2019 15:15 Notice Type: Patient Choice Letter Notice Delivered To: Patient Relationship to Patient: Self Home Energy Consultant Supervisor Name: Delivery Method: HAND - Hand Delivered Farida Days: Prior Verbal Notification: Recipient Understood Notice: Yes Recipient Signature: Yes Med Rec Note Co-signed by Attending: Coverage Notice Comment: [facility] FOR [facility] Last DP export: 09/25/19 9:10 a Patient Name: DILIA OSULLIVAN Page [id number] at 1139 All edits/amendments must be made on the electronic document DICTATION DATE: 09/29/191137 SUPERINTENDENT WATER AND SEWER SYSTEMS: ELICIA 09/29/19 1138 RPT#: [id number] DC DATE: STATUS: ADM IN [facility] [address] [place] [address] END OF REPORT
[2019-09-29 12:27] VITALS: BP 137/71
--- NOTE | 2019-09-29 12:34 | MORECARE ---
CASE MANAGEMENT DISCHARGE SUMMARY PATIENT: DILIA OSULLIVAN UNIT: [id number] ADM DATE: 09/12/19 AGE: 39 : 82 SEX: F ROOM/BED: D.2232 AUTHOR: JUDD,DOC PHYSICIAN: REFERRING PHYSICIAN: WANDA MERIDA MD DATE OF SERVICE: 09/29/19 Discharge Plan Patient Name: DILIA OSULLIVAN Facility: [facility]:[place] : 1980 Planned Disposition: Shelter Facility Anticipated Discharge Date: Discharge Date: Expected LOS: Initial Reviewer: [email or web address] Initial Review Date: 09/16/2019 Generated: 09/29/19 1:34 pm Comments DCP- Discharge Planning Updated by [email or web address]: Justine Garcia on 09/29/19 10:[address] I faxed updated notes to [facility] and notified Alice that she is ready for discharge when accepted. CM will continue to follow and assist with discharge planning/needs. DCP- Discharge Planning Updated by [email or web address]: Justine Garcia on 09/25/19 9:[address] I faxed updated clinical and PT/OT notes to [facility] and Alice, liaison for [facility]. CM will continue to follow and assist with discharge planning/needs. DCP- Discharge Planning Updated by [id number]: Justine Garcia on 09/23/19 12:[address] I attempted to meet with patient again today and she is very lethargic. She will open her eyes for a moment, then close them again. She appears jaundiced. I spoke with primary nurse, Anna German, and informed her. Anna states she has been lethargic for the last couple of days and refusing medications. I also spoke with Dana Plata APN. CM will continue to follow and assist with discharge planning/needs. DCP- Discharge Planning Updated by [id number]: Justine Garcia on 09/22/19 3:[address] I attempted to see the patient several times today and she has been sleeping. I will see her tomorrow. CM will continue to follow and assist with discharge planning/needs. DCP- Discharge Planning Updated by [id number]: Justine Garcia on 09/16/19 1:[address] Patient Name: DILIA OSULLIVAN Admission Status: ER Accout number: [id number] Admission Date: 09-12-2019 : 1980 Admission Diagnosis:SEPSIS, UNSPECIFIED ORGANISM Attending: WANDA MERIDA Current LOS: 4 Anticipated DC Date: Planned Disposition: Shelter Facility Primary Insurance: [place] [employer] [place] Discharge Planning Comments: CM met with patient to complete initial dc planning assessment. CM educated patient on the CM role and verbal consent given by patient to complete assessment. Patient lives at home with her boyfriend. Her boyfriend works in construction, so is gone much of the day. She states she has become very weak and knows that she will need some rehab prior to discharging home. I discussed rehab, SNF and DME needs with her and [facility] for [place] signed. I notified Alice of referral and clinical faxed. CM will continue to follow and assist with discharge planning/needs. Crochet Beader: Justinecedrick Garcia DCPIA - Discharge Planning Initial Assessment Updated by [id number]: Justine Spanglerbharath on 09/16/19 3:23 pm * Is the patient Alert and Oriented? Yes * How many steps to enter\exit or inside your home? 4/0 * PCP Dr. Erica Lord * [facility] * Preadmission Environment Home with Family * ADLs Partial Dependent * Partial ADLs (Assistance needed) Ambulation Bathing * Equipment Crutch Walker * List name and contact numbers for known caregivers / representatives who currently or will assist patient after discharge: Roger Chiang * Verbal permission to speak to the caregivers and representatives has been obtained from the patient. Yes * Community resources currently utilized Home Health * Please name any agencies selected above. [facility] * Additional services required to return to the preadmission environment? Yes * Can the patient safely return to the preadmission environment? Yes * Has this patient been hospitalized within the prior 30 days at any hospital? Yes External Providers External Provider: [facility] Next Contact Date: Service Request Date: Service Type: Resolution: Reviewer: Comments: Coverage Notice Reviewer: [id number] - Justine Jose Notice Issued Date-Time: 09/16/2019 15:15 Notice Type: Patient Choice Letter Notice Delivered To: Patient Relationship to Patient: Self Hand Crown Pouncer Name: Delivery Method: HAND - Hand Delivered Farida Days: Prior Verbal Notification: Recipient Understood Notice: Yes Recipient Signature: Yes Med Rec Note Co-signed by Attending: Coverage Notice Comment: [facility] Last DP export: 09/29/19 10:39 a Patient Name: DILIA OSULLIVAN Page [id number] at 1234 All edits/amendments must be made on the electronic document DICTATION DATE: 09/29/19 1234 CRYPTOGRAPHER: ELICIA 09/29/19 1234 RPT#: [id number] DC DATE: STATUS: ADM IN [facility] [address] [place] [address] END OF REPORT
--- NOTE | 2019-09-29 12:42 | MORECARE ---
CASE MANAGEMENT DISCHARGE SUMMARY PATIENT: DILIA OSULLIVAN UNIT: [id number] ADM DATE: 09/12/19 AGE: 39 : 82 SEX: F ROOM/BED: D.2232 AUTHOR: JUDD,DOC PHYSICIAN: REFERRING PHYSICIAN: WANDA MERIDA MD DATE OF SERVICE: 09/29/19 Discharge Plan Patient Name: DILIA OSULLIVAN Facility: [facility]:[place] : 1980 Planned Disposition: [facility]ci Facility Anticipated Discharge Date: Discharge Date: Expected LOS: Initial Reviewer: [email or web address] Initial Review Date: 09/16/2019 Generated: 09/29/19 1:41 pm Comments DCP- Discharge Planning Updated by [email or web address]: Justine Garcia on 09/29/19 11:[address] Alice called , liaison for [facility], and states that they are not going to accept patient to [facility], [facility] or [facility] because of having marijuana in her room. I informed Alice that the patient's drug screen was negative for marijuana, but she states they are still going to decline. I met with the patient and informed her that she was declined admission to those SNF. She spoke with her boyfriend on the phone and [facility] for [facility] signed. I informed [facility] and clinical faxed. CM will continue to follow and assist with discharge planning/needs. DCP- Discharge Planning Updated by [id number]: Justine Garcia on 09/29/19 10:[address] I faxed updated notes to [facility] and notified Alice that she is ready for discharge when accepted. CM will continue to follow and assist with discharge planning/needs. DCP- Discharge Planning Updated by [id number]: Justine Garcia on 09/25/19 9:[address] I faxed updated clinical and PT/OT notes to [facility] and consuelo Jenkins for [facility]. CM will continue to follow and assist with discharge planning/needs. DCP- Discharge Planning Updated by [id number]: Justine Garcia on 09/23/19 12:[address] I attempted to meet with patient again today and she is very lethargic. She will open her eyes for a moment, then close them again. She appears jaundiced. I spoke with primary nurse, Anna German, and informed her. Anna states she has been lethargic for the last couple of days and refusing medications. I also spoke with Dana Plata APN. CM will continue to follow and assist with discharge planning/needs. DCP- Discharge Planning Updated by [id number]: Justine Garcia on 09/22/19 3:[address] I attempted to see the patient several times today and she has been sleeping. I will see her tomorrow. CM will continue to follow and assist with discharge planning/needs. DCP- Discharge Planning Updated by [id number]: Justine Garcia on 09/16/19 1:[address] Patient Name: DILIA OSULLIVAN Admission Status: ER Accout number: [id number] Admission Date: 09-12-2019 : 1980 Admission Diagnosis:SEPSIS, UNSPECIFIED ORGANISM Attending: WANDA MERIDA Current LOS: 4 Anticipated DC Date: Planned Disposition: [facility] Facility [place] Insurance: [place] PR[employer] [facility] Discharge Planning Comments: CM met with patient to complete initial dc planning assessment. CM educated patient on the CM role and verbal consent given by patient to complete assessment. Patient lives at home with her boyfriend. Her boyfriend works in construction, so is gone much of the day. She states she has become very weak and knows that she will need some rehab prior to discharging home. I discussed rehab, SNF and DME needs with her and [facility] signed. I notified Alice of referral and clinical faxed. CM will continue to follow and assist with discharge planning/needs. Traffic Representative: Justine Garcia DCPIA - Discharge Planning Initial Assessment Updated by [email or web address]: Justine Garcia on 09/16/19 3:23 pm * Is the patient Alert and Oriented? Yes * How many steps to enter\exit or inside your home? 4/0 * PCP Dr. Erica Lord * [facility] * Preadmission Environment Home with Family * ADLs Partial Dependent * Partial ADLs (Assistance needed) Ambulation Bathing * Equipment Crutch Walker * List name and contact numbers for known caregivers / representatives who currently or will assist patient after discharge: Roger Chiang * Verbal permission to speak to the caregivers and representatives has been obtained from the patient. Yes * Community resources currently utilized Home Health * Please name any agencies selected above. [facility] * Additional services required to return to the preadmission environment? Yes * Can the patient safely return to the preadmission environment? Yes * Has this patient been hospitalized within the prior 30 days at any hospital? Yes Coverage Notice Reviewer: [id number] Larry Garcia Notice Issued Date-Time: 09/16/2019 15:15 Notice Type: Patient Choice Letter Notice Delivered To: Patient Relationship to Patient: Self Riveter Helper Name: Delivery Method: HAND - Hand Delivered Farida Days: Prior Verbal Notification: Recipient Understood Notice: Yes Recipient Signature: Yes Med Rec Note Co-signed by Attending: Coverage Notice Comment: [facility] Reviewer: [id number] Larry Garcia Notice Issued Date-Time: 09/29/2019 12:34 Notice Type: Patient Choice Letter Notice Delivered To: Patient Relationship to Patient: Self Riveter Helper Name: Delivery Method: HAND - Hand Delivered Farida Days: Prior Verbal Notification: Recipient Understood Notice: Yes Recipient Signature: Yes Med Rec Note Co-signed by Attending: Coverage Notice Comment: [facility] Last DP export: 09/29/19 11:34 a Patient Name: DILIA OSULLIVAN Page [phone] at 1242 All edits/amendments must be made on the electronic document DICTATION DATE: 09/29/19 1241 OPERATIONS SUPPORT REPRESENTATIVE: ELICIA 09/29/19 1241 RPT#: [id number] DC DATE: STATUS: ADM IN [facility] [address] [place] [address] END OF REPORT
--- NOTE | 2019-09-29 18:21 | NUR ---
OT NOTE: PT COMPLETED SIT TO STAND WITH SBA.PT COMPLETED ADL MOB WITH CGA. PT COMPLETED TOILETING AND HYGIENE WITH SBA. PT EXHIBITED AN UNSTEADY GAIT. [id number] CRISTIAN RAMOS COTA
[2019-09-29 21:48] VITALS: BP 107/54
[2019-09-30 01:07] VITALS: BP 83/55
[2019-09-30 05:15] LABS: BASOPHILS 0.2 % (0-2); EOSINOPHILS 3.5 % (0-7); HEMATOCRIT 36.6 % (36.0-48.0); HEMOGLOBIN 11.9 g/dL (12-16); IMMATURE GRANULOCYTES 0.2 % (0-5); LYMPHOCYTES 18.9 % (15-50); MCH 32.2 pg (26.0-34.0); MCHC 32.5 g/dL (31.0-37.0); MCV 98.9 fL (80.0-100.0); MEAN PLATELET VOLUME 9.4 fL (7.4-10.4); MONOCYTES 9.9 % (2-11); NEUTROPHILS 67.3 % (40-80); PLATELET COUNT 145 10x3/uL (130-400); RDW 18.7 % (11.5-14.5); WBC 10.6 10x3/uL (4.8-10.8)
[2019-09-30 05:35] LABS: ALBUMIN 2.2 g/dL (3.4-5.0); ALKALINE PHOSPHATASE 207 U/L (30-120); BILIRUBIN - TOTAL 2.55 mg/dL (0.2-1.3); CALC OSMOLALITY 275 mosm/kg (275-300); CALCIUM 8.8 mg/dL (8.5-10.1); CARBON DIOXIDE 24.1 mmol/L (21.0-32.0); CHLORIDE - SERUM 107 mmol/L (98-107); CREATININE - SERUM 0.8 mg/dL (0.6-1.3); GLUCOSE 90 mg/dL (74-106); MAGNESIUM - SERUM 1.3 mg/dL (1.8-2.4); POTASSIUM - SERUM 3.4 mmol/L (3.5-5.1); PROTEIN - SERUM 7.3 g/dL (6.4-8.2); SODIUM 140 mmol/L (136-145); UREA NITROGEN 4 mg/dL (7-18); eGFR NON AFRICAN AMERICAN 85 mL/min (90-120)
[2019-09-30 05:50] LABS: ALT (SGPT) 7 U/L (10-68)
[2019-09-30 06:00] VITALS: BP 100/54
[2019-09-30 09:12] VITALS: BP 96/55
[2019-09-30] MEDS ORDERED: XIFAXAN550 MG PO (11:36)
[2019-09-30] MEDS ORDERED: LEXAPRO10 MG PO (11:37)
[2019-09-30] MEDS ORDERED: QUESTRAN PACKET PO (11:37)
[2019-09-30] MEDS ORDERED: Nicoderm [PBKC] TRANSDERM (11:37)
[2019-09-30] MEDS ORDERED: CHRONULAC30 ML PO (11:38)
[2019-09-30] MEDS ORDERED: VITAMIN B-1100 M1 PO (11:38)
[2019-09-30] MEDS ORDERED: MULTI-DAY VITAM1 TAB PO (11:38)
--- NOTE | 2019-09-30 12:37 | MORECARE ---
CASE MANAGEMENT DISCHARGE SUMMARY PATIENT: DILIA OSULLIVAN UNIT: [id number] ADM DATE: 09/12/19 AGE: 39 : [birth year] SEX: F ROOM/BED: D.2232 AUTHOR: JUDD,DOC PHYSICIAN: REFERRING PHYSICIAN: WANDA MERIDA MD DATE OF SERVICE: 09/30/19 Discharge Plan Patient Name: DILIA OSULILVAN Facility: [facility]:[place] : 1980 Planned Disposition: Half-Way Facility Anticipated Discharge Date: Discharge Date: Expected LOS: Initial Reviewer: [id number] Initial Review Date: 09/16/2019 Generated: 09/30/19 1:37 pm Comments DCP- Discharge Planning Updated by [id number]: Justine Garcia on 09/30/19 11:[address] I received a call from [facility] that [facility] has declined admission because of past history of methamphetamine abuse and ETOH abuse. I spoke with the patient and informed her that I could send a referral to another skilled facility, but she states she would like to go home. I spoke with patient's insurance follow up rep, Vivian Soria. Vivian states she will call the patient tomorrow at her home and check on her. I called [facility] and spoke with Savita. Savita states they will see her tomorrow. Clinical and order faxed to [facility]. Patient states her boyfriend will pick her up after he gets off of work. Home today with home health. DCP- Discharge Planning Updated by [id number]: Justine Garcia on 09/29/19 11:[address] Alice called me, liaison for [facility], and states that they are not going to accept patient to [facility], [facility] or [facility] because of having marijuana in her room. I informed Alice that the patient's drug screen was negative for marijuana, but she states they are still going to decline. I met with the patient and informed her that she was declined admission to those SNF. She spoke with her boyfriend on the phone and K[facility]NEY for [facility] signed. I informed [facility] and clinical faxed. CM will continue to follow and assist with discharge planning/needs. DCP- Discharge Planning Updated by [id number]: Justine Garcia on 09/29/19 10:[address] I faxed updated notes to [facility] and notified Alice that she is ready for discharge when accepted. CM will continue to follow and assist with discharge planning/needs. DCP- Discharge Planning Updated by [id number]: Justine Garcia on 09/25/19 9:[address] I faxed updated clinical and PT/OT notes to [facility] and Alice, liaison for [facility]. CM will continue to follow and assist with discharge planning/needs. DCP- Discharge Planning Updated by [email or web address]: Justine Garcia on 09/23/19 12:[address] I attempted to meet with patient again today and she is very lethargic. She will open her eyes for a moment, then close them again. She appears jaundiced. I spoke with primary nurse, Anna German, and informed her. Anna states she has been lethargic for the last couple of days and refusing medications. I also spoke with Dana Plata APN. CM will continue to follow and assist with discharge planning/needs. DCP- Discharge Planning Updated by [id number]: Justine Garcia on 09/22/19 3:[address] I attempted to see the patient several times today and she has been sleeping. I will see her tomorrow. CM will continue to follow and assist with discharge planning/needs. DCP- Discharge Planning Updated by [id number]: Justine Garcia on 09/16/19 1:[address] Patient Name: DILIA OSULLIVAN Admission Status: ER Accout number: [id number] Admission Date: 09-12-2019 : 1980 Admission Diagnosis:SEPSIS, UNSPECIFIED ORGANISM Attending: WANDA MERIDA Current LOS: 4 Anticipated DC Date: Planned Disposition: Half-Way Facility Primary Insurance[place] PR[place] Discharge Planning Comments: CM met with patient to complete initial dc planning assessment. CM educated patient on the CM role and verbal consent given by patient to complete assessment. Patient lives at home with her boyfriend. Her boyfriend works in construction, so is gone much of the day. She states she has become very weak and knows that she will need some rehab prior to discharging home. I discussed rehab, SNF and DME needs with her and KOURTNEY for [facility] signed. I notified Alice of referral and clinical faxed. CM will continue to follow and assist with discharge planning/needs. Cokeman: Justine Jose DCPIA - Discharge Planning Initial Assessment Updated by [id number]: Justine Garcia on 09/16/19 3:23 pm * Is the patient Alert and Oriented? Yes * How many steps to enter\exit or inside your home? 4/0 * PCP Dr. Erica Lord * [facility] - [facility] * Preadmission Environment Home with Family * ADLs Partial Dependent * Partial ADLs (Assistance needed) Ambulation Bathing * Equipment Crutch Walker * List name and contact numbers for known caregivers / representatives who currently or will assist patient after discharge: Roger Chiang * Verbal permission to speak to the caregivers and representatives has been obtained from the patient. Yes * Community resources currently utilized Home Health * Please name any agencies selected above. [facility] * Additional services required to return to the preadmission environment? Yes * Can the patient safely return to the preadmission environment? Yes * Has this patient been hospitalized within the prior 30 days at any hospital? Yes External Providers [facility] Next Contact Date: Service Request Date: Service Type: Resolution: Reviewer: Comments: Coverage Notice Reviewer: [id number] Larry Garcia Notice Issued Date-Time: 09/16/2019 15:15 Notice Type: Patient Choice Letter Notice Delivered To: Patient Relationship to Patient: Self Speaking Unit Assembler Name: Delivery Method: HAND - Hand Delivered Farida Days: Prior Verbal Notification: Recipient Understood Notice: Yes Recipient Signature: Yes Med Rec Note Co-signed by Attending: Coverage Notice Comment: [facility] FOR [facility]F Reviewer: [id number] Larry Garcia Notice Issued Date-Time: 09/29/2019 12:34 Notice Type: Patient Choice Letter Notice Delivered To: Patient Relationship to Patient: Self Speaking Unit Assembler Name: Delivery Method: HAND - Hand Delivered Farida Days: Prior Verbal Notification: Recipient Understood Notice: Yes Recipient Signature: Yes Med Rec Note Co-signed by Attending: Coverage Notice Comment: [facility] Last DP export: 09/29/19 11:42 a Patient Name: DILIA OSULLIVAN Page [phone] at 1237 All edits/amendments must be made on the electronic document DICTATION DATE: 09/30/19 1237 TRANSMISSION TESTER: ELICIA 09/30/19 1237 RPT#: [id number] DC DATE: STATUS: ADM IN [facility] [address] [place] [address] END OF REPORT
[2019-09-30 13:06] VITALS: BP 114/67
--- NOTE | 2019-09-30 13:29 | NUR ---
I have reviewed this patient and I concur with the Shift Assessment completed by the Licensed Practical Nurse today this shift.
--- NOTE | 2019-09-30 14:40 | NUR ---
DC HOME AT THIS TIME VOICE UNDERSTANDING OF DC ORDERS. ALSO TEACHING GIVEN ON CATH CARE AND HOW TO EMPTY COLLECTION DEVICE. REFUSED EYE GTTS STATING " I WILL DO IT WHEN I GO HOME."
--- NOTE | 2019-10-02 08:09 | MORECARE ---
CASE MANAGEMENT DISCHARGE SUMMARY PATIENT: DILIA OSULLIVAN UNIT: [id number] ADM DATE: 09/12/19 AGE: 39 : 82 SEX: F ROOM/BED: D.2232 AUTHOR: JUDD,DOC PHYSICIAN: REFERRING PHYSICIAN: WANDA MERIDA MD DATE OF SERVICE: 10/02/19 Discharge Plan Patient Name: DILIA OSULLIVAN Facility: [facility]:[place] : 1980 Planned Disposition: [facility] Facility Anticipated Discharge Date: Discharge Date: 09/30/2019 Expected LOS: Initial Reviewer: [id number] Initial Review Date: 09/16/2019 Generated: 10/02/19 9:08 am Comments DCP- Discharge Planning Updated by [email or web address]: Justine Jose on 09/30/19 11:[address] I received a call from [facility] that [facility] has declined admission because of past history of methamphetamine abuse and ETOH abuse. I spoke with the patient and informed her that I could send a referral to another skilled facility, but she states she would like to go home. I spoke with patient's insurance operations rep, Vivian Soria. Vivian states she will call the patient tomorrow at her home and check on her. I called [facility] and spoke with Savita. Savita states they will see her tomorrow. Clinical and order faxed to [facility]. Patient states her boyfriend will pick her up after he gets off of work. Home today with home health. DCP- Discharge Planning Updated by [id number]: Justine Garcia on 09/29/19 11:[address] Alice called me, liaison for [facility], and states that they are not going to accept patient to [facility], [facility] or [facility] because of having marijuana in her room. I informed Alice that the patient's drug screen was negative for marijuana, but she states they are still going to decline. I met with the patient and informed her that she was declined admission to those SNF. She spoke with her boyfriend on the phone and [facility] signed. I informed [facility] and clinical faxed. CM will continue to follow and assist with discharge planning/needs. DCP- Discharge Planning Updated by [id number]: Justine Garcia on 09/29/19 10:[address] I faxed updated notes to [facility] and notified Alice that she is ready for discharge when accepted. CM will continue to follow and assist with discharge planning/needs. DCP- Discharge Planning Updated by [email or web address]: Justine Garcia on 09/25/19 9:[address] I faxed updated clinical and PT/OT notes to [facility] and Alice, liaison for [facility]. CM will continue to follow and assist with discharge planning/needs. DCP- Discharge Planning Updated by [id number]: Justine Garcia on 09/23/19 12:[address] I attempted to meet with patient again today and she is very lethargic. She will open her eyes for a moment, then close them again. She appears jaundiced. I spoke with primary nurse, Anna German, and informed her. Anna states she has been lethargic for the last couple of days and refusing medications. I also spoke with Dana Plata APN. CM will continue to follow and assist with discharge planning/needs. DCP- Discharge Planning Updated by [id number]: Justine Garcia on 09/22/19 3:[address] I attempted to see the patient several times today and she has been sleeping. I will see her tomorrow. CM will continue to follow and assist with discharge planning/needs. DCP- Discharge Planning Updated by [email or web address]: Justine Garcia on 09/16/19 1:[address] Patient Name: DILIA OSULLIVAN Admission Status: ER Accout number: [id number] Admission Date: 09-12-2019 : 1980 Admission Diagnosis:SEPSIS, UNSPECIFIED ORGANISM Attending: WANDA MERIDA Current LOS: 4 Anticipated DC Date: Planned Disposition: [facility] Facility [place] Insurance: [place] PRIVATE OPT[place] [facility] Discharge Planning Comments: CM met with patient to complete initial dc planning assessment. CM educated patient on the CM role and verbal consent given by patient to complete assessment. Patient lives at home with her boyfriend. Her boyfriend works in construction, so is gone much of the day. She states she has become very weak and knows that she will need some rehab prior to discharging home. I discussed rehab, SNF and DME needs with her and KOURTNEY for [facility] signed. I notified Alice of referral and clinical faxed. CM will continue to follow and assist with discharge planning/needs. Injection Maintenance Technician: Justine Garcia DCPIA - Discharge Planning Initial Assessment Updated by [email or web address]: Justine Garcia on 09/16/19 3:23 pm * Is the patient Alert and Oriented? Yes * How many steps to enter\exit or inside your home? 4/0 * PCP Dr. Erica Lord * [facility] - [facility]S * Preadmission Environment Home with Family * ADLs Partial Dependent * Partial ADLs (Assistance needed) Ambulation Bathing * Equipment Crutch Walker * List name and contact numbers for known caregivers / representatives who currently or will assist patient after discharge: Roger Chiang * Verbal permission to speak to the caregivers and representatives has been obtained from the patient. Yes * Community resources currently utilized Home Health * Please name any agencies selected above. [facility] * Additional services required to return to the preadmission environment? Yes * Can the patient safely return to the preadmission environment? Yes * Has this patient been hospitalized within the prior 30 days at any hospital? Yes Coverage Notice Reviewer: [id number] Larry Garcia Notice Issued Date-Time: 09/16/2019 15:15 Notice Type: Patient Choice Letter Notice Delivered To: Patient Relationship to Patient: Self Scale Operator Name: Delivery Method: HAND - Hand Delivered Farida Days: Prior Verbal Notification: Recipient Understood Notice: Yes Recipient Signature: Yes Med Rec Note Co-signed by Attending: Coverage Notice Comment: [facility] Reviewer: [id number] - Justine Garcia Notice Issued Date-Time: 09/29/2019 12:34 Notice Type: Patient Choice Letter Notice Delivered To: Patient Relationship to Patient: Self Scale Operator Name: Delivery Method: HAND - Hand Delivered Farida Days: Prior Verbal Notification: Recipient Understood Notice: Yes Recipient Signature: Yes Med Rec Note Co-signed by Attending: Coverage Notice Comment: [facility] F[place] DP export: 09/30/19 11:37 a Patient Name: DILIA OSULLIVAN Page [phone] at 0809 All edits/amendments must be made on the electronic document DICTATION DATE: 10/02/19807 BARREL CLEANER: DM 10/02/19807 RPT#: [id number] DC DATE:09/30/19 STATUS: DIS IN [facility] [address] [facility] [place] [id number] END OF REPORT
== END 2019-09-30 14:41 | disposition home health service (06) | DRG 871 ==
LOC: D.ER 19:26 → D.MS 22:46
PROVIDERS: Emergency Medicine; Family Medicine; General Practice; Internal Medicine Gastroenterology; ADMIT Internal Medicine Nephrology; ATTEND Internal Medicine Nephrology
PROC: 0W9G30Z Drainage of Peritoneal Cavity with Drainage Device, Percutaneous Approach (ICD-10-PCS; principal; 2019-09-16 07:52)
PROC: 0DBK8ZX Excision of Ascending Colon, Via Natural or Artificial Opening Endoscopic, Diagnostic (ICD-10-PCS; 2019-09-26)
DX: A41.9 Sepsis, unspecified organism (principal); E43 Unspecified severe protein-calorie malnutrition; K65.2 Spontaneous bacterial peritonitis; J18.9 Pneumonia, unspecified organism; E87.2 Acidosis; N13.30 Unspecified hydronephrosis; K76.6 Portal hypertension; I85.10 Secondary esophageal varices without bleeding; E87.1 Hypo-osmolality and hyponatremia; H30.91 Unspecified chorioretinal inflammation, right eye; E86.0 Dehydration; K76.9 Liver disease, unspecified; N32.0 Bladder-neck obstruction; I86.4 Gastric varices; K70.31 Alcoholic cirrhosis of liver with ascites; R16.1 Splenomegaly, not elsewhere classified; E03.9 Hypothyroidism, unspecified; E87.6 Hypokalemia; E83.42 Hypomagnesemia; I10 Essential (primary) hypertension; E53.8 Deficiency of other specified B group vitamins; D53.9 Nutritional anemia, unspecified; G62.9 Polyneuropathy, unspecified; F41.9 Anxiety disorder, unspecified; G89.29 Other chronic pain; F10.10 Alcohol abuse, uncomplicated; K72.90 Hepatic failure, unspecified without coma; K57.30 Diverticulosis of large intestine without perforation or abscess without bleeding; K63.5 Polyp of colon

== ENCOUNTER → 2019-10-15 12:49 | Outpatient (CLI) | payer MEDICAID ==
[2019-09-17 14:53] VITALS: BMI 24.8
[~2019-10-15 12:49] MED LIST changes: +LEXAPRO10 MG PO; +MULTI-DAY VITAM1 TAB PO; +QUESTRAN PACKET PO; +VITAMIN B-1100 M1 PO; +XIFAXAN550 MG PO
[2019-10-15 15:24] LABS: BILIRUBIN NEGATIVE (NEGATIVE); GLUCOSE NEGATIVE (NEGATIVE); KETONE NEGATIVE (NEGATIVE); NITRITE NEGATIVE (NEGATIVE); UROBILINOGEN NORMAL (NORMAL)
[2019-10-15 15:25] LABS: WHITE CELLS - URINE 25-50 /hpf (NEGATIVE)
[2019-10-15 15:26] LABS: BACTERIA MANY /hpf (NEGATIVE); EPITHELIAL CELLS 0-5 /hpf (0-5); YEAST >1+ WITH HYPHAE /hpf (NONE SEEN)
== END | disposition home or self-care (01) ==
LOC: D.LABREF 12:49
PROVIDERS: Internal Medicine Gastroenterology; ATTEND Urology
DX: R33.9 Retention of urine, unspecified (principal); K70.31 Alcoholic cirrhosis of liver with ascites

== ENCOUNTER 2019-11-05 18:01 | Inpatient (IN) | payer MEDICAID ==
[~2019-11-05] VITALS: Ht 157.5 cm; Wt 59.2 kg
[2019-11-05 18:42] LABS: BASOPHILS 0.2 % (0-2); EOSINOPHILS 1.9 % (0-7); HEMATOCRIT 27.9 % (36.0-48.0); HEMOGLOBIN 9.2 g/dL (12-16); IMMATURE GRANULOCYTES 0.2 % (0-5); LYMPHOCYTES 31.2 % (15-50); MCH 32.4 pg (26.0-34.0); MCV 98.2 fL (80.0-100.0); MONOCYTES 7.7 % (2-11); NEUTROPHILS 58.8 % (40-80); RBC 2.84 10x6/uL (4.00-5.40); RDW 16.7 % (11.5-14.5); WBC 4.8 10x3/uL (4.8-10.8)
[2019-11-05 18:53] LABS: CALC OSMOLALITY 264 mosm/kg (275-300); CHLORIDE - SERUM 100 mmol/L (98-107); CREATININE - SERUM 0.7 mg/dL (0.6-1.3); GLUCOSE 101 mg/dL (74-106); POTASSIUM - SERUM 3.4 mmol/L (3.5-5.1); SODIUM 133 mmol/L (136-145); UREA NITROGEN 9 mg/dL (7-18); eGFR NON AFRICAN AMERICAN > 90 mL/min (90-120)
[2019-11-05 19:02] LABS: ALBUMIN 2.5 g/dL (3.4-5.0); ALKALINE PHOSPHATASE 369 U/L (30-120); ALT (SGPT) 51 U/L (10-68); AMYLASE - SERUM 30 U/L (25-115); BILIRUBIN - TOTAL 3.68 mg/dL (0.2-1.3); LIPASE 160 U/L (73-393); PROTEIN - SERUM 7.5 g/dL (6.4-8.2)
[2019-11-05 19:05] LABS: TROPONIN-I < 0.017 ng/mL (0.000-0.060)
[2019-11-05 19:11] LABS: PLATELET COUNT 12 10x3/uL (130-400); PLATELET ESTIMATE DECREASED
--- NOTE | 2019-11-05 20:30 | NUR ---
PT ASSISTED WITH BEDPAN, BED LINEN CHANGED AND CLEAN DRY BRIEF PLACED ON PT. PT TOLERATED WELL.
--- NOTE | 2019-11-05 21:00 | NUR ---
FIRST UNIT OF PLATELETS STARTED, LAB STATES ORDERS FOR 3 UNITS TOTAL, ONLY 2 AVAILABLE HERE AT THIS TIME. LAB STATES THAT THE THIRD UNIT WILL HAVE TO BE SENT HERE FROM ANOTHER FACILITY.
[2019-11-05 21:08] LABS: UDS - AMPHET NEGATIVE QUAL (NEGATIVE); UDS - BARB NEGATIVE QUAL (NEGATIVE); UDS - BENZO NEGATIVE QUAL (NEGATIVE); UDS - COCAINE NEGATIVE QUAL (NEGATIVE); UDS - OPIATE NEGATIVE QUAL (NEGATIVE); UDS - PCP NEGATIVE QUAL (NEGATIVE); UDS - THC NEGATIVE QUAL (NEGATIVE)
[2019-11-05 21:23] LABS: BILIRUBIN NEGATIVE (NEGATIVE); GLUCOSE NEGATIVE (NEGATIVE); KETONE NEGATIVE (NEGATIVE); NITRITE NEGATIVE (NEGATIVE); UROBILINOGEN NORMAL (NORMAL)
--- NOTE | 2019-11-05 21:45 | NUR ---
PT ASSISTED WITH BEDPAN AND CLEAN DRY BRIEF PUT ON. PT TOLERATED WELL. DENIES ANY FURTHER NEEDS AT THIS TIME. CALL LIGHT WITHIN REACH. WILL CONTINUE TO MONITOR.
--- NOTE | 2019-11-05 22:38 | NUR ---
SECOND UNIT OF PLATELETS STARTED. VERIFIED WITH SECOND RN, SHEA BERG. NO ACUTE DISTRESS NOTED AT TIME OF INFUSION START.
--- NOTE | 2019-11-05 23:00 | NUR ---
REPORT RECIEVED FROM JOHN RN, JOHN STATED THAT PATIENT IS RECIEVING 2ND BAG OF PLATELETS AT THIS TIME, PATIENT IS TO GET 3 UNITS BUT JOHN REPORT THE LAB ON HAS 2 UNITS TO GIVE. PAUL CRANE NOTIFIED.
[2019-11-06 04:00] VITALS: BP 117/56
--- NOTE | 2019-11-06 04:30 | NUR ---
7023) REC'D. ON MY ARRIVAL IN BED WITH PLATELETSINFUSING 2ND UNIT. 3RD UNIT PENDING.TOLERATING WITHOUT DIFFICULTY.DENIES NAUSEA AND VOMITTING AT PRESENT TIME WILL CONTINUE TO MONITOR FOR ANY CHGES AND FOLLOW CURRENT PLAN OF CARE
[2019-11-06 05:35] LABS: INR 1.42 (0.85-1.17); PROTIME 17.2 SECONDS (11.6-15.0)
[2019-11-06 05:36] LABS: APTT 37.7 SECONDS (22.8-39.4)
[2019-11-06 05:39] LABS: BASOPHILS 0 % (0-2); EOSINOPHILS 1.8 % (0-7); HEMOGLOBIN 7.7 g/dL (12-16); LYMPHOCYTES 16.3 % (15-50); MCH 32.2 pg (26.0-34.0); MCHC 33.5 g/dL (31.0-37.0); MONOCYTES 8.5 % (2-11); NEUTROPHILS 73.4 % (40-80); RBC 2.39 10x6/uL (4.00-5.40); RDW 16.7 % (11.5-14.5); WBC 3.9 10x3/uL (4.8-10.8)
[2019-11-06 05:43] LABS: MCV 96.2 fL (80.0-100.0)
[2019-11-06 05:44] LABS: PLATELET COUNT 38 10x3/uL (130-400)
[2019-11-06 05:59] LABS: ALBUMIN 2.4 g/dL (3.4-5.0); ALKALINE PHOSPHATASE 328 U/L (30-120); ALT (SGPT) 41 U/L (10-68); BILIRUBIN - TOTAL 3.04 mg/dL (0.2-1.3); CALC OSMOLALITY 273 mosm/kg (275-300); CALCIUM 7.9 mg/dL (8.5-10.1); CHLORIDE - SERUM 107 mmol/L (98-107); CREATININE - SERUM 0.7 mg/dL (0.6-1.3); GLUCOSE 99 mg/dL (74-106); MAGNESIUM - SERUM 2.1 mg/dL (1.8-2.4); PHOSPHOROUS 1.8 mg/dL (2.5-4.9); POTASSIUM - SERUM 3.4 mmol/L (3.5-5.1); PRO BNP 351 pg/mL (0-125); PROTEIN - SERUM 6.9 g/dL (6.4-8.2); SODIUM 138 mmol/L (136-145); UREA NITROGEN 8 mg/dL (7-18); eGFR NON AFRICAN AMERICAN > 90 mL/min (90-120)
[2019-11-06 06:06] LABS: CARBON DIOXIDE 20.8 mmol/L (21.0-32.0)
--- NOTE | 2019-11-06 07:20 | NUR ---
ASSESSMENT DONE. DENIES NEEDS
[2019-11-06 08:10] VITALS: BP 124/63
[2019-11-06 13:02] VITALS: BMI 21.0
[2019-11-06 14:01] VITALS: BP 95/62
[2019-11-06 16:51] VITALS: BP 120/66
[2019-11-06 17:03] VITALS: Ht 157.5 cm; Wt 59.2 kg
--- NOTE | 2019-11-06 17:21 | NUR ---
WITHOUT CHANGES OR DISTRESS NOTED AT THIS TIME. DENIES NEEDS
--- NOTE | 2019-11-06 17:22 | NUR ---
I have reviewed this patient and I concur with the Shift Assessment completed by the Licensed Practical Nurse today this shift.
[2019-11-06 20:00] VITALS: BP 111/68
[2019-11-07] VITALS: BP 116/70
[2019-11-07 04:00] VITALS: BP 109/63
[2019-11-07 04:07] LABS: PH - STOOL 7.5 (7.0-7.5)
[2019-11-07 04:35] LABS: APTT 38.4 SECONDS (22.8-39.4); INR 1.44 (0.85-1.17); PROTIME 17.4 SECONDS (11.6-15.0)
[2019-11-07 04:37] LABS: ALBUMIN 2.2 g/dL (3.4-5.0); ALKALINE PHOSPHATASE 324 U/L (30-120); ALT (SGPT) 38 U/L (10-68); BILIRUBIN - TOTAL 2.92 mg/dL (0.2-1.3); CALC OSMOLALITY 272 mosm/kg (275-300); CALCIUM 7.4 mg/dL (8.5-10.1); CARBON DIOXIDE 21.7 mmol/L (21.0-32.0); CHLORIDE - SERUM 108 mmol/L (98-107); CREATININE - SERUM 0.6 mg/dL (0.6-1.3); GLUCOSE 85 mg/dL (74-106); POTASSIUM - SERUM 3.8 mmol/L (3.5-5.1); PROTEIN - SERUM 6.5 g/dL (6.4-8.2); SODIUM 138 mmol/L (136-145); UREA NITROGEN 8 mg/dL (7-18); eGFR NON AFRICAN AMERICAN > 90 mL/min (90-120)
[2019-11-07 04:43] LABS: PHOSPHOROUS 2.4 mg/dL (2.5-4.9)
[2019-11-07 05:06] LABS: HEMATOCRIT 22.3 % (36.0-48.0); MCHC 32.7 g/dL (31.0-37.0); MCV 97.8 fL (80.0-100.0); MEAN PLATELET VOLUME 10.6 fL (7.4-10.4); RBC 2.28 10x6/uL (4.00-5.40); RDW 17.4 % (11.5-14.5); WBC 2.8 10x3/uL (4.8-10.8)
[2019-11-07 05:07] LABS: HEMOGLOBIN 7.3 g/dL (12-16); PLATELET COUNT 40 10x3/uL (130-400)
[2019-11-07 06:03] LABS: EOSINOPHILS 4 % (0-7); LYMPHOCYTES 20 % (15-50); MONOCYTES 4 % (2-11); NEUTROPHILS 72 % (40-80); PLATELET ESTIMATE DECREASED
--- NOTE | 2019-11-07 07:23 | NUR ---
ASSESSMENT DONE. DENIES NEEDS
[2019-11-07 09:05] VITALS: BP 106/61
[2019-11-07 12:59] VITALS: BP 105/55
--- NOTE | 2019-11-07 17:07 | NUR ---
WITHOUT CHANGES OR DISTRESS NOTED AT THIS TIME.DENIES NEEDS
[2019-11-07 17:44] VITALS: BP 133/88
--- NOTE | 2019-11-07 19:05 | NUR ---
REPORT RECEIVED. BEDSIDE SHIFT REPORT COMPLETE. PT UP IN BED, RR EVEN AND UNLABORED. NO S/SX OF DISTRESS OBSERVED AT THIS THIS. PRBC INFUSING TO RIGHT FA ORDERED. PT TOLERATING WELL. CALL LIGHT IN REACH. WILL CPOC.
[2019-11-07 22:37] VITALS: BP 100/46
[2019-11-08 00:40] VITALS: BP 110/67
[2019-11-08 05:01] LABS: BASOPHILS 0.2 % (0-2); EOSINOPHILS 1.2 % (0-7); LYMPHOCYTES 22.2 % (15-50); MCH 31.6 pg (26.0-34.0); MCHC 33.2 g/dL (31.0-37.0); MEAN PLATELET VOLUME 10.1 fL (7.4-10.4); NEUTROPHILS 55.4 % (40-80); RDW 16.6 % (11.5-14.5)
[2019-11-08 05:02] LABS: HEMATOCRIT 26.8 % (36.0-48.0); HEMOGLOBIN 8.9 g/dL (12-16); PLATELET COUNT 33 10x3/uL (130-400); RBC 2.82 10x6/uL (4.00-5.40); WBC 4.1 10x3/uL (4.8-10.8)
[2019-11-08 05:20] LABS: ALBUMIN 2.5 g/dL (3.4-5.0); ALKALINE PHOSPHATASE 366 U/L (30-120); ALT (SGPT) 41 U/L (10-68); BILIRUBIN - TOTAL 3.22 mg/dL (0.2-1.3); CALC OSMOLALITY 263 mosm/kg (275-300); CARBON DIOXIDE 24.2 mmol/L (21.0-32.0); CHLORIDE - SERUM 102 mmol/L (98-107); CREATININE - SERUM 0.6 mg/dL (0.6-1.3); GLUCOSE 100 mg/dL (74-106); MAGNESIUM - SERUM 1.5 mg/dL (1.8-2.4); PHOSPHOROUS 2.5 mg/dL (2.5-4.9); POTASSIUM - SERUM 3.4 mmol/L (3.5-5.1); PROTEIN - SERUM 7.2 g/dL (6.4-8.2); SODIUM 133 mmol/L (136-145); UREA NITROGEN 7 mg/dL (7-18); eGFR NON AFRICAN AMERICAN > 90 mL/min (90-120)
--- NOTE | 2019-11-08 06:06 | NUR ---
PT STATES SHE THINKS SHE HAS A UTI, DENIES BURNING OR OTHER S/SX.
[2019-11-08 06:31] VITALS: BP 99/59
--- NOTE | 2019-11-08 07:00 | NUR ---
RECEIVED REPORT. ASSUMED CARE OF PATIENT. CALL LIGHT WITHIN REACH. NO DISTRESS.
--- NOTE | 2019-11-08 07:31 | NUR ---
PATIENT REQUESTING NICOTINE PATCH, PATCH IS SCHEDULED AND WILL BE ADMINISTERED WITH AM MEDICATIONS.
[2019-11-08 08:07] VITALS: BP 110/62
[2019-11-08 08:29] LABS: HEMATOCRIT 26.7 % (36.0-48.0)
--- NOTE | 2019-11-08 08:56 | NUR ---
MEDICATED FOR COMPLAINTS OF FEELING TENSE, JITTERY, PATIENT STATES SHE DOESN'T KNOW WHY SHE FEELS ON EDGE. QUESTIONED PATIENT ABOUT AMOUNT OF ALCOHOL SHE USES AT HOME AND PATIENT STATES SHE TRIES NOT TO USE ALCOHOL BECAUSE OF HER LIVER. MEDICATED WITH ATIVAN AT THIS TIME. NO DISTRESS.
[2019-11-08 11:32] VITALS: BP 114/55
--- NOTE | 2019-11-08 11:50 | NUR ---
RESTING IN BED, ATTENTION TOWARD TELEVISION. CALL LIGHT WITHIN REACH. NO DISTRESS.
--- NOTE | 2019-11-08 13:43 | NUR ---
COLLECTION HAT PLACED FOR URINE COLLECTION FOR URINALYSIS.
[2019-11-08 14:48] VITALS: BP 139/78
[2019-11-08 16:24] LABS: HEMATOCRIT 26.4 % (36.0-48.0); HEMOGLOBIN 8.8 g/dL (12-16)
--- NOTE | 2019-11-08 17:01 | NUR ---
COMPLETE LINEN CHANGE COMPLETED AT THIS TIME DUE TO INCONTINENCE OF URINE. PATIENT PROVIDED WITH MEDIUM BRIEFS AND IS CONSUMING PM MEAL AT THIS TIME. NO DISTRESS.
[2019-11-08 20:00] VITALS: BP 106/68
--- NOTE | 2019-11-08 20:00 | NUR ---
REPORT RECIEVED AND INITIAL ROUNDS COMPLETED. PT RESTING IN BED WITH NO DISTRESS.AROUSES TO VERBAL STIMULI. DENIES PAIN OR DISCOMFORT. NONLABORED RESPIRATIONS ON ROOM AIR. CPOC.
--- NOTE | 2019-11-08 23:00 | NUR ---
RESTING. IV BANANA BAG INFUSING. ROUSES EASILY. CPOC.
[2019-11-09 00:01] VITALS: BP 127/68
[2019-11-09 04:46] LABS: BASOPHILS 0.2 % (0-2); EOSINOPHILS 1.3 % (0-7); HEMATOCRIT 25.7 % (36.0-48.0); HEMOGLOBIN 8.3 g/dL (12-16); IMMATURE GRANULOCYTES 0.2 % (0-5); LYMPHOCYTES 26.8 % (15-50); MCH 31.3 pg (26.0-34.0); MCHC 32.3 g/dL (31.0-37.0); MEAN PLATELET VOLUME 10.4 fL (7.4-10.4); MONOCYTES 25.9 % (2-11); NEUTROPHILS 45.6 % (40-80); PLATELET COUNT 47 10x3/uL (130-400); RBC 2.65 10x6/uL (4.00-5.40); RDW 16.7 % (11.5-14.5); WBC 5.3 10x3/uL (4.8-10.8)
[2019-11-09 05:07] LABS: ALBUMIN 2.4 g/dL (3.4-5.0); ALKALINE PHOSPHATASE 322 U/L (30-120); ALT (SGPT) 39 U/L (10-68); BILIRUBIN - TOTAL 1.96 mg/dL (0.2-1.3); CALCIUM 7.6 mg/dL (8.5-10.1); CARBON DIOXIDE 23.5 mmol/L (21.0-32.0); CHLORIDE - SERUM 106 mmol/L (98-107); CREATININE - SERUM 0.6 mg/dL (0.6-1.3); GLUCOSE 107 mg/dL (74-106); PHOSPHOROUS 2.1 mg/dL (2.5-4.9); PROTEIN - SERUM 6.9 g/dL (6.4-8.2); SODIUM 139 mmol/L (136-145); eGFR NON AFRICAN AMERICAN > 90 mL/min (90-120)
[2019-11-09 05:08] LABS: CALC OSMOLALITY 274 mosm/kg (275-300); MAGNESIUM - SERUM 3.2 mg/dL (1.8-2.4); UREA NITROGEN 4 mg/dL (7-18)
[2019-11-09 05:09] LABS: POTASSIUM - SERUM 2.8 mmol/L (3.5-5.1)
[2019-11-09 05:21] LABS: PLATELET ESTIMATE DECREASED
--- NOTE | 2019-11-09 07:00 | NUR ---
RECEIVED REPORT. ASSUMED CARE OF PATIENT. CALL LIGHT WITHIN REACH. RESTING WITH EYES CLOSED. NO DISTRESS. IV INFUSING ORDERED.
[2019-11-09 07:30] VITALS: BP 107/65
--- NOTE | 2019-11-09 09:45 | NUR ---
BANANA BAG COMPLETE. PATIENT NOW SALINE LOCKED.
--- NOTE | 2019-11-09 12:00 | NUR ---
RESTING WELL. NO DISTRESS. CALL LIGHT WITHIN REACH. DENIES NEEDS.
[2019-11-09 12:20] LABS: CALC OSMOLALITY 267 mosm/kg (275-300); CARBON DIOXIDE 21.7 mmol/L (21.0-32.0); CHLORIDE - SERUM 104 mmol/L (98-107); GLUCOSE 118 mg/dL (74-106); SODIUM 135 mmol/L (136-145); UREA NITROGEN 5 mg/dL (7-18)
[2019-11-09 12:21] LABS: CREATININE - SERUM 0.8 mg/dL (0.6-1.3); POTASSIUM - SERUM 3.9 mmol/L (3.5-5.1); eGFR NON AFRICAN AMERICAN 85 mL/min (90-120)
[2019-11-09 14:06] VITALS: BP 103/53
--- NOTE | 2019-11-09 15:00 | NUR ---
FRESH LEMON LOWER [place] PROVIDED. CALL LIGHT WITHIN REACH. PATIENT AWAITING ROUNDS FROM MD. NO DISTRESS. DENIES NEEDS.
--- NOTE | 2019-11-09 16:30 | NUR ---
URINE SUBMITTED TO LAB. NO DISTRESS.
[2019-11-09 16:42] LABS: HEMATOCRIT 28.1 % (36.0-48.0); HEMOGLOBIN 9.3 g/dL (12-16)
[2019-11-09 17:03] LABS: BILIRUBIN NEGATIVE (NEGATIVE); GLUCOSE NEGATIVE (NEGATIVE); KETONE NEGATIVE (NEGATIVE); NITRITE NEGATIVE (NEGATIVE); SPECIFIC GRAVITY 1.005 (1.005-1.020); UROBILINOGEN NORMAL (NORMAL)
[2019-11-09 20:00] VITALS: BP 101/52
--- NOTE | 2019-11-09 20:00 | NUR ---
REPORT RECIEVED AND INITIAL ROUNDS COMPLETED. PT RESTING WITH NO DISTRESS. CPOC.
[2019-11-10] VITALS: BP 104/53
[2019-11-10 00:57] LABS: HEMATOCRIT 25.3 % (36.0-48.0); HEMOGLOBIN 8.4 g/dL (12-16)
--- NOTE | 2019-11-10 04:15 | NUR ---
PT REFUSED 0400 VITAL SIGNS. UPSEST THAT SHE HAD BEEN AWAKENED.
--- NOTE | 2019-11-10 04:48 | NUR ---
PT HAS RESTED WITH NO DISTRESS. BANANA BAG INFUSING. INDEPENDENT TO BATHROOM. REFUSED 0400 VITAL SIGNS. CPOC.
[2019-11-10 05:58] LABS: HEMATOCRIT 26.6 % (36.0-48.0); HEMOGLOBIN 8.8 g/dL (12-16); MCH 31.4 pg (26.0-34.0); MCHC 33.1 g/dL (31.0-37.0); MEAN PLATELET VOLUME 10.6 fL (7.4-10.4); RDW 16.3 % (11.5-14.5)
[2019-11-10 06:04] LABS: INR 1.26 (0.85-1.17); PLATELET COUNT 85 10x3/uL (130-400); PROTIME 15.7 SECONDS (11.6-15.0); WBC 7.2 10x3/uL (4.8-10.8)
[2019-11-10 06:18] LABS: ALBUMIN 2.5 g/dL (3.4-5.0); ALKALINE PHOSPHATASE 318 U/L (30-120); ALT (SGPT) 42 U/L (10-68); BILIRUBIN - TOTAL 2.11 mg/dL (0.2-1.3); CALC OSMOLALITY 269 mosm/kg (275-300); CALCIUM 8.4 mg/dL (8.5-10.1); CARBON DIOXIDE 23.6 mmol/L (21.0-32.0); CHLORIDE - SERUM 103 mmol/L (98-107); CREATININE - SERUM 0.7 mg/dL (0.6-1.3); GLUCOSE 109 mg/dL (74-106); POTASSIUM - SERUM 3.7 mmol/L (3.5-5.1); PROTEIN - SERUM 7.1 g/dL (6.4-8.2); SODIUM 136 mmol/L (136-145); UREA NITROGEN 4 mg/dL (7-18); eGFR NON AFRICAN AMERICAN > 90 mL/min (90-120)
[2019-11-10 06:20] LABS: MAGNESIUM - SERUM 2.2 mg/dL (1.8-2.4); PHOSPHOROUS 1.4 mg/dL (2.5-4.9)
[2019-11-10 06:34] LABS: EOSINOPHILS 1 % (0-7); LYMPHOCYTES 15 % (15-50); MONOCYTES 29 % (2-11); NEUTROPHILS 54 % (40-80); PLATELET ESTIMATE DECREASED
[2019-11-10 10:14] VITALS: BP 115/61
[2019-11-10 12:00] VITALS: BP 115/66
[2019-11-10 12:09] LABS: OVA + PARASITE EXAM Final report (())
--- NOTE | 2019-11-10 12:51 | NUR ---
Nutrition Follow-up: Eating well. Denies N/V. Diet: Regular PO intake: 75-100% Wt: 130.2# (11/08) Last BM: 11/08 per pt Labs noted: Ca 8.4, Glu 109, PO4 1.4, Amm 69, Alb 2.5 Meds noted: Lasix, Protonix, Lactulose, banana bag @ 100, Neutra-Phos -Monitor wt; noted daily wts ordered. -RD following.
[2019-11-10 16:00] VITALS: BP 119/76
[2019-11-10 16:19] LABS: HEMATOCRIT 28.1 % (36.0-48.0); HEMOGLOBIN 9.2 g/dL (12-16)
--- NOTE | 2019-11-10 17:31 | MORECARE ---
CASE MANAGEMENT DISCHARGE SUMMARY PATIENT: DILIA OSULLIVAN UNIT: [id number] ADM DATE: 11/05/19 AGE: 39 : [birth year] SEX: F ROOM/BED: D.[facility] AUTHOR: CRIS WHALEY PHYSICIAN: REFERRING PHYSICIAN: WANDA MERIDA MD DATE OF SERVICE: 11/10/19 Discharge Plan Patient Name: DILIA OSULLIVAN [facility] [facility] 1980 Planned Disposition: Home with Home Health Anticipated Discharge Date: Discharge Date: Expected LOS: Initial Reviewer: [email or web address] Initial Review Date: 11/10/2019 Generated: 11/10/19 6:31 pm DCPIA - Discharge Planning Initial Assessment Updated by [id number]: Justine Garcia on 11/10/19 5:30 pm * Is the patient Alert and Oriented? Yes * How many steps to enter\exit or inside your home? 4/0 * PCP Dr. Erica Lord * Pharmacy [facility] - 7S * Preadmission Environment Home with Family * ADLs Partial Dependent * Partial ADLs (Assistance needed) Ambulation Bathing * Equipment Crutch Walker * List name and contact numbers for known caregivers / representatives who currently or will assist patient after discharge: Roger marcos bedford - [phone] * Verbal permission to speak to the caregivers and representatives has been obtained from the patient. Yes * Community resources currently utilized Home Health * Please name any agencies selected above. [facility] * Additional services required to return to the preadmission environment? No * Can the patient safely return to the preadmission environment? Yes * Has this patient been hospitalized within the prior 30 days at any hospital? Yes External Providers External Provider: [facility] [facility] Next Contact Date: Service Request Date: Service Type: Resolution: Reviewer: Comments: Patient Name: DILIA OSULLIVAN Page [phone] at 1731 All edits/amendments must be made on the electronic document DICTATION DATE: 11/10/19 173 ORACLE HRMS DEVELOPER: ELICIA 11/10/19 173 RPT#: [id number] DC DATE: STATUS: ADM IN [facility] [address] [place] [address] END OF REPORT
--- NOTE | 2019-11-10 17:39 | MORECARE ---
CASE MANAGEMENT DISCHARGE SUMMARY PATIENT: DILIA OSULLIVAN UNIT: [id number] ADM DATE: 11/05/19 AGE: 39 : [birth year] SEX: F ROOM/BED: D.3346 AUTHOR: JUDD,DOC PHYSICIAN: REFERRING PHYSICIAN: WANDA MERIDA MD DATE OF SERVICE: 11/10/19 Discharge Plan Patient Name: DILIA OSULLIVAN Facility: [facility]:[place] : 1980 Planned Disposition: Home with Home Health Anticipated Discharge Date: Discharge Date: Expected LOS: Initial Reviewer: [id number] Initial Review Date: 11/10/2019 Generated: 11/10/19 6:39 pm Comments DCP- Discharge Planning Updated by [id number]: Justine Garcia on 11/10/19 4:[address] Patient Name: DILIA OSULLIVAN Admission Status: ER Accout number: [id number] Admission Date: 11-05-2019 : 1980 Admission Diagnosis:NAUSEA WITH VOMITING, UNSPECIFIED Attending: WANDA MERIDA Current LOS: 5 Anticipated DC Date: Planned Disposition: Home with Home Health Primary Insurance: [place] PRIVATE OPT[place] [facility] Discharge Planning Comments: CM met with patient to complete initial dc planning assessment. CM educated patient on the CM role and verbal consent given by patient to complete assessment. Patient lives at home with her boyfriend. At discharge patient plans to return and feels this is a safe discharge. CM discussed availability of home health, rehab services, and medical equipment. Patient denied known discharge needs at this time. She is current with [facility] for nursing and PT and would like that resumed on discharge. I spoke with Daphne and [facility] and clinical faxed. I also gave her a list of substance abuse rehab facilities in the state and local. CM will continue to follow and will assist as needed with dc plans/needs. [employer]: Justine Garcia DCPIA - Discharge Planning Initial Assessment Updated by [email or web address]: Justine Garcia on 11/10/19 5:30 pm * Is the patient Alert and Oriented? Yes * How many steps to enter\exit or inside your home? 4/0 * PCP Dr. Erica Lord * [facility] - [facility]S * Preadmission Environment Home with Family * ADLs Partial Dependent * Partial ADLs (Assistance needed) Ambulation Bathing * Equipment Crutch Walker * List name and contact numbers for known caregivers / representatives who currently or will assist patient after discharge: Roger Chiang - priti friend - [phone] * Verbal permission to speak to the caregivers and representatives has been obtained from the patient. Yes * Community resources currently utilized Home Health * Please name any agencies selected above. [facility] * Additional services required to return to the preadmission environment? No * Can the patient safely return to the preadmission environment? Yes * Has this patient been hospitalized within the prior 30 days at any hospital? Yes Coverage Notice Reviewer: [email or web address] Larry Garcia Notice Issued Date-Time: 11/10/2019 17:33 Notice Type: Patient Choice Letter Notice Delivered To: Patient Relationship to Patient: [employer] Truck Driver Name: Delivery Method: HAND - Hand Delivered Farida Days: Prior Verbal Notification: Recipient Understood Notice: Yes Recipient Signature: Yes Med Rec Note Co-signed by Attending: Coverage Notice Comment: [facility] for [facility] Last DP export: 11/10/19 4:31 p Patient Name: DILIA OSULLIVAN Page [phone] at 1739 All edits/amendments must be made on the electronic document DICTATION DATE: 11/10/191738 DIRECTOR OF MARKETING: ELICIA 11/10/191738 RPT#: [id number] DC DATE: STATUS: ADM IN [facility] [address] [place] [address] END OF REPORT
--- NOTE | 2019-11-10 19:46 | NUR ---
RECEIVED BEDSIDE REPORT. PATIENT RESTING COMFORTABLY IN BED. RESPIRATIONS ARE EVEN AND UNLABORED. NO S/S OF DISTRESS. NO C/O PAIN. CALL LIGHT WITHIN REACH. NO NEEDS AT THIS TIME. WILL CPOC.
[2019-11-10 20:00] VITALS: BP 95/48
[2019-11-11] VITALS: BP 98/51
[2019-11-11 00:59] LABS: HEMOGLOBIN 8.7 g/dL (12-16)
[2019-11-11 04:00] VITALS: BP 106/59
[2019-11-11 05:48] LABS: HEMATOCRIT 26.5 % (36.0-48.0); HEMOGLOBIN 8.8 g/dL (12-16); MCH 31.8 pg (26.0-34.0); MCHC 33.2 g/dL (31.0-37.0); MCV 95.7 fL (80.0-100.0); MEAN PLATELET VOLUME 10.2 fL (7.4-10.4); RBC 2.77 10x6/uL (4.00-5.40); RDW 16.2 % (11.5-14.5)
[2019-11-11 05:56] LABS: PLATELET COUNT 132 10x3/uL (130-400)
[2019-11-11 06:16] LABS: ALBUMIN 2.5 g/dL (3.4-5.0); ALKALINE PHOSPHATASE 283 U/L (30-120); ALT (SGPT) 38 U/L (10-68); BILIRUBIN - TOTAL 2.09 mg/dL (0.2-1.3); CALC OSMOLALITY 270 mosm/kg (275-300); CALCIUM 8.4 mg/dL (8.5-10.1); CARBON DIOXIDE 21.8 mmol/L (21.0-32.0); CHLORIDE - SERUM 106 mmol/L (98-107); CREATININE - SERUM 0.5 mg/dL (0.6-1.3); GLUCOSE 105 mg/dL (74-106); MAGNESIUM - SERUM 2.1 mg/dL (1.8-2.4); POTASSIUM - SERUM 3.6 mmol/L (3.5-5.1); SODIUM 137 mmol/L (136-145); UREA NITROGEN 5 mg/dL (7-18); eGFR NON AFRICAN AMERICAN > 90 mL/min (90-120)
[2019-11-11 08:13] VITALS: BP 123/69
[2019-11-11 08:34] LABS: EOSINOPHILS 1 % (0-7); LYMPHOCYTES 34 % (15-50); MONOCYTES 24 % (2-11); NEUTROPHILS 40 % (40-80); PLATELET ESTIMATE NORMAL; ROULEAUX OCC
[2019-11-11] MEDS ORDERED: CHRONULAC30 ML PO (11:42)
--- NOTE | 2019-11-11 12:08 | MORECARE ---
CASE MANAGEMENT DISCHARGE SUMMARY PATIENT: DILIA OSULLIVAN UNIT: [id number] ADM DATE: 11/05/19 AGE: 39 : [birth year] SEX: F ROOM/BED: D.7021 AUTHOR: JUDD,DOC PHYSICIAN: REFERRING PHYSICIAN: WANDA MERIDA MD DATE OF SERVICE: 11/11/19 Discharge Plan Patient Name: DILIA OSULLIVAN Facility: [facility]:[place] : 1980 Planned Disposition: Home with Home Health Anticipated Discharge Date: Discharge Date: Expected LOS: Initial Reviewer: [email or web address] Initial Review Date: 11/10/2019 Generated: 11/11/19 1:07 pm Comments DCP- Discharge Planning Updated by [email or web address]: Justine Garcia on 11/11/19 11:[address] Patient Name: DILIA OSULLIVAN Encounter No: [id number] : 1980 Primary Insurance: modu CONI Anticipated DC Date: Planned Disposition: Home with Home Health External Planned Provider: : DCP follow-up note: Patient in agreement with discharge plan. No changes to plan. I spoke with Connie at [facility] and dc orders faxed. Case management will follow and assist as needed. Justine Garcia DCP- Discharge Planning Updated by [email or web address]: Justine Garcia on 11/10/19 4:[address] Patient Name: DILIA OSULLIVAN Admission Status: ER Accout number: [id number] Admission Date: 11-05-2019 : 1980 Admission Diagnosis:NAUSEA WITH VOMITING, UNSPECIFIED Attending: WANDA MERIDA Current LOS: 5 Anticipated DC Date: Planned Disposition: Home with Home Health Primary Insurance: modu CONI Discharge Planning Comments: CM met with patient to complete initial dc planning assessment. CM educated patient on the CM role and verbal consent given by patient to complete assessment. Patient lives at home with her boyfriend. At discharge patient plans to return and feels this is a safe discharge. CM discussed availability of home health, rehab services, and medical equipment. Patient denied known discharge needs at this time. She is current with [facility] for nursing and PT and would like that resumed on discharge. I spoke with Connie and [facility] and clinical faxed. I also gave her a list of substance abuse rehab facilities in the state and local. CM will continue to follow and will assist as needed with dc plans/needs. Job Estimator: Justine Garcia DCPIA - Discharge Planning Initial Assessment Updated by [email or web address]: Justine Garcia on 11/10/19 5:30 pm * Is the patient Alert and Oriented? Yes * How many steps to enter\exit or inside your home? 4/0 * PCP Dr. Erica Lord * [facility] * Preadmission Environment Home with Family * ADLs Partial Dependent * Partial ADLs (Assistance needed) Ambulation Bathing * Equipment Crutch Walker * List name and contact numbers for known caregivers / representatives who currently or will assist patient after discharge: Roger Chiang - priti friend - [phone] * Verbal permission to speak to the caregivers and representatives has been obtained from the patient. Yes * Community resources currently utilized Home Health * Please name any agencies selected above. [facility] * Additional services required to return to the preadmission environment? No * Can the patient safely return to the preadmission environment? Yes * Has this patient been hospitalized within the prior 30 days at any hospital? Yes Coverage Notice Reviewer: [id number] - Justine Garcia Notice Issued Date-Time: 11/10/2019 17:33 Notice Type: Patient Choice Letter Notice Delivered To: Patient Relationship to Patient: Ship Boat Or Barge Mate Name: Delivery Method: HAND - Hand Delivered Farida Days: Prior Verbal Notification: Recipient Understood Notice: Yes Recipient Signature: Yes Med Rec Note Co-signed by Attending: Coverage Notice Comment: KOURTNEY for [facility] Last DP export: 11/10/19 4:39 p Patient Name: DILIA OSULLIVAN Page [phone] at 1208 All edits/amendments must be made on the electronic document DICTATION DATE: 11/11/191206 INCIDENT RESPONSE CONSULTANT: ELICIA 11/11/191206 RPT#: [id number] DC DATE: STATUS: ADM IN [facility] [address] [place] [address] END OF REPORT
[2019-11-11 12:27] VITALS: BP 125/59
--- NOTE | 2019-11-11 12:50 | NUR ---
I have reviewed this patient and I concur with the Shift Assessment completed by the Licensed Practical Nurse today this shift.
--- NOTE | 2019-11-11 13:12 | NUR ---
DISCHARGE INSTRUCTIONS GIVEN TO PT. PT HAS NO FURTHER QUESTIONS. CHART COPY SIGNED. RIGHT FA 20G IV DC'D WITH CATH INTACT. PT STATES SHE WILL CALL HER BOYFRIEND TO COME PICK HER UP BUT DOES NOT KNOW WHEN IT WILL BE.
--- NOTE | 2019-11-11 14:13 | NUR ---
PT TAKEN OUT VIA WC WITH ALL BELONGINGS BY GUEST EXPERIENCE SPECIALIST AND LEFT WIHT FRIEND IN PERSONAL VEHICLE.
--- NOTE | 2019-11-13 07:28 | MORECARE ---
CASE MANAGEMENT DISCHARGE SUMMARY PATIENT: DILIA OSULLIVAN UNIT: [id number] ADM DATE: 11/05/19 AGE: 39 : 82 SEX: F ROOM/BED: D.9236 AUTHOR: JUDD,DOC PHYSICIAN: REFERRING PHYSICIAN: WANDA MERIDA MD DATE OF SERVICE: 11/13/19 Discharge Plan Patient Name: DILIA OSULLIVAN Facility: [facility]:[place] : 1980 Planned Disposition: Home with Home Health Anticipated Discharge Date: Discharge Date: 11/11/2019 Expected LOS: 0 Initial Reviewer: [email or web address] Initial Review Date: 11/10/2019 Generated: 11/13/19 8:28 am Comments DCP- Discharge Planning Updated by [email or web address]: Justine Garcia on 11/11/19 11:[address] Patient Name: DILIA OSULLIVAN Encounter No: [id number] : 1980 Primary Insurance: [id number] CONI Anticipated DC Date: Planned Disposition: Home with Home Health External Planned Provider: : DCP follow-up note: Patient in agreement with discharge plan. No changes to plan. I spoke with Connie at [facility] and dc orders faxed. Case management will follow and assist as needed. Justine Garcia DCP- Discharge Planning Updated by [email or web address]: Justine Garcia on 11/10/19 4:[address] Patient Name: DILIA OSULLIVAN Admission Status: ER Accout number: [id number] Admission Date: 11-05-2019 : 1980 Admission Diagnosis:NAUSEA WITH VOMITING, UNSPECIFIED Attending: WANDA MERIDA Current LOS: 5 Anticipated DC Date: Planned Disposition: Home with Home Health Primary Insurance: [id number] CONI Discharge Planning Comments: CM met with patient to complete initial dc planning assessment. CM educated patient on the CM role and verbal consent given by patient to complete assessment. Patient lives at home with her boyfriend. At discharge patient plans to return and feels this is a safe discharge. CM discussed availability of home health, rehab services, and medical equipment. Patient denied known discharge needs at this time. She is current with [facility] for nursing and PT and would like that resumed on discharge. I spoke with Connie and [facility] and clinical faxed. I also gave her a list of substance abuse rehab facilities in the state and local. CM will continue to follow and will assist as needed with dc plans/needs. Press Operator Automatic: Justine Garcia DCPIA - Discharge Planning Initial Assessment Updated by [email or web address]: Justine Garcia on 11/10/19 5:30 pm * Is the patient Alert and Oriented? Yes * How many steps to enter\exit or inside your home? 4/0 * PCP Dr. Erica Lord * [facility] * Preadmission Environment Home with Family * ADLs Partial Dependent * Partial ADLs (Assistance needed) Ambulation Bathing * Equipment Crutch Walker * List name and contact numbers for known caregivers / representatives who currently or will assist patient after discharge: Roger marcos [place] - [phone] * Verbal permission to speak to the caregivers and representatives has been obtained from the patient. Yes * Community resources currently utilized Home Health * Please name any agencies selected above. [facility] * Additional services required to return to the preadmission environment? No * Can the patient safely return to the preadmission environment? Yes * Has this patient been hospitalized within the prior 30 days at any hospital? Yes Coverage Notice Reviewer: [id number] - Justine Garcia Notice Issued Date-Time: 11/10/2019 17:33 Notice Type: Patient Choice Letter Notice Delivered To: Patient Relationship to Patient: Investigation Officer Name: Delivery Method: HAND - Hand Delivered Farida Days: Prior Verbal Notification: Recipient Understood Notice: Yes Recipient Signature: Yes Med Rec Note Co-signed by Attending: Coverage Notice Comment: KOURTNEY for [facility] Last DP export: 11/11/19 11:07 a Patient Name: DILIA OSULLIVAN Page [phone] at 0728 All edits/amendments must be made on the electronic document DICTATION DATE: 11/13/19727 MATRIX BATH ATTENDANT: ELICIA 11/13/19727 RPT#: [id number] DC DATE:11/11/19 STATUS: DIS IN [facility] [address] [place] [address] END OF REPORT
== END 2019-11-11 14:13 | disposition home health service (06) | DRG 432 ==
LOC: D.ER 18:01 → D.M2 21:17
PROVIDERS: Family Medicine; Internal Medicine Hematology & Oncology; ADMIT Internal Medicine Nephrology; ATTEND Internal Medicine Nephrology
DX: K70.31 Alcoholic cirrhosis of liver with ascites (principal); I50.23 Acute on chronic systolic (congestive) heart failure; E87.1 Hypo-osmolality and hyponatremia; E72.20 Disorder of urea cycle metabolism, unspecified; F17.203 Nicotine dependence unspecified, with withdrawal; E44.0 Moderate protein-calorie malnutrition; F10.229 Alcohol dependence with intoxication, unspecified; Y90.6 Blood alcohol level of 120-199 mg/100 ml; D69.6 Thrombocytopenia, unspecified; D64.9 Anemia, unspecified; E87.6 Hypokalemia; I11.0 Hypertensive heart disease with heart failure; E53.8 Deficiency of other specified B group vitamins; F41.9 Anxiety disorder, unspecified; Q05.9 Spina bifida, unspecified; Z68.20 Body mass index [BMI] 20.0-20.9, adult; K72.90 Hepatic failure, unspecified without coma

== ENCOUNTER 2019-12-29 19:51 | Inpatient (IN) | payer BC ==
[~2019-12-29] VITALS: Ht 157.5 cm; Wt 61.0 kg
[2019-12-29 20:00] VITALS: BP 100/52
[2019-12-29 21:12] LABS: BASOPHILS 0.2 % (0-2); EOSINOPHILS 2.3 % (0-7); HEMOGLOBIN 9.7 g/dL (12-16); IMMATURE GRANULOCYTES 0.8 % (0-5); LYMPHOCYTES 8.8 % (15-50); MCH 34.5 pg (26.0-34.0); MCHC 33.4 g/dL (31.0-37.0); MCV 103.2 fL (80.0-100.0); MEAN PLATELET VOLUME 10.5 fL (7.4-10.4); MONOCYTES 9.4 % (2-11); NEUTROPHILS 78.5 % (40-80); RBC 2.81 10x6/uL (4.00-5.40); RDW 21.1 % (11.5-14.5)
[2019-12-29 21:15] VITALS: BP 98/59
[2019-12-29 21:27] LABS: PLATELET COUNT 105 10x3/uL (130-400)
[2019-12-29 21:32] LABS: ALBUMIN 2.3 g/dL (3.4-5.0); ALKALINE PHOSPHATASE 471 U/L (30-120); ALT (SGPT) 36 U/L (10-68); AMYLASE - SERUM 24 U/L (25-115); BILIRUBIN - TOTAL 13.08 mg/dL (0.2-1.3); CALC OSMOLALITY 258 mosm/kg (275-300); CARBON DIOXIDE 27.5 mmol/L (21.0-32.0); CHLORIDE - SERUM 95 mmol/L (98-107); CREATININE - SERUM 1.3 mg/dL (0.6-1.3); GLUCOSE 114 mg/dL (74-106); LIPASE 109 U/L (73-393); SODIUM 129 mmol/L (136-145); UREA NITROGEN 9 mg/dL (7-18); eGFR NON AFRICAN AMERICAN 48 mL/min (90-120)
[2019-12-29 21:35] LABS: TROPONIN-I < 0.017 ng/mL (0.000-0.060)
[2019-12-29 21:37] LABS: POTASSIUM - SERUM 2.2 mmol/L (3.5-5.1)
[2019-12-29 22:02] LABS: BACTERIA MANY /hpf (NEGATIVE); BILIRUBIN 1+ (NEGATIVE); EPITHELIAL CELLS 0-5 /hpf (0-5); GLUCOSE NEGATIVE (NEGATIVE); KETONE NEGATIVE (NEGATIVE); NITRITE NEGATIVE (NEGATIVE); RED CELLS - URINE OCC /hpf (0-5); UROBILINOGEN NORMAL (NORMAL)
[2019-12-29 22:08] VITALS: BP 104/53
[2019-12-29 22:38] VITALS: BP 106/52
[2019-12-30] VITALS (18 sets, daily range): BP systolic 83–114; BP diastolic 44–79; Ht 157.5 cm; Wt 61.0 kg
--- NOTE | 2019-12-30 02:10 | NUR ---
RECIEVED FROM THE ED VIA STRETCHER. ALERT AND ORIENTED TO PERSON, PLACE OR TIME. PLACED ON MONITOR. LT AC PIV, SITE WITHOUT REDNESS OR EDEMA WITH NS @ 125CC/HR VIA PUMP. SR ON THE MONITOR. DENIES ANY PAIN OR NEEDS. DR GARCIA AT BEDSIDE. WILL CONT TO MONITOR.
[2019-12-30] MEDS ORDERED: DIAMOX250 MG PO (02:15)
[2019-12-30] MEDS ORDERED: XALATAN 0.0052.5 ML RIGHT EYE (02:17)
[2019-12-30] MEDS ORDERED: PREDNISOLONE 110 ML RIGHT EYE (02:17)
--- NOTE | 2019-12-30 03:20 | NUR ---
NEW ORDERS PLACED PER DR GARCIA. WAITING FOR LAB TO OBTAIN BLOOD CULTURES.
[2019-12-30 04:46] LABS: BASOPHILS 0.2 % (0-2); EOSINOPHILS 2.1 % (0-7); HEMOGLOBIN 10.3 g/dL (12-16); IMMATURE GRANULOCYTES 0.9 % (0-5); LYMPHOCYTES 11.6 % (15-50); MCH 34.4 pg (26.0-34.0); MCHC 33.2 g/dL (31.0-37.0); MCV 103.7 fL (80.0-100.0); MEAN PLATELET VOLUME 10.5 fL (7.4-10.4); MONOCYTES 7.5 % (2-11); NEUTROPHILS 77.7 % (40-80); RBC 2.99 10x6/uL (4.00-5.40); RDW 21.4 % (11.5-14.5)
[2019-12-30 04:58] LABS: INR 1.58 (0.85-1.17); PROTIME 18.7 SECONDS (11.6-15.0)
--- NOTE | 2019-12-30 04:59 | NUR ---
DENIES ANY PAIN OR NEEDS AT THIS TIME. SR ON THE MONITOR.
[2019-12-30 05:00] LABS: PLATELET COUNT 128 10x3/uL (130-400)
[2019-12-30 05:10] LABS: ALBUMIN 2.2 g/dL (3.4-5.0); ANION GAP 12.2 mmol/L (8-16); BILIRUBIN - TOTAL 13.77 mg/dL (0.2-1.3); CARBON DIOXIDE 26.5 mmol/L (21.0-32.0); MAGNESIUM - SERUM 1.4 mg/dL (1.8-2.4); PROTEIN - SERUM 7.4 g/dL (6.4-8.2)
[2019-12-30 05:24] LABS: POTASSIUM - SERUM 2.7 mmol/L (3.5-5.1)
[2019-12-30 05:25] LABS: PHOSPHOROUS 1.1 mg/dL (2.5-4.9)
--- NOTE | 2019-12-30 06:49 | NUR ---
CALLED AND TALKED TO DR JOAQUIN REGARDING CRITICAL LAB AND CONSULT. NEW ORDERS RECIEVED. WILL CONT TO MONITOR.
[2019-12-30 13:20] LABS: UDS - AMPHET NEGATIVE QUAL (NEGATIVE); UDS - BARB NEGATIVE QUAL (NEGATIVE); UDS - BENZO NEGATIVE QUAL (NEGATIVE); UDS - COCAINE NEGATIVE QUAL (NEGATIVE); UDS - OPIATE NEGATIVE QUAL (NEGATIVE); UDS - PCP NEGATIVE QUAL (NEGATIVE); UDS - THC POSITIVE QUAL (NEGATIVE)
--- NOTE | 2019-12-30 19:20 | NUR ---
REPORT RECEIVED, WILL CONTINUE POC. PATIENT IS AAOX4, LYING IN SEMI-FOWLERS POSITION. NO S/S OF DISTRESS OBSERVED, RR EVEN AND UNLABORED ON ROOM AIR. PATIENT DENIES NEEDS AT THIS TIME. CL IN REACH BED LOCKED AND LOWERED. WILL CTM.
--- NOTE | 2019-12-30 22:00 | NUR ---
PATIENT REQUESTED SNACK, SNACK AND ICE WATER PROVIDED.
[2019-12-31] VITALS (9 sets, daily range): BP systolic 79–103; BP diastolic 45–78
--- NOTE | 2019-12-31 | NUR ---
PATIENT NOW NPO, FOOD AND FLUIDS REMOVED FROM BEDSIDE.
--- NOTE | 2019-12-31 00:38 | NUR ---
I have reviewed this patient and I concur with the Shift Assessment completed by the Licensed Practical Nurse today this shift.
--- NOTE | 2019-12-31 01:41 | NUR ---
PATIENT WOKE UP COUGHING AND VOMITED A SMALL AMOUNT OF EMESIS ONTO THE FLOOR. CLEANED UP MESS AND WIPED DOWN BED RAIL. PROVIDED PATIENT WITH EMESIS BAG.
--- NOTE | 2019-12-31 03:45 | NUR ---
PATIENT TO BEDSIDE COMMODE. VOIDED AND HAD A LOOSE BM.
[2019-12-31 04:52] LABS: BASOPHILS 0.2 % (0-2); EOSINOPHILS 2.5 % (0-7); HEMATOCRIT 25.7 % (36.0-48.0); HEMOGLOBIN 8.5 g/dL (12-16); IMMATURE GRANULOCYTES 1.1 % (0-5); LYMPHOCYTES 12.5 % (15-50); MCHC 33.1 g/dL (31.0-37.0); MCV 102.8 fL (80.0-100.0); NEUTROPHILS 72.7 % (40-80); PLATELET COUNT 129 10x3/uL (130-400); RDW 22.4 % (11.5-14.5)
[2019-12-31 05:09] LABS: INR 1.69 (0.85-1.17); PROTIME 19.7 SECONDS (11.6-15.0)
[2019-12-31 05:18] LABS: ALBUMIN 2.2 g/dL (3.4-5.0); BILIRUBIN - TOTAL 10.51 mg/dL (0.2-1.3); CALCIUM 7.7 mg/dL (8.5-10.1); CARBON DIOXIDE 21.4 mmol/L (21.0-32.0); MAGNESIUM - SERUM 1.2 mg/dL (1.8-2.4); PROTEIN - SERUM 6.3 g/dL (6.4-8.2)
[2019-12-31 05:38] LABS: ANION GAP 13.4 mmol/L (8-16); POTASSIUM - SERUM 2.8 mmol/L (3.5-5.1)
--- NOTE | 2019-12-31 06:08 | NUR ---
PAGED [facility] CONCERNING CRITICAL LABS.
--- NOTE | 2019-12-31 06:22 | NUR ---
RECEIVED CALL BACK FROM [facility]. ORDERS RECEIVED.
--- NOTE | 2019-12-31 07:15 | NUR ---
REPORT RECIEVED, SHIFT ASSESSMENT COMPLETE, PT IS ALERT AND ORIENTED, ON RA WITH 97% O2 SAT. ALL PPP, VSS, CALL LIGHT IN REACH
--- NOTE | 2019-12-31 09:00 | NUR ---
PT RESTING AT THIS TIME, VSS, WILL CON'T TO MONITOR
--- NOTE | 2019-12-31 11:02 | NUR ---
Nutrition follow-up: Diet: Low sodium PO Intake poor 2/2 some emesis Labs reviewed; NH3: 125 Wt: 134# Will continue to provide food choices and honor food preferences Will offer nutritional supplements. RDN following.
--- NOTE | 2019-12-31 11:15 | NUR ---
NO NEEDS NOTED AT THIS TIME, WILL CON'T TO MONITOR
--- NOTE | 2019-12-31 13:00 | NUR ---
PT DENIES ANY NEEDS AT THIS TIME, WILL CON'T TO MONITOR
--- NOTE | 2019-12-31 15:20 | NUR ---
PT RIGHT A/C PIV INFILTRATED, REMOVED WITH CATH INTACT,
--- NOTE | 2019-12-31 18:00 | NUR ---
I have reviewed this patient and I concur with the Shift Assessment completed by the Licensed Practical Nurse today this shift.
--- NOTE | 2019-12-31 18:00 | NUR ---
RECEIVED PT FROM ICU, PT IS ALERT, ORIENTED AND UP AD MC. ASSISTED PT TO RESTROOM, PT DID NOT MAKE IT IN TIME AND HAD A BM ON THE FLOOR IN BATHROOM, ASSISTED PT WITH CHANGE OF GOWN. PT REQUESTED EXTRA PILLOW, BLANKET, WELL PAD FOR BED, NO OTHER NEEDS VOICED, CL IN REACH CONTINUE WITH PLAN OF CARE
--- NOTE | 2019-12-31 21:29 | NUR ---
PT LYING IN BED ASLEEP, SEVERAL ATTEMPS OF CALLING PT NAME BEFORE SHE WOKE, PT TOOK ORAL MEDS WELL. TOLD PT I NEEDED TO GET AN IV ACCESS FOR ABX ORDERED AND PT REFUSED, STATED EVERYONE HAS TRIED AND SHE IS TOO TIRED AND WANTS TO SLEEP. PER ICU NURSE SEVERAL TRIED TODAY EVEN JMIBO WHO IS OUR VASCULAR ACCESS NURSE. WILL FORWARD ON IN REPORT. NO OTHER NEEDS AT THIS TIME. CONTINUE WITH PLAN OF CARE
--- NOTE | 2019-12-31 23:49 | NUR ---
RECIEVED SITTING UP IN BED WITH EYES OPEN AND TV ON. ALERT AND ORIENTED X4. ASKED IF SHE WOULD LET ME RESTART IV. STATED " NO BECAUSE THEY STUCK ME SIX TIMES TODAY ALREADY". DENIES ANY NEEDS AT THIS TIME.
[2020-01-01] VITALS: BP 95/62
[2020-01-01 04:00] VITALS: BP 100/51
[2020-01-01 05:38] LABS: BASOPHILS 0.2 % (0-2); EOSINOPHILS 2.1 % (0-7); HEMATOCRIT 29.8 % (36.0-48.0); HEMOGLOBIN 9.7 g/dL (12-16); LYMPHOCYTES 10.9 % (15-50); MCH 33.6 pg (26.0-34.0); MCHC 32.6 g/dL (31.0-37.0); MCV 103.1 fL (80.0-100.0); MEAN PLATELET VOLUME 8.9 fL (7.4-10.4); MONOCYTES 10.2 % (2-11); NEUTROPHILS 75.6 % (40-80); PLATELET COUNT 126 10x3/uL (130-400); RBC 2.89 10x6/uL (4.00-5.40)
[2020-01-01 06:16] LABS: INR 1.69 (0.85-1.17); PROTIME 19.7 SECONDS (11.6-15.0)
[2020-01-01 06:19] LABS: ALBUMIN 2.5 g/dL (3.4-5.0); ALKALINE PHOSPHATASE 389 U/L (30-120); ALT (SGPT) 28 U/L (10-68); BILIRUBIN - TOTAL 12.52 mg/dL (0.2-1.3); CALC OSMOLALITY 266 mosm/kg (275-300); CALCIUM 7.7 mg/dL (8.5-10.1); CARBON DIOXIDE 22.1 mmol/L (21.0-32.0); CHLORIDE - SERUM 104 mmol/L (98-107); CREATININE - SERUM 0.8 mg/dL (0.6-1.3); GLUCOSE 99 mg/dL (74-106); MAGNESIUM - SERUM 1.2 mg/dL (1.8-2.4); PROTEIN - SERUM 6.8 g/dL (6.4-8.2); SODIUM 135 mmol/L (136-145); UREA NITROGEN 4 mg/dL (7-18); eGFR NON AFRICAN AMERICAN 85 mL/min (90-120)
[2020-01-01 06:24] LABS: PHOSPHOROUS 1.5 mg/dL (2.5-4.9); POTASSIUM - SERUM 2.9 mmol/L (3.5-5.1)
[2020-01-01 08:00] VITALS: BP 106/54
--- NOTE | 2020-01-01 10:51 | MORECARE ---
CASE MANAGEMENT DISCHARGE SUMMARY PATIENT: DILIA OSULLIVAN UNIT: [id number] ADM DATE: 12/29/19 AGE: 39 : [birth year] SEX: F ROOM/BED: D.2224 AUTHOR: CRIS WHALEY PHYSICIAN: REFERRING PHYSICIAN: SARAY DALLAS MD DATE OF SERVICE: 01/01/20 Discharge Plan Patient Name: DILIA OSULLIVAN Facility: [facility]:[place] : 1980 Planned Disposition: Anticipated Discharge Date: Discharge Date: Expected LOS: Initial Reviewer: [email or web address] Initial Review Date: 01/01/2020 Generated: 01/01/20 11:51 am Patient Name: DILIA OSULLIVAN Page [phone] at 1051 All edits/amendments must be made on the electronic document DICTATION DATE: 01/01/20 1051 SAMPLER TESTER: ELICIA 01/01/20 1051 RPT#: [id number] DC DATE: STATUS: ADM IN [facility] [address] [place] [address] END OF REPORT
--- NOTE | 2020-01-01 10:59 | MORECARE ---
CASE MANAGEMENT DISCHARGE SUMMARY PATIENT: DILIA OSULLIVAN UNIT: [id number] ADM DATE: 12/29/19 AGE: 39 : [birth year] SEX: F ROOM/BED: D.2224 AUTHOR: CRIS WHALEY PHYSICIAN: REFERRING PHYSICIAN: SARAY DALLAS MD DATE OF SERVICE: 01/01/20 Discharge Plan Patient Name: DILIA OSULLIVAN Facility: [facility]:[place] : 1980 Planned Disposition: Anticipated Discharge Date: Discharge Date: Expected LOS: Initial Reviewer: [email or web address] Initial Review Date: 01/01/2020 Generated: 01/01/20 11:59 am Comments DCP- Discharge Planning Updated by [email or web address]: Inga Vegas on 01/01/20 9:[address] Patient Name: DILIA OSULLIVAN Admission Status: ER Accout number: [id number] Admission Date: 12-29-2019 : 1980 Admission Diagnosis:UNSPECIFIED ABDOMINAL PAIN Attending: FREDRICK Current LOS: 3 Anticipated DC Date: Planned Disposition: Primary Insurance: [employer] EXCHANGE Discharge Planning Comments: CM met with patient at bedside after explaining CM role and obtaining verbal consent. CM discussed availability / needs of home health, REHAB and medical equipment. PATIENT DENIES ANY DISCHARGE NEEDS. STATES HAD [facility] PRIOR TO ADMISSION BUT NOT SURE IF SHE WANTS TO RESUME [facility] AT TIME OF DC. I WILL CHECK BACK WITH HER AT DISCHARGE. Lehr Tender: Igna Vegas DCPIA - Discharge Planning Initial Assessment Updated by [email or web address]: Inga Vegas on 01/01/20 10:50 am * Is the patient Alert and Oriented? Yes * PCP [facility]ESS * [facility] * Preadmission Environment Home with Family * ADLs Independent * Other Equipment WALKER, BSC * Community resources currently utilized Home Health * Please name any agencies selected above. [facility] * Additional services required to return to the preadmission environment? No * Can the patient safely return to the preadmission environment? Yes * Has this patient been hospitalized within the prior 30 days at any hospital? No Last DP export: 01/01/20 9:51 a Patient Name: DILIA OSULLIVAN Page [phone] at 1059 All edits/amendments must be made on the electronic document DICTATION DATE: 01/01/201058 TABLE GAMES FLOOR SUPERVISOR: ELICIA 01/01/20 1059 RPT#: [id number] DC DATE: STATUS: ADM IN [facility] [address] [place] [address] END OF REPORT
[2020-01-01 12:01] VITALS: BP 96/49
[2020-01-01 17:03] VITALS: BP 95/54
[2020-01-01 20:00] VITALS: BP 99/59
[2020-01-02] VITALS: BP 92/55
[2020-01-02 03:00] VITALS: BP 93/48
--- NOTE | 2020-01-02 03:07 | NUR ---
PT RESTING IN BED. EYES CLOSED. NO SIGNS OF DISTRESS. BREATHING EVEN AND UNLABORED. IV SITE LT UPPER ARM MIDLINE. DRESSING CLEAN DRY AND INTACT. NO SIGNS OF INFECTION. LUNG SOUNDS CLEAR. BOWEL SOUNDS ACTIVE. SKIN COLOR YELLOW. ABD DISTENDED. WILL CONTINUE PLAN OF CARE. CALL LIGHT IN REACH. BED LOWERED AND LOCKED. BED RAILS UPX2.
--- NOTE | 2020-01-02 04:17 | NUR ---
I have reviewed this patient and I concur with the Shift Assessment completed by the Licensed Practical Nurse today this shift.
[2020-01-02 05:28] LABS: INR 1.84 (0.85-1.17); PROTIME 21.1 SECONDS (11.6-15.0)
[2020-01-02 05:47] LABS: ALBUMIN 2.6 g/dL (3.4-5.0); ALKALINE PHOSPHATASE 336 U/L (30-120); BILIRUBIN - TOTAL 14.02 mg/dL (0.2-1.3); CALC OSMOLALITY 269 mosm/kg (275-300); CALCIUM 7.4 mg/dL (8.5-10.1); CARBON DIOXIDE 19.7 mmol/L (21.0-32.0); CHLORIDE - SERUM 105 mmol/L (98-107); CREATININE - SERUM 0.6 mg/dL (0.6-1.3); GLUCOSE 123 mg/dL (74-106); MAGNESIUM - SERUM 1.2 mg/dL (1.8-2.4); PHOSPHOROUS 1.7 mg/dL (2.5-4.9); PROTEIN - SERUM 6.4 g/dL (6.4-8.2); SODIUM 136 mmol/L (136-145); UREA NITROGEN 3 mg/dL (7-18); eGFR NON AFRICAN AMERICAN > 90 mL/min (90-120)
[2020-01-02 05:48] LABS: ALT (SGPT) 20 U/L (10-68); POTASSIUM - SERUM 4.8 mmol/L (3.5-5.1)
[2020-01-02 05:55] LABS: HEMATOCRIT 28.5 % (36.0-48.0); HEMOGLOBIN 9.4 g/dL (12-16); MCH 33.8 pg (26.0-34.0); MCV 102.5 fL (80.0-100.0); RBC 2.78 10x6/uL (4.00-5.40); RDW 22.9 % (11.5-14.5); WBC 14.4 10x3/uL (4.8-10.8)
[2020-01-02 05:59] LABS: PLATELET COUNT 86 10x3/uL (130-400)
[2020-01-02 08:00] VITALS: BP 104/52
[2020-01-02 10:14] LABS: EOSINOPHILS 3 % (0-7); LYMPHOCYTES 9 % (15-50); MONOCYTES 18 % (2-11); NEUTROPHILS 66 % (40-80); PLATELET ESTIMATE DECREASED; PLATELET MORPHOLOGY PLT CLUMPS PRESENT
[2020-01-02 10:15] LABS: ANISOCYTOSIS OCC
[2020-01-02 11:00] VITALS: BP 100/53
--- NOTE | 2020-01-02 19:00 | NUR ---
BEDSIDE REPORT RECEIVED AND CARE OF PT ASSUMED. PT LYING IN LOW MONZON'S POSITION WITH EYES CLOSED. RIGHT MIDLINE PATENT WITH NS INFUSING AT 50 ML/HR. WILL MONITOR FOR NEEDS.
--- NOTE | 2020-01-02 19:54 | NUR ---
HS MEDICATIONS GIVEN. WILL CONTINUE TO MONITOR FOR NEEDS.
[2020-01-02 20:00] VITALS: BP 95/60
--- NOTE | 2020-01-02 20:10 | NUR ---
SUPPLIES PROVIDED TO PT FOR HER TO SHOWER. ALL LINENS CHANGED. WILL CONTINUE TO MONITOR CLOSELY FOR NEEDS.
[2020-01-03] VITALS: BP 83/46
[2020-01-03 04:00] VITALS: BP 85/45
[2020-01-03 05:21] LABS: BASOPHILS 0.2 % (0-2); EOSINOPHILS 1.9 % (0-7); HEMOGLOBIN 9.3 g/dL (12-16); IMMATURE GRANULOCYTES 1.9 % (0-5); LYMPHOCYTES 13.6 % (15-50); MCH 34.1 pg (26.0-34.0); MCHC 33.2 g/dL (31.0-37.0); MCV 102.6 fL (80.0-100.0); MEAN PLATELET VOLUME 8.8 fL (7.4-10.4); MONOCYTES 12.7 % (2-11); NEUTROPHILS 69.7 % (40-80); RBC 2.73 10x6/uL (4.00-5.40); RDW 22.7 % (11.5-14.5); WBC 13.4 10x3/uL (4.8-10.8)
[2020-01-03 05:22] LABS: PLATELET COUNT 131 10x3/uL (130-400)
[2020-01-03 05:35] LABS: INR 1.83 (0.85-1.17)
[2020-01-03 05:40] LABS: ALBUMIN 2.6 g/dL (3.4-5.0); ALKALINE PHOSPHATASE 268 U/L (30-120); ALT (SGPT) 16 U/L (10-68); BILIRUBIN - TOTAL 14.09 mg/dL (0.2-1.3); CALCIUM 7.2 mg/dL (8.5-10.1); CARBON DIOXIDE 20.6 mmol/L (21.0-32.0); CHLORIDE - SERUM 104 mmol/L (98-107); GLUCOSE 95 mg/dL (74-106); MAGNESIUM - SERUM 1.2 mg/dL (1.8-2.4); PROTEIN - SERUM 6.1 g/dL (6.4-8.2); SODIUM 134 mmol/L (136-145)
[2020-01-03 05:43] LABS: CALC OSMOLALITY 263 mosm/kg (275-300); CREATININE - SERUM 0.8 mg/dL (0.6-1.3); PHOSPHOROUS 1.2 mg/dL (2.5-4.9); POTASSIUM - SERUM 3.4 mmol/L (3.5-5.1); UREA NITROGEN 2 mg/dL (7-18); eGFR NON AFRICAN AMERICAN 85 mL/min (90-120)
[2020-01-03 08:38] VITALS: BP 92/54
--- NOTE | 2020-01-03 10:08 | NUR ---
PT ALERT X 4. SKIN JAUNDICE. BREATH SOUNDS CLEAR BILAT. PICC LINE TO RIGHT UPPER ARM, PATENT, DRESSING CDI. PT REPORTING PAIN OF 3/10, WILL CONTINUE TO MONITOR. BED LOW, CALL LIGHT IN REACH. NO OTHER NEEDS AT THIS TIME.
[2020-01-03] MEDS ORDERED: XIFAXAN550 MG PO (12:14)
[2020-01-03] MEDS ORDERED: CHRONULAC30 ML PO (12:15)
[2020-01-03] MEDS ORDERED: LEVOFLOXACIN500 MG PO (12:21)
[2020-01-03 13:07] VITALS: BP 97/54
--- NOTE | 2020-01-03 14:55 | NUR ---
DISCHARGE PAPERWORK SIGNED, ALL QUESTIONS ANSWERED. MIDLINE TO RIGHT UPPER ARM DC'D. ESCORTED OUT VIA WHEELCHAIR.
--- NOTE | 2020-01-04 22:22 | MORECARE ---
CASE MANAGEMENT DISCHARGE SUMMARY PATIENT: DILIA OSULLIVAN UNIT: [id number] ADM DATE: 12/29/19 AGE: 39 : 82 SEX: F ROOM/BED: D.2224 AUTHOR: JUDD,DOC PHYSICIAN: REFERRING PHYSICIAN: SARAY DALLAS MD DATE OF SERVICE: 01/04/20 Discharge Plan Patient Name: DILIA OSULLIVAN Facility: [facility]:[place] : 1980 Planned Disposition: Anticipated Discharge Date: Discharge Date: 01/03/2020 Expected LOS: Initial Reviewer: [email or web address] Initial Review Date: 01/01/2020 Generated: 01/04/20 11:22 pm DCP- Discharge Planning Updated by [email or web address]: Inga Vegas on 01/01/20 9:[address] Patient Name: DILIA OSULLIVAN Admission Status: ER Accout number: [id number] Admission Date: 12-29-2019 : 1980 Admission Diagnosis:UNSPECIFIED ABDOMINAL PAIN Attending: FREDRICK Current LOS: 3 Anticipated DC Date: Planned Disposition: Primary Insurance: [employer] EXCHANGE Discharge Planning Comments: CM met with patient at bedside after explaining CM role and obtaining verbal consent. CM discussed availability / needs of home health, REHAB and medical equipment. PATIENT DENIES ANY DISCHARGE NEEDS. STATES HAD [facility] PRIOR TO ADMISSION BUT NOT SURE IF SHE WANTS TO RESUME [facility] AT TIME OF DC. I WILL CHECK BACK WITH HER AT DISCHARGE. [place] Leverman: Inga Vegas DCPIA - Discharge Planning Initial Assessment Updated by [email or web address]: Inga Vegas on 01/01/20 10:50 am * Is the patient Alert and Oriented? Yes * PCP AR[facility] * [facility] * Preadmission Environment Home with Family * ADLs Independent * Other Equipment WALKER, BSC * Community resources currently utilized Home Health * Please name any agencies selected above. [facility] * Additional services required to return to the preadmission environment? No * Can the patient safely return to the preadmission environment? Yes * Has this patient been hospitalized within the prior 30 days at any hospital? No Last DP export: 01/01/20 9:59 a Patient Name: DILIA OSULLIVAN Page [phone] at 2222 All edits/amendments must be made on the electronic document DICTATION DATE: 01/04/202221 BLUEPRINT TRACER: ELICIA 01/04/202221 RPT#: [id number] DC DATE:01/03/20 STATUS: DIS IN [facility] [address] [facility] [place] [address] END OF REPORT
== END 2020-01-03 14:59 | disposition home or self-care (01) | DRG 432 ==
LOC: D.ER 19:51 → D.ICU 23:37 → D.MS 23:37 → D.ICU 12-30 02:01 → D.MS 12-31 16:23
PROVIDERS: Family Medicine; Internal Medicine Pulmonary Disease; ADMIT Family Medicine; ATTEND Family Medicine
PROC: 05HB33Z Insertion of Infusion Device into Right Basilic Vein, Percutaneous Approach (ICD-10-PCS; principal; 2020-01-01)
PROC: B54MZZA Ultrasonography of Right Upper Extremity Veins, Guidance (ICD-10-PCS; 2020-01-01)
DX: K70.31 Alcoholic cirrhosis of liver with ascites (principal); G93.41 Metabolic encephalopathy; N17.9 Acute kidney failure, unspecified; N39.0 Urinary tract infection, site not specified; E87.1 Hypo-osmolality and hyponatremia; H30.90 Unspecified chorioretinal inflammation, unspecified eye; K76.6 Portal hypertension; K72.90 Hepatic failure, unspecified without coma; E87.6 Hypokalemia; D53.9 Nutritional anemia, unspecified; D69.6 Thrombocytopenia, unspecified; F12.20 Cannabis dependence, uncomplicated; F10.21 Alcohol dependence, in remission

== ENCOUNTER 2020-02-27 14:38 | Inpatient (IN) | payer MEDICAID ==
[~2020-02-27] VITALS: Ht 157.5 cm; Wt 55.5 kg
[~2020-02-27 14:38] MED LIST changes: +DIAMOX250 MG PO; +LEVOFLOXACIN500 MG PO; +PREDNISOLONE 110 ML RIGHT EYE; +XALATAN 0.0052.5 ML RIGHT EYE
--- NOTE | 2020-02-27 14:55 | NUR ---
URINE TO LAB
[2020-02-27 15:08] LABS: HEMATOCRIT 25.9 % (36.0-48.0); HEMOGLOBIN 8.7 g/dL (12-16); MCH 33.3 pg (26.0-34.0); MCHC 33.6 g/dL (31.0-37.0); MCV 99.2 fL (80.0-100.0); MEAN PLATELET VOLUME 9.1 fL (7.4-10.4); RBC 2.61 10x6/uL (4.00-5.40); RDW 17.8 % (11.5-14.5); WBC 15.1 10x3/uL (4.8-10.8)
[2020-02-27 15:15] LABS: PLATELET COUNT 181 10x3/uL (130-400)
[2020-02-27 15:21] LABS: BILIRUBIN NEGATIVE (NEGATIVE); KETONE NEGATIVE (NEGATIVE); NITRITE NEGATIVE (NEGATIVE); UROBILINOGEN NORMAL (NORMAL)
[2020-02-27 15:22] LABS: EPITHELIAL CELLS 0-5 /hpf (0-5); WHITE CELLS - URINE >50 /hpf (NEGATIVE)
[2020-02-27 15:23] LABS: BACTERIA MANY /hpf (NEGATIVE)
[2020-02-27 15:24] LABS: ANION GAP 16.2 mmol/L (8-16); CALCIUM 7.5 mg/dL (8.5-10.1); CARBON DIOXIDE 22.1 mmol/L (21.0-32.0); CREATININE - SERUM 0.9 mg/dL (0.6-1.3); POTASSIUM - SERUM 3.3 mmol/L (3.5-5.1)
[2020-02-27 15:29] LABS: ALBUMIN 2.3 g/dL (3.4-5.0); BILIRUBIN - TOTAL 5.82 mg/dL (0.2-1.3); PROTEIN - SERUM 7.1 g/dL (6.4-8.2)
[2020-02-27 16:51] LABS: EOSINOPHILS 3 % (0-7); LYMPHOCYTES 13 % (15-50); NEUTROPHILS 84 % (40-80); PLATELET ESTIMATE NORMAL
[2020-02-27 17:54] LABS: INR 1.48 (0.85-1.17); PROTIME 17.8 SECONDS (11.6-15.0)
[2020-02-27 17:55] LABS: APTT 37.9 SECONDS (22.8-39.4)
[2020-02-27 19:21] VITALS: BP 111/61
[2020-02-27 19:38] LABS: UDS - AMPHET NEGATIVE QUAL (NEGATIVE); UDS - BARB NEGATIVE QUAL (NEGATIVE); UDS - BENZO NEGATIVE QUAL (NEGATIVE); UDS - COCAINE NEGATIVE QUAL (NEGATIVE); UDS - OPIATE POSITIVE QUAL (NEGATIVE); UDS - PCP NEGATIVE QUAL (NEGATIVE); UDS - THC NEGATIVE QUAL (NEGATIVE)
--- NOTE | 2020-02-27 20:00 | NUR ---
PATIENT ARRIVED ON FLOOR. NO S/S OF ACUTE DISTRESS. NO C/O AT THIS TIME. PATIENT HAS LEFT FOOT SPLINTED. CALL LIGHT WITHIN REACH. WILL CONTINUE TO MONITOR.
[2020-02-27 23:41] VITALS: BP 119/46; BMI 22.4
[2020-02-28 07:01] LABS: HEMATOCRIT 23.7 % (36.0-48.0); HEMOGLOBIN 8.1 g/dL (12-16); MCH 33.5 pg (26.0-34.0); MCHC 34.2 g/dL (31.0-37.0); MCV 97.9 fL (80.0-100.0); MEAN PLATELET VOLUME 8.6 fL (7.4-10.4); PLATELET COUNT 146 10x3/uL (130-400); RBC 2.42 10x6/uL (4.00-5.40); RDW 17.7 % (11.5-14.5)
[2020-02-28 07:10] LABS: WBC 11.3 10x3/uL (4.8-10.8)
[2020-02-28 07:59] LABS: LYMPHOCYTES 18 % (15-50); MONOCYTES 6 % (2-11); NEUTROPHILS 76 % (40-80); PLATELET ESTIMATE NORMAL
[2020-02-28 08:23] LABS: ALBUMIN 2.2 g/dL (3.4-5.0); ALKALINE PHOSPHATASE 520 U/L (30-120); ALT (SGPT) 25 U/L (10-68); BILIRUBIN - TOTAL 5.78 mg/dL (0.2-1.3); CALC OSMOLALITY 268 mosm/kg (275-300); CHLORIDE - SERUM 100 mmol/L (98-107); CREATININE - SERUM 0.7 mg/dL (0.6-1.3); GLUCOSE 74 mg/dL (74-106); PROTEIN - SERUM 6.6 g/dL (6.4-8.2); SODIUM 136 mmol/L (136-145); UREA NITROGEN 6 mg/dL (7-18); eGFR NON AFRICAN AMERICAN > 90 mL/min (90-120)
[2020-02-28 09:57] VITALS: BP 105/67
[2020-02-28 14:09] VITALS: BP 130/60
[2020-02-28 17:04] VITALS: BP 140/64
--- NOTE | 2020-02-28 19:00 | NUR ---
PATIENT ALERT AND ORIENTED WHEN ENTERING THE ROOM. SHE IS WATCHING TV. CURRENTLY WEARING TELE MONITOR AND PIV TO THE LEFT AC. LEFT LOWER LEG TOES WARM AND PATIENT WIGGLES ON COMMAND. SPLINT AND DRESSING TO LLE IN TACT. ASSESSMENT COMPLETE. REQUESTS PAIN MEDICINE, PROVIDED PATIENT WITH TIME NEXT DOSE AVAILABLE. DENIES FURTHER NEEDS AT THIS TIME. CALL LIGHT REMAINS CLOSE. CPOC.
--- NOTE | 2020-02-28 20:40 | NUR ---
PROVIDED HS MEDICATIONS AND PRN MORPHINE PER ORDER FOR PAIN RATING OF 8/10 TO THE LLE. DENIES FURTHER NEEDS AT THIS TIME. CALL LIGHT REMAINS CLOSE TO PATIENT. CPOC.
[2020-02-28 21:00] VITALS: BP 121/47
--- NOTE | 2020-02-29 00:59 | NUR ---
RESTING WITH NO SIGNS OR SYMPTOMS OF DISTRESS AT THIS TIME. RESPIRATIONS EVEN AND UNLABORED. CALL LIGHT REMAINS CLOSE. CPOC.
--- NOTE | 2020-02-29 08:24 | NUR ---
PT VERY DISHEVELED. DIRT NOTED ON LEFT FOOT. CLEANSED PRIOR TO PREP. CHLORAPREP X2.
[2020-02-29 12:07] LABS: BASOPHILS 0.2 % (0-2); HEMATOCRIT 21.8 % (36.0-48.0); IMMATURE GRANULOCYTES 0.3 % (0-5); LYMPHOCYTES 3.3 % (15-50); MCH 33.3 pg (26.0-34.0); MEAN PLATELET VOLUME 8.5 fL (7.4-10.4); MONOCYTES 2.5 % (2-11); NEUTROPHILS 92.7 % (40-80); RBC 2.16 10x6/uL (4.00-5.40); RDW 18.1 % (11.5-14.5); WBC 11.6 10x3/uL (4.8-10.8)
[2020-02-29 12:09] LABS: HEMOGLOBIN 7.2 g/dL (12-16); MCV 100.9 fL (80.0-100.0); PLATELET COUNT 94 10x3/uL (130-400)
[2020-02-29 12:21] LABS: ANION GAP 12.5 mmol/L (8-16); BILIRUBIN - DIRECT 5.58 mg/dL (0.00-0.30); BILIRUBIN - INDIRECT 1.06 mg/dL (0.00-1.00); BILIRUBIN - TOTAL 6.64 mg/dL (0.2-1.3); CARBON DIOXIDE 24.4 mmol/L (21.0-32.0); PROTEIN - SERUM 6.4 g/dL (6.4-8.2)
[2020-02-29 12:24] LABS: CREATININE - SERUM 0.9 mg/dL (0.6-1.3)
[2020-02-29 12:25] LABS: POTASSIUM - SERUM 2.9 mmol/L (3.5-5.1)
[2020-02-29 13:50] LABS: PLATELET ESTIMATE DECREASED
--- NOTE | 2020-02-29 13:55 | NUR ---
1ST UNIT OF PRBC STARTED. PT DROWSY FROM PAIN MEDICATION. VSS. WILL CONTINUE TO MONITOR. BETSEY AND PREVENA TO LEFT ANKLE, PT REPORTING PAIN OF 8/10. BED LOW, CALL LIGHT IN REACH. NO OTHER NEEDS AT THIS TIME.
--- NOTE | 2020-02-29 16:25 | NUR ---
2ND UNIT OF PRBC'S STARTED. VSS. WILL MONITOR.
--- NOTE | 2020-02-29 18:02 | OP ---
PATIENT NAME: DILIA ERICKSON MEDICAL RECORD: [id number] :[birth year] LOCATION:[facility] ADMISSION DATE:02/27/20 SURGEON: RALPH CASAREZ DO DATE OF OPERATION: 02/29/2020 PROCEDURE PERFORMED: Left ankle open reduction internal fixation. PREOPERATIVE DIAGNOSIS: Left displaced ankle fracture of the distal fibula. POSTOPERATIVE DIAGNOSIS: Left displaced ankle fracture of the distal fibula. INDICATIONS: Ms. Erickson is a 39-year-old alcoholic, who has cirrhosis of the liver, who presented to the ER after fracturing her left ankle about a week ago. She said she had pain and she had a displaced distal fibula fracture. I talked to her extensively about the risks and benefits of the procedure including infection, bleeding, damage to nerves and vessels, need for further surgery, continued pain, blood clots, and even and she signed the consent as well as need for further surgery, failure of hardware, malunion, nonunion. She was aware of all that before she signed the consent. SURGEON: Ralph Casarez DO DESCRIPTION OF PROCEDURE: The patient was taken to the operative suite, laid in the supine position, given general anesthetic and intubated. She was given a gram of Ancef within an hour of starting the surgery. The left lower extremity was then prepped and draped in sterile fashion. A timeout was performed, everyone was in agreement with the correct side, site, patient and procedure. I then began by exsanguinating the left lower extremity, tourniquet was inflated to 350 mmHg, it was up for 29 minutes. I then made an incision over the lateral aspect of the ankle. Careful dissection down to the fibula, cleared off the fracture site and reduced it, put a Brittany plate on and pinned into place. Once it was in good position on the distal fibula, I started by locking distally, put 4 distal locking screws then and then 1 cortical screw and then a locking screw most proximally and then another cortical screw in the fibular shaft. I then stressed the ankle joint and widened slightly medially and then used a clamp to clamp it together and put a ZipTight across and cinched it together. This closed up the medial clear space nicely. I then confirmed good position on AP and lateral x-rays as well as mortise and then the tourniquet was let down and bleeding was coagulated with the Bovie. She was oozing a little bit and it was not surprising as she has cirrhosis of the liver and her clotting, she is a 1.48 just under the acceptable 1.5 INR to have surgery. Due to that fact, I finally put appropriate VAC on her, Prevena plus on the incision. We then irrigated the site and closed it with 2-0 Vicryl in inverted interrupted fashion, plus put a ZipLine on. I then placed the Prevena plus VAC on and secured it into place with a plastic covering and it held suction very well. I then dressed the heel with ABD and cast padding Kerlix and then cast padding layer and put a 4 x 30 posterior splint on and secured it with 6-inch Gianni wrap. She was then awakened and taken to recovery in stable condition. BLOOD LOSS: Minimal. COMPLICATIONS: None. TRANSINT:[id number] Voice Confirmation ID: [id number] DOCUMENT ID: [id number] OPERATIVE REPORT [id number] DILIA ERICKSON,RALPH Eduardo DO at 1802 CC: [id number] DICTATION DATE: 02/29/20918 WEB CONTENT EDITOR: 02/29/20 1733 ADM IN [facility] [address] [place] [address]
--- NOTE | 2020-02-29 18:51 | NUR ---
INFUSED 2 UNITS OF PRBC TODAY. PT TOLERATED WELL. VSS. NO OTHER NEEDS AT THIS TIME.
[2020-02-29 20:00] VITALS: BP 105/61
[2020-02-29 20:05] VITALS: BP 105/61
[2020-03-01] VITALS: BP 109/67
[2020-03-01 04:00] VITALS: BP 110/70
[2020-03-01 04:58] LABS: BASOPHILS 0.1 % (0-2); EOSINOPHILS 0 % (0-7); IMMATURE GRANULOCYTES 0.4 % (0-5); LYMPHOCYTES 3.2 % (15-50); MCH 32.3 pg (26.0-34.0); MCHC 33.2 g/dL (31.0-37.0); MEAN PLATELET VOLUME 9.3 fL (7.4-10.4); MONOCYTES 5.5 % (2-11); NEUTROPHILS 90.8 % (40-80); PLATELET COUNT 107 10x3/uL (130-400)
[2020-03-01 05:13] LABS: HEMATOCRIT 28.3 % (36.0-48.0); HEMOGLOBIN 9.4 g/dL (12-16); MCV 97.3 fL (80.0-100.0); RBC 2.91 10x6/uL (4.00-5.40); WBC 15.2 10x3/uL (4.8-10.8)
[2020-03-01 05:29] LABS: ALBUMIN 2.1 g/dL (3.4-5.0); ANION GAP 15.3 mmol/L (8-16); BILIRUBIN - TOTAL 5.75 mg/dL (0.2-1.3); CALCIUM 7.2 mg/dL (8.5-10.1); CARBON DIOXIDE 20.6 mmol/L (21.0-32.0); PROTEIN - SERUM 6.9 g/dL (6.4-8.2)
[2020-03-01 05:35] LABS: CREATININE - SERUM 1.2 mg/dL (0.6-1.3); POTASSIUM - SERUM 3.9 mmol/L (3.5-5.1)
--- NOTE | 2020-03-01 06:50 | NUR ---
A&O RESTING IN BED WITH EYES OPEN. NO C/O PAIN. NO S/S OF ACUTE DISTRESS NOTED. UP WITH PHYSICAL THERAPY. POD #1 ORIF LEFT ANKLE, DRESSING C/D/I. SCD TO LLE. PROVENA WOUND VAC TO LEFT LEG. IV TO RIGHT FOREARM, 1/2 NS INFUSING @ 30ML/HR. SITE PATENT WITHOUT REDNESS OR SWELLING. DENIES ANY NEEDS AT THIS TIME. CALL LIGHT IN REACH. WILL CONTINUE TO MONITOR.
[2020-03-01 08:39] VITALS: BP 108/63
[2020-03-01 12:29] VITALS: BP 105/45
[2020-03-01 17:15] VITALS: BP 106/57
--- NOTE | 2020-03-01 18:28 | NUR ---
RESTING IN BED EATING SUPPER. NO C/O PAIN. NO S/S OF ACUTE DISTRESS NOTED. CALL LIGHT IN REACH. WILL CONTINUE TO MONITOR.
--- NOTE | 2020-03-01 19:00 | NUR ---
PATIENT UP IN BED. ATTEMPTING TO TAKE TELE OFF. REAPPLIED. PATIENT ALERT AND ORIENTED BUT SOME CONFUSION NOTED. REQUESTS BED LYN. ASSISTED WITH PATIENT. DENIES FURTHER NEEDS AT THIS TIME. CPOC.
[2020-03-01 20:00] VITALS: BP 112/58
--- NOTE | 2020-03-01 20:00 | NUR ---
NEURO CHECKS COMPLETED. PATIENT REMAINS WITH SOME CONFUSION. DENIES PAIN AT THIS TIME. ELEVATED LLE. ASSSESSMENT PERFORMED. DENIES FURTHER NEEDS. CPOC.
--- NOTE | 2020-03-01 21:00 | NUR ---
REAPPLIED PATIENT TELE MONITOR. PATIENT INCONTINENT OF BOWEL. ASSISTED WITH BED CHANGE. DENIES FURTHER NEEDS. CPOC.
--- NOTE | 2020-03-01 22:30 | NUR ---
PATIENT RESTING WITH NO SIGNS OR SYMPTOMS OF DISTRESS. PATIENT ALERT AND ORIENTED AT THIS TIME. CPOC.
--- NOTE | 2020-03-01 23:30 | NUR ---
PATIENT PULLED TELE MONITOR AGAIN. ASSISTED REAPPLYING. ASSISTED PATIENT WITH BOWEL MOVEMENT. DENIES FURTHER NEEDS. CPOC.
--- NOTE | 2020-03-02 01:15 | NUR ---
COMPLAINING OF PAIN. ADMINISTERED PAIN MEDICINE. CPOC.
--- NOTE | 2020-03-02 02:26 | NUR ---
PATIENT REMAINS CONFUSED. PULLED TELE OFF AND HAD ANOTHER BM. CLEANED PATIENT. RETURNED TO BED SAFELY. CPOC.
--- NOTE | 2020-03-02 02:37 | NUR ---
CALL TO SERVICE ORDER CLERK CONCERNING PATIENT KEEPING TELE MONITOR ON. SPOKE WITH HS ABOUT ORDER THAT DR. HENSLEY PUT IN STATING PATIENT IS TO KEEP TELE MONITOR ON OR TRANSFER TO ICU FOR MONITORING. HS STATES BED IS CURRENTLY UNAVAILABLE BUT MAY BE AVAILABLE SOON. SHE STATED THAT SHE WOULD LOOK OVER TO THE ORDER AND GET BACK TO THIS NURSE.
--- NOTE | 2020-03-02 03:34 | NUR ---
PATIENT INCONTINENT OF BOWEL AGAIN AND PULLED OFF TELE PADS. CLEANED UP AND REAPPLIED. TEGADERMS PLACED OF TELE PADS TO HELP SECURE PLACEMENT AND AVOID COMING OFF EASILY.
[2020-03-02 04:30] VITALS: BP 99/49
--- NOTE | 2020-03-02 06:27 | NUR ---
PATIENT REMAINS CONFUSED. SLIGHT WEAKNESS REMAINS IN UPPER AND LOWER EXTREMETIES. PATIENT INCONTINENT OF BOWEL AGAIN. KICKED WOUND VAC OFF BED, CHECKED AND CURRENTLY SUCTIONING APPROPRIATELY. PATIENT FOLLOWS COMMANDS, ANSWERS QUESTIONS, BUT REMAINS CONFUSED.
[2020-03-02 06:34] LABS: BASOPHILS 0.1 % (0-2); EOSINOPHILS 0.4 % (0-7); HEMATOCRIT 27.7 % (36.0-48.0); HEMOGLOBIN 9.2 g/dL (12-16); IMMATURE GRANULOCYTES 0.7 % (0-5); LYMPHOCYTES 10.4 % (15-50); MCH 32.5 pg (26.0-34.0); MCHC 33.2 g/dL (31.0-37.0); MCV 97.9 fL (80.0-100.0); MEAN PLATELET VOLUME 9.4 fL (7.4-10.4); MONOCYTES 8.8 % (2-11); NEUTROPHILS 79.6 % (40-80); PLATELET COUNT 105 10x3/uL (130-400); RBC 2.83 10x6/uL (4.00-5.40); RDW 19.7 % (11.5-14.5); WBC 17.9 10x3/uL (4.8-10.8)
--- NOTE | 2020-03-02 06:35 | NUR ---
CHECKED WOUND VAC AGAIN. APPEARS TO BE LEAKING. REINFORCED AND SECURED. REPORTED PROBLEM TO SOFTWARE LICENSING SPECIALISTPATRICK THAT WE MAY NEED A NEW MACHINE.
--- NOTE | 2020-03-02 07:08 | NUR ---
PT IS RESTING IN BED WITH EYES CLOSED. RESPIRATIONS ARE EVEN AND UNLABORED. PT IS AROUSED WITH VERBAL STIMULATION. SPEECH IS SLURRED AND PT IS UNABLE TO ANSWER QUESTIONS APPROPRIATELY. PT IS ORIENTED TO SELF ONLY. REORIENTATED TO SITUATION/TIME/PLACE WITHOUT SUCCESS. PT STATES "I JUST WANT TO SMOKE A CIGARETTE". PT EDUCATED ON HOSPITAL POLICY AND SMOKING. BS ARE ACTIVE X 4. PT IS ONCONTINENT OF BOWEL. ABDOMEN IS DISTENDED AND FIRM. PT DENIES PRESENCE OF PAIN. BED IS IN THE LOWEST POSITION. CALL LIGHT AND BEDSIDE TABLE ARE WITHIN REACH. ALL FALL PRECAUTIONS ARE IN PLACE. PT DENIES FURTHER NEEDS. WILL CONT TO MONITOR.
[2020-03-02 07:24] LABS: INR 1.74 (0.85-1.17); PROTIME 20.1 SECONDS (11.6-15.0)
[2020-03-02 07:26] LABS: ALBUMIN 2.1 g/dL (3.4-5.0); ANION GAP 15.9 mmol/L (8-16); BILIRUBIN - TOTAL 5.05 mg/dL (0.2-1.3); CALCIUM 7.2 mg/dL (8.5-10.1); CARBON DIOXIDE 18.9 mmol/L (21.0-32.0); POTASSIUM - SERUM 3.8 mmol/L (3.5-5.1); PROTEIN - SERUM 6.4 g/dL (6.4-8.2)
[2020-03-02 08:00] VITALS: BP 105/43
[2020-03-02 12:00] VITALS: BP 117/60
[2020-03-02 16:00] VITALS: BP 105/72
--- NOTE | 2020-03-02 16:19 | NUR ---
PROVENA WOUND VAC EXCHANGED FOR WORKING SYSTEM. BETSEY BANDAGE CHANGED. PT WITH EPISODE OF VOMITING. PT ASSISTED TO A SITTING POSITION TO RIGHT SIDE AND EMESIS BAG GIVEN. PT WITH AGITATION WITH ASSISTANCE AND IS NOT AGREEABLE TO ALLOWING THIS NURSE TO CHANGE ABSORBENT PAD AT THIS TIME. ALL FALL PRECAUTIONS IN PLACE. PT IS IN A SITTIN POSITION. BED IS IN THE LOWEST POSITION. CALL LIGHT AND BEDSIDE TABLE ARE WITHIN REACH. SIDE RAILS X 2. PT DENIES FURTHER NEEDS. WILL CONT TO MONITOR.
--- NOTE | 2020-03-02 19:30 | NUR ---
CONFUSED. TRYING TO GET OOB. BED ALARM ACIVATING. INCONT OF B/B. COMPLETE LINEN CHANGE PERFORMED AT THIS TIME. O2 @ 4LHFC. TELEMETRY SHOWS ST WITH RATE OF 104. ASCITES NOTED. SKIN IS JAUNDICED. WOUND VAC NOTED TO LLE WITH BETSEY DRSG IN PLACE. BRUISES NOTED TO BUE AND RLE. VERBALLY DISRUPTIVE. NS @ 30 MLHR INFUSING IN RT FOREARM. RESP LABORED. NONPROD COUGH NOTED. SR ELEVATED X2. CL IN REACH. SPEECH IS GARBLED AT TIMES. LETHARGIC.
[2020-03-02 20:00] VITALS: BP 116/57
--- NOTE | 2020-03-03 02:51 | NUR ---
AWAKE. DRINKING APPLE JUICE. HAS HAD 3 DIARRHEA STOOLS SO FAR THIS SHIFT. SR ELEVATED X2. CL IN REACH. DYLON ALARM ON
[2020-03-03 04:00] VITALS: BP 105/52
[2020-03-03 06:12] LABS: HEMATOCRIT 31.7 % (36.0-48.0); HEMOGLOBIN 10.2 g/dL (12-16); MCH 32.3 pg (26.0-34.0); MCHC 32.2 g/dL (31.0-37.0); MEAN PLATELET VOLUME 9.7 fL (7.4-10.4); RBC 3.16 10x6/uL (4.00-5.40); RDW 20.6 % (11.5-14.5)
[2020-03-03 06:37] LABS: ALBUMIN 2.1 g/dL (3.4-5.0); ANION GAP 11.2 mmol/L (8-16); BILIRUBIN - TOTAL 5.92 mg/dL (0.2-1.3); CALCIUM 7.7 mg/dL (8.5-10.1); CARBON DIOXIDE 22.3 mmol/L (21.0-32.0); CREATININE - SERUM 0.9 mg/dL (0.6-1.3); POTASSIUM - SERUM 3.5 mmol/L (3.5-5.1); PROTEIN - SERUM 6.5 g/dL (6.4-8.2)
[2020-03-03 06:41] LABS: MCV 100.3 fL (80.0-100.0)
[2020-03-03 06:42] LABS: PLATELET COUNT 82 10x3/uL (130-400)
--- NOTE | 2020-03-03 06:43 | NUR ---
PADS CHECKED AND PT IS CLEAN AND DRY AT THIS TIME. RESTING WITH EYES CLOSED. RESP NONLABORED. NO DISTRESS. DYLON ON. CL IN REACH.
[2020-03-03 06:58] LABS: INR 1.93 (0.85-1.17); PROTIME 21.8 SECONDS (11.6-15.0)
--- NOTE | 2020-03-03 07:30 | NUR ---
PT RESTING IN BED WITH EYES CLOSED. RESP EVEN AND UNLABORED. O2 @ 4L HIFLO IN PLACE. AWAKENS UPON NAME CALLED. DENIES PAIN AT THIS TIME. IV TO RIGHT FOREARM WITH NS @ 30ML/HR INFUSING VIA PUMP. SITE WITHOUT REDNESS OR EDEMA. DRESSING C/D/I TO LEFT LOWER LEG. DENIES NEEDS AT THIS TIME. CL WITHIN REACH. ENCOURAGED TO CALL WITH NEEDS.
[2020-03-03 08:46] VITALS: BP 99/50
[2020-03-03 12:17] VITALS: BP 99/51
[2020-03-03 14:24] LABS: EOSINOPHILS 4 % (0-7); LYMPHOCYTES 14 % (15-50); MONOCYTES 9 % (2-11); NEUTROPHILS 73 % (40-80); PLATELET ESTIMATE DECREASED; ROULEAUX OCC; SMUDGE CELLS OCC
[2020-03-03 16:53] VITALS: BP 106/61
[2020-03-03 20:00] VITALS: BP 95/54
[2020-03-04 04:00] VITALS: BP 94/51
[2020-03-04 07:06] LABS: BASOPHILS 0.1 % (0-2); EOSINOPHILS 2.8 % (0-7); HEMATOCRIT 28.3 % (36.0-48.0); HEMOGLOBIN 9.2 g/dL (12-16); IMMATURE GRANULOCYTES 0.8 % (0-5); LYMPHOCYTES 13.7 % (15-50); MCH 32.7 pg (26.0-34.0); MCHC 32.5 g/dL (31.0-37.0); MCV 100.7 fL (80.0-100.0); MEAN PLATELET VOLUME 9.5 fL (7.4-10.4); MONOCYTES 11.2 % (2-11); NEUTROPHILS 71.4 % (40-80); PLATELET COUNT 79 10x3/uL (130-400); RBC 2.81 10x6/uL (4.00-5.40); RDW 21.2 % (11.5-14.5); WBC 12.5 10x3/uL (4.8-10.8)
[2020-03-04 07:14] LABS: ALBUMIN 1.7 g/dL (3.4-5.0); ANION GAP 15.2 mmol/L (8-16); BILIRUBIN - TOTAL 3.35 mg/dL (0.2-1.3); CARBON DIOXIDE 18.4 mmol/L (21.0-32.0); CREATININE - SERUM 0.9 mg/dL (0.6-1.3); POTASSIUM - SERUM 3.6 mmol/L (3.5-5.1); PROTEIN - SERUM 5.6 g/dL (6.4-8.2)
[2020-03-04 07:32] LABS: CALCIUM 6.9 mg/dL (8.5-10.1)
--- NOTE | 2020-03-04 07:45 | NUR ---
PT SITTING UP IN BED. RESP UNLABORED. O2@4L HI DAT IN PLACE. PT REPORTS PAIN 4/10 AT THIS TIME. SPEECH IS SOMEWHAT SLURRED AND GARBLED AT TIMES. IV TO RIGHT FOREARM WITH NS @ 30ML/HR INFUSING VIA PUMP. SITE WITHOUT REDNESS OR EDEMA. DRESSING WITH PREVENA IN PLACE TO LEFT LOWER EXTREMITY INTACT, C/D/I. DENIES FURTHER NEEDS AT THIS TIME. CL WITHIN REACH. ENCOURAGED TO CALL WITH NEEDS. CONTINUE POC
[2020-03-04 08:35] LABS: INR 1.77 (0.85-1.17); PROTIME 20.4 SECONDS (11.6-15.0)
[2020-03-04 09:48] VITALS: BP 99/53
[2020-03-04 12:44] VITALS: Ht 157.5 cm; Wt 55.5 kg
[2020-03-04 12:58] VITALS: BP 111/57
[2020-03-04 17:23] VITALS: BP 115/61
[2020-03-04 20:00] VITALS: BP 108/63
[2020-03-05] VITALS: BP 106/65
[2020-03-05 04:00] VITALS: BP 106/58
[2020-03-05 04:41] LABS: BASOPHILS 0.1 % (0-2); EOSINOPHILS 2.9 % (0-7); HEMATOCRIT 31.5 % (36.0-48.0); IMMATURE GRANULOCYTES 0.9 % (0-5); LYMPHOCYTES 14.9 % (15-50); MCH 31.8 pg (26.0-34.0); MCHC 31.7 g/dL (31.0-37.0); MCV 100.3 fL (80.0-100.0); MEAN PLATELET VOLUME 9.9 fL (7.4-10.4); MONOCYTES 11.8 % (2-11); NEUTROPHILS 69.4 % (40-80); PLATELET COUNT 78 10x3/uL (130-400); RBC 3.14 10x6/uL (4.00-5.40); RDW 21.5 % (11.5-14.5); WBC 11.9 10x3/uL (4.8-10.8)
[2020-03-05 04:53] LABS: PLATELET ESTIMATE DECREASED
[2020-03-05 04:58] LABS: INR 1.71 (0.85-1.17); PROTIME 19.9 SECONDS (11.6-15.0)
[2020-03-05 05:11] LABS: ALBUMIN 1.7 g/dL (3.4-5.0); ANION GAP 15.1 mmol/L (8-16); BILIRUBIN - TOTAL 3.36 mg/dL (0.2-1.3); CALCIUM 7.1 mg/dL (8.5-10.1); CARBON DIOXIDE 18.8 mmol/L (21.0-32.0); CREATININE - SERUM 0.9 mg/dL (0.6-1.3); POTASSIUM - SERUM 3.9 mmol/L (3.5-5.1); PROTEIN - SERUM 5.8 g/dL (6.4-8.2)
--- NOTE | 2020-03-05 06:55 | NUR ---
A&O SITTING UP IN BED. C/O PAIN, WAS GIVEN OXY 5 AT 0600. NO S/S OF ACUTE DISTRESS NOTED. REFUSING TO WEAR O2 THIS AM. REFUSING TELEMETRY, THIS NURSE EXPLAINED TO THE PATIENT THE IMPORTANCE OF THE MONITOR AND THAT SHE NEEDS TO WEAR IT. PATIENT AGREED TO ALLOW STAFF TO PUT MONITOR BACK ON. POD #6 ORIF OF RIGHT ANKLE. ABDOMEN DISTENDED. IV TO RIGHT FOREARM, NS INFUSING @ 30ML/HR. SITE PATENT WITHOUT REDNESS OR SWELLING. DENIES ANY NEEDS AT THIS TIME. CALL LIGHT IN REACH. WILL CONTINUE TO MONITOR.
[2020-03-05 09:17] VITALS: BP 100/52
--- NOTE | 2020-03-05 10:36 | MORECARE ---
CASE MANAGEMENT DISCHARGE SUMMARY PATIENT: DILIA OSULLIVAN UNIT: [id number] ADM DATE: 02/27/20 AGE: 39 : 82 SEX: F ROOM/BED: D.2209 AUTHOR: CRIS WHALEY PHYSICIAN: REFERRING PHYSICIAN: ALEJANDRO WILKINSON DO DATE OF SERVICE: 03/05/20 Discharge Plan Patient Name: DILIA OSULLIVAN Facility: [facility]:[place] : 1980 Planned Disposition: Home with Home Health Anticipated Discharge Date: Discharge Date: Expected LOS: Initial Reviewer: [email or web address] Initial Review Date: 02/27/2020 Generated: 03/05/20 11:35 am DCPIA - Discharge Planning Initial Assessment Updated by [email or web address]: Marcelle Ruiz on 03/05/20 10:33 am * Is the patient Alert and Oriented? Yes * How many steps to enter\exit or inside your home? * PCP DR ARZOLA * [facility] * Preadmission Environment Home with Family * ADLs Independent * Equipment Bedside Commode Rolling Walker * List name and contact numbers for known caregivers / representatives who currently or will assist patient after discharge: JERE FERRARO BOYFRIEND [phone] * Verbal permission to speak to the caregivers and representatives has been obtained from the patient. N/A * Community resources currently utilized Home Health * Please name any agencies selected above. [facility] * Additional services required to return to the preadmission environment? No * Can the patient safely return to the preadmission environment? Yes * Has this patient been hospitalized within the prior 30 days at any hospital? Yes Patient Name: DILIA OSULLIVAN Page [phone] at 1036 All edits/amendments must be made on the electronic document DICTATION DATE: 03/05/20 1035 METER ATTENDANT: ELICIA 03/05/20 1035 RPT#: [id number] DC DATE: STATUS: ADM IN [facility] [address] [place] [address] END OF REPORT
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
[2020-03-05 13:11] VITALS: BP 108/68
--- NOTE | 2020-03-05 14:04 | NUR ---
PATIENT AT BEDSIDE SPEAKING TO HOME HEALTH [facility]UI[facility]AMER. DENIES PAIN OR NEEDS.
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
[2020-03-05 17:11] VITALS: BP 96/53
--- NOTE | 2020-03-05 18:19 | NUR ---
RESTING IN BED WITH EYES CLOSED. RESPIRATIONS EVEN AND UNLABORED. NO S/S OF ACUTE DISTRESS NOTED. CALL LIGHT IN REACH. DYLON ALARM ON. WILL CONTINUE TO MONITOR.
[2020-03-05 20:00] VITALS: BP 94/51
--- NOTE | 2020-03-06 00:23 | NUR ---
I have reviewed this patient and I concur with the Shift Assessment completed by the Licensed Practical Nurse today this shift.
[2020-03-06 04:00] VITALS: BP 104/57
[2020-03-06 06:19] LABS: BASOPHILS 0.3 % (0-2); EOSINOPHILS 3.5 % (0-7); HEMATOCRIT 30.8 % (36.0-48.0); HEMOGLOBIN 9.5 g/dL (12-16); IMMATURE GRANULOCYTES 1.3 % (0-5); LYMPHOCYTES 14.7 % (15-50); MCH 31.9 pg (26.0-34.0); MCHC 30.8 g/dL (31.0-37.0); MONOCYTES 14.7 % (2-11); NEUTROPHILS 65.5 % (40-80); RBC 2.98 10x6/uL (4.00-5.40); RDW 21.8 % (11.5-14.5); WBC 11.5 10x3/uL (4.8-10.8)
[2020-03-06 06:28] LABS: INR 1.65 (0.85-1.17); PROTIME 19.3 SECONDS (11.6-15.0)
[2020-03-06 06:37] LABS: MCV 103.4 fL (80.0-100.0)
[2020-03-06 06:43] LABS: PLATELET COUNT 95 10x3/uL (130-400)
[2020-03-06 07:34] LABS: PLATELET ESTIMATE DECREASED
[2020-03-06 09:30] VITALS: BP 103/61
[2020-03-06 09:59] LABS: ALBUMIN 1.7 g/dL (3.4-5.0); ALKALINE PHOSPHATASE 310 U/L (30-120); ALT (SGPT) 16 U/L (10-68); BILIRUBIN - TOTAL 3.44 mg/dL (0.2-1.3); CARBON DIOXIDE 17.7 mmol/L (21.0-32.0); CHLORIDE - SERUM 112 mmol/L (98-107); GLUCOSE 85 mg/dL (74-106); PROTEIN - SERUM 5.3 g/dL (6.4-8.2); SODIUM 140 mmol/L (136-145)
[2020-03-06 10:00] LABS: CALC OSMOLALITY 275 mosm/kg (275-300); CREATININE - SERUM 0.6 mg/dL (0.6-1.3); POTASSIUM - SERUM 5.2 mmol/L (3.5-5.1); UREA NITROGEN 7 mg/dL (7-18); eGFR NON AFRICAN AMERICAN > 90 mL/min (90-120)
[2020-03-06] MEDS ORDERED: K-DUR20 MEQ PO (10:03)
[2020-03-06] MEDS ORDERED: CHRONULAC30 ML PO (10:03)
[2020-03-06 10:04] LABS: CALCIUM 6.7 mg/dL (8.5-10.1)
[2020-03-06] MEDS ORDERED: TESSALON PERLE100 MG PO (10:04)
[2020-03-06] MEDS ORDERED: FLORAJEN3 CAPS460 MG PO (10:04)
[2020-03-06] MEDS ORDERED: MUCINEX600 MG PO (10:04)
[2020-03-06] MEDS ORDERED: LEVOFLOXACIN500 MG PO (10:05)
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
--- NOTE | 2020-03-06 10:44 | NUR ---
I have reviewed this patient and I concur with the Shift Assessment completed by the Licensed Practical Nurse today this shift.
--- NOTE | 2020-03-06 13:13 | NUR ---
DISCHARGED PATIENT HOME WITH FAMILY ON HOSPICE VIA WHEELCHAIR. DISCONTINUED IV, CATHETER TIP INTACT. WENT OVER DISCHARGE INSTRUCTIONS WITH PATIENT, VERBALIZED UNDERSTANDING. DENIES ANYTHING FURHTER.
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
[2020-03-09 03:07] LABS: IMMUNOGLOBULIN E 228 IU/mL (6-495)
== END 2020-03-06 13:18 | disposition home health service (06) | DRG 492 ==
LOC: D.ER 14:38 → D.MS 16:14
PROVIDERS: Family Medicine; Family Medicine Adult Medicine; Internal Medicine Pulmonary Disease; Orthopaedic Surgery; ADMIT Family Medicine; ATTEND Family Medicine
PROC: 0QSK04Z Reposition Left Fibula with Internal Fixation Device, Open Approach (ICD-10-PCS; principal; 2020-02-29 08:30)
DX: S82.832A Other fracture of upper and lower end of left fibula, initial encounter for closed fracture (principal); G93.41 Metabolic encephalopathy; J18.9 Pneumonia, unspecified organism; N39.0 Urinary tract infection, site not specified; E72.20 Disorder of urea cycle metabolism, unspecified; E87.1 Hypo-osmolality and hyponatremia; F17.203 Nicotine dependence unspecified, with withdrawal; J98.11 Atelectasis; K70.31 Alcoholic cirrhosis of liver with ascites; X58.XXXA Exposure to other specified factors, initial encounter; K72.90 Hepatic failure, unspecified without coma; E87.6 Hypokalemia; D64.9 Anemia, unspecified; J44.9 Chronic obstructive pulmonary disease, unspecified; R04.0 Epistaxis; Z91.19 Patient's noncompliance with other medical treatment and regimen